=== PATIENT | male | born 1965 | race Caucasian/White ===

== ENCOUNTER 2020-07-29 09:51 | Inpatient (IN) | payer MEDICAID, SELFPAY ==
[2020-07-29] VITALS (11 sets, daily range): BP systolic 96–125; BP diastolic 57–90; PULSE 100–125; RESP 18–24; TEMP 36.4–37; O2SAT 61–118; BMI 24.9
--- NOTE | 2020-07-29 09:54 | XR_ITS ---
WS: [id number] Exam: XR chest 1V portable [id number] Date/Time of Exam: 07/29/2020 9:54 AM Reason For Exam: dyspnea/cough Comparison 02/10/2019. The lungs are clear and fully expanded. Unremarkable cardiomediastinal structures and bony elements. No pleural effusions. Monitoring leads superimpose the chest. Old distal right clavicle fracture. XR/XR chest 1V portable [id number] IMPRESSION: 1. No acute cardiopulmonary finding. No change.
--- NOTE | 2020-07-29 09:55 | ECG_ITS ---
[facility] Test Date: 2020-07-29 Pat Name: Johan Chand Department: Room: Gender: Male Alarm Signal Operator: : 1965 Requested By: Luke Khan Order Number: [id number] Reading MD: CRISS SANDS Measurements Intervals [place] Rate: 118 P: 73 AR: 151 QRS: 72 QRSD: 81 T: 78 QT: 304 QTc: 427 Interpretive Statements SINUS TACHYCARDIA ABNORMAL RHYTHM ECG Compared to ECG 02/10/2019 08:33:28 No significant changes Electronically Signed On 07-29-2020 18:35:19 FINISHING ROOM OPERATOR by CRISS SANDS [id number]
[2020-07-29 10:20] LABS: Hematocrit 28.9 % (42.0-52.0); Mean Corpuscular HGB Conc 34.6 g/dL (30.0-36.0); Mean Corpuscular Hemoglobin 29.9 pg (28.0-34.0); Mean Corpuscular Volume 86.5 fL (80-94); Mean Platelet Volume 8.4 fL (7.4-10.4); Platelet Count 826 10^3/cmm (130-400); Red Blood Count 3.34 10^6/uL (4.1-5.3); Red Cell Distribution Width 15.3 % (12.1-15.1); White Blood Count 20.6 10^3/uL (4.0-10.0)
[2020-07-29 10:40] LABS: Troponin(5th) Baseline 7 ng/L (0-15)
--- NOTE | 2020-07-29 10:41 | USCV_ITS ---
Johan Chand Age: 55 Gender: M : 1965 Exam Date: 07/29/2020 11:01 Ordering Phys: Luke Julio DO Technologist: Gi Perez [place] [facility] [place]: LOWER LEGS ARE SWOLLEN AND SHEDDING HISTORY: Swollen and weeping lower legs PROCEDURES: The venous duplex Doppler examination of both lower extremities was performed in the standard fashion. The following venous structures were evaluated: common femoral vein, profunda vein, proximal portion of the greater saphenous vein, superficial femoral vein, and the popliteal vein. In addition, the posterior tibial and peroneal trunk were evaluated. Serial compression, augmentation maneuvers, and spectral Doppler flow evaluation were performed. FINDINGS: DVT seen in 1 of the Rt ATVs. The Rt ATVs run into Pop . There are are also 2 vessels that won't compress in the fossa. There is no DVT seen in any vessel studied in the Lt Leg. CONCLUSIONS DVT right ATV extending to the popliteal trifurcation. No DVT in the left lower extremity. Hardy Brambila MD (Electronically Signed) Final Date: 29 July 2020 13:52 S
[2020-07-29 10:50] LABS: Alanine Aminotransferase 31 U/L (0-41); Alkaline Phosphatase 85 IU/L (40-130); Aspartate Amino Transferase 34 U/L (0-40); Blood Urea Nitrogen 14 mg/dL (6-20); Calcium 8.2 mg/dL (8.5-10.5); Carbon Dioxide 20 mmol/L (22-29); Chloride 88 mmol/L (98-107); Globulin 5.3 g/dL (1.3-4.6); Glomerular Filtration Rate 116.2 mL/min (90-130); Glucose 89 mg/dL (65-115); NT Pro B Type Natriuretic Pept 139 pg/mL (0-125); Osmolality Calculated 256 mOsm/kg (285-295); Slide Review Slide Review Perform; Sodium 123 mmol/L (136-145); Total Bilirubin 0.2 mg/dL (0.15-1.2); Total Protein 8.3 g/dL (6.6-8.7)
[2020-07-29 10:53] LABS: Absolute Segmented Neutrophil 15.7 10/cmm (1.6-7.1); Band Neutrophils Absolute 1.9 10^3/cmm (0.0-1.2); Eosinophils 0 %; Lymphocytes 5 %; Monocytes Absolute 0.8 10^3/cmm (0.1-0.6); Segmented Neutrophils 76 %; Total Cells Counted 100 (0-100)
[2020-07-29 10:55] LABS: Absolute Neutrophil 17.5 10^3/cmm (1.4-6.5); Anisocytosis Trace; Giant Platelets 1+; Platelet Estimate Increased (Normal); Poikilocytosis Trace
[2020-07-29 10:59] LABS: Creatine Phosphokinase 440 U/L (39-308)
--- NOTE | 2020-07-29 10:59 | ED_ITS ---
HPI - Extremity Problem General: Chief complaint: Extremity Problem,Nontraumatic Stated complaint: WEEPING EDEMA, BLE, POSSIBLE INFECTION Time Seen by Provider: 07/29/20 09:54 History of Present Illness: HPI Narrative: 55-year-old male presents emergency room with swelling indurated edematous lower extremities from the knees down there is diffuse purulent drainage from the knee he said skin breakdown. A little difficult to get history from him he smokes regularly 80s states that about 1 month ago he was seen at [facility] and was given a topical and oral antibiotic but he is no longer taking it although her MR time confirming that with the airframe technical officer. He denies chest pain or shortness of breath. Subjectively he has had some fever. MD Complaint: extremity pain and extremity swelling Onset (ago): week(s) Pain Consistency: constant Location: left, right and lower extremity Quality: dull and constant Radiation: none Relieving factors: immobilization Exacerbating factors: range of motion and palpation Associated symptoms: Reports fever(s) and myalgias; Deny arthralgias, chest pain, rash or short of breath Review of Systems Const: Reports: fever(s) ENMT: Denies: throat pain, ear or mastoid pain, nasal discharge or nasal congestion Card: Denies: chest pain Resp: Denies: dyspnea, productive cough or non-productive cough GI: Denies: abdominal pain, nausea, vomiting, hematemesis, coffee ground emesis, diarrhea, constipation, bloating, hematochezia or melena : Denies: flank pain, dysuria, urinary frequency or urinary urgency Skin/Breast: Denies: rash PFSH ED PFSH: Medical History (Updated 07/29/20 @ 13:46 by Luke Julio DO) Alcoholism Cardiomyopathy COPD (chronic obstructive pulmonary disease) Tobacco dependency Surgical History (Updated 07/29/20 @ 13:04 by Prakash Chaves MD) History of hip surgery Family History (Updated 07/29/20 @ 13:04 by Prakash Chaves MD) Other CAD (coronary artery disease) Social History (Updated 07/29/20 @ 13:04 by Prakahs Chaves MD) Smoking and tobacco status: current every day smoker Alcohol intake: former Substance/Drug Use: never Current gender identity: Male Physical Exam Const: COMMON NORMALS: no acute distress GENERAL APPEARANCE: cooperative and comfortable HENMT: COMMON NORMALS: normocephalic, atraumatic and hearing grossly normal bilaterally HEAD & SCALP: normocephalic and atraumatic Neck/C-Spine: COMMON NORMALS: no JVD Resp: COMMON NORMALS: normal respiratory effort, No retractions, No use of accessory muscles and clear to auscultation bilaterally AUSCULTATION: clear to auscultation bilaterally Cardio: COMMON NORMALS: no JVD, regular rate, regular rhythm and No murmurs present (Cardio) RATE: regular rate RHYTHM: regular rhythm GI: COMMON NORMALS: Soft to palpation and No hepatosplenomegaly present AUS CULTATION: Yes normoactive bowel sounds PALPATION: Yes Soft to palpation, No Tenderness to palpation present (GI), No Guarding due to palpation present (GI) and Yes No hepatosplenomegaly present Extremity: NARRATIVE EXTREMITY EXAM: Circumferential significant skin breakdown induration and purulent drainage from the lower legs bilaterally extremely foul-smelling. Course Vital Signs: Vital signs: Vital Signs Temperature 97.6 F 07/29/20 13:09 Pulse Rate 120 H 07/29/20 13:12 Respiratory Rate 20 H 07/29/20 13:12 Blood Pressure 109/69 07/29/20 13:12 Pulse Oximetry 99 07/29/20 13:12 MDM - Extremity (Nontraumatic) MDM Narrative: Medical decision making narrative: Leukocytosis. Hyponatremia. We will go and admit the patient for IV antibiotics. Venous duplex did show a small clot Lovenox given discussed Dr. Chaves orders written. Lab Data: Labs: Lab Results 07/29/20 07/29/20 07/29/20 Range/Units 09:30 09:30 09:30 WBC 20.6 H (4.0-10.0) 10^3/ uL RBC 3.34 L (4.1-5.3) 10^6/u L Hgb 10.0 L (11.7-16.6) g/dL Hct 28.9 L (42.0-52.0) % MCV 86.5 (80-94) fL MCH 29.9 (28.0-34.0) pg MCHC 34.6 (30.0-36.0) g/dL RDW 15.3 H (12.1-15.1) % Plt Count 826 H (130-400) 10^3/c mm MPV 8.4 (7.4-10.4) fL Lymph % (Auto) Not Reportable [place] % (Auto) Not Reportable Lymph # (Auto) Not Reportable [place] # (Auto) Not Reportable Total Counted 100 (0-100) Atypical Lymphs % 0.0 (0-5) % Absolute Neutrophi ls 17.5 H (1.4-6.5) 10^3/c mm Segmented Neutroph ils 76 % Abs Segm Neuts (Ma n) 15.7 H (1.6-7.1) 10/cmm Band Neutrophils 9.0 % Abs Band Neuts (Ma n) 1.9 H (0.0-1.2) 10^3/c mm Lymphocytes (Manua l) 5 % Monocytes (Manual) 4.0 % Absolute Monocytes 0.8 H (0.1-0.6) 10^3/c mm Eosinophils (Manua l) 0 % Absolute Eosinophi ls 0.0 (0.0-0.7) 10^3/c mm Basophils (Manual) 0.0 % Absolute Basophils 0.0 (0.0-0.2) 10^3/c mm Metamyelocytes 5.0 % Myelocytes 1.0 % Platelet Estimate Increased (Normal) Giant Platelets 1+ H Poikilocytosis Trace Anisocytosis Trace Sodium 123 L (136-145) mmol/L Potassium 5.0 (3.5-5.1) mmol/L Chloride 88 L (98-107) mmol/L Carbon Dioxide 20 L (22-29) mmol/L Anion Gap 20.0 H (5-19) BUN 14 (6-20) mg/dL Creatinine 0.7 (0.7-1.2) mg/dL GFR Calculation 116.2 (90-130) mL/min Glucose 89 (65-115) mg/dL Calculated Osmolal ity 256 L (285-295) mOsm/k g Lactic Acid (0.5-2.2) mmol/L Calcium 8.2 L (8.5-10.5) mg/dL Magnesium 2.0 (1.7-2.3) mg/dL Total Bilirubin 0.2 (0.15-1.2) mg/dL AST 34 (0-40) U/L ALT 31 (0-41) U/L Alkaline Phosphata se 85 (40-130) IU/L Creatine Kinase 440 H* (39-308) U/L Troponin T Baselin e 7 (0-15) ng/L NT-Pro-B Natriuret Pep 139 H (0-125) pg/mL Total Protein 8.3 (6.6-8.7) g/dL Albumin 3.0 L (3.5-5.2) g/dL Globulin 5.3 H (1.3-4.6) g/dL 07/29/20 Range/Units 10:52 WBC (4.0-10.0) 10^3/ uL RBC (4.1-5.3) 10^6/u L Hgb (11.7-16.6) g/dL Hct (42.0-52.0) % MCV (80-94) fL MCH (28.0-34.0) pg MCHC (30.0-36.0) g/dL RDW (12.1-15.1) % Plt Count (130-400) 10^3/c mm MPV (7.4-10.4) fL Lymph % (Auto) [place] % (Auto) Lymph # (Auto) [place] # (Auto) Total Counted (0-100) Atypical Lymphs % (0-5) % Absolute Neutrophi ls (1.4-6.5) 10^3/c mm Segmented Neutroph ils % Abs Segm Neuts (Ma n) (1.6-7.1) 10/cmm Band Neutrophils % Abs Band Neuts (Ma n) (0.0-1.2) 10^3/c mm Lymphocytes (Manua l) % Monocytes (Manual) % Absolute Monocytes (0.1-0.6) 10^3/c mm Eosinophils (Manua l) % Absolute Eosinophi ls (0.0-0.7) 10^3/c mm Basophils (Manual) % Absolute Basophils (0.0-0.2) 10^3/c mm Metamyelocytes % Myelocytes % Platelet Estimate (Normal) Giant Platelets Poikilocytosis Anisocytosis Sodium (136-145) mmol/L Potassium (3.5-5.1) mmol/L Chloride (98-107) mmol/L Carbon Dioxide (22-29) mmol/L Anion Gap (5-19) BUN (6-20) mg/dL Creatinine (0.7-1.2) mg/dL GFR Calculation (90-130) mL/min Glucose (65-115) mg/dL Calculated Osmolal ity (285-295) mOsm/k g Lactic Acid 0.9 (0.5-2.2) mmol/L Calcium (8.5-10.5) mg/dL Magnesium (1.7-2.3) mg/dL Total Bilirubin (0.15-1.2) mg/dL AST (0-40) U/L ALT (0-41) U/L Alkaline Phosphata se (40-130) IU/L Creatine Kinase (39-308) U/L Troponin T Baselin e (0-15) ng/L NT-Pro-B Natriuret Pep (0-125) pg/mL Total Protein (6.6-8.7) g/dL Albumin (3.5-5.2) g/dL Globulin (1.3-4.6) g/dL Discharge Plan Discharge Patient Disposition: Admitted As Inpatient Admit Provider: Prakash Chaves Clinical Impression: Deep vein thrombosis of lower extremity, Rhabdomyolysis, Cardiomyopathy, COPD (chronic obstructive pulmonary disease), Cellulitis, Alcoholism Condition: Stable Coding Level of Care Code ED Maintenance Machinist for Chg Fwd Exam Detailed
[2020-07-29 11:30] LABS: Lactic Sepsis W/Reflex 0.9 mmol/L (0.5-2.2)
[2020-07-29] MEDS: vancomycin 1,000 MG in sodium chloride 0.9% 250 ML 250 MG IV (11:31)
--- NOTE | 2020-07-29 11:55 | ECG_ITS ---
[facility] Test Date: 2020-07-29 Pat Name: Johan Chand Department: Room: Gender: Male Manager Of Organizational Development: : 1965 Requested By: Luke Khan Order Number: [id number] Reading MD: CRISS SANDS Measurements Intervals [place] Rate: 121 P: 71 OR: 140 QRS: 71 QRSD: 90 T: 75 QT: 311 QTc: 442 Interpretive Statements SINUS TACHYCARDIA ABNORMAL RHYTHM ECG Compared to ECG 07/29/2020 10:10:17 No significant changes Electronically Signed On 07-29-2020 18:37:51 DAYCARE DIRECTOR by CRISS SANDS [id number]
[2020-07-29] MEDS: morphine 4 mg/mL SDV 1 mL 2 MG IVP ×2 (12:19→14:57)
[2020-07-29] MEDS: ondansetron 2 mg/ML SDV 2 mL 4 MG IVP (12:21)
[2020-07-29 12:35] LABS: Add Urine Microscopic? NO
[2020-07-29 12:38] LABS: Bilirubin Urine Neg (Negative); Blood Urine Neg (Negative); Glucose Urine UA Norm (Normal); Ketones Urine 1+ (Negative); Leukocyte Esterase Urine Negative (Negative); Nitrate Urine Negative (Negative); Protein Urine Neg (Negative); Specific Gravity, Urine 1.025 (1.005-1.030); Urine Appearance Clear (CLEAR); Urine Color Yellow (Yellow); Urobilinogen Urine Norm (Negative); pH Urine 5 (5-7)
[2020-07-29 13:01] LABS: Troponin 5 2HR 6.69 ng/L (0-15)
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
[2020-07-29 13:10] LABS: Troponin 5 2HR Delta -0.31 ABS# (0-10)
--- NOTE | 2020-07-29 13:12 | P.CONIM_ITS ---
Providers/Reason For Consult Consulting Physican/Specialty*: José Luis Ayers MD Reason for Consult*: Bilateral lower extremity cellulitis Attending Physician: Prakash Chaves MD History of Present Illness History of Present Illness Chief complaint my leg hurts HPI Johan Chand is a 55 year old male patient presents to the emergency department with worsening pain of his lower extremities and it seems that he has been having this complaint for quite some time. Patient does not give much of a detailed history, he was further evaluated at the emergency department including venous duplex that showed: PROCEDURES: The venous duplex Doppler examination of both lower extremities was performed in the standard fashion. The following venous structures were evaluated: common femoral vein, profunda vein, proximal portion of the greater saphenous vein, superficial femoral vein, and the popliteal vein. In addition, the posterior tibial and peroneal trunk were evaluated. Serial compression, augmentation maneuvers, and spectral Doppler flow evaluation were performed. FINDINGS: DVT seen in 1 of the Rt ATVs. The Rt ATVs run into Pop . There are are also 2 vessels that won't compress in the fossa. There is no DVT seen in any vessel studied in the Lt Leg. CONCLUSIONS DVT right ATV extending to the popliteal trifurcation. No DVT in the left lower extremity. General surgery was consulted for further evaluation potential intervention Review of Systems General: Reports: 10 or more systems reviewed and unremarkable except in HPI and below Meds/Allergies Home Medications and Allergies Home Medications Medication Instructions Recorded Confirmed Last Taken Type No Known Home Medications 06/13/20 07/29/20 Unknown History Allergies Allergy/AdvReac Type Severity Reaction Status Date / Time No Known Allergies Allergy Verified 07/29/20 15:30 PFSH Acute PFSH: Medical History Alcoholism Cardiomyopathy COPD (chronic obstructive pulmonary disease) Tobacco dependency Surgical History History of hip surgery Family History Other CAD (coronary artery disease) Social History Smoking and tobacco status: current every day smoker Alcohol intake: former Substance/Drug Use: never Current gender identity: Male Vitals/I&O/Wt Last Vital Signs Temp 97.7 F 07/29/20 09:54 Pulse 125 H 07/29/20 11:53 Resp 20 H 07/29/20 12:19 BP 102/57 07/29/20 11:53 Pulse Ox 100 07/29/20 11:53 07/28/20 07/29/20 07/29/20 22:59 06:59 14:59 Intake Total 250 / 250 Balance 250 / 250 Weight last 48 hrs Weight 164 lb Physical Exam Narrative: EXAM NARRATIVE: Patient is conscious alert, anxious BMI 25 Head and neck examination PERRLA no masses no cervical lymphadenopathy no jaundice Cardiac examination audible S1-S2 no murmurs no gallops no arrhythmias Chest is clear bilateral,abscence of Rhonchi or wheezes,no surgical emphysema Abdomen nontender nondistended soft no organomegaly guarding or rigidity/no signs of peritonitis Chronic adherent scales of bilateral lower extremities with induration without evidence of abscess formation clinically appreciated yet weeping discharge is appreciated, suboptimal hygiene of bilateral lower extremities with leathery appearing skin.Mild cellulitic changes. Data Micro: Micro: Microbiology 07/29/20 10:52 Blood Culture - Pr eliminary Blood SPECIMEN COLLEC REGINO 07/29/20 10:52 Blood Culture - Pr eliminary Blood SPECIMEN [facility] A&P Assessment and plan (1) Cellulitis: After limited history taking physical examination and reviewing the chart and images of the venous duplex and arterial blood flow which was done bedside in my presence and appears that the patient has reasonable and appropriate blood flow to both lower extremities No acute surgical intervention at this point patient will require repeated bathing with warm water and Dial soap Therapeutic DVT management per hospitalist service Bedside cleansing was done by me using 4 x 4 and saline, to peel off the adherent scab as much as the patient tolerated. Broad-spectrum IV antibiotic Repeat labs in the morning We will continue to follow Thank you for consulting general surgery to participate taking care Status: Acute Consult Attestations Medical Necessity Statement: Ongoing hospitalization for medical and surgical care Time Spent in Patient Care: (>than 50% of time spent in counselling and/or direct pt care on unit) . Coding Level of Care Code Acute Application Development Director for Christopher Dang Diagnoses Cellulitis L03.90
--- NOTE | 2020-07-29 13:14 | USCV_ITS ---
Johan Chand Age: 55 Gender: M : 1965 Exam Date: 07/29/2020 14:57 Ordering Phys: Prakash Chaves MD Technologist: Kanu Irwin [place] [facility] [place]: PUL HYPERTENSION BP: 145 / 75 HR: 124 Rhythm: Sinus Technical Quality: Suboptimal MEASUREMENTS (Male / Female) Normal Values 2D ECHO LV Diastolic Diameter PLAX 3.1 cm 4.2 - 5.9 / 3.9 - 5.3 cm LV Systolic Diameter PLAX 2.0 cm IVS Diastolic Thickness 0.8 cm 0.6 - 1.0 / 0.6 - 0.9 cm IVS Systolic Thickness 1.1 cm LVPW Diastolic Thickness 1.0 cm 0.6 - 1.0 / 0.6 - 0.9 cm LVPW Systolic Thickness 1.1 cm LVOT Diameter 2.1 cm LV Ejection Fraction 2D Teich 66.8 % LV Ejection Fraction MOD 2C 75.9 % LV Ejection Fraction 2C AL 76.3 % LA Diameter 3.4 cm LA Width 3.7 cm LA Height 3.7 cm RA Width 3.4 cm RA Height 3.4 cm Aorta at Sinotubular Diameter 2.8 cm M-MODE LV Diastolic Diameter MM 4.8 cm 4.2 - 5.9 / 3.9 - 5.3 cm LV Systolic Diameter MM 3.3 cm LV Ejection Fraction MM Teich 58.5 % IVS Diastolic Thickness MM 0.9 cm 0.6 - 1.0 / 0.6 - 0.9 cm IVS Systolic Thickness MM 1.4 cm LVPW Diastolic Thickness MM 1.1 cm 0.6 - 1.0 / 0.6 - 0.9 cm LVPW Systolic Thickness MM 1.8 cm RV Diastolic Diameter MM 1.4 cm Aortic Annulus Diameter 4.2 cm LA Ao Ratio MM 0.9 MV E Point Septal Separation 1.5 cm DOPPLER AV Peak Velocity 149.8 cm/s LVOT Peak Velocity 114.5 cm/s AV Area Cont Eq vti 2.4 cm squared AV Area Cont Eq pk 2.6 cm squared MV Area PHT 5.0 cm squared Mitral E to A Ratio 0.7 MV E' Velocity 41.7 cm/s Mitral E to MV E' Ratio 6.6 Mitral E to LV E' Lateral Ratio 10.0 Mitral E to LV E' Septal Ratio 4.9 TR Peak Velocity 224.8 cm/s TR Peak Gradient 20.2 mmHg TV Peak E Velocity 91.6 cm/s Right Atrial Pressure 3.0 mmHg Pulmonary Artery Systolic Pressu 23.2 mmHg PV Peak Velocity 115.1 cm/s RV Acceleration Time 0.1 s FINDINGS Left Ventricle Poor visualization of cardiac structures. Grossly LV systolic function is at least moderately reduced. Regional wall motion abnormalities cannot be assessed because of limited visualization. Diastolic function cannot be assessed because of tachycardia. Right Ventricle Not well-visualized. Grossly normal size. Cannot assess function. Right Atrium Not well-visualized Left Atrium Not well-visualized Mitral Valve Grossly normal Aortic Valve Not well-visualized. No significant aortic stenosis or regurgitation is seen. Tricuspid Valve Not well-visualized. Insufficient TR jet to calculate RVSP. Pulmonic Valve Not well-visualized. Pericardium Normal pericardium without effusion. Aorta Not well-visualized. CONCLUSIONS This is technically limited study because of poor ultrasonic windows. Limited visualization of cardiac structures. Grossly LV systolic function is at least moderately reduced. Regional wall motion abnormalities cannot be assessed because of limited visualization. For accurate assessment of LV systolic function, echo with contrast is recommended. Diastolic function cannot be assessed because of tachycardia. Valvular structures are not well-visualized. No gross abnormalities. Comparison with prior study from 2011 not possible because of very limited visualization. Michael Badillo MD (Electronically Signed) Final Date: 29 July 2020 18:16 S
[2020-07-29] MEDS: thiamine 100 mg Tablet PO (13:43)
[2020-07-29] MEDS: sodium chloride 0.9% 1,000 ML 50 ML IV (13:43)
[2020-07-29 14:13] LABS: Folate Level 8.9 ng/mL (4.5-32.2)
[2020-07-29 14:17] LABS: Ferritin 242 ng/mL (30-400); Iron 19 ug/dL (59-158); Percent Saturation 9.8 % (20-50); Thyroid Stimulating Hormone 2.25 uIU/mL (0.27-4.20); Total Iron Binding Capacity 192 mcg/dl; Unsaturated Iron Binding 173 ug/dL (112-347); Vitamin B12 609 pg/mL (232-1245)
[2020-07-29] MEDS: acetaminophen 325 mg Tablet 650 MG PO (14:57)
[2020-07-29] MEDS: piperacillin-tazobactam 3.375 GM in sodium chloride 0.9% (plus) 50 ML IV ×2 (14:58→22:56)
[2020-07-29] MEDS: enoxaparin 80 mg/0.8 mL Syringe SUBCUT (14:59)
--- NOTE | 2020-07-29 15:55 | ECG_ITS ---
[facility] Test Date: 2020-07-29 Pat Name: Johan Chand Department: Room: 271 Gender: Male School Health Assistant: : 1965 Requested By: Luke Khan Order Number: [id number] Reading MD: CRISS SANDS Measurements Intervals [place] Rate: 120 P: 67 SC: 139 QRS: 62 QRSD: 85 T: 69 QT: 306 QTc: 434 Interpretive Statements SINUS TACHYCARDIA ABNORMAL RHYTHM ECG Compared to ECG 07/29/2020 11:36:37 No significant changes Electronically Signed On 07-29-2020 18:37:40 TOBACCO CHECKOUT CLERK by CRISS SANDS [id number]
[2020-07-29 16:05] LABS: Cortisol Random 29.05 ug/dL (2.47-19.5)
[2020-07-29 16:16] LABS: Anion Gap 15.3 (5-19); Blood Urea Nitrogen 14 mg/dL (6-20); Calcium 7.6 mg/dL (8.5-10.5); Carbon Dioxide 20 mmol/L (22-29); Chloride 89 mmol/L (98-107); Glomerular Filtration Rate 138.9 mL/min (90-130); Glucose 83 mg/dL (65-115); Osmolality Calculated 250 mOsm/kg (285-295); Potassium 4.3 mmol/L (3.5-5.1); Sodium 120 mmol/L (136-145)
[2020-07-29 16:21] LABS: Troponin 5 6HR 8.48 ng/L (0-15); Troponin 5 6HR Delta 1.48 ng/L (0-12)
[2020-07-29] MEDS: LORazepam 2 mg/mL INJ 1 mL 0.5 MG IVP (17:21)
[2020-07-29] MEDS: HYDROcodone-acetaminophen 5-325 mg Tablet 1 TAB PO (17:21)
[2020-07-29] MEDS: vancomycin 1,250 MG/250 ML PIGGYBACK 250 MG IV (17:58)
[2020-07-29 19:12] LABS: Urine Creatinine 120 mg/dL (39-259); Urine Random Chloride 29 mmol/L
[2020-07-29 19:13] LABS: Urine Random Sodium 10 mmol/L
[2020-07-29] MEDS: FUROsemide 10 mg/mL SDV 2mL 20 MG IVP (20:54)
[2020-07-29 23:35] LABS: Blood Urea Nitrogen 14 mg/dL (6-20); Calcium 7.5 mg/dL (8.5-10.5); Carbon Dioxide 19 mmol/L (22-29); Chloride 92 mmol/L (98-107); Glomerular Filtration Rate 116.2 mL/min (90-130); Glucose 78 mg/dL (65-115); Osmolality Calculated 255 mOsm/kg (285-295); Sodium 123 mmol/L (136-145)
[2020-07-29 23:37] LABS: Anion Gap 16.2 (5-19); Potassium 4.2 mmol/L (3.5-5.1)
[2020-07-30] VITALS (15 sets, daily range): BP systolic 91–112; BP diastolic 57–68; PULSE 87–125; RESP 14–22; TEMP 36.7–37.5; O2SAT 89–97
[2020-07-30 00:06] LABS: Potassium, Radom Urine 110 mmol/L
[2020-07-30] MEDS: HYDROcodone-acetaminophen 5-325 mg Tablet 1 TAB PO ×3 (01:32→23:29)
[2020-07-30] MEDS: vancomycin 1,250 MG/250 ML PIGGYBACK 250 MG IV ×2 (02:43→12:05)
[2020-07-30] MEDS: LORazepam 2 mg/mL INJ 1 mL 0.5 MG IVP ×2 (03:04→23:29)
--- NOTE | 2020-07-30 04:10 | PC.NURSE ---
Patient refused Lovenox. I educated patient and told patient what the shot was for and where I would be giving it and he told me no.
--- NOTE | 2020-07-30 04:37 | PC.NURSE ---
Patient oxygen saturation 85%. This nurse administered 2liter oxygen via NC. Patient saturations at 91%
[2020-07-30] MEDS: piperacillin-tazobactam 3.375 GM in sodium chloride 0.9% (plus) 50 ML IV ×2 (05:54→15:21)
--- NOTE | 2020-07-30 05:58 | P.PN_ITS ---
Subjective Subjective: Interval history: Patient continues to show agitation and uncooperative.Continue to weep from his lower extremities Vitals/I&O/Wt Last Vital Signs Temp 98.9 F 07/30/20 04:00 Pulse 110 H 07/30/20 04:00 Resp 14 07/30/20 04:00 BP 97/65 07/30/20 04:00 Pulse Ox 91 07/30/20 04:00 07/29/20 07/29/20 07/30/20 14:59 22:59 06:59 Intake Total 250 / 250 300 / 550 50 / 600 Balance 250 / 250 300 / 550 50 / 600 Weight last 48 hrs Weight 164 lb Physical Exam Narrative: EXAM NARRATIVE: Patient is conscious alert, anxious BMI 25 Head and neck examination PERRLA no masses no cervical lymphadenopathy no jaundice Chronic adherent scales of bilateral lower extremities with induration, suboptimal hygiene of bilateral lower extremities with leathery appearing skin. Mild cellulitic changes and weeping from both extremities. Data : 07/29/20 09:30 07/29/20 23:05 Micro: Microbiology 07/29/20 10:52 Blood Culture - Preliminary Blood SPECIMEN COLLECTED 07/29/20 10:52 Blood Culture - Preliminary Blood SPECIMEN COLLECTED A&P Assessment and plan (1) Cellulitis: Apply Soaked Kerlix in Dakin's solution quarter percent and wrap bilateral lower extremities twice a day Recommend dermatology consultation We will continue to follow Follow on a.m. labs Thank you for consulting general surgery to participate taking care Status: Acute Attestations Medical Necessity Statement*: Ongoing hospitalization for medical and surgical care Time Spent in Patient Care: (>than 50% of time spent in counselling and/or direct pt care on unit) . Coding Level of Care Code Acute Associate Automation Engineer for Christopher Dang Diagnoses Cellulitis L03.90
[2020-07-30 06:43] LABS: Basophils # 0.1 10^3/uL (0.0-0.1); Basophils % 0.3 %; Eosinophils # 0.1 10^3/uL (0.0-0.8); Eosinophils % 0.3 %; Hematocrit 24.2 % (42.0-52.0); Hemoglobin 8.4 g/dL (11.7-16.6); Lymphocytes # 1.5 10^3/uL (0.8-4.8); Lymphocytes % 5.7 %; Mean Corpuscular HGB Conc 34.7 g/dL (30.0-36.0); Mean Corpuscular Volume 89.3 fL (80-94); Mean Platelet Volume 8.6 fL (7.4-10.4); Monocytes # 3.4 10^3/uL (0.2-0.9); Monocytes % 12.7 %; Neutrophils # 20.67 10^3/uL (1.8-7.7); Neutrophils % 77.7 %; Nucleated Red Blood Cells % 0 %; Platelet Count 716 10^3/cmm (130-400); Red Blood Count 2.71 10^6/uL (4.1-5.3); Red Cell Distribution Width 15.8 % (12.1-15.1); White Blood Count 26.6 10^3/uL (4.0-10.0)
[2020-07-30 07:13] LABS: Alanine Aminotransferase 22 U/L (0-41); Albumin Level 2.1 g/dL (3.5-5.2); Alkaline Phosphatase 104 IU/L (40-130); Anion Gap 18.8 (5-19); Aspartate Amino Transferase 26 U/L (0-40); Blood Urea Nitrogen 15 mg/dL (6-20); Calcium 7.7 mg/dL (8.5-10.5); Carbon Dioxide 19 mmol/L (22-29); Chloride 93 mmol/L (98-107); Globulin 3.4 g/dL (1.3-4.6); Glomerular Filtration Rate 116.2 mL/min (90-130); Glucose 70 mg/dL (65-115); Osmolality Calculated 263 mOsm/kg (285-295); Potassium 3.8 mmol/L (3.5-5.1); Sodium 127 mmol/L (136-145); Total Bilirubin 0.2 mg/dL (0.15-1.2); Total Protein 5.5 g/dL (6.6-8.7)
--- NOTE | 2020-07-30 08:46 | CT_ITS ---
WS: [id number] CT HEAD TECHNIQUE: Noncontrast CT of the head obtained from the skullbase to the vertex. CLINICAL INFORMATION: confusion COMPARISON: CT February 08, 2019 DLP: 1412.[address] scans at [facility] use at least one of these dose optimization techniques: automat ed exposure control; mA and/or kV adjustment per patient size (includes targeted exams where dose is matched to clinical indication); or iterative reconstruction. FINDINGS: No evidence of intracranial hemorrhage or mass effect. Ventricular system and basal cisterns are richard nt. Mild small vessel changes with moderate parenchymal volume loss. Chronic encephalomalacia left in ferior frontal lobe and anterior temporal lobe due to prior trauma or infarct. This is unchanged. Dys trophic calcification.. No extra-axial fluid collections. No evidence of mass or mass effect. Normal waters-white differentiation. Mastoid air cells well aerated. Mild mucosal thickening in the paranasal sinuses. CT/CT head wo con* 95067 IMPRESSION: 1. No evidence of intracranial hemorrhage or mass effect. 2. Mild small vessel changes. Moderate parenchymal volume loss. 3. Chronic encephalomalacia in the left inferior frontal lobe and anterior tem poral lobe unchanged. 4. No acute intracranial findings.
--- NOTE | 2020-07-30 08:50 | P.PN_ITS ---
Subjective Subjective: Interval history: Johan would awaken when I went in the room but he seems confused this morning. He can say yes and no. Nursing alerts me that he refused his Lovenox earlier this morning. I asked him if he has any pain and he will not admit to any currently. Medications: Reviewed: Yes Vitals/I&O/Wt Last Vital Signs Temp 98.7 F 07/30/20 07:50 Pulse 120 H 07/30/20 07:50 Resp 18 07/30/20 07:50 BP 111/68 07/30/20 07:50 Pulse Ox 90 07/30/20 07:50 07/29/20 07/30/20 07/30/20 22:59 06:59 14:59 Intake Total 300 / 550 50 / 600 Balance 300 / 550 50 / 600 Weight last 48 hrs Weight 74.389 kg Physical Exam Narrative: EXAM NARRATIVE: General exam confused Neck is supple no lymphadenopathy or thyromegaly Cardiovascular tachycardic, no murmur Lungs a few faint bilateral expiratory wheezes Abdomen is soft nontender with positive bowel sounds. No obvious organomegaly Extremities show 1+ edema. Certainly less than yesterday. Some of the skin peeling. Erythema somewhat improved. Skin with some pustulant's, particularly to his left lower extremity. Cracked, peeling skin with cellulitis is noted bilaterally. Some scattered dry erythematous patches are noted over the abdomen as well. Neuro: No obvious focal deficits. However, confusion is present this morning. Data : 07/30/20 05:15 07/30/20 05:15 Micro: Microbiology 07/29/20 10:52 Blood Culture - Preliminary Blood 07/29/20 10:52 Blood Culture - Preliminary Blood SPECIMEN COLLECTED A&P Assessment and plan (1) Cellulitis: Significant lower extremity cellulitis with purulence and chronic skin changes. Currently on vancomycin, Zosyn Have blood culture on admission preliminary 07/08 bottles positive gram-positive cocci Lactic acid level normal on admission Appreciate surgery consultation Secondary to chronic skin changes they recommend dermatology consultation. Status: Acute (2) Hyponatremia: Etiology unclear. Cannot rule out underlying liver disease or effects of alcohol. We will also check INR today. X-ray shows no mass Does not appear significantly fluid overloaded on exam Did worsen with saline so fluids were discontinued and dose of Lasix given. Sodium now 127, improved. Check TSH and cortisol levels not significantly abnormal considering situation Status: Acute (3) Anemia: Iron deficient. Fecal Hemoccult pending Hemoglobin slightly less but no evidence of active bleeding Lovenox ordered for DVT but he has refused his second injection. Status: Acute (4) Tobacco dependency: Encourage cessation Status: Acute (5) Rhabdomyolysis: Mild. CK being rechecked this morning Status: Acute (6) Cardiomyopathy: Echocardiogram shows reduced EF. This could also play a role in his hyponatremia. Overall this was a poor study. Status: Acute (7) Alcoholism: Reports he quit several months ago Continue folate, multivitamin, thiamine. Give thiamine IV as I am not sure he will be able to take p.o. well. Continue to monitor for withdrawal. He has not been hypertensive. He has been tachycardic since admission which may be attributed to his infection. He has Ativan ordered as needed but his use has not been significant to this point. I will go ahead and initiate a [facility] protocol Status: Acute (8) COPD (chronic obstructive pulmonary disease): DuoNeb as needed No evidence of acute exacerbation currently Status: Acute Additional A&P Information DVT right lower extremity. Lovenox initiated but he has refused his last dose. Will reinstitute if CT okay and patient okay with resuming Confusion. Check CT head noncontrast. Check ammonia level. Tachycardia. Likely related to acute illness. Monitor closely for any worsening. Telemetry. Thrombocytosis. Likely acute phase reactant secondary to infection Full code Lovenox for DVT prophylaxis. SCDs contraindicated secondary to wounds Attestations Medical Necessity Statement*: Needs continued hospitalization for close follow-up of cellulitis, hyponatremia, DVT right lower extremity for IV antibiotics, electrolyte monitoring, initiation of anticoagulation. Coding Level of Care Code Acute Pyrotechnic Assembler for [facility] Diagnoses Cellulitis L03.90 Hyponatremia E87.1 Anemia D64.9 Tobacco dependency F17.200 Rhabdomyolysis M62.82 Cardiomyopathy I42.9 Alcoholism F10.20 COPD (chronic obstructive pulmonary disease) J44.9
[2020-07-30] MEDS: folic acid 1 mg Tablet PO (09:05)
[2020-07-30] MEDS: multivitamin therapeutic Tablet 1 TAB PO (09:05)
[2020-07-30] MEDS: pantoprazole DR 40 mg Tablet PO (09:05)
[2020-07-30 09:15] LABS: Creatine Phosphokinase 316 U/L (39-308); Magnesium 2.1 mg/dL (1.7-2.3)
--- NOTE | 2020-07-30 09:51 | PC.CHAP ---
Pastoral Care Encounter/Spiritual Assessment Type of Contact [] Declined machine spring former visit [] Patient/Family/Request visit [] Outpatient visit [] Follow-up visit [] Physician referral [] Code/Alert [x] Routine visit [] Staff referral [] Actively dying [x] Patient sleeping [] Family support [] [] Out of room [] Palliative care [] [] Receiving care in room [] Pre-surgical visit [] Trauma [] Long length of stay [] ICU visit [] Other: Relational/Emotional Strength [] Patient feels connected with others/family/visitors/staff [] Distress [] Loneliness/isolation [] Abandonment Spirituality of Patient [] Person of Radha [] Attends [employer]itan of their Radha [] Believes in Prayer [] Reads Bible or Sikhism materials [] There are Spiritual issues to be addressed Folded Cloth Taper Interventions [] Prayer [] Active listening [] Non-anxious presence [] Spiritual/emotional support [] Crisis/trauma care [] Spiritual counseling [] Bereavement support [] Provided bereavement packet [] Provided Bible/devotional materials [] Provided toy/stuffed animal, coloring book to patient or family member [] Provided Communion [] Anointing/[place] [] Salvation [] Completed spiritual assessment [] Other: Impact on Illness or Injury [] Angry [] Fearful [] Anxious [] Often cries [] Exhaustion [] Unable to work [] Unable to attend holiness [] Unable to walk/stand [] Unable to read [] Unable to drive [] Unable to eat/drink [] Unable to sleep [] Unable to be with family [] Patient intubated [] Other: Summary Time spent with patient
[2020-07-30] MEDS: ipratropium-albuterol 3 mL Neb INHALATION ×2 (11:50→15:32)
[2020-07-30 12:03] LABS: Ammonia 25 umol/L (16-60)
[2020-07-30] MEDS: sodium hypochlorite 0.25% Btl 473 mL 1 APPLIC TOPICAL (12:04)
[2020-07-30] MEDS: morphine 4 mg/mL SDV 1 mL 2 MG IVP (12:28)
[2020-07-30] MEDS: enoxaparin 100 mg/mL Syringe 70 MG SUBCUT (15:26)
[2020-07-30 17:59] LABS: Anion Gap 13.7 (5-19); Blood Urea Nitrogen 16 mg/dL (6-20); Carbon Dioxide 22 mmol/L (22-29); Chloride 93 mmol/L (98-107); Glomerular Filtration Rate 99.6 mL/min (90-130); Glucose 123 mg/dL (65-115); Osmolality Calculated 263 mOsm/kg (285-295); Potassium 3.7 mmol/L (3.5-5.1); Sodium 125 mmol/L (136-145)
[2020-07-30 18:16] LABS: Vancomycin Trough 22.1 ug/mL (10-15)
[2020-07-30] MEDS: vancomycin 1,250 MG/250 ML PIGGYBACK 200 MG IV (22:55)
[2020-07-31] VITALS (12 sets, daily range): BP systolic 95–146; BP diastolic 58–93; PULSE 104–117; RESP 16–24; TEMP 36.6–36.9; O2SAT 87–96
[2020-07-31] MEDS: piperacillin-tazobactam 3.375 GM in sodium chloride 0.9% (plus) 50 ML IV ×3 (00:40→16:50)
[2020-07-31] MEDS: morphine 4 mg/mL SDV 1 mL 2 MG IVP ×2 (03:45→10:55)
--- NOTE | 2020-07-31 03:46 | PC.NURSE ---
PT IS YELLING AND NURSE IS IN ROOM ASSESSING PT.
[2020-07-31 05:47] LABS: Basophils # 0.1 10^3/uL (0.0-0.1); Basophils % 0.8 %; Eosinophils # 0.3 10^3/uL (0.0-0.8); Hematocrit 23.4 % (42.0-52.0); Hemoglobin 8.1 g/dL (11.7-16.6); Lymphocytes # 1.8 10^3/uL (0.8-4.8); Lymphocytes % 14.6 %; Mean Corpuscular HGB Conc 34.6 g/dL (30.0-36.0); Mean Corpuscular Hemoglobin 30.6 pg (28.0-34.0); Mean Corpuscular Volume 88.3 fL (80-94); Mean Platelet Volume 8.5 fL (7.4-10.4); Monocytes # 3.4 10^3/uL (0.2-0.9); Monocytes % 27.3 %; Neutrophils % 45.3 %; Nucleated Red Blood Cells % 0 %; Platelet Count 749 10^3/cmm (130-400); Red Blood Count 2.65 10^6/uL (4.1-5.3); Red Cell Distribution Width 16.3 % (12.1-15.1); White Blood Count 12.6 10^3/uL (4.0-10.0)
[2020-07-31 06:12] LABS: Alanine Aminotransferase 18 U/L (0-41); Albumin Level 2.4 g/dL (3.5-5.2); Alkaline Phosphatase 71 IU/L (40-130); Anion Gap 10.4 (5-19); Aspartate Amino Transferase 24 U/L (0-40); Blood Urea Nitrogen 14 mg/dL (6-20); Calcium 8.1 mg/dL (8.5-10.5); Carbon Dioxide 24 mmol/L (22-29); Chloride 93 mmol/L (98-107); Globulin 3.8 g/dL (1.3-4.6); Glomerular Filtration Rate 138.9 mL/min (90-130); Glucose 112 mg/dL (65-115); Magnesium 1.8 mg/dL (1.7-2.3); Osmolality Calculated 259 mOsm/kg (285-295); Potassium 3.4 mmol/L (3.5-5.1); Sodium 124 mmol/L (136-145); Total Bilirubin 0.2 mg/dL (0.15-1.2); Total Protein 6.2 g/dL (6.6-8.7)
[2020-07-31 06:13] LABS: Slide Review Slide Review Perform
[2020-07-31] MEDS: multivitamin therapeutic Tablet 1 TAB PO (08:05)
[2020-07-31] MEDS: potassium chloride ER 20 mEq Tablet 40 MEQ PO (08:05)
[2020-07-31] MEDS: folic acid 1 mg Tablet PO (08:05)
[2020-07-31] MEDS: pantoprazole DR 40 mg Tablet PO (08:05)
[2020-07-31] MEDS: HYDROcodone-acetaminophen 5-325 mg Tablet 1 TAB PO ×3 (08:09→22:56)
--- NOTE | 2020-07-31 09:17 | PM.PN ---
Subjective Subjective: Interval history: Johan is able to carry on a conversation with me today. He is wanting some coffee, and to eat. Medications: Reviewed: Yes Vitals/I&O/Wt Last Vital Signs Temp 98.4 F 07/31/20 08:00 Pulse 114 H 07/31/20 08:00 Resp 19 H 07/31/20 08:00 BP 146/93 07/31/20 08:00 Pulse Ox 91 07/31/20 08:00 07/30/20 07/31/20 07/31/20 22:59 06:59 14:59 Intake Total 50 / 580 50 / 630 Output Total 500 / 500 Balance 50 / 580 -450 / 130 Weight last 48 hrs Weight 74.389 kg Physical Exam Narrative: EXAM NARRATIVE: General exam confused Neck is supple no lymphadenopathy or thyromegaly Cardiovascular tachycardic, no murmur. Tachycardia has improved. Lungs a few faint bilateral expiratory wheezes Abdomen is soft nontender with positive bowel sounds. No obvious organomegaly Extremities appear to be improving Data : 07/31/20 05:01 07/31/20 05:01 Micro: Microbiology 07/29/20 10:52 Blood Culture - Preliminary Blood NEGATIVE TO DATE 07/30/20 11:20 Blood Culture - Preliminary Blood SPECIMEN COLLECTED 07/30/20 11:15 Blood Culture - Preliminary Blood SPECIMEN COLLECTED 07/29/20 10:52 Blood Culture - Preliminary Blood A&P Assessment and plan (1) Cellulitis: Significant lower extremity cellulitis with purulence and chronic skin changes. This is improving with good wound care. Appreciate surgical consultation Currently on vancomycin, Zosyn Have blood culture on admission preliminary 07/08 bottles positive gram-positive cocci. Awaiting identification and sensitivity. Repeat blood culture negative to date. Lactic acid level normal on admission White blood cell count improving. Status: Acute (2) Hyponatremia: Etiology unclear. Cannot rule out underlying liver disease or effects of alcohol. Chest x-ray shows no mass Does not appear significantly fluid overloaded on exam It is significantly difficult to fluid restrict so we will give Lasix 20 mg IV today Check TSH and cortisol levels not significantly abnormal considering situation Status: Acute (3) Anemia: Iron deficient. Fecal Hemoccult pending Hemoglobin low but no evidence of active bleeding Iron transfusion today Lovenox ordered for DVT. Discussed with him the importance of this. He has refused a dose on occasion. Status: Acute (4) Tobacco dependency: Encourage cessation Status: Acute (5) Rhabdomyolysis: Mild. No reason to recheck CK Status: Acute (6) Cardiomyopathy: Echocardiogram shows reduced EF. This could also play a role in his hyponatremia. Overall this was a poor study. Status: Acute (7) Alcoholism: Reports he quit several months ago. Sister reports he continues to drink. Has had some withdrawal while in the hospital but this appears to be abating. Continue folate, multivitamin, thiamine. Continue to monitor for withdrawal. He has not been hypertensive. He has been tachycardic since admission which may be attributed to his infection. He has Ativan ordered as needed but his use has not been significant to this point. I will go ahead and initiate a [facility] protocol Status: Acute (8) COPD (chronic obstructive pulmonary disease): DuoNeb as needed No evidence of acute exacerbation currently Status: Acute Additional A&P Information Hypokalemia. Supplement. Magnesium level normal. DVT right lower extremity. Continue Lovenox. Encouraged use. Changed to Eliquis by time of discharge. Confusion. CT head okay. Ammonia level normal Tachycardia. Likely related to acute illness. Monitor closely for any worsening. Telemetry. Thrombocytosis. Likely acute phase reactant secondary to infection Full code Lovenox for DVT prophylaxis. 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
[2020-07-31] MEDS: sodium hypochlorite 0.25% Btl 473 mL 1 APPLIC TOPICAL (10:59)
[2020-07-31] MEDS: FUROsemide 10 mg/mL SDV 2mL 20 MG IVP (10:59)
[2020-07-31] MEDS: LORazepam 2 mg/mL INJ 1 mL 0.5 MG IVP (11:25)
[2020-07-31] MEDS: iron sucrose 200 MG in sodium chloride 0.9% (100 ml) 100 ML 220 MG IV (11:28)
[2020-07-31] MEDS: vancomycin 1,250 MG/250 ML PIGGYBACK 200 MG IV ×2 (12:22→22:50)
[2020-07-31] MEDS: enoxaparin 100 mg/mL Syringe 70 MG SUBCUT (13:56)
--- NOTE | 2020-07-31 16:15 | PC.RESP ---
Smoking Cessation and Pulmonary Rehab information sent to patient.
[2020-08-01] VITALS (10 sets, daily range): BP systolic 128–146; BP diastolic 72–90; PULSE 77–117; RESP 16–20; TEMP 36.4–36.7; O2SAT 87–93
[2020-08-01] MEDS: piperacillin-tazobactam 3.375 GM in sodium chloride 0.9% (plus) 50 ML IV ×3 (00:22→16:11)
[2020-08-01 02:38] LABS: Hematocrit 22.7 % (42.0-52.0); Hemoglobin 7.6 g/dL (11.7-16.6); Mean Corpuscular HGB Conc 33.5 g/dL (30.0-36.0); Mean Corpuscular Hemoglobin 30.2 pg (28.0-34.0); Mean Corpuscular Volume 90.1 fL (80-94); Mean Platelet Volume 8.2 fL (7.4-10.4); Platelet Count 702 10^3/cmm (130-400); Red Blood Count 2.52 10^6/uL (4.1-5.3); Red Cell Distribution Width 16.2 % (12.1-15.1); White Blood Count 9.9 10^3/uL (4.0-10.0)
[2020-08-01 03:04] LABS: Alanine Aminotransferase 20 U/L (0-41); Albumin Level 2.2 g/dL (3.5-5.2); Alkaline Phosphatase 78 IU/L (40-130); Anion Gap 9.7 (5-19); Aspartate Amino Transferase 26 U/L (0-40); Blood Urea Nitrogen 9 mg/dL (6-20); Calcium 8.2 mg/dL (8.5-10.5); Carbon Dioxide 25 mmol/L (22-29); Chloride 94 mmol/L (98-107); Globulin 3.4 g/dL (1.3-4.6); Glomerular Filtration Rate 221.7 mL/min (90-130); Glucose 131 mg/dL (65-115); Osmolality Calculated 260 mOsm/kg (285-295); Potassium 3.7 mmol/L (3.5-5.1); Sodium 125 mmol/L (136-145); Total Bilirubin 0.2 mg/dL (0.15-1.2); Total Protein 5.6 g/dL (6.6-8.7)
[2020-08-01] MEDS: enoxaparin 100 mg/mL Syringe 70 MG SUBCUT ×2 (03:30→13:12)
[2020-08-01 04:01] LABS: Absolute Eosinophils 0.3 10^3/cmm (0.0-0.7); Absolute Neutrophil 5.5 10^3/cmm (1.4-6.5); Absolute Segmented Neutrophil 4.5 10/cmm (1.6-7.1); Anisocytosis 1+; Band Neutrophils Absolute 1.1 10^3/cmm (0.0-1.2); Eosinophils 4 %; Lymphocytes 35 %; Monocytes Absolute 0.5 10^3/cmm (0.1-0.6); Platelet Estimate Increased (Normal); Segmented Neutrophils 45 %; Total Cells Counted 100 (0-100)
[2020-08-01 04:02] LABS: Hypochromasia 1+
[2020-08-01] MEDS: LORazepam 2 mg/mL INJ 1 mL 0.5 MG IVP (04:05)
[2020-08-01] MEDS: morphine 4 mg/mL SDV 1 mL 2 MG IVP (04:26)
--- NOTE | 2020-08-01 05:54 | PC.NURSE ---
Dressing change to both BLE. Patient pre-medicated with 2 mg Morphine IVP and 0.5 mg of Ativan IVP, old dressing removed, cleansed with NS and patted dry, wrapped with Kerlix pre-soaked in quarter strength Dakins solution, wrapped in dry Kerlix and secured with paper tape. Dressing dated and initialed, Patient tolerated poorly.
[2020-08-01] MEDS: HYDROcodone-acetaminophen 5-325 mg Tablet 1 TAB PO ×2 (06:53→16:41)
[2020-08-01] MEDS: folic acid 1 mg Tablet PO (09:23)
[2020-08-01] MEDS: multivitamin therapeutic Tablet 1 TAB PO (09:23)
[2020-08-01] MEDS: iron sucrose 200 MG in sodium chloride 0.9% (100 ml) 100 ML 220 MG IV (09:23)
[2020-08-01] MEDS: thiamine 100 mg Tablet PO (09:23)
[2020-08-01] MEDS: FUROsemide 40 mg Tablet PO (09:24)
[2020-08-01] MEDS: pantoprazole DR 40 mg Tablet PO (09:24)
[2020-08-01] MEDS: diphenhydrAMINE 25 mg Capsule PO (10:00)
[2020-08-01] MEDS: metoprolol tartrate 25 mg Tablet PO ×2 (10:00→20:50)
[2020-08-01] MEDS: vancomycin 1,250 MG/250 ML PIGGYBACK 200 MG IV (12:08)
--- NOTE | 2020-08-01 15:09 | P.PN_ITS ---
Subjective Subjective: Interval history: Johan would like some Benadryl for the itching in his legs. Overall thinks he is doing okay. Medications: Reviewed: Yes Vitals/I&O/Wt Last Vital Signs Temp 97.6 F 08/01/20 11:44 Pulse 107 H 08/01/20 14:00 Resp 19 H 08/01/20 11:44 BP 131/90 08/01/20 11:44 Pulse Ox 88 L 08/01/20 11:44 08/01/20 08/01/20 08/01/20 06:59 14:59 22:59 Intake Total 300 / 1490 720 / 720 Output Total 525 / 525 Balance 300 / 590 195 / 195 Physical Exam Narrative: EXAM NARRATIVE: General exam confused Neck is supple no lymphadenopathy or thyromegaly Cardiovascular slight tachycardia, regular without murmur Lungs a few faint bilateral expiratory wheezes Abdomen is soft nontender with positive bowel sounds. No obvious organomegaly Extremities appear to be improving Data : 08/01/20 02:15 08/01/20 02:15 Micro: Microbiology 07/29/20 10:52 Blood Culture - Preliminary Blood Methicillin Resis Staph Aureus 07/30/20 11:20 Blood Culture - Preliminary Blood NEGATIVE TO DATE 07/30/20 11:15 Blood Culture - Preliminary Blood NEGATIVE TO DATE A&P Assessment and plan (1) Cellulitis: Significant lower extremity cellulitis with purulence and chronic skin changes. This is improving with good wound care. Appreciate surgical consultation Currently on vancomycin, Zosyn Have blood culture on admission preliminary 1/4 bottles positive gram-positive cocci. Identification and sensitivity indicates MRSA. This is likely contaminant as only 1 out of 4 bottles and repeat culture negative. Lactic acid level normal on admission White blood cell count improving. Status: Acute (2) Hyponatremia: Etiology unclear. Cannot rule out underlying liver disease or effects of alcohol. Chest x-ray shows no mass Does not appear significantly fluid overloaded on exam Check TSH and cortisol levels not significantly abnormal considering situation Initiate Lasix 40 mg daily Status: Acute (3) Anemia: Hemoglobin slightly lower. He has no evidence of significant GI bleed and has not had a stool yet from admission. Iron deficient. Fecal Hemoccult pending Hemoglobin low but no evidence of active bleeding Iron transfusion, repeat today Lovenox ordered for DVT. Discussed with him the importance of this. He has re fused a dose on occasion. Status: Acute (4) Tobacco dependency: Encourage cessation Status: Acute (5) Rhabdomyolysis: Mild. No reason to recheck CK Status: Acute (6) Cardiomyopathy: Echocardiogram shows reduced EF. This could also play a role in his hyponatremia. Overall this was a poor study. Lasix 40 mg daily Consider DARIUSZ inhibitor Status: Acute (7) Alcoholism: Reports he quit several months ago. Sister reports he continues to drink. Has had some withdrawal while in the hospital but this appears to be abating. Continue folate, multivitamin, thiamine. Continue to monitor for withdrawal. He has not been hypertensive. He has been tachycardic since admission which may be attributed to his infection. He has Ativan ordered as needed but his use has not been significant to this point. I will go ahead and initiate a [facility] protocol Status: Acute (8) COPD (chronic obstructive pulmonary disease): DuoNeb as needed No evidence of acute exacerbation currently Status: Acute Additional A&P Information Hypokalemia. Resolved DVT right lower extremity. Continue Lovenox. Encouraged use. Change to Eliquis by time of discharge. Confusion. CT head okay. Ammonia level normal Tachycardia. Likely related to acute illness. Monitor closely for any worsening. Telemetry. Thrombocytosis. Likely acute phase reactant secondary to infection Full code Lovenox for DVT prophylaxis. SCDs contraindicated secondary to wounds Attestations Medical Necessity Statement*: Needs continued hospitalization for IV antibiotics secondary to cellulitis Coding Level of Care Code Acute Stewardess Supervisor for [facility] Diagnoses Cellulitis L03.90 Hyponatremia E87.1 Anemia D64.9 Tobacco dependency F17.200 Rhabdomyolysis M62.82 Cardiomyopathy I42.9 Alcoholism F10.20 COPD (chronic obstructive pulmonary disease) J44.9
[2020-08-01] MEDS: sodium hypochlorite 0.25% Btl 473 mL 1 APPLIC TOPICAL (17:12)
--- NOTE | 2020-08-01 17:26 | PM.PN ---
Subjective Subjective: Interval history: Patient is improving and responding to local wound care Vitals/I&O/Wt Last Vital Signs Temp 98.0 F 08/01/20 15:22 Pulse 112 H 08/01/20 15:22 Resp 20 H 08/01/20 15:22 BP 128/72 08/01/20 15:22 Pulse Ox 87 L 08/01/20 15:22 08/01/20 08/01/20 08/01/20 06:59 14:59 22:59 Intake Total 300 / 1490 720 / 720 410 / 1130 Output Total 525 / 525 Balance 300 / 590 195 / 195 410 / 605 Physical Exam Narrative: EXAM NARRATIVE: Patient is conscious alert, anxious BMI 25 Head and neck examination PERRLA no masses no cervical lymphadenopathy no jaundice Moving [employer] wound beds with mild inflammation and purlent discharge Data : 08/02/20 01:58 08/02/20 01:58 Micro: Microbiology 07/29/20 10:52 Blood Culture - Preliminary Blood Methicillin Resis Staph Aureus 07/30/20 11:20 Blood Culture - Preliminary Blood NEGATIVE TO DATE 07/30/20 11:15 Blood Culture - Preliminary Blood NEGATIVE TO DATE A&P Assessment and plan (1) Cellulitis: Apply Soaked Kerlix in Dakin's solution quarter percent and wrap bilateral lower extremities twice a day Upon discharge patient can follow-up at the wound care center due to the wound complexity Thank you for consulting general surgery to participate taking care Status: Acute Attestations Medical Necessity Statement*: Continue inpatient hospitalization for medical and surgical care Time Spent in Patient Care: less than 15 minutes (>than 50% of time spent in counselling and/or direct pt care on unit). Coding Level of Care Code Acute Group Sales Representative for Christopher Dang Diagnoses Cellulitis L03.90
[2020-08-01 21:33] LABS: Vancomycin Trough 7.8 ug/mL (10-15)
[2020-08-01] MEDS: HYDROcodone-acetaminophen 10-325 mg Tablet 1 TAB PO (21:52)
[2020-08-01] MEDS: nicotine 21 mg Patch 1 PATCH TRANSDERMA (21:53)
[2020-08-01] MEDS: vancomycin 1,500 MG/300 ML PIGGYBACK 200 MG IV (21:53)
--- NOTE | 2020-08-01 22:07 | PC.NURSE ---
Patient is adamant on having soda and milk at beside tonight he was cussing and yelling at staff wanting his soda and milk. Patient was educated on his fluid restriction. He was given soda.
[2020-08-02] VITALS (9 sets, daily range): BP systolic 121–148; BP diastolic 64–93; PULSE 100–123; RESP 17–24; TEMP 36.4–37.1; O2SAT 88–97
[2020-08-02] MEDS: diphenhydrAMINE 25 mg Capsule PO ×3 (00:32→13:59)
[2020-08-02] MEDS: enoxaparin 100 mg/mL Syringe 70 MG SUBCUT ×2 (01:16→13:59)
[2020-08-02] MEDS: LORazepam 2 mg/mL INJ 1 mL 0.5 MG IVP (01:18)
[2020-08-02] MEDS: piperacillin-tazobactam 3.375 GM in sodium chloride 0.9% (plus) 50 ML IV (01:19)
[2020-08-02 02:21] LABS: Basophils # 0.1 10^3/uL (0.0-0.1); Basophils % 1.2 %; Eosinophils # 0.9 10^3/uL (0.0-0.8); Eosinophils % 7.4 %; Hematocrit 24.8 % (42.0-52.0); Hemoglobin 7.8 g/dL (11.7-16.6); Lymphocytes # 2.1 10^3/uL (0.8-4.8); Lymphocytes % 17.7 %; Mean Corpuscular HGB Conc 31.5 g/dL (30.0-36.0); Mean Corpuscular Hemoglobin 29.9 pg (28.0-34.0); Mean Platelet Volume 8.5 fL (7.4-10.4); Monocytes # 2.4 10^3/uL (0.2-0.9); Monocytes % 20.4 %; Neutrophils # 5.11 10^3/uL (1.8-7.7); Neutrophils % 43.1 %; Nucleated Red Blood Cells % 0.3 %; Platelet Count 733 10^3/cmm (130-400); Red Blood Count 2.61 10^6/uL (4.1-5.3); White Blood Count 11.8 10^3/uL (4.0-10.0)
[2020-08-02 02:31] LABS: Slide Review Slide Review Perform
[2020-08-02 02:47] LABS: Alanine Aminotransferase 19 U/L (0-41); Albumin Level 2.2 g/dL (3.5-5.2); Alkaline Phosphatase 89 IU/L (40-130); Anion Gap 11.5 (5-19); Aspartate Amino Transferase 25 U/L (0-40); Blood Urea Nitrogen 6 mg/dL (6-20); Calcium 7.7 mg/dL (8.5-10.5); Carbon Dioxide 27 mmol/L (22-29); Chloride 94 mmol/L (98-107); Globulin 3.6 g/dL (1.3-4.6); Glomerular Filtration Rate 171.4 mL/min (90-130); Glucose 118 mg/dL (65-115); Osmolality Calculated 267 mOsm/kg (285-295); Potassium 3.5 mmol/L (3.5-5.1); Sodium 129 mmol/L (136-145); Total Bilirubin 0.2 mg/dL (0.15-1.2); Total Protein 5.8 g/dL (6.6-8.7)
[2020-08-02] MEDS: thiamine 100 mg Tablet PO (07:30)
[2020-08-02] MEDS: folic acid 1 mg Tablet PO (07:30)
[2020-08-02] MEDS: metoprolol tartrate 25 mg Tablet PO (07:30)
[2020-08-02] MEDS: FUROsemide 40 mg Tablet PO (07:30)
[2020-08-02] MEDS: HYDROcodone-acetaminophen 10-325 mg Tablet 1 TAB PO ×3 (07:30→17:00)
[2020-08-02] MEDS: nicotine 21 mg Patch 1 PATCH TRANSDERMA (07:30)
[2020-08-02] MEDS: pantoprazole DR 40 mg Tablet PO (07:30)
[2020-08-02] MEDS: multivitamin therapeutic Tablet 1 TAB PO (07:30)
[2020-08-02] MEDS: vancomycin 1,500 MG/300 ML PIGGYBACK 200 MG IV (10:23)
--- NOTE | 2020-08-02 14:40 | P.DS_ITS ---
Discharge Providers Date of Admission: 07/29/20 11:14 Date of Discharge: August 02, 2020 Attending Provider at Admission: Prakash Chaves MD Attending Provider at Discharge: Prakash Chaves MD Diagnoses at Discharge Discharge Diagnosis (1) Cellulitis: Status: Acute Reason for Visit Reason for Visit: WEEPING EDEMA, BLE, POSSIBLE INFECTION Hospital Course Hospital Course Johan is a 55-year-old white male who presented to the emergency department with bilateral leg pain and erythema. He reports his legs have been weeping for quite some time. When he presented he was picking at his legs significantly. He had no history of fevers, but white blood cell count was elevated. Initial sodium was 123. He was placed on broad-spectrum antibiotics, and surgery consultation was obtained for possible need for debridement of his lower extremities. Dressings were started. Ultrasound was obtained demonstrating a DVT right lower extremity. Electrolyte management occurred. During the course of his hospital stay he had some alcohol withdrawal which had abated by the time of discharge. Sodium had improved to 129. He was able to ambulate. All cultures in the hospital were negative with the exception of 1/4 blood culture which was positive for MRSA. I suspect this was a contaminant. He will finish up 10 days of doxycycline at discharge secondary to cellulitis, that may have been attributed to MRSA. He was told to no longer drink. Anticoagulant was initiated secondary to his DVT. Risks and benefits of significant bleeding were discussed. By August 02 he very much wants to be discharged home. We discussed the risks and benefits of any drinking, drug use, tobacco use. He will need close follow-up. Home health was arranged. He will continue to do wound care at home. Physical Exam Narrative: EXAM NARRATIVE: General exam no apparent distress Cardiovascular regular rate and rhythm without murmur Lungs clear but coarse Abdomen is soft positive bowel sounds Extremities erythema significantly resolved. Cap refill brisk. Discharge Data Data Completed and Pending: Completed Studies During Hospitalization Category Date Time Status CT head wo con* [id number] Routine Cat Scan 07/30/20 08:46 Completed XR chest 1V [place] ble [id number] Stat Exams 07/29/20 09:54 Completed CV echo complete* [id number] Routine Ultrasound 07/29/20 13:14 [place] [id number] Stat Ultrasound 07/29/20 10:41 Completed Pending at discharge Category Date Time Status Blood Culture Sta t Lab 07/29/20 10:52 Results Blood Culture Sta t Lab 07/30/20 11:20 Results Immunochemical Fe magen OCB Routine Lab 07/29/20 13:12 Uncollected Vancomycin Trough Timed Lab 08/02/20 21:00 Ordered Labs from last 24 hours 08/02/20 08/02/20 08/01/20 01:58 01:58 20:51 WBC 11.8 H RBC 2.61 L Hgb 7.8 L Hct 24.8 L MCV 95.0 H D MCH 29.9 MCHC 31.5 D RDW 17.0 H Plt Count 733 H MPV 8.5 Neut % (Auto) 43.1 Lymph % (Auto) 17.7 [place] % (Auto) 20.4 Eos % (Auto) 7.4 Baso % (Auto) 1.2 Neut # (Auto) 5.11 Lymph # (Auto) 2.1 [place] # (Auto) 2.4 H Eos # (Auto) 0.9 H Baso # (Auto) 0.1 Nucleated RBC % (a uto) 0.3 Nucleated RBCs # 0.0 Sodium 129 L Potassium 3.5 Chloride 94 L Carbon Dioxide 27 Anion Gap 11.5 BUN 6 Creatinine 0.5 L GFR Calculation 171.4 H Glucose 118 H Calculated Osmolal ity 267 L Calcium 7.7 L Total Bilirubin 0.2 AST 25 ALT 19 Alkaline Phosphata se 89 Total Protein 5.8 L Albumin 2.2 L Globulin 3.6 Vancomycin Trough 7.8 L Vitals: Last Vital Signs Temp 97.6 F 08/02/20 12:00 Pulse 109 H 08/02/20 12:00 Resp 17 08/02/20 12:00 BP 121/64 08/02/20 12:00 Pulse Ox 95 08/02/20 12:00 Discharge Plan Discharge Patient Disposition: Home Health Service Condition: Stable Prescriptions: New pantoprazole 40 mg Tablet,Delayed Release (Dr/Ec) 40 mg PO DAILY Qty: 30 RF: 0 potassium chloride 10 mEq tablet extended release 10 meq PO DAILY Qty: 30 RF: 0 furosemide 40 mg Tablet 40 mg PO DAILY@0800 Qty: 30 RF: 0 metoprolol tartrate 25 mg Tablet 25 mg PO BID@0900,2100 Qty: 60 RF: 0 Eliquis DVT-PE Treat 30D Start 5 mg (74 tabs) tablets,dose pack See Rx Instructions .ROUTE .COMPLEX Qty: 74 RF: 0 doxycycline monohydrate 100 mg capsule 100 mg PO BID 10 Days Qty: 20 RF: 0 No Action No Known Home Medications RF: 0 Discharge Orders: Discharge Order (Routine); Ordered 08/02/20 Ordered By: Prakash Chaves Other Ambulatory Orders: DME: Stefan (Order) Location: None Selected Ordered By: Prakash Chaves Referrals: Camila Ernandez DO [Physician] - 08/15/20 10:30 am Discharge Diet: Regular Discharge Activity: Increase activity as tolerated Activity Restrictions/Additional Instructions: May discharge home with home health following home oxygen evaluation Do not drink any alcohol or take any drugs. Stop smoking. Follow-up with your primary care provider in the next 2 to 3 days If you have any nosebleeds, blood in stool, black or tarry stool notify your primary or come to the emergency department. Note that you are on a blood thinner for blood clot in your right lower extremity. Wound care instructions per surgery Discharge Attestations Time Spent in Discharge Care*: greater than 30 min Quality Metrics Clinical Quality Measures During this hospital stay, did patient experience: None Coding Level of Care Code Acute Greenhouse Assistant for Christopher Dang Diagnoses Cellulitis L03.90
--- NOTE | 2020-08-02 17:27 | PC.NURSE ---
content writer approached pt about cleaning the dressings around legs many different times, pt refused.
== END 2020-08-02 17:15 | disposition home health service (06) | DRG 603 ==
LOC: ER 10:46 → MEDSURG 11:43
PROVIDERS: Admitting Provider Internal Medicine; Emergency Provider Family Medicine; Visit Provider Internal Medicine
DX: L03.115 Cellulitis of right lower limb (principal); I82.491 Acute embolism and thrombosis of other specified deep vein of right lower extremity; I42.9 Cardiomyopathy, unspecified; E87.1 Hypo-osmolality and hyponatremia; M62.82 Rhabdomyolysis; L03.116 Cellulitis of left lower limb; F10.21 Alcohol dependence, in remission; J44.9 Chronic obstructive pulmonary disease, unspecified; F17.210 Nicotine dependence, cigarettes, uncomplicated; D50.9 Iron deficiency anemia, unspecified; D47.3 Essential (hemorrhagic) thrombocythemia; B95.62 Methicillin resistant Staphylococcus aureus infection as the cause of diseases classified elsewhere
CPT/HCPCS: 12345; 36415; 51798; 70450; 71045; 80048; 80053; 80202; 81003; 82140; 82436; 82533; 82550; 82570; 82607; 82728; 82746; 83540; 83550; 83605; 83735; 83880; 84133; 84300; 84443; 84484; 85007; 85025; 85610; 87040; 87077; 87186; 87205; 90471; 90686; 93005; 93306; 93970; 94640; 96372; 97110; 97116; 97161; 99281; J1650; J1756; J1940; J2060; J2270; J2405; J2543; J3370; J3411; J7030; J7050

== ENCOUNTER 2020-09-07 13:31 | Emergency (ER) | payer MEDICAID, SELFPAY ==
[2020-09-07] VITALS (10 sets, daily range): BP systolic 96–151; BP diastolic 48–104; PULSE 107–131; RESP 20–30; TEMP 33.1–36.2; O2SAT 95–100; BMI 22.1
[2020-09-07 13:44] LABS: Glucose Point of Care 49 mg/dL (70-110)
[2020-09-07] MEDS: dextrose 50% syringe 50 mL IVP (13:51)
--- NOTE | 2020-09-07 14:02 | XRR_ITS ---
PROCEDURE INFORMATION: Exam: XR Chest Exam date and time: 09/07/2020 2:07 PM Age: 55 years old Clinical indication: Shortness of breath; Additional info: AMS TECHNIQUE: Imaging protocol: XR of the chest Views: 1 view. COMPARISON: CR XR chest 1V portable [id number] 07/29/2020 10:12 AM FINDINGS: Lungs: Unremarkable. No consolidation. Stable granuloma right upper lobe near the lateral chest wall. Pleural spaces: Unremarkable. No pleural effusion. No pneumothorax. Heart/Mediastinum: Unremarkable. No cardiomegaly. Bones/joints: Unremarkable. XR/XR chest 1V portable [id number] IMPRESSION: No acute findings. Stable right upper lobe granuloma
--- NOTE | 2020-09-07 14:05 | CTR_ITS ---
PROCEDURE INFORMATION: Exam: CT Head Without Contrast Exam date and time: 09/07/2020 3:31 PM Age: 55 years old Clinical indication: Altered mental status/memory loss; Additional info: Symptoms of acute stroke TECHNIQUE: Imaging protocol: Computed tomography of the head without contrast. Radiation optimization: All CT scans at this facility use at least one of these dose optimization techniques: automated exposure control; mA and/or kV adjustment per patient size (includes targeted exams where dose is matched to clinical indication); or iterative reconstruction. 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 There is diffuse cerebral atrophy present, consistent with this patient's age. Periventricular and subcortical white matter low densities are present which at this age likely represent microvascular ischemic change. No evidence for large acute ischemic infarction. Please note acute ischemia can be occult by head CT. Benign globus pallidus calcifications are present. 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 Bones/joints: Unremarkable. No acute fracture. Paranasal sinuses: There is mucosal thickening in the frontal sinuses. Mastoid air cells: Visualized mastoid air cells are well aerated. Soft tissues: Unremarkable. CT/CT head wo con* [id number] IMPRESSION: 1. 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 2. There are senescent changes of the brain as described above. No evidence for large acute ischemic infarction or acute intracranial injury. Radiation Dose CTDIVOL = (mGy): DLP = 2157.67 (mGy-cm)
--- NOTE | 2020-09-07 14:05 | ECG_ITS ---
[facility] Test Date: 2020-09-07 Pat Name: Johan Chand Department: Room: Gender: Male Foster Care Therapist: : [id number] Requested By: Conchita Hill I Order Number: [id number] Reading MD: CRISS SANDS Measurements Intervals [place] Rate: 122 P: 78 UT: 148 QRS: 72 QRSD: 94 T: 70 QT: 342 QTc: 488 Interpretive Statements SINUS TACHYCARDIA ABNORMAL RHYTHM ECG Compared to ECG 07/29/2020 17:24:16 No significant changes Electronically Signed On 09-07-2020 18:44:08 PRODUCE MANAGER by CRISS SANDS [id number]
--- NOTE | 2020-09-07 14:05 | PC.NURSE ---
Trina martinez applied to pt immediately upon triage. Warm blankets and warm fluids applied.
--- NOTE | 2020-09-07 14:25 | PC.PHAR ---
pt unable to verify medications-talked to pts sister bartolome-bartolome states the pt has empty bottles of doxycycline,and pantoprazole and is unsure when he last took them-pts sister bartolome states the pt has eliquis. lasix. and metoprolol tart bottles that still have medication in them and is unsure the last time the pt took them
[2020-09-07] MEDS: dextrose 10% 1,000 ML 100 ML IV (14:26)
--- NOTE | 2020-09-07 14:51 | PC.NURSE ---
UNABLE TO PERFORM STROKE SCALE AT THIS TIME DUE TO PT UNABLE TO PERFORM TASKS
[2020-09-07 14:52] LABS: Basophils # 0.1 10^3/uL (0.0-0.1); Basophils % 0.4 %; Eosinophils % 0.1 %; Hematocrit 36.5 % (42.0-52.0); Hemoglobin 12.1 g/dL (11.7-16.6); Lymphocytes # 1.4 10^3/uL (0.8-4.8); Mean Corpuscular HGB Conc 33.2 g/dL (30.0-36.0); Mean Corpuscular Hemoglobin 28.4 pg (28.0-34.0); Mean Corpuscular Volume 85.7 fL (80-94); Mean Platelet Volume 8.7 fL (7.4-10.4); Monocytes % 5.8 %; Neutrophils # 29.16 10^3/uL (1.8-7.7); Neutrophils % 85.8 %; Nucleated Red Blood Cells % 0.1 %; Platelet Count 631 10^3/cmm (130-400); Red Blood Count 4.26 10^6/uL (4.1-5.3); Red Cell Distribution Width 16.6 % (12.1-15.1)
[2020-09-07 14:55] LABS: INR 3.23 (0.8-1.2)
[2020-09-07 15:18] LABS: Albumin Level 2.7 g/dL (3.5-5.2); Alkaline Phosphatase 287 IU/L (40-130); Blood Urea Nitrogen 19 mg/dL (6-20); Calcium 8.3 mg/dL (8.5-10.5); Carbon Dioxide 17 mmol/L (22-29); Chloride 87 mmol/L (98-107); Globulin 3.8 g/dL (1.3-4.6); Glomerular Filtration Rate 41.8 mL/min (90-130); Sodium 126 mmol/L (136-145); Total Bilirubin 1.6 mg/dL (0.15-1.2); Total Protein 6.5 g/dL (6.6-8.7)
[2020-09-07 15:23] LABS: Osmolality Calculated 260 mOsm/kg (285-295)
[2020-09-07 15:25] LABS: Glucose 19 mg/dL (65-115)
--- NOTE | 2020-09-07 15:27 | CTR_ITS ---
PROCEDURE INFORMATION: Exam: CT Chest Without Contrast; Diagnostic Exam date and time: 09/07/2020 3:31 PM Age: 55 years old Clinical indication: Abdominal pain; Other: SOB; Additional info: Sepsis TECHNIQUE: Imaging protocol: Diagnostic computed tomography of the chest without contrast. Radiation optimization: All CT scans at this facility use at least one of these dose optimization techniques: automated exposure control; mA and/or kV adjustment per patient size (includes targeted exams where dose is matched to clinical indication); or iterative reconstruction. COMPARISON: CR Hip 2-3v RIGHT wwo Pelv* [id number] 05/19/2017 2:10 PM RADIATION DOSE METRICS: Total DLP (mGy-cm): 1603.16 FINDINGS: Lungs: There are centrilobular emphysematous changes in the bilateral lungs. There is a benign calcified granuloma in the right upper lobe. Pleural spaces: Unremarkable. No pneumothorax. No pleural effusion. Heart: Multivessel atherosclerotic disease which involves the coronary arteries. Mediastinal space: There is fluid in the esophagus. Small hiatal hernia. Aorta: Unremarkable. No aortic aneurysm. Lymph nodes: Unremarkable. No enlarged lymph nodes. Bones/joints: Unremarkable. No acute fracture. Soft tissues: Unremarkable. IMPRESSION: 1. There are centrilobular emphysematous changes in the bilateral lungs. 2. Multivessel atherosclerotic disease which involves the coronary arteries. 3. There is fluid in the esophagus consistent with poor swallowing and/or reflux. PROCEDURE INFORMATION: Exam: CT Abdomen And Pelvis Without Contrast Exam date and time: 09/07/2020 3:31 PM Age: 55 years old Clinical indication: Abdominal pain; Other: SOB; Additional info: Sepsis TECHNIQUE: Imaging protocol: Computed tomography of the abdomen and pelvis without contrast. Radiation optimization: All CT scans at this facility use at least one of these dose optimization techniques: automated exposure control; mA and/or kV adjustment per patient size (includes targeted exams where dose is matched to clinical indication); or iterative reconstruction. COMPARISON: CR Hip 2-3v RIGHT wwo Pelv* [id number] 05/19/2017 2:10 PM RADIATION DOSE METRICS: Total DLP (mGy-cm): 1603.16 FINDINGS: Liver: Normal. No mass. Gallbladder and bile ducts: There is increased density in the gallbladder. Gallbladder is distended. Gallbladder is poorly visualized secondary to artifact in this region. Pancreas: Normal. No ductal dilation. Spleen: Normal. No splenomegaly. Adrenal glands: Normal. No mass. Kidneys and ureters: Normal. No hydronephrosis. Stomach and bowel: Unremarkable. No obstruction. No mucosal thickening. Appendix: No evidence of appendicitis. Intraperitoneal space: Unremarkable. No free air. No significant fluid collection. Vasculature: Multivessel atherosclerotic disease which involves the coronary arteries. Lymph nodes: Unremarkable. No enlarged lymph nodes. Urinary bladder: There is a Reynaga catheter and air in the bladder. Reproductive: See Bones/joints finding. Bones/joints: ORIF proximal right femur. There is a transitional lumbosacral vertebra. There is a moderate compression fracture of the L1 superior endplate. No definite adjacent soft tissue changes are seen in this may be subacute in nature. There is a mild compression fracture of the L2 superior endplate of unknown chronicity. Soft tissues: See Bones/joints finding. CT/CT chest abd pel wo con IMPRESSION: 1. Gallbladder is not optimally visualized secondary to artifact. Increased density is present in a distended gallbladder. Right upper quadrant ultrasound is recommended for further evaluation. 2. Moderate compression fracture of the L1 superior endplate and mild compression fracture of the L2 superior endplate of unknown chronicity. Radiation Dose CTDIVOL = (mGy): DLP = 1603.16~1603.16 (mGy-cm)
[2020-09-07 15:29] LABS: Lactic Sepsis W/Reflex 7.9 mmol/L (0.5-2.2)
[2020-09-07 15:30] LABS: Alanine Aminotransferase 4489 U/L (0-41)
[2020-09-07 15:36] LABS: Amphetamines Screen Urine Negative (Negative); Barbiturates Screen Urine Negative (Negative); Benzodiazepines Screen Urine Negative (Negative); Cocaine Screen Urine Negative (Negative); Opiate Screen Urine Negative (Negative); PCP Screen Urine Negative (Negative); THC Screen Urine Negative (Negative)
[2020-09-07 15:37] LABS: Aspartate Amino Transferase 9512 U/L (0-40)
[2020-09-07 15:40] LABS: Reflex Lactate Order REFLEX LACTIC ORDERD
[2020-09-07 15:40] LABS: Add Urine Microscopic? YES; Bilirubin Urine 1+ (Negative); Blood Urine 3+ (Negative); Glucose Urine UA Norm (Normal); Ketones Urine 1+ (Negative); Leukocyte Esterase Urine Negative (Negative); Nitrate Urine Negative (Negative); Protein Urine Trace (Negative); RBC Urine 0-4 /hpf (0-2); Specific Gravity, Urine 1.025 (1.005-1.030); Urine Appearance Clear (CLEAR); Urine Color Red (Yellow); Urobilinogen Urine 1 mg/dL (Negative); pH Urine 5 (5-7)
[2020-09-07 15:41] LABS: Add Urine Culture? No; Amorphous Sediment Urine 1+ /hpf; Bacteria Urine 1+ /hpf; Fine Granular Casts Urine 0-4 /lpf; Mucus Urine TRACE /hpf; Squamous Epithelial Cell Urine RARE /hpf (0-5); Transitional Epi Cells Urine RARE /hpf; WBC Urine 0-4 /hpf (0-5)
[2020-09-07] MEDS: piperacillin-tazobactam 3.375 GM in sodium chloride 0.9% (plus) 50 ML IV (15:58)
[2020-09-07] MEDS: vancomycin 1,000 MG in sodium chloride 0.9% 250 ML 250 MG IV (16:33)
[2020-09-07 16:44] LABS: Glucose Point of Care 149 mg/dL (70-110)
[2020-09-07 16:44] LABS: Glucose Point of Care 176 mg/dL (70-110)
[2020-09-07] MEDS: sodium chloride 0.9% 1,000 ML 999 ML IV ×2 (16:47→16:51)
[2020-09-07] MEDS: LORazepam 2 mg/mL INJ 1 mL 1 MG IVP (16:54)
--- NOTE | 2020-09-07 16:57 | USR_ITS ---
PROCEDURE INFORMATION: Exam: US Abdomen, Limited; Right Upper Quadrant Exam date and time: 09/07/2020 5:04 PM Age: 55 years old Clinical indication: Condition or disease; Other: Sepsis, gb disease TECHNIQUE: Imaging protocol: US abdomen. Real time ultrasound with image documentation. Limited exam focused on the right upper quadrant. COMPARISON: CT chest abd pel wo con 09/07/2020 4:25 PM FINDINGS: Liver: No focal abnormality is seen within the liver. Gallbladder: There is some sludge in the dependent portions of the gallbladder. No gallstones are identified. There is no gallbladder wall thickening or pericholecystic fluid. Gallbladder wall measures approximately 2 mm in thickness. Common bile duct: Common bile duct measures 3 mm. Pancreas: Pancreas could not be imaged on this study due to the patient's condition. Right kidney: No hydronephrosis. Normal size with normal cortical thickness and echogenicity. Aorta: Aorta is not visualized due to patient's condition and bowel gas. Inferior vena cava: IVC is unremarkable. US/US gall bladder [id number] IMPRESSION: There is some sludge in the gallbladder, otherwise unremarkable ultrasound of the abdomen.
[2020-09-07 17:29] LABS: Lactic Acid level (Lactate) 5.2 mmol/L (0.5-2.2)
--- NOTE | 2020-09-07 18:41 | W.ED.AMS ---
HPI - Altered Mental Status General: Chief Complaint: Altered Mental Status Stated Complaint: AMS Time Seen by Provider: 09/07/20 13:32 Source: EMS Mode of arrival: EMS Limitations: altered mental status History of Present Illness: HPI narrative: This 55-year-old male was brought in by EMS with altered mental status. That said that they had been called out to his house about midnight due to him spilling coffee on himself in bed but the patient refused transport to the hospital at that time. They were then called again to his house this afternoon and at that time he was significantly altered and had a blood glucose of 49 when they arrived. He was started on a D10 drip. He has a chronic history of alcoholism as well as poor living conditions. He lives at home with some roommates. MD complaint: altered mental status Review of Systems General: Reports: ROS unobtainable due to mental status [facility] ED PFSH: Medical History Alcoholism Cardiomyopathy COPD (chronic obstructive pulmonary disease) Hyponatremia Tobacco dependency Surgical History History of hip surgery Family History Other CAD (coronary artery disease) Social History Smoking and tobacco status: current every day smoker Alcohol intake: former Current gender identity: Male Physical Exam Const: EXAM LIMITATIONS: altered mental status GENERAL APPEARANCE: disheveled and ill appearing ORIENTATION/CONSCIOUSNESS: Yes confused HENMT: COMMON NORMALS: normocephalic and atraumatic HEAD & SCALP: normocephalic and atraumatic Neck/C-Spine: COMMON NORMALS: full ROM, no lymphadenopathy, supple and no meningeal signs Resp: COMMON NORMALS: normal respiratory effort, No retractions, No use of accessory muscles and clear to auscultation bilaterally AUSCULTATION: clear to auscultation bilaterally Cardio: COMMON NORMALS: regular rhythm, S1 normal heart sound present, S2 normal heart sound present and No murmurs present (Cardio) RATE: tachycardic RHYTHM: regular rhythm HEART SOUNDS: S1 normal heart sound present and S2 normal heart sound present GI: COMMON NORMALS: Normal to inspection, nondistended, normoactive bowel sounds present and Soft to palpation PALPATION: Yes Soft to palpation Extremity: OTHER: He has significant erythema, desquamation, warmth of both lower extremities. There is edema and some drainage from several open spots on his wound. Neuro: COMMON NORMALS: moves all extremities SENSORIUM/ORIENTATION: Yes other (Confused) MENINGEAL SIGNS: Yes no meningeal signs Course Consultations: Consultation #1: Discussed the patient with Dr. Celestin, hospitalist. He advised that the patient is too sick for this facility as he needs an professor sculpture to manage him and advised him to transfer the patient. Time: 17:30 Consultation #2: Discussed the patient with Dr. Jeronimo, professor sculpture at [facility] in [place] and he kindly accepted the patient to his service. Time: 18:09 Vital Signs: Vital signs: Vital Signs Temperature 97.1 F L 09/07/20 18:23 Pulse Rate 129 H 09/07/20 19:42 Respiratory Rate 27 H 09/07/20 19:42 Blood Pressure 97/60 09/07/20 19:42 Pulse Oximetry 95 09/07/20 19:42 MDM - Altered Mental Status MDM Narrative: Medical decision making narrative: 55-year-old male who presents to the emergency department with altered mental status. Evaluation in the emergency department shows he was hypothermic, septic from cellulitis. He also has transaminitis and hyponatremia, he likely has shock liver. He is being transferred to [facility] for further evaluation and management. Medical Records: Attestation: I reviewed the patient's medical records. Lab Data: Attestation: I reviewed the patient's lab results. Labs: Lab Results 09/07/20 09/07/20 09/07/20 Range/Units 13:30 13:30 13:30 WBC 34.0 H* (4.0-10.0) 10^3/ uL RBC 4.26 (4.1-5.3) 10^6/u L Hgb 12.1 (11.7-16.6) g/dL Hct 36.5 L (42.0-52.0) % MCV 85.7 (80-94) fL MCH 28.4 (28.0-34.0) pg MCHC 33.2 (30.0-36.0) g/dL RDW 16.6 H (12.1-15.1) % Plt Count 631 H (130-400) 10^3/c mm MPV 8.7 (7.4-10.4) fL Neut % (Auto) 85.8 % Lymph % (Auto) 4.0 % [facility] [place] [facility] % (Auto) 5.8 % Eos % (Auto) 0.1 % Baso % (Auto) 0.4 % Neut # (Auto) 29.16 H (1.8-7.7) 10^3/u L Lymph # (Auto) 1.4 (0.8-4.8) 10^3/u L [facility] # (Auto) 2.0 H (0.2-0.9) 10^3/u L Eos # (Auto) 0.0 (0.0-0.8) 10^3/u L Baso # (Auto) 0.1 (0.0-0.1) 10^3/u L Nucleated RBC % (a uto) 0.1 % Nucleated RBCs # 0.0 /100WBC PT 34.30 H (12.1-14.9) SECO NDS INR 3.23 H (0.8-1.2) APTT 42.0 H (23.9-36.7) SECO NDS Sodium (136-145) mmol/L Potassium (3.5-5.1) mmol/L Chloride (98-107) mmol/L Carbon Dioxide (22-29) mmol/L Anion Gap (5-19) BUN (6-20) mg/dL Creatinine (0.7-1.2) mg/dL GFR Calculation (90-130) mL/min Glucose (65-115) mg/dL POC Glucose (70-110) mg/dL Calculated Osmolal ity (285-295) mOsm/k g Lactic Acid 7.9 H* (0.5-2.2) mmol/L Lactic Acid (Sepsi s) (0.5-2.2) mmol/L Calcium (8.5-10.5) mg/dL Total Bilirubin (0.15-1.2) mg/dL AST (0-40) U/L ALT (0-41) U/L Alkaline Phosphata se (40-130) IU/L Total Protein (6.6-8.7) g/dL Albumin (3.5-5.2) g/dL Globulin (1.3-4.6) g/dL Urine Color (Yellow) Urine Appearance (CLEAR) Urine pH (5-7) Ur Specific Gravit y (1.005-1.030) Urine Protein (Negative) Urine Glucose (UA) (Normal) Urine Ketones (Negative) Urine Blood (Negative) Urine Nitrate (Negative) Urine Bilirubin (Negative) Urine Urobilinogen (Negative) mg/dL Ur Leukocyte Liz ase (Negative) Urine RBC (0-2) /hpf Urine WBC (0-5) /hpf Ur Squamous Epith Cells (0-5) /hpf Ur Transition Epit h Cell /hpf Amorphous Sediment /hpf Urine Bacteria (NONE) /hpf Hyaline Casts /lpf Fine Granular Cast s /lpf Urine Mucus /hpf Urine Opiates Scre en (Negative) ng/mL Ur Barbiturates Sc reen (Negative) ng/mL Ur Phencyclidine S crn (Negative) ng/mL Ur Amphetamines Sc reen (Negative) ng/mL U Benzodiazepines Scrn (Negative) ng/mL Urine Cocaine Scre en (Negative) ng/mL U Marijuana (THC) Screen (Negative) ng/mL 09/07/20 09/07/20 09/07/20 Range/Units 13:30 13:40 13:53 WBC (4.0-10.0) 10^3/ uL RBC (4.1-5.3) 10^6/u L Hgb (11.7-16.6) g/dL Hct (42.0-52.0) % MCV (80-94) fL MCH (28.0-34.0) pg MCHC (30.0-36.0) g/dL RDW (12.1-15.1) % Plt Count (130-400) 10^3/c mm MPV (7.4-10.4) fL Neut % (Auto) % Lymph % (Auto) % [facility] % (Auto) % Eos % (Auto) % Baso % (Auto) % Neut # (Auto) (1.8-7.7) 10^3/u L Lymph # (Auto) (0.8-4.8) 10^3/u L [facility] # (Auto) (0.2-0.9) 10^3/u L Eos # (Auto) (0.0-0.8) 10^3/u L Baso # (Auto) (0.0-0.1) 10^3/u L Nucleated RBC % (a uto) % Nucleated RBCs # /100WBC PT (12.1-14.9) SECO NDS INR (0.8-1.2) APTT (23.9-36.7) SECO NDS Sodium 126 L (136-145) mmol/L Potassium 5.0 (3.5-5.1) mmol/L Chloride 87 L (98-107) mmol/L Carbon Dioxide 17 L (22-29) mmol/L Anion Gap 27.0 H (5-19) BUN 19 (6-20) mg/dL Creatinine 1.7 H (0.7-1.2) mg/dL GFR Calculation 41.8 L (90-130) mL/min Glucose 19 L* (65-115) mg/dL POC Glucose 49 L 92 (70-110) mg/dL Calculated Osmolal ity 260 L (285-295) mOsm/k g Lactic Acid (0.5-2.2) mmol/L Lactic Acid (Sepsi s) (0.5-2.2) mmol/L Calcium 8.3 L (8.5-10.5) mg/dL Total Bilirubin 1.6 H (0.15-1.2) mg/dL AST 9512 H (0-40) U/L ALT 4489 H (0-41) U/L Alkaline Phosphata se 287 H (40-130) IU/L Total Protein 6.5 L (6.6-8.7) g/dL Albumin 2.7 L (3.5-5.2) g/dL Globulin 3.8 (1.3-4.6) g/dL Urine Color (Yellow) Urine Appearance (CLEAR) Urine pH (5-7) Ur Specific Gravit y (1.005-1.030) Urine Protein (Negative) Urine Glucose (UA) (Normal) Urine Ketones (Negative) Urine Blood (Negative) Urine Nitrate (Negative) Urine Bilirubin (Negative) Urine Urobilinogen (Negative) mg/dL Ur Leukocyte Liz ase (Negative) Urine RBC (0-2) /hpf Urine WBC (0-5) /hpf Ur Squamous Epith Cells (0-5) /hpf Ur Transition Epit h Cell /hpf Amorphous Sediment /hpf Urine Bacteria (NONE) /hpf Hyaline Casts /lpf Fine Granular Cast s /lpf Urine Mucus /hpf Urine Opiates Scre en (Negative) ng/mL Ur Barbiturates Sc reen (Negative) ng/mL Ur Phencyclidine S crn (Negative) ng/mL Ur Amphetamines Sc reen (Negative) ng/mL U Benzodiazepines Scrn (Negative) ng/mL Urine Cocaine Scre en (Negative) ng/mL U Marijuana (THC) Screen (Negative) ng/mL 09/07/20 09/07/20 09/07/20 Range/Units 14:25 14:49 15:00 WBC (4.0-10.0) 10^3/ uL RBC (4.1-5.3) 10^6/u L Hgb (11.7-16.6) g/dL Hct (42.0-52.0) % MCV (80-94) fL MCH (28.0-34.0) pg MCHC (30.0-36.0) g/dL RDW (12.1-15.1) % Plt Count (130-400) 10^3/c mm MPV (7.4-10.4) fL Neut % (Auto) % Lymph % (Auto) % [facility] % (Auto) % Eos % (Auto) % Baso % (Auto) % Neut # (Auto) (1.8-7.7) 10^3/u L Lymph # (Auto) (0.8-4.8) 10^3/u L [facility] # (Auto) (0.2-0.9) 10^3/u L Eos # (Auto) (0.0-0.8) 10^3/u L Baso # (Auto) (0.0-0.1) 10^3/u L Nucleated RBC % (a uto) % Nucleated RBCs # /100WBC PT (12.1-14.9) SECO NDS INR (0.8-1.2) APTT (23.9-36.7) SECO NDS Sodium (136-145) mmol/L Potassium (3.5-5.1) mmol/L Chloride (98-107) mmol/L Carbon Dioxide (22-29) mmol/L Anion Gap (5-19) BUN (6-20) mg/dL Creatinine (0.7-1.2) mg/dL GFR Calculation (90-130) mL/min Glucose (65-115) mg/dL POC Glucose 148 H 152 H (70-110) mg/dL Calculated Osmolal ity (285-295) mOsm/k g Lactic Acid (0.5-2.2) mmol/L Lactic Acid (Sepsi s) (0.5-2.2) mmol/L Calcium (8.5-10.5) mg/dL Total Bilirubin (0.15-1.2) mg/dL AST (0-40) U/L ALT (0-41) U/L Alkaline Phosphata se (40-130) IU/L Total Protein (6.6-8.7) g/dL Albumin (3.5-5.2) g/dL Globulin (1.3-4.6) g/dL Urine Color Red (Yellow) Urine Appearance Clear (CLEAR) Urine pH 5 (5-7) Ur Specific Gravit y 1.025 (1.005-1.030) Urine Protein Trace (Negative) Urine Glucose (UA) Norm (Normal) Urine Ketones 1+ H (Negative) Urine Blood 3+ H (Negative) Urine Nitrate Negative (Negative) Urine Bilirubin 1+ H (Negative) Urine Urobilinogen 1 H (Negative) mg/dL Ur Leukocyte Liz ase Negative (Negative) Urine RBC 0-4 H (0-2) /hpf Urine WBC 0-4 H (0-5) /hpf Ur Squamous Epith Cells Rare (0-5) /hpf Ur Transition Epit h Cell Rare /hpf Amorphous Sediment 1+ /hpf Urine Bacteria 1+ H (NONE) /hpf Hyaline Casts 10-15 H /lpf Fine Granular Cast s 0-4 H /lpf Urine Mucus Trace /hpf Urine Opiates Scre en (Negative) ng/mL Ur Barbiturates Sc reen (Negative) ng/mL Ur Phencyclidine S crn (Negative) ng/mL Ur Amphetamines Sc reen (Negative) ng/mL U Benzodiazepines Scrn (Negative) ng/mL Urine Cocaine Scre en (Negative) ng/mL U Marijuana (THC) Screen (Negative) ng/mL 09/07/20 09/07/20 09/07/20 Range/Units 15:00 15:27 16:30 WBC (4.0-10.0) 10^3/ uL RBC (4.1-5.3) 10^6/u L Hgb (11.7-16.6) g/dL Hct (42.0-52.0) % MCV (80-94) fL MCH (28.0-34.0) pg MCHC (30.0-36.0) g/dL RDW (12.1-15.1) % Plt Count (130-400) 10^3/c mm MPV (7.4-10.4) fL Neut % (Auto) % Lymph % (Auto) % [facility] % (Auto) % Eos % (Auto) % Baso % (Auto) % Neut # (Auto) (1.8-7.7) 10^3/u L Lymph # (Auto) (0.8-4.8) 10^3/u L [facility] # (Auto) (0.2-0.9) 10^3/u L Eos # (Auto) (0.0-0.8) 10^3/u L Baso # (Auto) (0.0-0.1) 10^3/u L Nucleated RBC % (a uto) % Nucleated RBCs # /100WBC PT (12.1-14.9) SECO NDS INR (0.8-1.2) APTT (23.9-36.7) SECO NDS Sodium (136-145) mmol/L Potassium (3.5-5.1) mmol/L Chloride (98-107) mmol/L Carbon Dioxide (22-29) mmol/L Anion Gap (5-19) BUN (6-20) mg/dL Creatinine (0.7-1.2) mg/dL GFR Calculation (90-130) mL/min Glucose (65-115) mg/dL POC Glucose 176 H (70-110) mg/dL Calculated Osmolal ity (285-295) mOsm/k g Lactic Acid (0.5-2.2) mmol/L Lactic Acid (Sepsi s) 5.2 H* (0.5-2.2) mmol/L Calcium (8.5-10.5) mg/dL Total Bilirubin (0.15-1.2) mg/dL AST (0-40) U/L ALT (0-41) U/L Alkaline Phosphata se (40-130) IU/L Total Protein (6.6-8.7) g/dL Albumin (3.5-5.2) g/dL Globulin (1.3-4.6) g/dL Urine Color (Yellow) Urine Appearance (CLEAR) Urine pH (5-7) Ur Specific Gravit y (1.005-1.030) Urine Protein (Negative) Urine Glucose (UA) (Normal) Urine Ketones (Negative) Urine Blood (Negative) Urine Nitrate (Negative) Urine Bilirubin (Negative) Urine Urobilinogen (Negative) mg/dL Ur Leukocyte Liz ase (Negative) Urine RBC (0-2) /hpf Urine WBC (0-5) /hpf Ur Squamous Epith Cells (0-5) /hpf Ur Transition Epit h Cell /hpf Amorphous Sediment /hpf Urine Bacteria (NONE) /hpf Hyaline Casts /lpf Fine Granular Cast s /lpf Urine Mucus /hpf Urine Opiates Scre en Negative (Negative) ng/mL Ur Barbiturates Sc reen Negative (Negative) ng/mL Ur Phencyclidine S crn Negative (Negative) ng/mL Ur Amphetamines Sc reen Negative (Negative) ng/mL U Benzodiazepines Scrn Negative (Negative) ng/mL Urine Cocaine Scre en Negative (Negative) ng/mL U Marijuana (THC) Screen Negative (Negative) ng/mL 09/07/20 09/07/20 09/07/20 Range/Units 16:40 17:29 19:31 WBC (4.0-10.0) 10^3/ uL RBC (4.1-5.3) 10^6/u L Hgb (11.7-16.6) g/dL Hct (42.0-52.0) % MCV (80-94) fL MCH (28.0-34.0) pg MCHC (30.0-36.0) g/dL RDW (12.1-15.1) % Plt Count (130-400) 10^3/c mm MPV (7.4-10.4) fL Neut % (Auto) % Lymph % (Auto) % [facility] % (Auto) % Eos % (Auto) % Baso % (Auto) % Neut # (Auto) (1.8-7.7) 10^3/u L Lymph # (Auto) (0.8-4.8) 10^3/u L [facility] # (Auto) (0.2-0.9) 10^3/u L Eos # (Auto) (0.0-0.8) 10^3/u L Baso # (Auto) (0.0-0.1) 10^3/u L Nucleated RBC % (a uto) % Nucleated RBCs # /100WBC PT (12.1-14.9) SECO NDS INR (0.8-1.2) APTT (23.9-36.7) SECO NDS Sodium (136-145) mmol/L Potassium (3.5-5.1) mmol/L Chloride (98-107) mmol/L Carbon Dioxide (22-29) mmol/L Anion Gap (5-19) BUN (6-20) mg/dL Creatinine (0.7-1.2) mg/dL GFR Calculation (90-130) mL/min Glucose (65-115) mg/dL POC Glucose 149 H 172 H 182 H (70-110) mg/dL Calculated Osmolal ity (285-295) mOsm/k g Lactic Acid (0.5-2.2) mmol/L Lactic Acid (Sepsi s) (0.5-2.2) mmol/L Calcium (8.5-10.5) mg/dL Total Bilirubin (0.15-1.2) mg/dL AST (0-40) U/L ALT (0-41) U/L Alkaline Phosphata se (40-130) IU/L Total Protein (6.6-8.7) g/dL Albumin (3.5-5.2) g/dL Globulin (1.3-4.6) g/dL Urine Color (Yellow) Urine Appearance (CLEAR) Urine pH (5-7) Ur Specific Gravit y (1.005-1.030) Urine Protein (Negative) Urine Glucose (UA) (Normal) Urine Ketones (Negative) Urine Blood (Negative) Urine Nitrate (Negative) Urine Bilirubin (Negative) Urine Urobilinogen (Negative) mg/dL Ur Leukocyte Liz ase (Negative) Urine RBC (0-2) /hpf Urine WBC (0-5) /hpf Ur Squamous Epith Cells (0-5) /hpf Ur Transition Epit h Cell /hpf Amorphous Sediment /hpf Urine Bacteria (NONE) /hpf Hyaline Casts /lpf Fine Granular Cast s /lpf Urine Mucus /hpf Urine Opiates Scre en (Negative) ng/mL Ur Barbiturates Sc reen (Negative) ng/mL Ur Phencyclidine S crn (Negative) ng/mL Ur Amphetamines Sc reen (Negative) ng/mL U Benzodiazepines Scrn (Negative) ng/mL Urine Cocaine Scre en (Negative) ng/mL U Marijuana (THC) Screen (Negative) ng/mL Imaging Data^: CXR: Attestation: I personally reviewed and interpreted this imaging study as follows: Radiologist's impression: [address] [address] XRay Report Signed Patient: Johan Chand #: [id number] : 1965Acct#:[id number] Age/Sex: 55 / MADM Date: 09/07/20 Loc: ERRoom/Bed: Attending Dr: Ordering Provider/Ordering MD: Conchita Hill MD, [facility] Date of Service: 09/07/20 Procedure(s): XR chest 1V portable [id number] Accession Number(s): [id number] Report Number: [id number] PROCEDURE INFORMATION: Exam: XR Chest Exam date and time: 09/07/2020 2:07 PM Age: 55 years old Clinical indication: Shortness of breath; Additional info: AMS TECHNIQUE: Imaging protocol: XR of the chest Views: 1 view. COMPARISON: CR XR chest 1V portable [id number] 07/29/2020 10:12 AM FINDINGS: Lungs: Unremarkable. No consolidation. Stable granuloma right upper lobe near the lateral chest wall. Pleural spaces: Unremarkable. No pleural effusion. No pneumothorax. Heart/Mediastinum: Unremarkable. No cardiomegaly. Bones/joints: Unremarkable. XR/XR chest 1V portable [id number] IMPRESSION: No acute findings. Stable right upper lobe granuloma Dictated By:Omega Valero Signed By:Aaron Valero Date/Time:09/07/20 1453 DD/ 1452 CT Abd/Pel: Attestation: I personally reviewed and interpreted this imaging study as follows: Radiologist's impression: [address] [place] [address] CT Scan Report Signed Patient: Johan Chand #: [id number] : 1965Acct#:[id number] Age/Sex: 55 / MADM Date: 09/07/20 Loc: ERRoom/Bed: Attending Dr: Ordering Provider/Ordering MD: Conchita Hill MD, [facility] Date of Service: 09/07/20 Procedure(s): CT chest abd pel wo con Accession Number(s): [id number] Report Number: [id number] PROCEDURE INFORMATION: Exam: CT Chest Without Contrast; Diagnostic Exam date and time: 09/07/2020 3:31 PM Age: 55 years old Clinical indication: Abdominal pain; Other: SOB; Additional info: Sepsis TECHNIQUE: Imaging protocol: Diagnostic computed tomography of the chest without contrast. Radiation optimization: All CT scans at this facility use at least one of these dose optimization techniques: automated exposure control; mA and/or kV adjustment per patient size (includes targeted exams where dose is matched to clinical indication); or iterative reconstruction. COMPARISON: CR Hip 2-3v RIGHT wwo Pelv* [id number] 05/19/2017 2:10 PM RADIATION DOSE METRICS: Total DLP (mGy-cm): 1603.16 FINDINGS: Lungs: There are centrilobular emphysematous changes in the bilateral lungs. There is a benign calcified granuloma in the right upper lobe. Pleural spaces: Unremarkable. No pneumothorax. No pleural effusion. Heart: Multivessel atherosclerotic disease which involves the coronary arteries. Mediastinal space: There is fluid in the esophagus. Small hiatal hernia. Aorta: Unremarkable. No aortic aneurysm. Lymph nodes: Unremarkable. No enlarged lymph nodes. Bones/joints: Unremarkable. No acute fracture. Soft tissues: Unremarkable. IMPRESSION: 1. There are centrilobular emphysematous changes in the bilateral lungs. 2. Multivessel atherosclerotic disease which involves the coronary arteries. 3. There is fluid in the esophagus consistent with poor swallowing and/or reflux. PROCEDURE INFORMATION: Exam: CT Abdomen And Pelvis Without Contrast Exam date and time: 09/07/2020 3:31 PM Age: 55 years old Clinical indication: Abdominal pain; Other: SOB; Additional info: Sepsis TECHNIQUE: Imaging protocol: Computed tomography of the abdomen and pelvis without contrast. Radiation optimization: All CT scans at this facility use at least one of these dose optimization techniques: automated exposure control; mA and/or kV adjustment per patient size (includes targeted exams where dose is matched to clinical indication); or iterative reconstruction. COMPARISON: CR Hip 2-3v RIGHT wwo Pelv* [id number] 05/19/2017 2:10 PM RADIATION DOSE METRICS: Total DLP (mGy-cm): 1603.16 FINDINGS: Liver: Normal. No mass. Gallbladder and bile ducts: There is increased density in the gallbladder. Gallbladder is distended. Gallbladder is poorly visualized secondary to artifact in this region. Pancreas: Normal. No ductal dilation. Spleen: Normal. No splenomegaly. Adrenal glands: Normal. No mass. Kidneys and ureters: Normal. No hydronephrosis. Stomach and bowel: Unremarkable. No obstruction. No mucosal thickening. Appendix: No evidence of appendicitis. Intraperitoneal space: Unremarkable. No free air. No significant fluid collection. Vasculature: Multivessel atherosclerotic disease which involves the coronary arteries. Lymph nodes: Unremarkable. No enlarged lymph nodes. Urinary bladder: There is a Reynaga catheter and air in the bladder. Reproductive: See Bones/joints finding. Bones/joints: ORIF proximal right femur. There is a transitional lumbosacral vertebra. There is a moderate compression fracture of the L1 superior endplate. No definite adjacent soft tissue changes are seen in this may be subacute in nature. There is a mild compression fracture of the L2 superior endplate of unknown chronicity. Soft tissues: See Bones/joints finding. CT/CT chest abd pel wo con IMPRESSION: 1. Gallbladder is not optimally visualized secondary to artifact. Increased density is present in a distended gallbladder. Right upper quadrant ultrasound is recommended for further evaluation. 2. Moderate compression fracture of the L1 superior endplate and mild compression fracture of the L2 superior endplate of unknown chronicity. Radiation Dose CTDIVOL = (mGy): DLP = 1603.16~1603.16 (mGy-cm) Dictated By:Florida Lee MD Signed By:Lee,Florida M MDSigned Date/Time:09/07/20 1650 DD/ 1649 US: Attestation: I personally reviewed and interpreted this imaging study as follows: Radiologist's impression: [facility] [address] [place] [address] Ultrasound Report Signed Patient: Johan Chand #: [id number] : 1965Acct#:[id number] Age/Sex: 55 / MADM Date: 09/07/20 Loc: ERRoom/Bed: Attending Dr: Ordering Provider/Ordering MD: Conchita Hill MD, [facility] Date of Service: 09/07/20 Procedure(s): US gall bladder [id number] Accession Number(s): [id number] Report Number: [id number] PROCEDURE INFORMATION: Exam: US Abdomen, Limited; Right Upper Quadrant Exam date and time: 09/07/2020 5:04 PM Age: 55 years old Clinical indication: Condition or disease; Other: Sepsis, gb disease TECHNIQUE: Imaging protocol: US abdomen. Real time ultrasound with image documentation. Limited exam focused on the right upper quadrant. COMPARISON: CT chest abd pel wo con 09/07/2020 4:25 PM FINDINGS: Liver: No focal abnormality is seen within the liver. Gallbladder: There is some sludge in the dependent portions of the gallbladder. No gallstones are identified. There is no gallbladder wall thickening or pericholecystic fluid. Gallbladder wall measures approximately 2 mm in thickness. Common bile duct: Common bile duct measures 3 mm. Pancreas: Pancreas could not be imaged on this study due to the patient's condition. Right kidney: No hydronephrosis. Normal size with normal cortical thickness and echogenicity. Aorta: Aorta is not visualized due to patient's condition and bowel gas. Inferior vena cava: IVC is unremarkable. US/US gall bladder [id number] IMPRESSION: There is some sludge in the gallbladder, otherwise unremarkable ultrasound of the abdomen. Dictated By:Benjamin Rodriguez Signed By:Jac Rodriguezigned Date/Time:09/07/201818 DD/ 17 CT Head: Attestation: I personally reviewed and interpreted this imaging study as follows: Radiologist's impression: [address] [place] [address] CT Scan Report Signed Patient: Johan Chand #: [id number] : 1965Acct#:[id number] Age/Sex: 55 / MADM Date: 09/07/20 Loc: ERRoom/Bed: Attending Dr: Ordering Provider/Ordering MD: Conchita Hill MD, [facility] Date of Service: 09/07/20 Procedure(s): CT head wo con* [id number] Accession Number(s): [id number] Report Number: [id number] PROCEDURE INFORMATION: Exam: CT Head Without Contrast Exam date and time: 09/07/2020 3:31 PM Age: 55 years old Clinical indication: Altered mental status/memory loss; Additional info: Symptoms of acute stroke TECHNIQUE: Imaging protocol: Computed tomography of the head without contrast. Radiation optimization: All CT scans at this facility use at least one of these dose optimization techniques: automated exposure control; mA and/or kV adjustment per patient size (includes targeted exams where dose is matched to clinical indication); or iterative reconstruction. 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 There is diffuse cerebral atrophy present, consistent with this patient's age. Periventricular and subcortical white matter low densities are present which at this age likely represent microvascular ischemic change. No evidence for large acute ischemic infarction. Please note acute ischemia can be occult by head CT. Benign globus pallidus calcifications are present. 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 Bones/joints: Unremarkable. No acute fracture. Paranasal sinuses: There is mucosal thickening in the frontal sinuses. Mastoid air cells: Visualized mastoid air cells are well aerated. Soft tissues: Unremarkable. CT/CT head wo con* [id number] IMPRESSION: 1. 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 2. There are senescent changes of the brain as described above. No evidence for large acute ischemic infarction or acute intracranial injury. Radiation Dose CTDIVOL = (mGy): DLP = 2157.67 (mGy-cm) Dictated By:Florida Lee MD Signed By:Florida Lee MDSigned Date/Time:09/07/20 1635 DD/ 1634 EKG Data^: EKG 1: Attestation: I personally reviewed and interpreted this EKG as follows: EKG interpretation date: 09/07/20 EKG interpretation time: 15:29 Computer generated interpretation: [address] [address] Electrocardiograph Report Signed Patient: Johan Chand #: [id number] : 1965[facility][id number] Age/Sex: 55 / MADM Date: 09/07/20 Loc: [facility]/Bed: Attending Dr: Ordering Provider/Ordering MD: Conchita Hill MD, [facility] Date of Service: 09/07/20 Procedure(s): ECG 12 lead EKG Accession Number(s): [id number] Report Number: [id number] [facility] Test Date: 2020-09-07 Pat Name: Johan Chand Department: Room: Gender: Male Marketing Program Manager: : 1965 Requested By: Conchita Hill I Order Number: [id number] Reading MD: CRISS WHITE Measurements Intervals [place] Rate: 122 P: 78 IA: 148 QRS: 72 QRSD: 94 T: 70 QT: 342 QTc: 488 Interpretive Statements SINUS TACHYCARDIA ABNORMAL RHYTHM ECG Compared to ECG 07/29/2020 17:24:16 No significant changes Electronically Signed On 09-07-2020 18:44:08 VB NET PROGRAMMER by CRISS WHITE [id number] Dictated By:Criss White MD Signed By:Criss White MDSigned Date/Time:09/07/20 1846 DD/ 1529 Critical Care Time Critical Care Time: Critical Care Time: Yes Total Critical Care Time: 90 Attestation: This case had a high probability of a clinically significant, sudden, or life threatening deterioration of this patient's condition which required my full and direct attention, intervention and personal management. Discharge Plan Discharge Patient Disposition: Xfer Short-Term Hosp Clinical Impression: Sepsis, Hyponatremia, Transaminitis, Acute metabolic encephalopathy Cellulitis Qualifiers: Site of cellulitis: extremity Site of cellulitis of extremity: lower extremity Laterality: unspecified laterality Qualified Code(s): L03.119 - Cellulitis of unspecified part of limb Hypothermia Qualifiers: Encounter type: initial encounter Qualified Code(s): T68.XXXA - Hypothermia, initial encounter Condition: Stable Discharge Orders: Transfer Out of Facility (Order); Ordered 09/07/20 Ordered By: Conchita Hill Coding Level of Care Code ED Slug Press Operator for Christopher Fwd Exam Detailed
[2020-09-08 04:57] LABS: Glucose Point of Care 148 mg/dL (70-110)
[2020-09-08 04:57] LABS: Glucose Point of Care 172 mg/dL (70-110)
[2020-09-08 04:57] LABS: Glucose Point of Care 152 mg/dL (70-110)
[2020-09-08 04:57] LABS: Glucose Point of Care 182 mg/dL (70-110)
[2020-09-08 04:57] LABS: Glucose Point of Care 92 mg/dL (70-110)
== END 2020-09-07 19:48 | disposition short-term general hospital (02) ==
PROVIDERS: Emergency Provider Family Medicine
DX: A41.9 Sepsis, unspecified organism (principal); L03.119 Cellulitis of unspecified part of limb; E87.1 Hypo-osmolality and hyponatremia; R74.01 Elevation of levels of liver transaminase levels; G93.41 Metabolic encephalopathy; T68.XXXA Hypothermia, initial encounter; J44.9 Chronic obstructive pulmonary disease, unspecified; F17.210 Nicotine dependence, cigarettes, uncomplicated
CPT/HCPCS: 36416; 70450; 71045; 71250; 74176; 76705; 80053; 80306; 81001; 82962; 83605; 85025; 85610; 85730; 87040; 87205; 93005; 96361; 96365; 96367; 96372; 96375; 99285; J1610; J2060; J2543; J3370; J7030; J7050

== ENCOUNTER 2020-12-07 13:53 | Emergency (ER) | payer MEDICAID, SELFPAY ==
[2020-12-07 13:56] VITALS: BP 143/93; PULSE 125; RESP 19; TEMP 36.6; O2SAT 92; BMI 23.6
--- NOTE | 2020-12-07 14:11 | ED_ITS ---
HPI - Extremity Problem General: Chief complaint: Extremity Problem,Nontraumatic Stated complaint: ROSAMARIA LEG PAIN WITH OPEN WOUNDS Time Seen by Provider: 12/07/20 14:07 History of Present Illness: HPI Narrative: This patient is a 55-year-old male who presents to the emergency department requesting a dressing change. Patient had bilateral lower extremity cellulitis and has Unna boot wrappings to the lower extremities bilaterally. [facility] where he was undergoing care for these lower extremity injuries and wounds. Patient states he try to go the bathroom today and did not make it to the bathroom and had diarrhea and loose stool that got all over his dressings. Patient has no specific complaints. Patient has been home for less than 24 hours. Patient does have family members at home to help with care. Patient d escribes no pain describes no significant injury or nausea states loose stool just x1 hour. Nursing staff will change dressings. Associated symptoms: Deny chest pain, fever(s) or rash Review of Systems General: Reports: 10 or more systems reviewed and unremarkable except in HPI and below Const: Denies: fever(s), chills, body aches or fatigue Eyes: Denies: change in vision or blurry vision ENMT: Denies: throat pain, hoarseness or mouth pain Card: Denies: chest pain, palpitations, irregular heart rhythm, edema, swelling of feet/ankles or lightheadedness Resp: Denies: dyspnea, productive cough, non-productive cough, wheezing or pain on inspiration GI: Denies: abdominal pain, nausea or vomiting : Denies: flank pain, dysuria, urinary frequency, urinary urgency or urinary hesitancy Musc: Denies: neck pain, back pain, extremity pain, extremity swelling, joint pain, joint swelling, joint redness, joint warmth or limited range of motion Skin/Breast: Denies: rash, pruritus, erythema or skin tenderness Neuro: Denies: headache(s), numbness in extremities or weakness in extremities Psych: Denies: anxiety or depression PFSH ED PFSH: Medical History Alcoholism Cardiomyopathy COPD (chronic obstructive pulmonary disease) Hyponatremia Tobacco dependency Surgical History History of hip surgery Family History Other CAD (coronary artery disease) Social History Smoking and tobacco status: current every day smoker Alcohol intake: former Current gender identity: Male Physical Exam Const: COMMON NORMALS: no acute distress, average body habitus, patient oriented x3, no limitations, healthy appearing, alert and well nourished HENMT: COMMON NORMALS: normocephalic, atraumatic, hearing grossly normal bilaterally, external ears normal, EAC's normal, TM's normal bilaterally, Normal external nose present, Normal nasal mucous membranes and turbinates present, moist oral mucous membranes, oropharynx normal, dentition normal and gingiva normal HEAD & SCALP: normocephalic and atraumatic NOSE: Normal external nose present and Normal nasal mucous membranes and turbinates present EXTERNAL EAR: Yes external ears normal EXTERNAL AUDITORY CANAL: EAC's normal TYMPANIC MEMBRANE: TM's normal bilaterally Neck/C-Spine: COMMON NORMALS: full ROM, no lymphadenopathy, supple, no meningeal signs, no JVD, Thyroid normal and No carotid bruits THYROID: Thyroid normal Chest: COMMONS NORMALS: normal inspection of the chest, normal palpation of entire chest wall, normal inspection of the breasts and normal palpation of the breasts Breast/axilla inspection: Yes normal inspection of the breasts BREAST/AXILLA PALPATION: Yes normal palpation of the breasts Resp: COMMON NORMALS: normal respiratory effort, No retractions, No use of accessory muscles, clear to auscultation bilaterally and percussion normal AUSCULTATION: clear to auscultation bilaterally PERCUSSION: percussion normal Cardio: COMMON NORMALS: no JVD, regular rate, regular rhythm, S1 normal heart sound present, S2 normal heart sound present, No gallops present (Cardio), No clicks present (Cardio), No murmurs present (Cardio), No rub (Cardio) and Peripheral pulses 2+ throughout RATE: regular rate RHYTHM: regular rhythm HEART SOUNDS: S1 normal heart sound present and S2 normal heart sound present PERIPHERAL PULSES: Peripheral pulses 2+ throughout GI: COMMON NORMALS: Normal to inspection, nondistended, normoactive bowel sounds present, Soft to palpation, non-tender, No hepatosplenomegaly present, no masses and no bruits PALPATION: Yes Soft to palpation and Yes No hepatosplenomegaly present : COMMON NORMALS: Yes no CVA tenderness BLADDER/KIDNEY EXAM: Yes no CVA tenderness Back/Pelvis: COMMON NORMALS: no CVA tenderness, thoracic and lumbar spine normal to inspection, no thoracic nor lumbar tenderness, thoraco-lumbar ROM normal and straight leg raise negative bilaterally Extremity: COMMON NORMALS: normal to inspection, full ROM, capillary refill normal, no joint enlargement, no clubbing, cyanosis or edema, no calf tenderness and no pedal edema NARRATIVE EXTREMITY EXAM: Lower extremity wrappings and dressings are covered in feces. Nursing staff to change Neuro: COMMON NORMALS: patient oriented x3 SENSORIUM/ORIENTATION: Yes alert MENINGEAL SIGNS: Yes no meningeal signs Course Reevaluation(s): Reevaluation #1: Patient's dressings have been changing patient has been cleaned. Patient recently was discharged yesterday from [facility] facility due to lower extremity cellulitis issues. Patient does have dressings in place. Patient was discharged home with family care. Patient does walk with a walker and is able to care for himself. Patient just did not have anybody to help him with his dressings this morning. Patient is requesting to be discharged home patient will be discharged home per his request we will have case management notified home health services possible wound care to help with management of his wounds and make sure this is set up properly since he was discharged from the facility. Patient will be discharged per his request Time: 15:18 Vital Signs: Vital signs: Vital Signs Temperature 97.8 F 12/07/20 13:56 Pulse Rate 125 H 12/07/20 13:56 Respiratory Rate 19 H 12/07/20 13:56 Blood Pressure 143/93 12/07/20 13:56 Pulse Oximetry 92 12/07/20 13:56 MDM - Extremity (Nontraumatic) MDM Narrative: Medical decision making narrative: This patient is a 55-year-old male who presents to the emergency department requesting a dressing change. Patient had bilateral lower extremity cellulitis and has Unna boot w rappings to the lower extremities bilaterally. [facility] where he was undergoing care for these lower extremity injuries and wounds. Patient states he try to go the bathroom today and did not make it to the bathroom and had diarrhea and loose stool that got all over his dressings. Patient does have family members in the home to help with care. Patient has no specific complaints. Patient has been home for less than 24 hours. Patient describes no pain describes no significant injury or nausea states loose stool just x1 hour. Nursing staff will change dressings. Patient's dressings have been changing patient has been cleaned. Patient recently was discharged yesterday from long-term [facility] care facility due to lower extremity cellulitis issues. Patient does have dressings in place. Patient was discharged home with family care. Patient does walk with a walker and is able to care for himself. Patient just did not have anybody to help him with his dressings this morning. Patient is requesting to be discharged home patient will be discharged home per his request we will have case management notified home health services possible wound care to help with management of his wounds and make sure this is set up properly since he was discharged from the facility. Patient will be discharged per his request Medical Records: Attestation: I reviewed the patient's medical records. Lab Data: Attestation: I reviewed the patient's lab results. Discharge Plan Discharge Patient Disposition: Home Clinical Impression: Cellulitis, Tobacco dependency, Encounter for wound care Condition: Stable Prescriptions: No Action doxycycline hyclate 100 mg capsule 100 mg PO BID 10 Days Qty: 20 RF: 0 pantoprazole 40 mg Tablet,Delayed Release (Dr/Ec) 40 mg PO DAILY Qty: 30 RF: 0 Eliquis DVT-PE Treat 30D Start 5 mg (74 tabs) tablets,dose pack See Rx Instructions .ROUTE .COMPLEX Qty: 74 RF: 0 Benadryl Allergy 25 mg Tablet 25 mg PO PRN RF: 0 Pain Relief PM 25-500 mg Tablet 1 - 2 tab PO PRN RF: 0 furosemide 40 mg tablet 40 mg PO DAILY@08 RF: 0 metoprolol tartrate 25 mg tablet 25 mg PO BID@,21 RF: 0 Discharge Orders: Discharge ED (Routine); Ordered 12/07/20 Ordered By: Shabbir Aguirre Discharge Diet: Advance as tolerated Discharge Activity: Increase activity as tolerated Patient Instructions: Opioid Safety Activity Restrictions/Additional Instructions: Continue with current outpatient care with family. We will have case management from the hospital arranged to help with home care health and wound care at home. Continue with all care as previously given at disposition from your long-term [facility] facility yesterday. Continue to follow those discharge instructions. Follow-up with your PCP in 2 to 3 days. Coding Level of Care Code ED Cooperer for Christopher Fwcristela Exam Comprehensive
[2020-12-07 14:33] VITALS: PULSE 128; RESP 30; O2SAT 95
[2020-12-07 15:47] VITALS: BP 160/102; PULSE 134; RESP 30
--- NOTE | 2020-12-10 14:11 | DCPLANNER ---
Addendum entered by Jill Dominguez 12/12/20 15:42: Carmita Coppola from [facility] called case management rn about patient. commercial real estate sales manager was asked to facilitate residential placement for patient. commercial real estate sales manager faxed patients information to the following facilities: [facility] - no [facility] - no [facility] - stated that they would take patient, but patient is not willing to go there [facility] - no [facility] no [facility] - no [facility] - no commercial real estate sales manager also tried to get home health services in the home information sent to the following facilities: [facility] - no [facility] - no [facility] - information faxed, waiting to hear back from the company. commercial real estate sales manager has updated family and Carmita Coppola with the state on what facilities said no and would not accept patient at this time. Patient has a follow up appointment scheduled for Wednesday, December 16, 2020 at 8:00 with [facility]. Addendum entered by Jill Dominguez 12/10/20 14:25: Gaurav, from [facility], called case management rn and informed case management rn that [facility] would not be able to accept patient at this time. Original Note: commercial real estate sales manager had message to schedule a follow up appointment for patient with wound care. commercial real estate sales manager called [facility], spoke with Ilana, gave clinic patients information. commercial real estate sales manager was told that patients information would be printed and reviewed. Clinic will call patient with appointment information. commercial real estate sales manager also had message to schedule home health for patient, case management rn had physician to fill out face to face encounter. commercial real estate sales manager spoke with patients sister about getting home health services in the home. commercial real estate sales manager got choices from the sister, number 1 choice was [facility], 2. [facility], 3. [facility]. commercial real estate sales manager called [facility] to make a referral to that home health company, waiting to hear if they will accept patient or not.
== END 2020-12-07 15:49 | disposition home or self-care (01) ==
PROVIDERS: Emergency Provider Emergency Medicine
DX: L03.115 Cellulitis of right lower limb (principal); L03.116 Cellulitis of left lower limb; F17.210 Nicotine dependence, cigarettes, uncomplicated; Z79.01 Long term (current) use of anticoagulants; J44.9 Chronic obstructive pulmonary disease, unspecified
CPT/HCPCS: 99281

== ENCOUNTER 2020-12-08 11:14 | Emergency (ER) | payer MEDICAID, SELFPAY ==
[2020-12-08 11:19] VITALS: BP 146/96; PULSE 122; RESP 15; TEMP 36.6; O2SAT 94; BMI 24.3
[2020-12-08 11:23] VITALS: O2SAT 94
--- NOTE | 2020-12-08 11:47 | W.ED.EXTPRO ---
HPI - Extremity Problem General: Chief complaint: Extremity Problem,Nontraumatic Stated complaint: chronic bilateral leg pain Time Seen by Provider: 12/08/20 11:24 History of Present Illness: HPI Narrative: Patient is a 55-year-old male comes to the ED with chronic bilateral leg pain. Patient says his pain has been going on now for over a year. Patient was seen here yesterday December 07 for bilateral leg swelling and wounds. He was discharged home with follow-up wound care referral. Denies any acute trauma or injury. Associated symptoms: Deny chest pain, fever(s) or rash Review of Systems Const: Denies: fever(s), chills or fatigue Eyes: Denies: change in vision or eye discomfort ENMT: Denies: throat pain, odynophagia, nasal discharge or nasal congestion Card: Denies: chest pain, palpitations, edema, swelling of feet/ankles, dyspnea on exertion or orthopnea Resp: Denies: dyspnea, productive cough or non-productive cough GI: Denies: abdominal pain, nausea, vomiting, diarrhea, constipation or hematochezia : Denies: flank pain, difficulty urinating, dysuria or hematuria Musc: Reports: extremity pain (Bilateral chronic leg pain); Denies: neck pain, back pain or extremity swelling Skin/Breast: Denies: rash or new lesions Neuro: Denies: headache(s), numbness in extremities or weakness in extremities PFSH ED PFSH: Medical History Alcoholism Cardiomyopathy COPD (chronic obstructive pulmonary disease) Hyponatremia Tobacco dependency Surgical History History of hip surgery Family History Other CAD (coronary artery disease) Social History Smoking and tobacco status: current every day smoker Alcohol intake: former Current gender identity: Male Physical Exam Const: COMMON NORMALS: no acute distress, patient oriented x3 and alert GENERAL APPEARANCE: cooperative and comfortable HENMT: COMMON NORMALS: normocephalic HEAD & SCALP: normocephalic MOUTH: Normal oral and palatal mucosa present THROAT: posterior oropharynx normal and uvula midline Neck/C-Spine: COMMON NORMALS: supple GENERAL: Yes normal visual inspection Resp: COMMON NORMALS: normal respiratory effort, No retractions, No use of accessory muscles and clear to auscultation bilaterally AUSCULTATION: clear to auscultation bilaterally Cardio: COMMON NORMALS: regular rate, regular rhythm, S1 normal heart sound present, S2 normal heart sound present, No gallops present (Cardio), No clicks present (Cardio), No murmurs present (Cardio) and Peripheral pulses 2+ throughout RATE: regular rate RHYTHM: regular rhythm HEART SOUNDS: S1 normal heart sound present and S2 normal heart sound present PERIPHERAL PULSES: Peripheral pulses 2+ throughout GI: COMMON NORMALS: Normal to inspection, nondistended, normoactive bowel sounds present, Soft to palpation, non-tender and no masses PALPATION: Yes Soft to palpation : COMMON NORMALS: Yes no CVA tenderness BLADDER/KIDNEY EXAM: Yes no CVA tenderness Back/Pelvis: COMMON NORMALS: no CVA tenderness Extremity: NARRATIVE EXTREMITY EXAM: Patient's legs bilaterally were wrapped with dressings. GENERAL: Yes edema (Right lower extremity-2+ pitting edema, left lower extremity 1+ pitting perry) Neuro: COMMON NORMALS: patient oriented x3 and moves all extremities SENSORIUM/ORIENTATION: Yes alert Skin: GENERAL SKIN EXAM: dry skin Course Vital Signs: Vital signs: Vital Signs Temperature 97.8 F 12/08/20 11:19 Pulse Rate 122 H 12/08/20 11:19 Respiratory Rate 15 12/08/20 11:19 Blood Pressure 146/96 12/08/20 11:19 Pulse Oximetry 94 12/08/20 11:23 MDM - Extremity (Nontraumatic) MDM Narrative: Medical decision making narrative: Patient is a 55-year-old male comes to the ED with chronic bilateral leg pain. He was seen here in the ED yesterday for similar complaint. I placed an order with case management for patient to be referred to wound care clinic to monitor his wounds on lower extremities. He was discharged home with a written prescription for tramadol for pain. Return to ED precautions given. Follow-up with PCP in 7 to 10 days for reevaluation. Case management will be contacting him in the next several days set up appoint with wound care. Patient understood and agreed with plan. Discharge Plan Discharge Patient Disposition: Home Clinical Impression: Chronic pain of lower extremity, bilateral Condition: Stable Prescriptions: New Tylenol Extra Strength 500 mg tablet 500 mg PO Q6H PRN (Reason: pain) Qty: 15 RF: 0 No Action doxycycline hyclate 100 mg capsule 100 mg PO BID 10 Days Qty: 20 RF: 0 pantoprazole 40 mg Tablet,Delayed Release (Dr/Ec) 40 mg PO DAILY Qty: 30 RF: 0 Eliquis DVT-PE Treat 30D Start 5 mg (74 tabs) tablets,dose pack See Rx Instructions .ROUTE .COMPLEX Qty: 74 RF: 0 Benadryl Allergy 25 mg Tablet 25 mg PO PRN RF: 0 Pain Relief PM 25-500 mg Tablet 1 - 2 tab PO PRN RF: 0 furosemide 40 mg tablet 40 mg PO DAILY@08 RF: 0 metoprolol tartrate 25 mg tablet 25 mg PO BID@, RF: 0 Discharge Orders: Discharge ED (Routine); Ordered 12/08/20 Ordered By: Storm Christie Discharge Diet: Regular Discharge Activity: Increase activity as tolerated Patient Instructions: Tramadol (By mouth) Activity Restrictions/Additional Instructions: Follow-up with PCP in 7 to 10 days for reevaluation. Take medications as prescribed. Return to the ER or your medical provider if condition worsens. Please read and understand discharge instructions. Thank you for choosing [facility] for your healthcare needs today. Please realize this is an emergency room and that we are providing you with a medical screening exam and this may not be complete and all inclusive of all the testing and or work up that you may need to determine your ailment or severity of your illness. It is very important that you follow up as instructed or that you return to the Emergency Department should you have concerns or if your condition changes or worsens in any way. Coding Level of Care Code ED Dye Maker for Christopher Dang Exam Comprehensive
[2020-12-08] MEDS: HYDROcodone-acetaminophen 7.5-325 mg Tablet 1 TAB PO (12:07)
--- NOTE | 2021-01-30 07:33 | DCPLANNER ---
Patient did attend appointment scheduled for 12.16.20 with Wound Care.
== END 2020-12-08 12:10 | disposition home or self-care (01) ==
PROVIDERS: Emergency Provider Physician Assistant
DX: G89.29 Other chronic pain (principal); M79.605 Pain in left leg; M79.604 Pain in right leg; Z79.01 Long term (current) use of anticoagulants; J44.9 Chronic obstructive pulmonary disease, unspecified; F17.210 Nicotine dependence, cigarettes, uncomplicated
CPT/HCPCS: 99283

== ENCOUNTER 2020-12-08 22:32 | Emergency (ER) | payer MEDICAID, SELFPAY ==
[2020-12-08 22:39] VITALS: BP 161/84; PULSE 123; RESP 17; TEMP 36.3; O2SAT 91; BMI 24.3
--- NOTE | 2020-12-09 00:17 | ED_ITS ---
HPI - Extremity Problem General: Chief complaint: Extremity Problem,Nontraumatic Stated complaint: EDEMA W/LEAKAGE Time Seen by Provider: 12/09/20 00:08 History of Present Illness: HPI Narrative: 55-year-old male patient comes in today for complaints of leg pain and swelling in the extremities. Patient was started on doxycycline and recommended to have Tylenol for his pain. Patient is awaiting a ride back to his home. Patient is waiting in the waiting room for [employer] in order to be transported back to his home. Patient would like something for his pain and a dose of his antibiotic. Patient appears well. Patient appears no acute distress. Review of Systems General: Reports: 10 or more systems reviewed and unremarkable except in HPI and below Musc: Reports: other (Swelling and redness to bilateral lower extremities.) PFSH ED PFSH: Medical History Alcoholism Cardiomyopathy COPD (chronic obstructive pulmonary disease) Hyponatremia Tobacco dependency Surgical History History of hip surgery Family History Other CAD (coronary artery disease) Social History Smoking and tobacco status: current every day smoker Alcohol intake: former Current gender identity: Male Physical Exam Const: COMMON NORMALS: no acute distress and patient oriented x3 GENERAL APPEARANCE: cooperative HENMT: COMMON NORMALS: normocephalic and Normal external nose present HEAD & SCALP: normal to inspection and normocephalic NOSE: Normal external nose present Eye: GENERAL EYE: appearance normal, both eyes and all related structures Neck/C-Spine: COMMON NORMALS: full ROM Chest: COMMONS NORMALS: normal inspection of the chest Resp: COMMON NORMALS: normal respiratory effort EFFORT & INSPECTION: Yes able to speak in complete sentences Cardio: COMMON NORMALS: regular rate and regular rhythm RATE: regular rate RHYTHM: regular rhythm GI: COMMON NORMALS: non-tender Extremity: NARRATIVE EXTREMITY EXAM: Bilateral lower extremities are dressed in Xeroform gauze and dressing. Patient has bilateral pedal edema with some redness to the extremities. Neuro: COMMON NORMALS: patient oriented x3 and moves all extremities Psych: COMMON NORMALS: mental status grossly normal and cooperative Skin: COMMON NORMALS: no rashes or lesions noted GENERAL SKIN EXAM: no rashes or lesions noted Course Vital Signs: Vital signs: Vital Signs Temperature 97.3 F L 12/08/20 22:39 Pulse Rate 123 H 12/08/20 22:39 Respiratory Rate 17 12/08/20 22:39 Blood Pressure 161/84 12/08/20 22:39 Pulse Oximetry 91 12/08/20 22:39 MDM - Extremity (Nontraumatic) MDM Narrative: Medical decision making narrative: Patient is wait in the waiting room and check back into the ER in order to get a dose of medication for pain and his antibiotic. Patient appears well. Patient appears no acute distress. I dosed the patient with some Tylenol and repeated the doxycycline for evening dose. Patient is awaiting his [employer] ride back to his home. Patient was released back to the waiting room after treatment. Discharge Plan Discharge Patient Disposition: Home Clinical Impression: Cellulitis Qualifiers: Site of cellulitis: extremity Site of cellulitis of extremity: lower extremity Laterality: unspecified laterality Qualified Code(s): L03.119 - Cellulitis of unspecified part of limb Condition: Stable Prescriptions: No Action doxycycline hyclate 100 mg capsule 100 mg PO BID 10 Days Qty: 20 RF: 0 pantoprazole 40 mg Tablet,Delayed Release (Dr/Ec) 40 mg PO DAILY Qty: 30 RF: 0 Eliquis DVT-PE Treat 30D Start 5 mg (74 tabs) tablets,dose pack See Rx Instructions .ROUTE .COMPLEX Qty: 74 RF: 0 Benadryl Allergy 25 mg Tablet 25 mg PO PRN RF: 0 Pain Relief PM 25-500 mg Tablet 1 - 2 tab PO PRN RF: 0 furosemide 40 mg tablet 40 mg PO DAILY@08 RF: 0 metoprolol tartrate 25 mg tablet 25 mg PO BID@ RF: 0 Tylenol Extra Strength 500 mg tablet 500 mg PO Q6H PRN (Reason: pain) Qty: 15 RF: 0 Discharge Orders: Discharge ED (Routine); Ordered 12/09/20 Ordered By: Augustine Santamaria Discharge Diet: Usual diet Discharge Activity: Increase activity as tolerated Patient Instructions: Opioid Safety Activity Restrictions/Additional Instructions: Elevate lower extremities. Continue with routine medications as directed. Follow-up with primary care. Return to the emergency department for new concerns. Coding Level of Care Code ED Director Physical Therapy for Christopher Dang
[2020-12-09] MEDS: acetaminophen 325 mg Tablet 650 MG PO (01:20)
[2020-12-09] MEDS: doxycycline 100 mg Tablet PO (01:20)
== END 2020-12-09 02:04 | disposition home or self-care (01) ==
PROVIDERS: Emergency Provider Nurse Practitioner Family
DX: L03.116 Cellulitis of left lower limb (principal); L03.115 Cellulitis of right lower limb; Z79.01 Long term (current) use of anticoagulants; J44.9 Chronic obstructive pulmonary disease, unspecified; F17.210 Nicotine dependence, cigarettes, uncomplicated
CPT/HCPCS: 99283

== ENCOUNTER 2020-12-09 18:38 | Emergency (ER) | payer MEDICAID, SELFPAY ==
[2020-12-09 18:50] VITALS: BP 166/91; PULSE 128; RESP 18; TEMP 37.2; O2SAT 93; BMI 24.3
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
[2020-12-09] MEDS: doxycycline 100 mg Tablet PO (19:27)
[2020-12-09] MEDS: acetaminophen 325 mg Tablet 650 MG PO (19:28)
--- NOTE | 2020-12-09 19:51 | PC.NURSE ---
Patient old leg wraps taken off. Xeroform gauze placed from below knees to above ankles bilaterally, telfa dressing pads placed over xeroform gauze and then wrapped in Kerlex.
[2020-12-09 20:34] VITALS: BP 144/87; PULSE 132; RESP 19; TEMP 37.2; O2SAT 95
== END 2020-12-09 20:37 | disposition home or self-care (01) ==
PROVIDERS: Emergency Provider Nurse Practitioner Family
DX: L03.116 Cellulitis of left lower limb (principal); L03.115 Cellulitis of right lower limb; Z79.01 Long term (current) use of anticoagulants; J44.9 Chronic obstructive pulmonary disease, unspecified; F17.210 Nicotine dependence, cigarettes, uncomplicated
CPT/HCPCS: 99283

== ENCOUNTER 2020-12-10 12:55 | Emergency (ER) | payer MEDICAID, SELFPAY ==
[2020-12-10 12:59] VITALS: BP 136/84; PULSE 111; RESP 26; O2SAT 93; BMI 24.3
--- NOTE | 2020-12-10 13:14 | W.ED.EXTPRO ---
HPI - Extremity Problem General: Chief complaint: Extremity Problem,Nontraumatic Stated complaint: CHRONIC LEG PAIN, WEEPING Time Seen by Provider: 12/10/20 12:57 History of Present Illness: HPI Narrative: 55-year-old male presents emergency room with complaints of chronic bilateral lower extremity swelling and pain. He is on antibiotics and pain medications currently so by prescribed pain no evidently has had some difficulty getting them filled. He has a fairly large amount of vuong and scrub pocket with him here today but has not been able to get his medicines filled. There is also evidently some logistical issues with transportation. He has been to the ER several times in the past for this as well. Previous blood cultures have grown out Staphylococcus as recently as September of this year. Prior to that he had methicillin-resistant staph in July of this year. He denies fever. MD Complaint: extremity pain and extremity swelling Onset (ago): month(s) Pain Consistency: constant Location: left, right and lower extremity Quality: aching Radiation: distal Relieving factors: nothing Exacerbating factors: nothing Associated symptoms: Reports arthralgias and myalgias; Deny chest pain, fever(s), rash or short of breath Review of Systems Const: Denies: fever(s) ENMT: Denies: throat pain, ear or mastoid pain, nasal discharge or nasal congestion Card: Denies: chest pain Resp: Denies: dyspnea, productive cough or non-productive cough GI: Denies: abdominal pain, nausea, vomiting, hematemesis, coffee ground emesis, diarrhea, constipation, bloating, hematochezia or melena : Denies: flank pain, dysuria, urinary frequency or urinary urgency Skin/Breast: Denies: rash PFSH ED PFSH: Medical History Alcoholism Cardiomyopathy COPD (chronic obstructive pulmonary disease) Hyponatremia Tobacco dependency Surgical History History of hip surgery Family History Other CAD (coronary artery disease) Social History Smoking and tobacco status: current every day smoker Alcohol intake: former Current gender identity: Male Physical Exam Const: COMMON NORMALS: no acute distress GENERAL APPEARANCE: cooperative and comfortable ORIENTATION/CONSCIOUSNESS: Yes awake, Yes oriented to person, Yes oriented to place and Yes oriented to time HENMT: COMMON NORMALS: normocephalic, atraumatic, hearing grossly normal bilaterally and external ears normal HEAD & SCALP: normocephalic and atraumatic EXTERNAL EAR: Yes external ears normal Neck/C-Spine: COMMON NORMALS: no JVD Resp: COMMON NORMALS: normal respiratory effort, No retractions, No use of accessory muscles and clear to auscultation bilaterally AUSCULTATION: clear to auscultation bilaterally Cardio: COMMON NORMALS: no JVD, regular rate, regular rhythm and No murmurs present (Cardio) RATE: regular rate RHYTHM: regular rhythm GI: COMMON NORMALS: Soft to palpation and No hepatosplenomegaly present AUSCULTATION: Yes normoactive bowel sounds PALPATION: Yes Soft to palpation, No Tenderness to palpation present (GI), No Guarding due to palpation present (GI) and Yes No hepatosplenomegaly present Extremity: NARRATIVE EXTREMITY EXAM: Severe bilateral lower extremity edema with skin breakdown and serous drainage. Mildly red and erythematous. Neuro: SENSORIUM/ORIENTATION: Yes oriented to person, Yes oriented to place and Yes oriented to time Skin: COMMON NORMALS: no rashes or lesions noted GENERAL SKIN EXAM: no rashes or lesions noted Course Vital Signs: Vital signs: Vital Signs Pulse Rate 111 H 12/10/20 12:59 Respiratory Rate 26 H 12/10/20 12:59 Blood Pressure 136/84 12/10/20 12:59 Pulse Oximetry 93 12/10/20 12:59 MDM - Extremity (Nontraumatic) MDM Narrative: Medical decision making narrative: Patient has grown staph twice in blood cultures. Concerns of multiple admissions to the emergency room last 2 days. He is mildly hyponatremic with a mildly elevated white count and anemia. I recommend that he be admitted patient absolutely refuses. Ultimately patient left AMA is welcome to return at any point I did discuss with him he could end up dying from this if he has staph in his bloodstream again he expressed understanding but wanted to go home and take care of his animals. Lab Data: Labs: Lab Results 12/10/20 12/10/20 Range/Units 13:05 13:05 WBC 11.5 H (4.0-10.0) 10^3/ uL RBC 3.41 L (4.1-5.3) 10^6/u L Hgb 9.6 L (11.7-16.6) g/dL Hct 28.7 L (42.0-52.0) % MCV 84.2 (80-94) fL MCH 28.2 (28.0-34.0) pg MCHC 33.4 (30.0-36.0) g/dL RDW 17.3 H (12.1-15.1) % Plt Count 778 H (130-400) 10^3/c mm MPV 8.5 (7.4-10.4) fL Neut % (Auto) 53.0 % Lymph % (Auto) 24.3 % [place] % (Auto) 15.2 % Eos % (Auto) 5.6 % Baso % (Auto) 1.0 % Neut # (Auto) 6.11 (1.8-7.7) 10^3/u L Lymph # (Auto) 2.8 (0.8-4.8) 10^3/u L [place] # (Auto) 1.8 H (0.2-0.9) 10^3/u L Eos # (Auto) 0.7 (0.0-0.8) 10^3/u L Baso # (Auto) 0.1 (0.0-0.1) 10^3/u L Nucleated RBC % (a uto) 0 % Nucleated RBCs # 0.0 /100WBC Sodium 129 L (136-145) mmol/L Potassium 3.6 (3.5-5.1) mmol/L Chloride 93 L (98-107) mmol/L Carbon Dioxide 25 (22-29) mmol/L Anion Gap 14.6 (5-19) BUN 7 (6-20) mg/dL Creatinine 0.4 L (0.7-1.2) mg/dL GFR Calculation 221.7 H (90-130) mL/min Glucose 78 (65-115) mg/dL Calculated Osmolal ity 265 L (285-295) mOsm/k g Calcium 8.8 (8.5-10.5) mg/dL Total Bilirubin 0.2 (0.15-1.2) mg/dL AST 20 (0-40) U/L ALT 19 (0-41) U/L Alkaline Phosphata se 69 (40-130) IU/L Total Protein 7.7 (6.6-8.7) g/dL Albumin 3.7 (3.5-5.2) g/dL Globulin 4.0 (1.3-4.6) g/dL Discharge Plan Discharge Patient Disposition: Left Against Medical Advice Clinical Impression: Cellulitis, Anemia, Hyponatremia, Alcoholism, Transaminitis, Chronic pain of lower extremity, bilateral, Edema of both lower legs, COPD (chronic obstructive pulmonary disease) Prescriptions: No Action pantoprazole 40 mg Tablet,Delayed Release (Dr/Ec) 40 mg PO DAILY Qty: 30 RF: 0 Eliquis DVT-PE Treat 30D Start 5 mg (74 tabs) tablets,dose pack See Rx Instructions .ROUTE .COMPLEX Qty: 74 RF: 0 diphenhydramine HCl [Benadryl Allergy] 25 mg Tablet 25 mg PO PRN RF: 0 furosemide 40 mg tablet 40 mg PO DAILY@08 RF: 0 metoprolol tartrate 25 mg tablet 25 mg PO BID@09,21 RF: 0 acetaminophen [Tylenol Extra Strength] 500 mg tablet 500 mg PO Q6H PRN (Reason: pain) Qty: 15 RF: 0 Coding Level of Care Code ED Radiation Protection Engineer for Chg Fwd Exam Detailed
[2020-12-10 13:30] LABS: Basophils # 0.1 10^3/uL (0.0-0.1); Eosinophils # 0.7 10^3/uL (0.0-0.8); Eosinophils % 5.6 %; Hematocrit 28.7 % (42.0-52.0); Hemoglobin 9.6 g/dL (11.7-16.6); Lymphocytes # 2.8 10^3/uL (0.8-4.8); Lymphocytes % 24.3 %; Mean Corpuscular HGB Conc 33.4 g/dL (30.0-36.0); Mean Corpuscular Hemoglobin 28.2 pg (28.0-34.0); Mean Corpuscular Volume 84.2 fL (80-94); Mean Platelet Volume 8.5 fL (7.4-10.4); Monocytes # 1.8 10^3/uL (0.2-0.9); Monocytes % 15.2 %; Neutrophils # 6.11 10^3/uL (1.8-7.7); Nucleated Red Blood Cells % 0 %; Platelet Count 778 10^3/cmm (130-400); Red Blood Count 3.41 10^6/uL (4.1-5.3); Red Cell Distribution Width 17.3 % (12.1-15.1); White Blood Count 11.5 10^3/uL (4.0-10.0)
[2020-12-10 13:49] LABS: Alanine Aminotransferase 19 U/L (0-41); Albumin Level 3.7 g/dL (3.5-5.2); Alkaline Phosphatase 69 IU/L (40-130); Anion Gap 14.6 (5-19); Aspartate Amino Transferase 20 U/L (0-40); Blood Urea Nitrogen 7 mg/dL (6-20); Calcium 8.8 mg/dL (8.5-10.5); Carbon Dioxide 25 mmol/L (22-29); Chloride 93 mmol/L (98-107); Glomerular Filtration Rate 221.7 mL/min (90-130); Glucose 78 mg/dL (65-115); Osmolality Calculated 265 mOsm/kg (285-295); Potassium 3.6 mmol/L (3.5-5.1); Sodium 129 mmol/L (136-145); Total Bilirubin 0.2 mg/dL (0.15-1.2); Total Protein 7.7 g/dL (6.6-8.7)
[2020-12-10] MEDS: nicotine 21 mg Patch 1 PATCH TRANSDERMA (14:04)
--- NOTE | 2020-12-10 14:24 | PC.NURSE ---
Meal provided to patient, nicotine patch applied, warm blanket provided, no other immediate needs identified at this time, will continue to monitor.
[2020-12-10] MEDS: vancomycin 1,000 MG in sodium chloride 0.9% 250 ML 250 MG IV (14:42)
== END 2020-12-10 15:34 | disposition left against medical advice (07) ==
PROVIDERS: Emergency Provider Family Medicine
DX: L03.116 Cellulitis of left lower limb (principal); L03.115 Cellulitis of right lower limb; E87.1 Hypo-osmolality and hyponatremia; F10.20 Alcohol dependence, uncomplicated; R74.01 Elevation of levels of liver transaminase levels; G89.29 Other chronic pain; R60.0 Localized edema; J44.9 Chronic obstructive pulmonary disease, unspecified; Z79.01 Long term (current) use of anticoagulants; F17.210 Nicotine dependence, cigarettes, uncomplicated; Z53.21 Procedure and treatment not carried out due to patient leaving prior to being seen by health care provider
CPT/HCPCS: 80053; 85025; 87040; 96365; 99283; J3370; J7050

== ENCOUNTER 2020-12-10 23:05 | Emergency (ER) | payer MEDICAID, SELFPAY ==
--- NOTE | 2020-12-10 23:22 | ED_ITS ---
HPI - Extremity Problem General: Chief complaint: Extremity Injury, Lower Stated complaint: leg pain/etoh Time Seen by Provider: 12/10/20 23:08 Source: patient and EMS Mode of arrival: EMS Limitations: no limitations History of Present Illness: HPI Narrative: 55-year-old male who has been here multiple times over the last 4 days. He has chronic swelling to bilateral legs with edema. Patient states that he is going to detention tomorrow but wanted to go tonight. He states he is also had more drainage from his legs but he does have chronic drainage and has bandages in place. Denies any fever. Denies any worsening presenters. Associated symptoms: Deny chest pain, fever(s) or rash Review of Systems Const: Denies: fever(s), chills, body aches or change in appetite Eyes: Denies: blurry vision or eye discomfort ENMT: Denies: throat pain or dental pain Card: Denies: chest pain Resp: Denies: dyspnea GI: Denies: abdominal pain, nausea, vomiting or diarrhea : Denies: dysuria Musc: Reports: extremity swelling Skin/Breast: Denies: rash Neuro: Denies: headache(s) Psych: Denies: depression Gregory/Lymph: Denies: easy bruising All/Imm: Denies: urticaria PFSH ED PFSH: Medical History Alcoholism Cardiomyopathy COPD (chronic obstructive pulmonary disease) Hyponatremia Tobacco dependency Surgical History History of hip surgery Family History Other CAD (coronary artery disease) Social History Smoking and tobacco status: current every day smoker Alcohol intake: former Current gender identity: Male Physical Exam Const: COMMON NORMALS: no acute distress, patient oriented x3 and healthy appearing HENMT: COMMON NORMALS: normocephalic and atraumatic HEAD & SCALP: normocephalic and atraumatic Eye: COMMON NORMALS: Equal, round and reactive pupils present and EOMs intact bilaterally PUPIL: Yes Equal, round and reactive pupils present Neck/C-Spine: COMMON NORMALS: full ROM and supple Chest: COMMONS NORMALS: normal inspection of the chest and normal palpation of entire chest wall Resp: COMMON NORMALS: normal respiratory effort, No retractions, No use of accessory muscles and clear to auscultation bilaterally AUSCULTATION: clear to auscultation bilaterally Cardio: COMMON NORMALS: regular rate, regular rhythm and No murmurs present (Cardio) RATE: regular rate RHYTHM: regular rhythm GI: COMMON NORMALS: Normal to inspection, nondistended, normoactive bowel sounds present, Soft to palpation, non-tender and no masses PALPATION: Yes Soft to palpation Extremity: COMMON NORMALS: normal to inspection and full ROM NARRATIVE EXTREMITY EXAM: 2+ edema with no signs of cellulitis Neuro: COMMON NORMALS: patient oriented x3, moves all extremities and no focal motor deficits Psych: COMMON NORMALS: mental status grossly normal, Normal thought process present and cooperative THOUGHT PROCESS: Normal thought process present Skin: COMMON NORMALS: no rashes or lesions noted and no wounds GENERAL SKIN EXAM: no rashes or lesions noted Course Vital Signs: Vital signs: Vital Signs Temperature 99.1 F 12/10/20 23:28 Pulse Rate 84 12/11/20 00:22 Respiratory Rate 18 12/11/20 00:22 Blood Pressure 151/83 12/11/20 00:22 Pulse Oximetry 93 12/11/20 00:22 MDM - Extremity (Nontraumatic) MDM Narrative: Medical decision making narrative: Johan presents here with lower extremity edema that is chronic in nature. He has no signs of cellulitis currently. He is continue with his wraps. He is stable for discharge and follow-up PCP and return if worsening Lab Data: Labs: Lab Results 12/10/20 12/10/20 Range/Units 23:27 23:27 WBC 13.4 H (4.0-10.0) 10^3/ uL RBC 3.20 L (4.1-5.3) 10^6/u L Hgb 9.1 L (11.7-16.6) g/dL Hct 27.5 L (42.0-52.0) % MCV 85.9 (80-94) fL MCH 28.4 (28.0-34.0) pg MCHC 33.1 (30.0-36.0) g/dL RDW 17.4 H (12.1-15.1) % Plt Count 710 H (130-400) 10^3/c mm MPV 8.4 (7.4-10.4) fL Neut % (Auto) 57.3 % Lymph % (Auto) 19.4 % [place] % (Auto) 18.1 % Eos % (Auto) 4.0 % Baso % (Auto) 0.7 % Neut # (Auto) 7.67 (1.8-7.7) 10^3/u L Lymph # (Auto) 2.6 (0.8-4.8) 10^3/u L [place] # (Auto) 2.4 H (0.2-0.9) 10^3/u L Eos # (Auto) 0.5 (0.0-0.8) 10^3/u L Baso # (Auto) 0.1 (0.0-0.1) 10^3/u L Nucleated RBC % (a uto) 0 % Nucleated RBCs # 0.0 /100WBC NT-Pro-B Natriuret Pep 316 H (0-125) pg/mL Discharge Plan Discharge Patient Disposition: Home Clinical Impression: Edema of both lower legs Condition: Stable Prescriptions: No Action pantoprazole 40 mg Tablet,Delayed Release (Dr/Ec) 40 mg PO DAILY Qty: 30 RF: 0 Eliquis DVT-PE Treat 30D Start 5 mg (74 tabs) tablets,dose pack See Rx Instructions .ROUTE .COMPLEX Qty: 74 RF: 0 diphenhydramine HCl [Benadryl Allergy] 25 mg Tablet 25 mg PO PRN RF: 0 furosemide 40 mg tablet 40 mg PO DAILY@08 RF: 0 metoprolol tartrate 25 mg tablet 25 mg PO BID@ RF: 0 acetaminophen [Tylenol Extra Strength] 500 mg tablet 500 mg PO Q6H PRN (Reason: pain) Qty: 15 RF: 0 Discharge Orders: Discharge ED (Routine); Ordered 12/11/20 Ordered By: Bryn Hardin Discharge Diet: Advance as tolerated Discharge Activity: Resume usual activity Patient Instructions: Leg Edema (ED) Coding Level of Care Code ED Telegraph Inspector for Christopher Fwd Exam Comprehensive
[2020-12-10 23:23] VITALS: BP 126/72; PULSE 120; RESP 18; TEMP 37.3; O2SAT 94; BMI 24.3
[2020-12-10 23:28] VITALS: BP 133/80; PULSE 84; RESP 18; TEMP 37.3; O2SAT 92
[2020-12-10 23:34] LABS: Basophils # 0.1 10^3/uL (0.0-0.1); Basophils % 0.7 %; Eosinophils # 0.5 10^3/uL (0.0-0.8); Hematocrit 27.5 % (42.0-52.0); Hemoglobin 9.1 g/dL (11.7-16.6); Lymphocytes # 2.6 10^3/uL (0.8-4.8); Lymphocytes % 19.4 %; Mean Corpuscular HGB Conc 33.1 g/dL (30.0-36.0); Mean Corpuscular Hemoglobin 28.4 pg (28.0-34.0); Mean Corpuscular Volume 85.9 fL (80-94); Mean Platelet Volume 8.4 fL (7.4-10.4); Monocytes # 2.4 10^3/uL (0.2-0.9); Monocytes % 18.1 %; Neutrophils # 7.67 10^3/uL (1.8-7.7); Neutrophils % 57.3 %; Nucleated Red Blood Cells % 0 %; Platelet Count 710 10^3/cmm (130-400); Red Cell Distribution Width 17.4 % (12.1-15.1); White Blood Count 13.4 10^3/uL (4.0-10.0)
[2020-12-11 00:04] LABS: NT Pro B Type Natriuretic Pept 316 pg/mL (0-125)
[2020-12-11 00:09] VITALS: BP 151/83; PULSE 84; RESP 18; O2SAT 93
[2020-12-11 00:22] VITALS: BP 151/83; PULSE 84; RESP 18; O2SAT 93
== END 2020-12-11 00:24 | disposition home or self-care (01) ==
PROVIDERS: Emergency Provider Emergency Medicine
DX: R06.00 Dyspnea, unspecified (principal); Z79.01 Long term (current) use of anticoagulants; J44.9 Chronic obstructive pulmonary disease, unspecified; F17.210 Nicotine dependence, cigarettes, uncomplicated
CPT/HCPCS: 83880; 85025; 99283

== ENCOUNTER 2020-12-11 21:01 | Emergency (ER) | payer MEDICAID, SELFPAY ==
[2020-12-11 21:20] VITALS: BP 98/67; PULSE 117; RESP 18; TEMP 36.5; O2SAT 92; BMI 24.3
--- NOTE | 2020-12-11 22:21 | W.ED.WOUNDLC ---
HPI - Wound/Laceration General: Chief Complaint: Wound/Laceration Stated Complaint: FEET SWELLING Time Seen by Provider: 12/11/20 21:47 History of Present Illness: HPI narrative: Patient arrives via ambulance because he wants dressing change on his feet because he says he cannot do them on his own. Associated symptoms: Denies chills or fever(s) Review of Systems Const: Denies: fever(s) or chills Skin/Breast: Reports: other (Has weeping edema bilateral lower extremities knee dressing change) Psych: Denies: anxiety PFSH ED PFSH: Medical History Alcoholism Cardiomyopathy COPD (chronic obstructive pulmonary disease) Hyponatremia Tobacco dependency Surgical History History of hip surgery Family History Other CAD (coronary artery disease) Social History Smoking and tobacco status: current every day smoker Alcohol intake: former Current gender identity: Male Physical Exam Const: COMMON NORMALS: no acute distress GENERAL APPEARANCE: appears older than stated age Psych: COMMON NORMALS: mental status grossly normal Skin: OTHER: Weeping edema bilateral lower extremities dressings are wet and they will be changed. No evidence of cellulitis. Course Vital Signs: Vital signs: Vital Signs Temperature 97.7 F 12/11/20 21:20 Pulse Rate 117 H 12/11/20 21:20 Respiratory Rate 18 12/11/20 21:20 Blood Pressure 98/67 12/11/20 21:20 Pulse Oximetry 92 12/11/20 21:20 MDM - Wound/Laceration MDM Narrative: Medical decision making narrative: Instructed Mr. Chand to contact his t primary care provider to set dressing changes get set up. Encourage not to utilize ambulance services for dressing changes Discharge Plan Discharge Patient Disposition: Home Clinical Impression: Edema of both lower legs, Chronic pain of lower extremity, bilateral Condition: Stable Prescriptions: No Action pantoprazole 40 mg Tablet,Delayed Release (Dr/Ec) 40 mg PO DAILY Qty: 30 RF: 0 Eliquis DVT-PE Treat 30D Start 5 mg (74 tabs) tablets,dose pack See Rx Instructions .ROUTE .COMPLEX Qty: 74 RF: 0 diphenhydramine HCl [Benadryl Allergy] 25 mg Tablet 25 mg PO PRN RF: 0 furosemide 40 mg tablet 40 mg PO DAILY@08 RF: 0 metoprolol tartrate 25 mg tablet 25 mg PO BID@ RF: 0 acetaminophen [Tylenol Extra Strength] 500 mg tablet 500 mg PO Q6H PRN (Reason: pain) Qty: 15 RF: 0 Discharge Orders: Discharge ED (Routine); Ordered 12/11/20 Ordered By: Kobi Pro Discharge Diet: Usual diet Discharge Activity: Resume usual activity Activity Restrictions/Additional Instructions: Follow-up your primary care provider. Coding Level of Care Code ED Clinical Application Manager for Christopher Fwd Exam Expanded Problem Focused
== END 2020-12-11 22:39 | disposition home or self-care (01) ==
PROVIDERS: Emergency Provider Nurse Practitioner Family
DX: R06.00 Dyspnea, unspecified (principal); G89.29 Other chronic pain; M79.604 Pain in right leg; M79.605 Pain in left leg; Z79.01 Long term (current) use of anticoagulants; J44.9 Chronic obstructive pulmonary disease, unspecified; F17.210 Nicotine dependence, cigarettes, uncomplicated
CPT/HCPCS: 99282

== ENCOUNTER 2020-12-16 08:10 | Outpatient (CLI) | payer MEDICAID, SELFPAY | END 2020-12-16 08:11 | disposition home or self-care (01) | LOC: WOUND 08:10 | PROVIDERS: Visit Provider Nurse Practitioner Family | DX: L97.812 Non-pressure chronic ulcer of other part of right lower leg with fat layer exposed (principal); L97.822 Non-pressure chronic ulcer of other part of left lower leg with fat layer exposed | CPT/HCPCS: 99215 ==

== ENCOUNTER 2020-12-26 10:15 | Outpatient (CLI) | payer MEDICAID, SELFPAY | END 2020-12-26 10:16 | disposition home or self-care (01) | LOC: WOUND 10:16 | PROVIDERS: Visit Provider Nurse Practitioner Family | DX: L97.822 Non-pressure chronic ulcer of other part of left lower leg with fat layer exposed (principal); L97.812 Non-pressure chronic ulcer of other part of right lower leg with fat layer exposed | CPT/HCPCS: 99215 ==

== ENCOUNTER 2021-01-01 09:57 | Emergency (ER) | payer MEDICAID, SELFPAY ==
[2021-01-01 09:58] VITALS: BP 153/90; PULSE 95; RESP 15; TEMP 36.7; O2SAT 99; BMI 20.5
[2021-01-01 10:09] VITALS: BP 153/90; O2SAT 95
--- NOTE | 2021-01-01 10:16 | W.ED.WOUNDLC ---
HPI - Wound/Laceration General: Chief Complaint: Wound/Laceration Stated Complaint: WOUNDS ON FEET Time Seen by Provider: 01/01/21 09:58 Source: patient Mode of arrival: EMS Limitations: physical limitation History of Present Illness: HPI narrative: 55-year-old male who presents to ED today via EMS for wound care for worsening bilateral lymphedema and infection. Pt states he was seen here 5 days ago for dressing change and is here for another dressing change. According to note patient refused admission and IV antibiotics. Pt states he will reufse admission and will only take antibiotic pills. Pt denies fever. Extremity Location: Bilateral: lower leg (edema and copius amounts of purulent drainage) Place: home Associated symptoms: Denies chills, fever(s), nausea, syncope or vomiting Review of Systems Const: Denies: fever(s), chills, body aches, change in appetite, change in weight, fatigue, malaise or diaphoresis Eyes: Denies: change in vision, blurry vision, blind spots, photophobia, eye discomfort, eye discharge, eye redness, floaters or seeing flashes ENMT: Denies: throat pain, uvular edema, enlarged tonsils, odynophagia, hoarseness, mouth pain, swelling of lips/tongue, oral sores, bleeding gums, dental pain, dry mouth, ear or mastoid pain, ear discharge, change in hearing, tinnitus, disequilibrium, nasal discharge, nasal congestion, post nasal drip or sinus pain Card: Denies: chest pain, palpitations, irregular heart rhythm, edema, swelling of feet/ankles, lightheadedness, syncope, pre-syncope, dyspnea on exertion, orthopnea, leg pain with exertion or acrocyanosis Resp: Denies: dyspnea, productive cough, non-productive cough, wheezing, stridor, pain on inspiration, change in phlegm color, hemoptysis or chest congestion GI: Denies: abdominal pain, nausea, vomiting, hematemesis, dysphagia, diarrhea, constipation, GI cramping, change in bowel habits or rectal pain : Denies: flank pain, dysuria, urinary frequency, urinary urgency, urinary hesitancy or hematuria Musc: Denies: neck pain, back pain, extremity pain, extremity swelling, joint pain, joint swelling, joint redness, joint warmth or deformity Skin/Breast: Reports: rash; Denies: pruritus, erythema, sores, new lesions, changes in skin color or dry skin Neuro: Denies: headache(s), numbness in extremities, weakness in extremities, sensory changes, lack of coordination, difficulty walking, frequent falls, dizziness, vertigo, confusion, behavioral changes, Slurred speech present, difficulty communicating thoughts or seizure-like activity Psych: Denies: anxiety, depression, suicidal ideation or homicidal ideation Endo: Denies: polyuria, polydipsia, tired all the time, cold intolerance, excessive sweating, flushing, hot flashes or heat intolerance Gregory/Lymph: Denies: easy bruising, easy bleeding, petechiae, purpura, enlarged lymph nodes or tender lymph nodes All/Imm: Denies: urticaria, throat swelling, tongue swelling, facial swelling, acute wheezing or itchy eyes PFSH ED PFSH: Medical History Alcoholism Cardiomyopathy COPD (chronic obstructive pulmonary disease) Hyponatremia Tobacco dependency Surgical History History of hip surgery Family History Other CAD (coronary artery disease) Social History Smoking and tobacco status: current every day smoker Alcohol intake: former Current gender identity: Male Physical Exam Const: COMMON NORMALS: no acute distress, average body habitus, patient oriented x3, no limitations, healthy appearing, alert and well nourished HENMT: COMMON NORMALS: normocephalic, atraumatic, hearing grossly normal bilaterally, external ears normal, EAC's normal, TM's normal bilaterally, Normal external nose present, Normal nasal mucous membranes and turbinates present, moist oral mucous membranes, oropharynx normal, dentition normal and gingiva normal HEAD & SCALP: normocephalic and atraumatic NOSE: Normal external nose present and Normal nasal mucous membranes and turbinates present EXTERNAL EAR: Yes external ears normal EXTERNAL AUDITORY CANAL: EAC's normal TYMPANIC MEMBRANE: TM's normal bilaterally THROAT: no uvular edema Eye: COMMON NORMALS: Equal, round and reactive pupils present, EOMs intact bilaterally, conjunctivae normal, no scleral icterus, no papilledema, normal visual berger by confrontation and fundi normal bilaterally CONJUNCTIVA: Yes conjunctivae normal PUPIL: Yes Equal, round and reactive pupils present DIRECT OPHTHALMOSCOPY: Yes no papilledema and Yes fundi normal bilaterally Neck/C-Spine: COMMON NORMALS: no JVD Chest: COMMONS NORMALS: normal inspection of the chest, normal palpation of entire chest wall, normal inspection of the breasts and normal palpation of the breasts Breast/axilla inspection: Yes normal inspection of the breasts BREAST/AXILLA PALPATION: Yes normal palpation of the breasts Resp: COMMON NORMALS: normal respiratory effort, No retractions, No use of accessory muscles, clear to auscultation bilaterally and percussion normal AUSCULTATION: clear to auscultation bilaterally PERCUSSION: percussion normal Cardio: COMMON NORMALS: no JVD, regular rate, regular rhythm, No gallops present (Cardio), No clicks present (Cardio), No murmurs present (Cardio) and No rub (Cardio) RATE: regular rate RHYTHM: regular rhythm Extremity: LEFT LOWER EXTREMITY: Yes lower leg (bilateral lyphmedema noted with excoriated area copious purulent drainage) Neuro: COMMON NORMALS: patient oriented x3, CN's II-XII intact bilaterally, moves all extremities, no focal motor deficits, no sensory deficits noted, deep tendon reflexes 2+ bilaterally and gait normal SENSORIUM/ORIENTATION: Yes alert Course Vital Signs: Vital signs: Vital Signs Temperature 98.0 F 01/01/21 09:58 Pulse Rate 95 01/01/21 09:58 Respiratory Rate 15 01/01/21 09:58 Blood Pressure 153/90 01/01/21 10:09 Pulse Oximetry 95 01/01/21 10:09 MDM - Wound/Laceration MDM Narrative: Medical decision making narrative: Patient is a 55-year-old agitated male here for dressing change. presents to ED today via EMS for wound care for worsening bilateral lymphedema and infection. Pt states he was seen here 5 days ago for dressing change and is here for another dressing change. According to note patient refused admission and IV antibiotics. Pt states he will refuse admission and will only take antibiotic pills. Pt denies fever. after he was sent from wound care for admission and IV antibiotics and possible retirement placement. I am unable to convince patient to stay for labs and IV antibiotics here in the ED. Patient is his own guardian and I legally cannot keep him here against his will. I did discuss with patient the risks of leaving without admission, labs antibiotics and further work up. I explained to him his condition could and likely will worsen, he could become critically ill, lose his legs and even . Pt verbalizes understanding and states he will come back on Wednesday for hospital admission. I will send patient home on antibiotics. Patient seems to understand these risks. Pt refused oral antibiotics said he will come back in two days for antibiotics and admission. Wound was cleansed and dressed. Discharge Plan Discharge Prescriptions: No Action pantoprazole 40 mg Tablet,Delayed Release (Dr/Ec) 40 mg PO DAILY Qty: 30 RF: 0 Eliquis DVT-PE Treat 30D Start 5 mg (74 tabs) tablets,dose pack See Rx Instructions .ROUTE .COMPLEX Qty: 74 RF: 0 diphenhydramine HCl [Benadryl Allergy] 25 mg Tablet 25 mg PO PRN RF: 0 furosemide 40 mg tablet 40 mg PO DAILY@08 RF: 0 metoprolol tartrate 25 mg tablet 25 mg PO BID@09,21 RF: 0 acetaminophen [Tylenol Extra Strength] 500 mg tablet 500 mg PO Q6H PRN (Reason: pain) Qty: 15 RF: 0 Coding Level of Care Code ED [employer]otive [employer] Instructor for Christopher Dang
--- NOTE | 2021-01-01 11:02 | PC.NURSE ---
Removed wet soaking foul smelling soiled bandage from both lower legs. Noted maggots to both legs inside dressing. Pt informed CHARITY FUNDRAISER Barbara he was Not Staying. Wanted bandages changes and to let him leave.
--- NOTE | 2021-01-01 11:12 | PC.NURSE ---
Wound cleaned with Hibiclens, 4x4. Gently cleaned as much sludge from wounds as possible without causing severe pain. Pt tolerated well. Legs dried, then placed Telfa over entire lower leg and feet. Secured with Kerlex, then loosing wrapped Coban around each leg.
== END 2021-01-01 11:15 ==
LOC: ER 10:36
PROVIDERS: Emergency Provider Registered Nurse
DX: Z48.00 Encounter for change or removal of nonsurgical wound dressing (principal); Z79.01 Long term (current) use of anticoagulants; J44.9 Chronic obstructive pulmonary disease, unspecified; F17.210 Nicotine dependence, cigarettes, uncomplicated
CPT/HCPCS: 99291

== ENCOUNTER 2021-01-09 11:59 | Emergency (ER) | payer MEDICAID, SELFPAY ==
[2021-01-09 12:05] VITALS: BP 137/74; PULSE 114; RESP 16; TEMP 36.5; O2SAT 99; BMI 21.2
--- NOTE | 2021-01-09 13:33 | ED_ITS ---
HPI - Extremity Problem General: Chief complaint: Extremity Injury, Lower Stated complaint: LEG PAIN/ WOUNDS Time Seen by Provider: 01/09/21 12:14 History of Present Illness: HPI Narrative: 55-year-old male presents emergency room complaining of leg ulcers and infection. He has been here multiple times he frequently requests antibiotics and often leaves AMA. He is demanding to be placed on antibiotics today before he can go to the wound clinic. He has not been adequately taking care of his legs he is also demanding that we supply all of his wound care supplies for dressing changes. As has been the case in the past his primary concern he arrives here is being allowed to eat eat and drink immediately. Patient readily admits he has infection in his legs but states he refuses to be admitted when I first contacted him today. MD Complaint: extremity swelling Onset (ago): month(s) Location: left, right and lower extremity Quality: burning Radiation: none Relieving factors: nothing Exacerbating factors: nothing Associated symptoms: Reports arthralgias and myalgias; Deny chest pain, fever(s), rash or short of breath Review of Systems Const: Denies: fever(s) ENMT: Denies: throat pain, ear or mastoid pain, nasal discharge or nasal congestion Card: Denies: chest pain Resp: Denies: dyspnea, productive cough or non-productive cough GI: Denies: abdominal pain, nausea, vomiting, diarrhea or constipation : Denies: flank pain, dysuria, urinary frequency or urinary urgency Skin/Breast: Denies: rash PFSH ED PFSH: Medical History Alcoholism Cardiomyopathy COPD (chronic obstructive pulmonary disease) Hyponatremia Tobacco dependency Surgical History History of hip surgery Family History Other CAD (coronary artery disease) Social History Smoking and tobacco status: current every day smoker Alcohol intake: former Current gender identity: Male Physical Exam Const: COMMON NORMALS: no acute distress GENERAL APPEARANCE: cooperative and comfortable ORIENTATION/CONSCIOUSNESS: Yes awake, Yes oriented to person, Yes oriented to place and Yes oriented to time HENMT: COMMON NORMALS: normocephalic, atraumatic, hearing grossly normal bilaterally and external ears normal HEAD & SCALP: normocephalic and atraumatic EXTERNAL EAR: Yes external ears normal Neck/C-Spine: COMMON NORMALS: full ROM, no lymphadenopathy, supple and no JVD Lymph: LYMPHATIC: no lymphadenopathy noted and no lymphedema noted Resp: COMMON NORMALS: normal respiratory effort, No retractions, No use of accessory muscles and clear to auscultation bilaterally AUSCULTATION: clear to auscultation bilaterally Cardio: COMMON NORMALS: no JVD, regular rate, regular rhythm and No murmurs present (Cardio) RATE: regular rate RHYTHM: regular rhythm GI: COMMON NORMALS: Soft to palpation and No hepatosplenomegaly present AUSCULTATION: Yes normoactive bowel sounds PALPATION: Yes Soft to palpation, No Tenderness to palpation present (GI), No Guarding due to palpation present (GI) and Yes No hepatosplenomegaly present Extremity: NARRATIVE EXTREMITY EXAM: Sniffing and ulcerations to the skin from level of the knees distal with mucousy eschars in place reddened erythematous mild swelling no obvious abscess. Unable to palpate dorsalis pedis pulses however this is unchanged from previous exams in this patient. Neuro: SENSORIUM/ORIENTATION: Yes oriented to person, Yes oriented to place and Yes oriented to time Course Vital Signs: Vital signs: Vital Signs Temperature 97.7 F 01/09/21 12:05 Pulse Rate 114 H 01/09/21 12:05 Respiratory Rate 16 01/09/21 12:05 Blood Pressure 137/74 01/09/21 12:05 Pulse Oximetry 99 01/09/21 12:05 MDM - Extremity (Nontraumatic) MDM Narrative: Medical decision making narrative: Patient frustrated not being given food and drink immediately after arrival and left the ER. I was not able to see him the nurse did discuss with him that ultimately this is no going to need to get treated or he will get worse and he may end up with amputations. He expressed understanding to her. And still wished to leave. Discharge Plan Discharge Patient Disposition: Left Against Medical Advice Clinical Impression: Cellulitis, Alcoholism, Deep vein thrombosis of lower extremity Prescriptions: No Action pantoprazole 40 mg Tablet,Delayed Release (Dr/Ec) 40 mg PO DAILY Qty: 30 RF: 0 Eliquis DVT-PE Treat 30D Start 5 mg (74 tabs) tablets,dose pack See Rx Instructions .ROUTE .COMPLEX Qty: 74 RF: 0 diphenhydramine HCl [Benadryl Allergy] 25 mg Tablet 25 mg PO PRN RF: 0 furosemide 40 mg tablet 40 mg PO DAILY@08 RF: 0 metoprolol tartrate 25 mg tablet 25 mg PO BID@09,21 RF: 0 acetaminophen [Tylenol Extra Strength] 500 mg tablet 500 mg PO Q6H PRN (Reason: pain) Qty: 15 RF: 0 Coding Level of Care Code ED Adjunct Business Instructor for Emelig Laurence
== END 2021-01-09 13:24 | disposition left against medical advice (07) ==
PROVIDERS: Emergency Provider Family Medicine
DX: I82.409 Acute embolism and thrombosis of unspecified deep veins of unspecified lower extremity (principal); F10.20 Alcohol dependence, uncomplicated; L03.119 Cellulitis of unspecified part of limb; J44.9 Chronic obstructive pulmonary disease, unspecified; F17.210 Nicotine dependence, cigarettes, uncomplicated
CPT/HCPCS: 99281

== ENCOUNTER 2021-01-11 11:11 | Emergency (ER) | payer MEDICAID, SELFPAY ==
[2021-01-11 11:17] VITALS: BP 123/92; PULSE 115; RESP 24; TEMP 37.1; O2SAT 90; BMI 19.8
--- NOTE | 2021-01-11 11:24 | ED_ITS ---
HPI - Extremity Problem General: Chief complaint: General Medical Stated complaint: ROSAMARIA LOWER EXT PAIN Time Seen by Provider: 01/11/21 11:12 Source: patient Mode of arrival: EMS Limitations: no limitations History of Present Illness: HPI Narrative: Patient is a 55-year-old male who presents to the emergency department via EMS. He is a frequent visitor to the ED and usually leaves AGAINST MEDICAL ADVICE. He has poor living conditions, suffers from alcohol abuse and cigarette smoking, and have cellulitis of both lower extremities that is not being managed properly as he is noncompliant with follow-up and treatment. As soon as he arrived he states that all he wanted antibiotics and to be discharged home. He states that he does not want to stay in the hospital. I explained to him that we have to examine him and work him up before we discuss management options. Patient does refuse hospital admission several times. He states that his legs are hurting and have been hurting him. MD Complaint: extremity pain Onset (ago): month(s) Pain Consistency: constant Location: left, right and lower extremity Quality: burning Radiation: none Relieving factors: nothing Exacerbating factors: nothing Associated symptoms: Deny arthralgias, chest pain, fever(s), myalgias, rash or short of breath Review of Systems Const: Denies: fever(s) Card: Denies: chest pain Skin/Breast: Denies: rash [facility] ED PFSH: Medical History Alcoholism Cardiomyopathy COPD (chronic obstructive pulmonary disease) Hyponatremia Tobacco dependency Surgical History History of hip surgery Family History Other CAD (coronary artery disease) Social History Smoking and tobacco status: current every day smoker Alcohol intake: former Current gender identity: Male Physical Exam Narrative: EXAM NARRATIVE: Unkempt gentleman Const: COMMON NORMALS: no acute distress, average body habitus, patient oriented x3, no limitations, alert and well nourished HENMT: COMMON NORMALS: normocephalic, atraumatic and moist oral mucous membranes HEAD & SCALP: normocephalic and atraumatic Neck/C-Spine: COMMON NORMALS: no meningeal signs and no JVD Resp: COMMON NORMALS: normal respiratory effort, No retractions, No use of accessory muscles, clear to auscultation bilaterally and percussion normal AUSCULTATION: clear to auscultation bilaterally PERCUSSION: percussion normal Cardio: COMMON NORMALS: no JVD, regular rate, regular rhythm, S1 normal heart sound present, S2 normal heart sound present, No gallops present (Cardio), No clicks present (Cardio), No murmurs present (Cardio), No rub (Cardio) and Peripheral pulses 2+ throughout RATE: regular rate RHYTHM: regular rhythm HEART SOUNDS: S1 normal heart sound present and S2 normal heart sound present PERIPHERAL PULSES: Peripheral pulses 2+ throughout GI: COMMON NORMALS: Normal to inspection, nondistended, normoactive bowel sounds present, Soft to palpation, non-tender, No hepatosplenomegaly present, no masses and no bruits PALPATION: Yes Soft to palpation and Yes No hep atosplenomegaly present Extremity: COMMON NORMALS: normal to inspection, full ROM, capillary refill normal, no calf tenderness and no pedal edema NARRATIVE EXTREMITY EXAM: Both lower extremities covered in wound dressing from the knee to the distal foot. His feet have a lot of dirt on them although the wound dressings appear only mildly dirty. He did not allow me to remove his wound dressings. Neuro: COMMON NORMALS: patient oriented x3 SENSORIUM/ORIENTATION: Yes alert MENINGEAL SIGNS: Yes no meningeal signs Course Reevaluation(s): Reevaluation #1: Patient asked to talk to me after I had initially evaluated him. When I talked to him he states that he wants to leave to go out to smoke. I explained to him that while he is in the emergency department he is not allowed to leave the department and that if he does it is considered that he left AGAINST MEDICAL ADVICE. I offered him a nicotine patch and he declined the nicotine patch. He kept insisting that he needed to go out to smoke. I explained to him that we cannot keep him here against his wishes but that he needs to understand that he is leaving AGAINST MEDICAL ADVICE as we have not even started a work-up on him. He said that he will check back in if he needs to. Time: 11:24 Vital Signs: Vital signs: Vital Signs Temperature 98.8 F 01/11/21 11:17 Pulse Rate 115 H 01/11/21 11:17 Respiratory Rate 24 H 01/11/21 11:17 Blood Pressure 123/92 01/11/21 11:17 Pulse Oximetry 90 01/11/21 11:17 MDM - Extremity (Nontraumatic) MDM Narrative: Medical decision making narrative: 55-year-old male who presents to the emergency department with pain and likely cellulitis of bilateral lower extremities. Patient has been noncompliant with his treatments and follow-up and usually leaves AGAINST MEDICAL ADVICE when he comes to the emergency department, either because he is not giving food immediately or he is not allowed to smoke. Today the patient demanded to go and smoke as soon as he arrived in the emergency department, declined nicotine patch and eventually left AGAINST MEDICAL ADVICE. Medical Records: Attestation: I reviewed the patient's medical records. Discharge Plan Discharge Patient Disposition: Left Against Medical Advice Clinical Impression: Alcoholism, Left against medical advice, Cellulitis Prescriptions: No Action pantoprazole 40 mg Tablet,Delayed Release (Dr/Ec) 40 mg PO DAILY Qty: 30 RF: 0 Eliquis DVT-PE Treat 30D Start 5 mg (74 tabs) tablets,dose pack See Rx Instructions .ROUTE .COMPLEX Qty: 74 RF: 0 diphenhydramine HCl [Benadryl Allergy] 25 mg Tablet 25 mg PO PRN RF: 0 furosemide 40 mg tablet 40 mg PO DAILY@08 RF: 0 metoprolol tartrate 25 mg tablet 25 mg PO BID@09,21 RF: 0 acetaminophen [Tylenol Extra Strength] 500 mg tablet 500 mg PO Q6H PRN (Reason: pain) Qty: 15 RF: 0 Coding Level of Care Code ED Airport Manager for Christopher Dang
--- NOTE | 2021-01-11 11:34 | PC.NURSE ---
PT SCREAMING FROM ROOM THAT HE IS GOING OUTSIDE TO SMOKE AND THAT THE DOCTOR SAID IT WAS OK; DR ROSSI INSTRUCTED THE PATIENT THAT HE WOULD HAVE TO SIGN OUT AMA TO GO SMOKE AND THEN CHECK BACK INTO THE ED TO BE SEEN AGAIN.
--- NOTE | 2021-01-11 11:38 | PC.NURSE ---
PT SIGNED OUT AMA TO SMOKE WHEN I WENT IN TO DO HIS ASSESSMENT; PT TRANSPORTED TO OUTSIDE VIA [employer] [facility].
== END 2021-01-11 11:40 | disposition left against medical advice (07) ==
LOC: ER 11:35
PROVIDERS: Emergency Provider Family Medicine
DX: L03.116 Cellulitis of left lower limb (principal); L03.115 Cellulitis of right lower limb; F10.20 Alcohol dependence, uncomplicated; Z53.21 Procedure and treatment not carried out due to patient leaving prior to being seen by health care provider; Z79.01 Long term (current) use of anticoagulants; J44.9 Chronic obstructive pulmonary disease, unspecified; F17.210 Nicotine dependence, cigarettes, uncomplicated
CPT/HCPCS: 99282

== ENCOUNTER 2021-01-11 13:50 | Emergency (ER) | payer MEDICAID, SELFPAY ==
[2021-01-11 14:13] VITALS: BP 148/78; PULSE 102; RESP 22; TEMP 36.7; O2SAT 94; BMI 22.0
--- NOTE | 2021-01-11 14:31 | ED_ITS ---
HPI - Skin/Abscess/Foreign Bdy General: Chief complaint: Skin/Abscess/Foreign Body Stated complaint: leg pain Time Seen by Provider: 01/11/21 14:10 Source: patient Mode of arrival: EMS (arrived EMS but LWBS from waiting room then checked back in later) Limitations: no limitations History of Present Illness: HPI narrative: Patient is a 55-year-old male well- known to our emergency department here yet again for complaints of bilateral lower extremity leg pain and infection. Patient was seen here at our facility earlier today and left AMA. He showed up again via ambulance and was taken to the waiting room where he eventually LWBS. He then showed up again to check back in which is the current visit. Patient has known bilateral lower extremity wounds that are reportedly extremely infected. There is report from wound care that there have been maggots in the wound. Patient is extremely non-compliant with all medical recommendations. I have personally tried to contact patient's family on a previous visit about filing for medical guardianship of him. Associated symptoms: Deny fever(s) Review of Systems Const: Denies: fever(s) Resp: Reports: dyspnea (states I am always short of breath ) Musc: Reports: extremity pain Skin/Breast: Reports: other (skin wounds) [facility] ED PFSH: Medical History Alcoholism Cardiomyopathy COPD (chronic obstructive pulmonary disease) Hyponatremia Tobacco dependency Surgical History History of hip surgery Family History Other CAD (coronary artery disease) Social History Smoking and tobacco status: current every day smoker Alcohol intake: former Current gender identity: Male Physical Exam Const: COMMON NORMALS: patient oriented x3 and alert GENERAL APPEARANCE: other (agitated; no different then previous visits) Resp: EFFORT & INSPECTION: Yes tachypneic, Yes respiratory distress and Yes labored OTHER: patient states I am always short of breath. I want to go home. Are you going to get me a sandwich? Extremity: NARRATIVE EXTREMITY EXAM: bilateral LEs are wrapped from just below knee down to ankles; he is adamant that I do not unwrap these as he states they were wrapped yesterday by a family member Neuro: COMMON NORMALS: patient oriented x3 SENSORIUM/ORIENTATION: Yes alert Skin: NARRATIVE SKIN EXAM: unable to assess current complaint as he will not allow me to unwrap dressings Course Vital Signs: Vital signs: Vital Signs Temperature 98.0 F 01/11/21 14:13 Pulse Rate 102 H 01/11/21 14:13 Respiratory Rate 22 H 01/11/21 14:13 Blood Pressure 148/78 01/11/21 14:13 Pulse Oximetry 94 01/11/21 14:13 MDM - Skin/Abscess/Foreign Bdy MDM Narrative: Medical decision making narrative: Patient is agreeable to PO antibiotics although I have stressed that oral antibiotics often times are not enough to treat severe infections and he needs IV antibiotics and yet again he refuses this. He states he just wants food/drink and a prescription and wants to go home. I will place him on Clindamycin. He states he has Medicaid that will cover cost of this prescription. Discharge Plan Discharge Patient Disposition: Home Clinical Impression: Bilateral cellulitis of lower leg Condition: Stable Prescriptions: New clindamycin HCl 300 mg capsule 300 mg PO Q6H 7 Days Qty: 28 RF: 0 No Action pantoprazole 40 mg Tablet,Delayed Release (Dr/Ec) 40 mg PO DAILY Qty: 30 RF: 0 Eliquis DVT-PE Treat 30D Start 5 mg (74 tabs) tablets,dose pack See Rx Instructions .ROUTE .COMPLEX Qty: 74 RF: 0 diphenhydramine HCl [Benadryl Allergy] 25 mg Tablet 25 mg PO PRN RF: 0 furosemide 40 mg tablet 40 mg PO DAILY@08 RF: 0 metoprolol tartrate 25 mg tablet 25 mg PO BID@ RF: 0 acetaminophen [Tylenol Extra Strength] 500 mg tablet 500 mg PO Q6H PRN (Reason: pain) Qty: 15 RF: 0 Discharge Orders: Discharge ED (Routine); Ordered 01/11/21 Ordered By: Stephanie Heredia Activity Restrictions/Additional Instructions: You need to follow-up with wound care next week for continued treatment of your bilateral lower extremities. Myself as well as multiple providers in the emergency department have urged you to come into the hospital for IV antibiotics however you have adamantly refused this on every visit. You have been counseled countless times on the risks of untreated or improperly treated infection including loss of your legs, sepsis, or . You have verbalized to me that you understand these risks. At this time I will place you on oral antibiotics ONLY because that is the only therapy you are allowing. I have explained to you that oral antibiotics often times are not adequate therapy and often times patients need IV antibiotics to treat an infection. Again you have refused IV medications and have told me repeatedly that you want to go home. Coding Level of Care Code ED Group Leader [employer] for Christopher Dang
--- NOTE | 2021-01-11 14:51 | PC.NURSE ---
patient currently refuses vital signs and assessment
== END 2021-01-11 14:57 | disposition home or self-care (01) ==
PROVIDERS: Emergency Provider Physician Assistant
DX: L03.116 Cellulitis of left lower limb (principal); L03.115 Cellulitis of right lower limb; Z79.01 Long term (current) use of anticoagulants; J44.9 Chronic obstructive pulmonary disease, unspecified; F17.210 Nicotine dependence, cigarettes, uncomplicated
CPT/HCPCS: 99281

== ENCOUNTER 2021-01-29 01:27 | Emergency (ER) | payer MEDICAID, SELFPAY ==
[2021-01-29 01:32] VITALS: BP 128/81; PULSE 124; RESP 16; TEMP 36.7; O2SAT 99; BMI 22.0
--- NOTE | 2021-01-29 02:17 | ED_ITS ---
HPI - Extremity Problem General: Chief complaint: Extremity Problem,Nontraumatic Stated complaint: Leg Pain Time Seen by Provider: 01/29/21 02:05 History of Present Illness: HPI Narrative: Patient is a 55-year-old male who comes to the ED via EMS with bilateral lower extremity pain. Patient has been seen here in the ED multiple times over the past several months for same complaint. He has left the ED multiple times AMA. He is noncompliant with follow-up and treatment. Today he just wants to have his bandages changed on his wounds and wants to go home . He refuses to stay here in the ED or to receive any further evaluation. Associated symptoms: Deny chest pain, fever(s) or rash Review of Systems Const: Denies: fever(s), chills or fatigue Eyes: Denies: change in vision or eye discomfort ENMT: Denies: throat pain, odynophagia, nasal discharge or nasal congestion Card: Denies: chest pain, palpitations, edema, swelling of feet/ankles, dyspnea on exertion or orthopnea Resp: Denies: dyspnea, productive cough or non-productive cough GI: Denies: abdominal pain, nausea, vomiting, diarrhea, constipation or hematochezia : Denies: flank pain, difficulty urinating, dysuria or hematuria Musc: Reports: extremity pain (Bilateral lower extremities.) and extremity swelling (Bilateral lower extremity); Denies: neck pain or back pain Skin/Breast: Denies: rash or new lesions Neuro: Denies: headache(s), numbness in extremities or weakness in extremities [facility] ED PFSH: Medical History Alcoholism Cardiomyopathy COPD (chronic obstructive pulmonary disease) Hyponatremia Tobacco dependency Surgical History History of hip surgery Family History Other CAD (coronary artery disease) Social History Smoking and tobacco status: current every day smoker Alcohol intake: former Current gender identity: Male Physical Exam Const: COMMON NORMALS: patient oriented x3 and alert GENERAL APPEARANCE: cooperative and comfortable HENMT: COMMON NORMALS: normocephalic HEAD & SCALP: normocephalic MOUTH: Normal oral and palatal mucosa present THROAT: posterior oropharynx normal and uvula midline Neck/C-Spine: COMMON NORMALS: supple GENERAL: Yes normal visual inspection Resp: COMMON NORMALS: normal respiratory effort, No retractions, No use of accessory muscles and clear to auscultation bilaterally AUSCULTATION: clear to auscultation bilaterally Cardio: COMMON NORMALS: regular rate, regular rhythm, S1 normal heart sound present, S2 normal heart sound present, No gallops present (Cardio), No clicks present (Cardio), No murmurs present (Cardio) and Peripheral pulses 2+ throughout RATE: regular rate RHYTHM: regular rhythm HEART SOUNDS: S1 normal heart sound present and S2 normal heart sound present PERIPHERAL PULSES: Peripheral pulses 2+ throughout GI: COMMON NORMALS: Normal to inspection, nondistended, normoactive bowel sounds present, Soft to palpation, non-tender and no masses PALPATION: Yes Soft to palpation : COMMON NORMALS: Yes no CVA tenderness BLADDER/KIDNEY EXAM: Yes no CVA tenderness Back/Pelvis: COMMON NORMALS: no CVA tenderness Extremity: GENERAL: Yes normal exam except as noted and Yes edema (Bilateral lower extremity 2+ pitting edema. Edema) Neuro: COMMON NORMALS: patient oriented x3 and moves all extremities SENSORIUM/ORIENTATION: Yes alert Skin: NARRATIVE SKIN EXAM: Bilateral cellulitis on lower extremities. Course ED course: Patient does not want any further testing or evaluation done. He will just wants his legs rebandaged and he wants to go home. I stressed with him the importance of follow-up with PCP reevaluation and to monitor healing. Vital Signs: Vital signs: Vital Signs Temperature 98.1 F 01/29/21 01:32 Pulse Rate 124 H 01/29/21 01:32 Respiratory Rate 16 01/29/21 01:32 Blood Pressure 128/81 01/29/21 01:32 Pulse Oximetry 99 01/29/21 01:32 MDM - Extremity (Nontraumatic) MDM Narrative: Medical decision making narrative: Patient is a 55-year-old male comes to the ED with bilateral lower extremity pain. He has been seen here in the ED multiple times over the past several months and he is noncompliant with treatment or follow-up. Patient says he just wants his legs rebandaged and does not want any other testing done. Exam shows some cellulitis in his legs bilaterally. The nurse removed all bandages and cleaned legs and rebandaged. Patient diagnosed with cellulitis and then discharged home on Keflex. Is told to follow-up with his PCP in 7 to 10 days for reevaluation. Return to ED precautions given. Patient understood and agree with plan. Discharge Plan Discharge Patient Disposition: Home Clinical Impression: Cellulitis Qualifiers: Site of cellulitis: extremity Site of cellulitis of extremity: lower extremity Laterality: unspecified laterality Qualified Code(s): L03.119 - Cellulitis of unspecified part of limb Condition: Stable Prescriptions: New cephalexin 500 mg capsule 500 mg PO Q6H 7 Days Qty: 28 RF: 0 No Action pantoprazole 40 mg Tablet,Delayed Release (Dr/Ec) 40 mg PO DAILY Qty: 30 RF: 0 Eliquis DVT-PE Treat 30D Start 5 mg (74 tabs) tablets,dose pack See Rx Instructions .ROUTE .COMPLEX Qty: 74 RF: 0 diphenhydramine HCl [Benadryl Allergy] 25 mg Tablet 25 mg PO PRN RF: 0 furosemide 40 mg tablet 40 mg PO DAILY@08 RF: 0 metoprolol tartrate 25 mg tablet 25 mg PO BID@,21 RF: 0 acetaminophen [Tylenol Extra Strength] 500 mg tablet 500 mg PO Q6H PRN (Reason: pain) Qty: 15 RF: 0 Discharge Orders: Discharge ED (Routine); Ordered 01/29/21 Ordered By: Storm Christie Discharge Diet: Regular Discharge Activity: Resume usual activity Patient Instructions: Cellulitis (ED) Activity Restrictions/Additional Instructions: Follow-up with medical provider as directed in 7 to 10 days for reevaluation. Take medications as prescribed. Return to the ER or your medical provider if condition worsens. Please read and understand discharge instructions. Thank you for choosing [facility] for your healthcare needs today. Please realize this is an emergency room and that we are providing you with a medical screening exam and this may not be complete and all inclusive of all the testing and or work up that you may need to determine your ailment or severity of your illness. It is very important that you follow up as instructed or that you return to the Emergency Department should you have concerns or if your condition changes or worsens in any way. Coding Level of Care Code ED Fish Tender for Christopher Fwcristela Exam Comprehensive
[2021-01-29 03:04] VITALS: BP 125/76; PULSE 108; RESP 16; O2SAT 99
== END 2021-01-29 03:06 | disposition home or self-care (01) ==
PROVIDERS: Emergency Provider Physician Assistant
DX: L03.116 Cellulitis of left lower limb (principal); L03.115 Cellulitis of right lower limb; I42.9 Cardiomyopathy, unspecified; J44.9 Chronic obstructive pulmonary disease, unspecified; F17.200 Nicotine dependence, unspecified, uncomplicated
CPT/HCPCS: 99282

== ENCOUNTER 2021-02-18 12:04 | Emergency (ER) | payer MEDICAID, SELFPAY ==
[2021-02-18 12:04] VITALS: BP 126/90; PULSE 125; RESP 18; TEMP 36.1; O2SAT 99; BMI 22.0
--- NOTE | 2021-02-18 12:32 | ED_ITS ---
HPI - Skin/Abscess/Foreign Bdy General: Chief complaint: Skin/Abscess/Foreign Body Stated complaint: WOUND INFECTION ON LEGS Time Seen by Provider: 02/18/21 12:32 History of Present Illness: HPI narrative: 55-year-old male patient comes in today for needing a dressing change to bilateral lower extremities. Patient has stasis dermatitis and has chronic weeping from his lower legs with chronic ulcers. Patient reports that no one has been available to come and change his dressings over the past 3 to 4 days. Patient reports that he noticed some maggots in his dressings today. Patient denies any fever chills or other symptoms. Patient is refusing admission to the hospital. Review of Systems General: Reports: 10 or more systems reviewed and unremarkable except in HPI and below Skin/Breast: Reports: other (Chronic wound ulcers lower extremities.) [facility] PFSH: Medical History Alcoholism Cardiomyopathy COPD (chronic obstructive pulmonary disease) Hyponatremia Tobacco dependency Surgical History History of hip surgery Family History Other CAD (coronary artery disease) Social History Smoking and tobacco status: current every day smoker Alcohol intake: former Current gender identity: Male Physical Exam Const: COMMON NORMALS: no acute distress and patient oriented x3 GENERAL APPEARANCE: cooperative HENMT: COMMON NORMALS: normocephalic and Normal external nose present HEAD & SCALP: normal to inspection and normocephalic NOSE: Normal external nose present MOUTH: Normal oral and palatal mucosa present Eye: GENERAL EYE: appearance normal, both eyes and all related structures Neck/C-Spine: COMMON NORMALS: full ROM Chest: COMMONS NORMALS: normal inspection of the chest Resp: COMMON NORMALS: normal respiratory effort EFFORT & INSPECTION: Yes able to speak in complete sentences Cardio: COMMON NORMALS: regular rate and regular rhythm RATE: regular rate RHYTHM: regular rhythm GI: COMMON NORMALS: non-tender Back/Pelvis: COMMON NORMALS: thoracic and lumbar spine normal to inspection Extremity: NARRATIVE EXTREMITY EXAM: Bilateral lower extremities are erythematous with chronic ulcers and +2 edema. Neuro: COMMON NORMALS: patient oriented x3 and moves all extremities Psych: COMMON NORMALS: mental status grossly normal and cooperative Skin: COMMON NORMALS: no rashes or lesions noted GENERAL SKIN EXAM: no rashes or lesions noted Course Vital Signs: Vital signs: Vital Signs Temperature 96.9 F L 02/18/21 12:04 Pulse Rate 125 H 02/18/21 12:04 Respiratory Rate 18 02/18/21 12:04 Blood Pressure 126/90 02/18/21 12:04 Pulse Oximetry 99 02/18/21 12:04 MDM - Skin/Abscess/Foreign Bdy MDM Narrative: Medical decision making narrative: 55-year-old male patient comes in today with complaints of needing his dressings changed to his lower extremities. Patient reports had been 3 to 4 days since have last been changed and he noticed some insect activity, maggots, in the dressings of his left lower extremity. Patient called EMS for assistance to bring him to the ER for his dressing change. On exam patient has bilateral lower extremities redness with +2 edema. Cap refill is intact. Vital signs are normal except for some elevation in pulse. Patient is adamant about only wanting a dressing changed at this time. Differential diagnosis includes cellulitis, sepsis, stasis dermatitis. Dressing was changed. Patient was adamant about not being admitted. Patient reports he has been admitted before and was told there is really not much they could do for his legs and he would just rather go home. Patient agreed to antibiotic treatment and follow-up with primary care. Lab Data: Labs: Lab Results 02/18/21 Range/Units 13:23 WBC 24.6 H (4.0-10.0) 10^3/ uL RBC 4.57 (4.1-5.3) 10^6/u L Hgb 11.9 (11.7-16.6) g/dL Hct 36.4 L (42.0-52.0) % MCV 79.6 L (80-94) fl MCH 26.0 L (28.0-34.0) pg MCHC 32.7 (30.0-36.0) g/dL RDW 17.2 H (12.1-15.1) % Plt Count 1185 H (130-400) 10^3/c mm MPV 7.9 (7.4-10.4) fL Neut % (Auto) 69.0 % Lymph % (Auto) 12.8 % [place] % (Auto) 13.7 % Eos % (Auto) 1.8 % Baso % (Auto) 0.5 % Neut # (Auto) 16.99 H (1.8-7.7) 10^3/u L Lymph # (Auto) 3.2 (0.8-4.8) 10^3/u L [place] # (Auto) 3.4 H (0.2-0.9) 10^3/u L Eos # (Auto) 0.5 (0.0-0.8) 10^3/u L Baso # (Auto) 0.1 (0.0-0.1) 10^3/u L Nucleated RBC % (a uto) 0 % Nucleated RBCs # 0.0 /100WBC Discharge Plan Discharge Patient Disposition: Home Clinical Impression: Cellulitis Qualifiers: Site of cellulitis: extremity Site of cellulitis of extremity: lower extremity Laterality: unspecified laterality Qualified Code(s): L03.119 - Cellulitis of unspecified part of limb Condition: Stable Prescriptions: New doxycycline monohydrate 100 mg capsule 100 mg PO BID 10 Days Qty: 20 RF: 0 No Action pantoprazole 40 mg Tablet,Delayed Release (Dr/Ec) 40 mg PO DAILY Qty: 30 RF: 0 Eliquis DVT-PE Treat 30D Start 5 mg (74 tabs) tablets,dose pack See Rx Instructions .ROUTE .COMPLEX Qty: 74 RF: 0 diphenhydramine HCl [Benadryl Allergy] 25 mg Tablet 25 mg PO PRN RF: 0 furosemide 40 mg tablet 40 mg PO DAILY@08 RF: 0 metoprolol tartrate 25 mg tablet 25 mg PO BID@, RF: 0 acetaminophen [Tylenol Extra Strength] 500 mg tablet 500 mg PO Q6H PRN (Reason: pain) Qty: 15 RF: 0 Discharge Orders: Discharge ED (Routine); Ordered 02/18/21 Ordered By: Augustine Santamaria Discharge Diet: Usual diet Discharge Activity: Increase activity as tolerated Patient Instructions: Stasis Dermatitis (ED), Opioid Safety Activity Restrictions/Additional Instructions: Elevate legs as much as possible. Take antibiotics as directed. Drink plenty of water with antibiotic. Follow-up with primary care in 1 week for recheck. Return to the ER for worsening symptoms or new concerns. Coding Level of Care Code ED Teacher Of The Emotionally Disturbed for Chg Fwd Exam Comprehensive
--- NOTE | 2021-02-18 12:40 | PC.NURSE ---
patient is non compliant with care. he refuses IV and doesnt want to be here long he says loudly. he wants food and his bandages changed. his bandages are overly soiled and not completely covering his wounds. he has diffuse ulcerations to bilateral lower extremities. I cleansed with soap and water then applied vaseline gauze, telfa, abd pads and secured with tamica wrap and tape. patient allows care while complaining loudly he is ready to leave
[2021-02-18] MEDS: doxycycline 100 mg Tablet PO (12:58)
[2021-02-18 13:45] LABS: Basophils # 0.1 10^3/uL (0.0-0.1); Basophils % 0.5 %; Eosinophils # 0.5 10^3/uL (0.0-0.8); Eosinophils % 1.8 %; Hematocrit 36.4 % (42.0-52.0); Hemoglobin 11.9 g/dL (11.7-16.6); Lymphocytes # 3.2 10^3/uL (0.8-4.8); Lymphocytes % 12.8 %; Mean Corpuscular HGB Conc 32.7 g/dL (30.0-36.0); Mean Corpuscular Volume 79.6 fl (80-94); Mean Platelet Volume 7.9 fL (7.4-10.4); Monocytes # 3.4 10^3/uL (0.2-0.9); Monocytes % 13.7 %; Neutrophils # 16.99 10^3/uL (1.8-7.7); Nucleated Red Blood Cells % 0 %; Platelet Count 1185 10^3/cmm (130-400); Red Blood Count 4.57 10^6/uL (4.1-5.3); Red Cell Distribution Width 17.2 % (12.1-15.1); White Blood Count 24.6 10^3/uL (4.0-10.0)
[2021-02-18 13:59] VITALS: BP 138/88; PULSE 98; RESP 18; O2SAT 98
[2021-02-18 14:04] LABS: Alanine Aminotransferase 18 U/L (0-41); Alkaline Phosphatase 91 IU/L (40-130); Anion Gap 15.8 (5-19); Aspartate Amino Transferase 18 U/L (0-40); Blood Urea Nitrogen 7 mg/dL (6-20); Calcium 9.2 mg/dL (8.5-10.5); Carbon Dioxide 25 mmol/L (22-29); Chloride 86 mmol/L (98-107); Globulin 4.8 g/dL (1.3-4.6); Glomerular Filtration Rate 171.4 mL/min (90-130); Glucose 117 mg/dL (65-115); Lactic Sepsis W/Reflex 2.3 mmol/L (0.5-2.2); Osmolality Calculated 253 mOsm/kg (285-295); Potassium 4.8 mmol/L (3.5-5.1); Sodium 122 mmol/L (136-145); Total Bilirubin 0.2 mg/dL (0.15-1.2); Total Protein 7.8 g/dL (6.6-8.7)
[2021-02-18 14:06] LABS: Creatinine Clr Calc Pharmacy 155.2755
[2021-02-18 15:26] LABS: Reflex Lactate Order REFLEX LACTIC ORDERD
== END 2021-02-18 14:01 | disposition home or self-care (01) ==
PROVIDERS: Emergency Provider Nurse Practitioner Family
DX: L03.119 Cellulitis of unspecified part of limb (principal); Z79.01 Long term (current) use of anticoagulants; J44.9 Chronic obstructive pulmonary disease, unspecified; F17.210 Nicotine dependence, cigarettes, uncomplicated
CPT/HCPCS: 80053; 83605; 85025; 87040; 99283

== ENCOUNTER 2021-02-18 21:05 | Emergency (ER) | payer MEDICAID, SELFPAY ==
[2021-02-18 21:12] VITALS: BP 102/75; PULSE 142; RESP 36; TEMP 37.2; O2SAT 93; BMI 22.8
--- NOTE | 2021-02-18 21:20 | XRR_ITS ---
PROCEDURE INFORMATION: Exam: XR Chest Exam date and time: 02/18/2021 9:20 PM Age: 55 years old Clinical indication: Shortness of breath; Additional info: SOB TECHNIQUE: Imaging protocol: XR of the chest. Views: 1 view. COMPARISON: CT chest abd pel wo con 09/07/2020 4:25 PM FINDINGS: Lungs: Hyperinflated lungs. No consolidation. 7 mm calcified granuloma in the right upper lobe. Pleural spaces: Unremarkable. No pleural effusion. No pneumothorax. Heart/Mediastinum: Unremarkable. No cardiomegaly. Bones/joints: Visualized osseous structures appear intact. XR/XR chest 1V portable [id number] IMPRESSION: Redemonstrated findings of obstructive lung disease. No focal consolidation.
--- NOTE | 2021-02-18 21:20 | ECG_ITS ---
[facility] Test Date: 2021-02-18 Pat Name: Johan Chand Department: Room: Gender: Male Rivet Sorter: : 1965 Requested By: Bryn Hardin Order Number: [id number] Meagan MD: Yovana Yates M.D. Measurements Intervals [place] Rate: 139 P: 56 HI: 161 QRS: 71 QRSD: 88 T: 88 QT: 276 QTc: 421 Interpretive Statements SINUS TACHYCARDIA MODERATE ST DEPRESSION [0.05+ mV ST DEPRESSION] Compared to ECG 09/07/2020 15:29:11 ST (T wave) deviation now present Electronically Signed On 02-21-2021 19:16:29 CDT by Yovana Yates M.D. [id number]
--- NOTE | 2021-02-18 21:48 | W.ED.EXTPRO ---
HPI - Extremity Problem General: Chief complaint: Extremity Problem,Nontraumatic Stated complaint: LEG PAIN Time Seen by Provider: 02/18/21 21:07 Source: patient and EMS Mode of arrival: EMS Limitations: no limitations History of Present Illness: HPI Narrative: 55-year-old male who is well-known to ER has a history of chronic alcoholism and lower extremity edema and cellulitis. He states that tonight he has had worsening swelling in his legs and weakness. He states he had been drinking heavily today as well. Patient is alert and able answer all my questions appropriately. Denies any fever. Denies any vomiting or diarrhea. Associated symptoms: Deny chest pain, fever(s) or rash Review of Systems Const: Denies: fever(s), chills, body aches or change in appetite Eyes: Denies: blurry vision or eye discomfort ENMT: Denies: throat pain or dental pain Card: Denies: chest pain Resp: Denies: dyspnea GI: Denies: abdominal pain, nausea, vomiting or diarrhea : Denies: dysuria Musc: Denies: neck pain or back pain Skin/Breast: Denies: rash Neuro: Denies: headache(s) Psych: Denies: depression Gregory/Lymph: Denies: easy bruising All/Imm: Denies: urticaria PFSH ED PFSH: Medical History Alcoholism Cardiomyopathy COPD (chronic obstructive pulmonary disease) Hyponatremia Tobacco dependency Surgical History History of hip surgery Family History Other CAD (coronary artery disease) Social History Smoking and tobacco status: current every day smoker Alcohol intake: former Current gender identity: Male Physical Exam Const: COMMON NORMALS: patient oriented x3 OTHER: Patient smells of alcohol is an extremely disheveled. HENMT: COMMON NORMALS: normocephalic and atraumatic HEAD & SCALP: normocephalic and atraumatic Eye: COMMON NORMALS: Equal, round and reactive pupils present and EOMs intact bilaterally PUPIL: Yes Equal, round and reactive pupils present Neck/C-Spine: COMMON NORMALS: full ROM and supple Chest: COMMONS NORMALS: normal inspection of the chest and normal palpation of entire chest wall Resp: COMMON NORMALS: normal respiratory effort, No retractions, No use of accessory muscles and clear to auscultation bilaterally AUSCULTATION: clear to auscultation bilaterally Cardio: COMMON NORMALS: regular rhythm and No murmurs present (Cardio) RATE: tachycardic RHYTHM: regular rhythm GI: COMMON NORMALS: Normal to inspection, nondistended, normoactive bowel sounds present, Soft to palpation, non-tender and no masses PALPATION: Yes Soft to palpation Extremity: NARRATIVE EXTREMITY EXAM: Chronic edema to bilateral legs Neuro: COMMON NORMALS: patient oriented x3, moves all extremities and no focal motor deficits Psych: COMMON NORMALS: mental status grossly normal, Normal thought process present and cooperative THOUGHT PROCESS: Normal thought process present Skin: COMMON NORMALS: no rashes or lesions noted and no wounds GENERAL SKIN EXAM: no rashes or lesions noted Course Vital Signs: Vital signs: Vital Signs Temperature 98.9 F 02/18/21 21:12 Pulse Rate 142 H 02/18/21 21:12 Respiratory Rate 36 H 02/18/21 22:15 Blood Pressure 102/75 02/18/21 21:12 Pulse Oximetry 94 02/18/21 22:15 MDM - Extremity (Nontraumatic) MDM Narrative: Medical decision making narrative: Patient presents here with alcohol intoxication along with lower extreme edema. Patient is also hyponatremic. Patient got very angry here wanting to leave she needed to smoke cigarette. I informed her I would give him a nicotine patch. He states that he does not care and he is going to sign AMA. I informed him that his sodium needs correcting and I strongly recommend admission. He is able answer his questions appropriately here and has medical decision made capacity and signed out AGAINST MEDICAL ADVICE. Lab Data: Labs: Lab Results 02/18/21 02/18/21 02/18/21 Range/Units 21:42 21:42 21:42 WBC 24.2 H (4.0-10.0) 10^3/ uL RBC 3.75 L (4.1-5.3) 10^6/u L Hgb 9.9 L (11.7-16.6) g/dL Hct 28.9 L (42.0-52.0) % MCV 77.1 L (80-94) fl MCH 26.4 L (28.0-34.0) pg MCHC 34.3 (30.0-36.0) g/dL RDW 17.2 H (12.1-15.1) % Plt Count 1005 H (130-400) 10^3/c mm MPV 7.8 (7.4-10.4) fL Neut % (Auto) 60.1 % Lymph % (Auto) 12.7 % [place] % (Auto) 20.1 % Eos % (Auto) 2.9 % Baso % (Auto) 0.7 % Neut # (Auto) 14.51 H (1.8-7.7) 10^3/u L Lymph # (Auto) 3.1 (0.8-4.8) 10^3/u L [place] # (Auto) 4.9 H (0.2-0.9) 10^3/u L Eos # (Auto) 0.7 (0.0-0.8) 10^3/u L Baso # (Auto) 0.2 H (0.0-0.1) 10^3/u L Nucleated RBC % (a uto) 0 % Nucleated RBCs # 0.0 /100WBC Sodium 118 L* (136-145) mmol/L Potassium 4.4 (3.5-5.1) mmol/L Chloride 85 L (98-107) mmol/L Carbon Dioxide 21 L (22-29) mmol/L Anion Gap 16.4 (5-19) BUN 7 (6-20) mg/dL Creatinine 0.4 L (0.7-1.2) mg/dL GFR Calculation 221.7 H (90-130) mL/min Glucose 105 (65-115) mg/dL Calculated Osmolal ity 244 L (285-295) mOsm/k g Lactate (0.5-2.2) mmol/L Calcium 8.3 L (8.5-10.5) mg/dL Total Bilirubin 0.2 (0.15-1.2) mg/dL AST 16 (0-40) U/L ALT 17 (0-41) U/L Alkaline Phosphata se 77 (40-130) IU/L Troponin T Baselin e 22 H (0-15) ng/L NT-Pro-B Natriuret Pep 316 H (0-125) pg/mL Total Protein 6.3 L (6.6-8.7) g/dL Albumin 2.6 L (3.5-5.2) g/dL Globulin 3.7 (1.3-4.6) g/dL Ethyl Alcohol 133 H (0-10) mg/dL SARS-CoV-2 Ag (Rap id) (Negative) 02/18/21 02/18/21 Range/Units 21:42 22:05 WBC (4.0-10.0) 10^3/ uL RBC (4.1-5.3) 10^6/u L Hgb (11.7-16.6) g/dL Hct (42.0-52.0) % MCV (80-94) fl MCH (28.0-34.0) pg MCHC (30.0-36.0) g/dL RDW (12.1-15.1) % Plt Count (130-400) 10^3/c mm MPV (7.4-10.4) fL Neut % (Auto) % Lymph % (Auto) % [place] % (Auto) % Eos % (Auto) % Baso % (Auto) % Neut # (Auto) (1.8-7.7) 10^3/u L Lymph # (Auto) (0.8-4.8) 10^3/u L [place] # (Auto) (0.2-0.9) 10^3/u L Eos # (Auto) (0.0-0.8) 10^3/u L Baso # (Auto) (0.0-0.1) 10^3/u L Nucleated RBC % (a uto) % Nucleated RBCs # /100WBC Sodium (136-145) mmol/L Potassium (3.5-5.1) mmol/L Chloride (98-107) mmol/L Carbon Dioxide (22-29) mmol/L Anion Gap (5-19) BUN (6-20) mg/dL Creatinine (0.7-1.2) mg/dL GFR Calculation (90-130) mL/min Glucose (65-115) mg/dL Calculated Osmolal ity (285-295) mOsm/k g Lactate 1.1 (0.5-2.2) mmol/L Calcium (8.5-10.5) mg/dL Total Bilirubin (0.15-1.2) mg/dL AST (0-40) U/L ALT (0-41) U/L Alkaline Phosphata se (40-130) IU/L Troponin T Baselin e (0-15) ng/L NT-Pro-B Natriuret Pep (0-125) pg/mL Total Protein (6.6-8.7) g/dL Albumin (3.5-5.2) g/dL Globulin (1.3-4.6) g/dL Ethyl Alcohol (0-10) mg/dL SARS-CoV-2 Ag (Rap id) Negative (Negative) Imaging Data^: CXR: Radiologist's impression: [address] [address] XRay Report Signed Patient: Johan Chand Unit #: [id number] : [id number] Age/Sex: 55 / M ADM Date: 02/18/21 Loc: ER Room/Bed: Attending Dr: Ordering Provider/Ordering MD: Bryn Hardin MD Date of Service: 02/18/21 Procedure(s): XR chest 1V portable [id number] Accession Number(s): [id number] Report Number: [id number] PROCEDURE INFORMATION: Exam: XR Chest Exam date and time: 02/18/2021 9:20 PM Age: 55 years old Clinical indication: Shortness of breath; Additional info: SOB TECHNIQUE: Imaging protocol: XR of the chest. Views: 1 view. COMPARISON: CT chest abd pel wo con 09/07/2020 4:25 PM FINDINGS: Lungs: Hyperinflated lungs. No consolidation. 7 mm calcified granuloma in the right upper lobe. Pleural spaces: Unremarkable. No pleural effusion. No pneumothorax. Heart/Mediastinum: Unremarkable. No cardiomegaly. Bones/joints: Visualized osseous structures appear intact. XR/XR chest 1V portable [id number] IMPRESSION: Redemonstrated findings of obstructive lung disease. No focal consolidation. Dictated By: Magdi Mart DO Signed By: Magdi Mart DO Signed Date/Time: 02/18/212208 DD/ 07 EKG Data^: EKG 1: Attestation: I personally reviewed and interpreted this EKG as follows: EKG interpretation date: 02/18/21 EKG interpretation time: 21:36 Interpretation: sinus tach hr [address] or t wave abnormalities qrs 88 qtc 357 Discharge Plan Discharge Patient Disposition: Left Against Medical Advice Clinical Impression: Alcoholism, Hyponatremia, Cellulitis Condition: Stable Prescriptions: New cephalexin 500 mg capsule 500 mg PO TID 7 Days Qty: 21 RF: 0 No Action pantoprazole 40 mg Tablet,Delayed Release (Dr/Ec) 40 mg PO DAILY Qty: 30 RF: 0 Eliquis DVT-PE Treat 30D Start 5 mg (74 tabs) tablets,dose pack See Rx Instructions .ROUTE .COMPLEX Qty: 74 RF: 0 diphenhydramine HCl [Benadryl Allergy] 25 mg Tablet 25 mg PO PRN RF: 0 furosemide 40 mg tablet 40 mg PO DAILY@08 RF: 0 metoprolol tartrate 25 mg tablet 25 mg PO BID@09,21 RF: 0 acetaminophen [Tylenol Extra Strength] 500 mg tablet 500 mg PO Q6H PRN (Reason: pain) Qty: 15 RF: 0 doxycycline monohydrate 100 mg capsule 100 mg PO BID 10 Days Qty: 20 RF: 0 Patient Instructions: Opioid Safety Coding Level of Care Code ED Assistant Hairstylist for Chg Fwd Exam Comprehensive
[2021-02-18 21:55] LABS: Basophils # 0.2 10^3/uL (0.0-0.1); Basophils % 0.7 %; Eosinophils # 0.7 10^3/uL (0.0-0.8); Eosinophils % 2.9 %; Hematocrit 28.9 % (42.0-52.0); Hemoglobin 9.9 g/dL (11.7-16.6); Lymphocytes # 3.1 10^3/uL (0.8-4.8); Lymphocytes % 12.7 %; Mean Corpuscular HGB Conc 34.3 g/dL (30.0-36.0); Mean Corpuscular Hemoglobin 26.4 pg (28.0-34.0); Mean Corpuscular Volume 77.1 fl (80-94); Mean Platelet Volume 7.8 fL (7.4-10.4); Monocytes # 4.9 10^3/uL (0.2-0.9); Monocytes % 20.1 %; Neutrophils # 14.51 10^3/uL (1.8-7.7); Neutrophils % 60.1 %; Nucleated Red Blood Cells % 0 %; Platelet Count 1005 10^3/cmm (130-400); Red Blood Count 3.75 10^6/uL (4.1-5.3); Red Cell Distribution Width 17.2 % (12.1-15.1); White Blood Count 24.2 10^3/uL (4.0-10.0)
[2021-02-18 22:15] VITALS: RESP 36; O2SAT 94
[2021-02-18] MEDS: morphine 4 mg/mL SDV 1 mL IVP (22:15)
[2021-02-18] MEDS: ondansetron 2 mg/ML SDV 2 mL 4 MG IVP (22:15)
[2021-02-18] MEDS: sodium chloride 0.9% 1,000 ML 999 ML IV (22:19)
[2021-02-18 22:20] LABS: Lactate (Lactic Acid level) 1.1 mmol/L (0.5-2.2)
[2021-02-18 22:22] LABS: Troponin(5th) Baseline 22 ng/L (0-15)
[2021-02-18 22:31] LABS: Alanine Aminotransferase 17 U/L (0-41); Albumin Level 2.6 g/dL (3.5-5.2); Alcohol Level 133 mg/dL (0-10); Alkaline Phosphatase 77 IU/L (40-130); Anion Gap 16.4 (5-19); Aspartate Amino Transferase 16 U/L (0-40); Blood Urea Nitrogen 7 mg/dL (6-20); Calcium 8.3 mg/dL (8.5-10.5); Carbon Dioxide 21 mmol/L (22-29); Chloride 85 mmol/L (98-107); Globulin 3.7 g/dL (1.3-4.6); Glomerular Filtration Rate 221.7 mL/min (90-130); Glucose 105 mg/dL (65-115); NT Pro B Type Natriuretic Pept 316 pg/mL (0-125); Osmolality Calculated 244 mOsm/kg (285-295); Potassium 4.4 mmol/L (3.5-5.1); Total Bilirubin 0.2 mg/dL (0.15-1.2); Total Protein 6.3 g/dL (6.6-8.7)
[2021-02-18 22:35] LABS: Sodium 118 mmol/L (136-145)
[2021-02-18 23:09] LABS: SARS Covid-2 Antigen Negative (Negative)
[2021-02-18] MEDS: cephALEXin 500 mg Capsule PO (23:19)
--- NOTE | 2021-02-18 23:21 | PC.NURSE ---
pt yelling from room. Verbal reassurance attempted. Dr Hardin at bedside with pt. Pt repeatedly requesting to leave. AMA form explained to pt and pt agrees to sign. Dr. Hardin aware and again talked to pt. Pt requesting assistance with clothing and a wheel chair to front door.
== END 2021-02-18 23:30 | disposition left against medical advice (07) ==
PROVIDERS: Emergency Provider Emergency Medicine
DX: E87.1 Hypo-osmolality and hyponatremia (principal); F10.20 Alcohol dependence, uncomplicated; L03.90 Cellulitis, unspecified; Z79.01 Long term (current) use of anticoagulants; Z53.21 Procedure and treatment not carried out due to patient leaving prior to being seen by health care provider; J44.9 Chronic obstructive pulmonary disease, unspecified; F17.210 Nicotine dependence, cigarettes, uncomplicated; Z20.822 Contact with and (suspected) exposure to COVID-19
CPT/HCPCS: 71045; 80053; 80307; 83605; 83880; 84484; 85025; 87040; 87426; 93005; 96361; 96374; 96375; 99283; 99291; J2270; J2405; J7030

== ENCOUNTER 2021-02-19 20:50 | Emergency (ER) | payer MEDICAID, SELFPAY ==
[2021-02-19 20:51] VITALS: BP 160/95; PULSE 138; TEMP 36.7; BMI 22.0
--- NOTE | 2021-02-19 21:17 | ED_ITS ---
HPI - Extremity Problem General: Chief complaint: Extremity Problem,Nontraumatic Stated complaint: LEG PAIN Time Seen by Provider: 02/19/21 21:04 Source: patient and EMS Mode of arrival: EMS Limitations: no limitations History of Present Illness: HPI Narrative: 55-year-old male who is well-known the ER has a history of chronic alcoholism and cellulitis. Patient seen here twice yesterday and signed an AMA both times. He states that he just needs an antibiotic shot and he wants to go home. He states that his legs have been hurting but feel improved. He denies any vomiting or diarrhea. Denies any fevers. Associated symptoms: Deny chest pain, fever(s) or rash Review of Systems Const: Denies: fever(s), chills, body aches or change in appetite Eyes: Denies: blurry vision or eye discomfort ENMT: Denies: throat pain or dental pain Card: Denies: chest pain Resp: Denies: dyspnea GI: Denies: abdominal pain, nausea, vomiting or diarrhea : Denies: dysuria Musc: Reports: extremity swelling Skin/Breast: Denies: rash Neuro: Denies: headache(s) Psych: Denies: depression Gregory/Lymph: Denies: easy bruising All/Imm: Denies: urticaria PFSH ED PFSH: Medical History Alcoholism Cardiomyopathy COPD (chronic obstructive pulmonary disease) Hyponatremia Tobacco dependency Surgical History History of hip surgery Family History Other CAD (coronary artery disease) Social History Smoking and tobacco status: current every day smoker Alcohol intake: former Current gender identity: Male Physical Exam Const: COMMON NORMALS: no acute distress and patient oriented x3 GENERAL APPEARANCE: disheveled HENMT: COMMON NORMALS: normocephalic and atraumatic HEAD & SCALP: normocephalic and atraumatic Eye: COMMON NORMALS: Equal, round and reactive pupils present and EOMs intact bilaterally PUPIL: Yes Equal, round and reactive pupils present Neck/C-Spine: COMMON NORMALS: full ROM and supple Chest: COMMONS NORMALS: normal inspection of the chest and normal palpation of entire chest wall Resp: COMMON NORMALS: normal respiratory effort, No retractions, No use of accessory muscles and clear to auscultation bilaterally AUSCULTATION: clear to auscultation bilaterally Cardio: COMMON NORMALS: regular rate, regular rhythm and No murmurs present (Cardio) RATE: regular rate RHYTHM: regular rhythm GI: COMMON NORMALS: Normal to inspection, nondistended, normoactive bowel sounds present, Soft to palpation, non-tender and no masses PALPATION: Yes Soft to palpation Extremity: COMMON NORMALS: full ROM NARRATIVE EXTREMITY EXAM: 2+ edema with mild cellulitis Neuro: COMMON NORMALS: patient oriented x3, moves all extremities and no focal motor deficits Psych: COMMON NORMALS: mental status grossly normal, Normal thought process present and cooperative THOUGHT PROCESS: Normal thought process present Skin: COMMON NORMALS: no rashes or lesions noted and no wounds GENERAL SKIN EXAM: no rashes or lesions noted Course Vital Signs: Vital signs: Vital Signs Temperature 98.1 F 02/19/21 20:51 Pulse Rate 138 H 02/19/21 20:51 Blood Pressure 160/95 02/19/21 20:51 MDM - Extremity (Nontraumatic) MDM Narrative: Medical decision making narrative: Patient presents for his cellulitis. He refused any lab draws and just wanted IM antibiotic. Patient refuses any other treatment wants to be discharged. Patient has medical decision made capacity and is able answer my questions appropriately and will discharge him at this time. He is return if worsening. Discharge Plan Discharge Patient Disposition: Home Clinical Impression: Alcoholism, Cellulitis Condition: Stable Prescriptions: No Action pantoprazole 40 mg Tablet,Delayed Release (Dr/Ec) 40 mg PO DAILY Qty: 30 RF: 0 Eliquis DVT-PE Treat 30D Start 5 mg (74 tabs) tablets,dose pack See Rx Instructions .ROUTE .COMPLEX Qty: 74 RF: 0 diphenhydramine HCl [Benadryl Allergy] 25 mg Tablet 25 mg PO PRN RF: 0 furosemide 40 mg tablet 40 mg PO DAILY@08 RF: 0 metoprolol tartrate 25 mg tablet 25 mg PO BID@,21 RF: 0 acetaminophen [Tylenol Extra Strength] 500 mg tablet 500 mg PO Q6H PRN (Reason: pain) Qty: 15 RF: 0 doxycycline monohydrate 100 mg capsule 100 mg PO BID 10 Days Qty: 20 RF: 0 cephalexin 500 mg capsule 500 mg PO TID 7 Days Qty: 21 RF: 0 Discharge Orders: Discharge ED (Routine); Ordered 02/19/21 Ordered By: Bryn Hardin Discharge Diet: Advance as tolerated Discharge Activity: Resume usual activity Patient Instructions: Cellulitis (ED) Coding Level of Care Code ED Insulation Worker Furnace Installer for Christopher Dang
[2021-02-19] MEDS: cefTRIAXone 1,000 MG in lidocaine 1% 2.1 ML 1 MG IM (21:27)
--- NOTE | 2021-02-19 21:56 | PC.NURSE ---
dressings to BLE are grossly soiled and coming off in places. I removed/replaced dressings as patient would allow, he would not allow me to clean the areas today. he only allowed me to remove and replace the dressings, xeroform abd and tamica wrap applied and secured with tape
== END 2021-02-19 22:00 | disposition home or self-care (01) ==
PROVIDERS: Emergency Provider Emergency Medicine
DX: L03.119 Cellulitis of unspecified part of limb (principal); F10.20 Alcohol dependence, uncomplicated; Z79.01 Long term (current) use of anticoagulants; J44.9 Chronic obstructive pulmonary disease, unspecified; F17.210 Nicotine dependence, cigarettes, uncomplicated
CPT/HCPCS: 96372; 99283; J0696

== ENCOUNTER 2021-02-21 15:50 | Inpatient (IN) | payer MEDICAID, SELFPAY ==
[2021-02-21 16:27] VITALS: BP 96/63; PULSE 124; RESP 24; TEMP 37.3; O2SAT 96; BMI 22.0
--- NOTE | 2021-02-21 16:37 | PC.NURSE ---
pt here for dressing changes and chronic pain. As soon as pt arrives he demands food and drink. triage nurse explains to to pt that we are not a restaurant or homeless custodial and we will be getting him seen medically before we address any other non-emergent needs.
--- NOTE | 2021-02-21 16:40 | ED_ITS ---
Documented by User: Sidney Padron MD 02/23/21 07:35 HPI - General Adult General: Chief complaint: ER Hold Stated complaint: LEG PAIN Time Seen by Provider: 02/21/21 16:40 History of Present Illness: HPI narrative: Mr Chand is a 55-year-old gentleman with complex past medical history including multiple visits to this emergency department and chronic likely cellulitis of the lower extremities who presents to the emergency department due to worsening of pain. He has been seen multiple times this week. He does not care for his wounds and therefore shows up with dirty bandaging that was placed last time that he was here and had dressing change. He endorses generalized malaise but it is difficult to get him to further elucidate his history. Overall the course of symptoms varies but is worse today. The intensity is moderate to severe. There are no new injuries or sources of infection that he identifies. Review of Systems General: Reports: 10 or more systems reviewed and unremarkable except in HPI and below Narrative: CONSTITUTIONAL: denies fever, increase fatigue EYES - denies pain, denies loss of vision NOSE - denies congestion or rhinorrhea. THROAT - denies sore throat or difficulty swallowing. CARDIOVASCULAR - denies chest pain and palpitations. Lower extremity edema present. RESPIRATORY -chronic shortness of breath and cough GASTROINTESTINAL - denies abdominal pain, no nausea vomiting, no changes in bowel habits GENITOURINARY - denies dysuria or urinary frequency MUSCULOSKELETAL-lower extremity pain. No traumatic injury reported. SKIN -lower extremity skin changes NEUROLOGIC - denies focal weakness or sensory changes PFSH ED PFSH: Medical History (Updated 02/22/21 @ 09:07 by Dhara Maldonado MD) Alcoholism Cardiomyopathy Moderately reduced LV function per last echo Chronic cellulitis COPD (chronic obstructive pulmonary disease) Deep vein thrombosis of lower extremity (~07/2020) Hyponatremia Tobacco dependency Surgical History History of hip surgery Family History Other CAD (coronary artery disease) Social History (Updated 02/22/21 @ 08:53 by Dhara Maldonado MD) Smoking and tobacco status: current every day smoker Alcohol intake: current Current gender identity: Male Physical Exam Narrative: EXAM NARRATIVE: GENERAL/CONSTITUTIONAL -acute on chronically ill- appearing. No acute distress. Eyes - PERRL, no conjunctival injection ENMT - Atraumatic external nose and ears. Moist mucous membranes NECK - supple. trachea midline CARDIOVASCULAR -tachycardic rate and regular rhythm. Diminished pulses in bilateral lower extremities. There is marked edema. Patient presents with discolored and dirty bandaging. RESPIRATORY -coarse to auscultation bilaterally. No retractions or accessory muscle use. ABDOMEN/GI - Nontender/Nondistended. No tenderness to percussion or evidence of peritonitis MSK - Extremities without obvious deformity. Pain to palpation of the lower extremities SKIN - Warm, Dry NEURO - alert and appropriately oriented. Moves all extremities equally. Course ED course: - Patient was seen and evaluated by me at bedside - Patient placed on cardiac monitors, IV access obtained - Initial evaluation notable for chronically ill appearance, patient is tachycardic and likely has superimposed infection on bilateral lower extremities - Given the patient's multiple previous visits I had a bud discussion with him regarding expectations. I made it clear that he is not allowed to go outside and smoke. I further more clarified that he was willing to stay in the hospital if indicated. - Fluids antibiotics ordered - Labs notable for leukocytosis, normal lactate. - Upon serial reexamination after treatment the patient was similar - Based on patient history, evaluation, labs, and imaging as interpreted the most likely cause of the patient's condition is sepsis - The results of ED evaluation were discussed with the patient including plan for admission due to requirement for level of care not available if discharged to prevent significant worsening/deterioration. -Patient care handed off to evening ED physician pending admission to the hospital Vital Signs: Vital signs: Vital Signs Temperature 97.6 F 02/23/21 04:00 Pulse Rate 118 H 02/23/21 04:00 Respiratory Rate 20 H 02/23/21 04:00 Blood Pressure 138/83 02/23/21 04:00 Pulse Oximetry 90 02/23/21 04:00 MDM - General Adult Medical Records: Attestation: I reviewed the patient's medical records. Lab Data: Attestation: I reviewed the patient's lab results. Labs: Lab Results 02/21/21 02/21/21 02/21/21 Range/Units 12:48 12:48 12:48 WBC 18.1 H (4.0-10.0) 10^3/ uL RBC 3.68 L (4.1-5.3) 10^6/u L Hgb 9.6 L (11.7-16.6) g/dL Hct 28.6 L (42.0-52.0) % MCV 77.7 L (80-94) fl MCH 26.1 L (28.0-34.0) pg MCHC 33.6 (30.0-36.0) g/dL RDW 17.6 H (12.1-15.1) % Plt Count 976 H (130-400) 10^3/c mm MPV 8.6 (7.4-10.4) fL Neut % (Auto) 60.3 % Lymph % (Auto) 11.0 % [place] % (Auto) 17.1 % Eos % (Auto) 7.6 % Baso % (Auto) 1.0 % Neut # (Auto) 10.89 H (1.8-7.7) 10^3/u L Lymph # (Auto) 2.0 (0.8-4.8) 10^3/u L [place] # (Auto) 3.1 H (0.2-0.9) 10^3/u L Eos # (Auto) 1.4 H (0.0-0.8) 10^3/u L Baso # (Auto) 0.2 H (0.0-0.1) 10^3/u L Nucleated RBC % (a uto) 0 % Nucleated RBCs # 0.0 /100WBC Sodium 126 L (136-145) mmol/L Potassium 5.3 H (3.5-5.1) mmol/L Chloride 93 L (98-107) mmol/L Carbon Dioxide 23 (22-29) mmol/L Anion Gap 15.3 (5-19) BUN 8 (6-20) mg/dL Creatinine 0.4 L (0.7-1.2) mg/dL GFR Calculation 221.7 H (90-130) mL/min Glucose 78 (65-115) mg/dL Calculated Osmolal ity 259 L (285-295) mOsm/k g Lactic Acid 1.1 (0.5-2.2) mmol/L Calcium 8.4 L (8.5-10.5) mg/dL Total Bilirubin 0.2 (0.15-1.2) mg/dL AST 26 (0-40) U/L ALT 24 (0-41) U/L Alkaline Phosphata se 77 (40-130) IU/L Total Protein 5.9 L (6.6-8.7) g/dL Albumin 2.7 L (3.5-5.2) g/dL Globulin 3.2 (1.3-4.6) g/dL SARS-CoV-2 Ag (Rap id) (Negative) 02/21/21 Range/Units 21:35 WBC (4.0-10.0) 10^3/ uL RBC (4.1-5.3) 10^6/u L Hgb (11.7-16.6) g/dL Hct (42.0-52.0) % MCV (80-94) fl MCH (28.0-34.0) pg MCHC (30.0-36.0) g/dL RDW (12.1-15.1) % Plt Count (130-400) 10^3/c mm MPV (7.4-10.4) fL Neut % (Auto) % Lymph % (Auto) % [place] % (Auto) % Eos % (Auto) % Baso % (Auto) % Neut # (Auto) (1.8-7.7) 10^3/u L Lymph # (Auto) (0.8-4.8) 10^3/u L [place] # (Auto) (0.2-0.9) 10^3/u L Eos # (Auto) (0.0-0.8) 10^3/u L Baso # (Auto) (0.0-0.1) 10^3/u L Nucleated RBC % (a uto) % Nucleated RBCs # /100WBC Sodium (136-145) mmol/L Potassium (3.5-5.1) mmol/L Chloride (98-107) mmol/L Carbon Dioxide (22-29) mmol/L Anion Gap (5-19) BUN (6-20) mg/dL Creatinine (0.7-1.2) mg/dL GFR Calculation (90-130) mL/min Glucose (65-115) mg/dL Calculated Osmolal ity (285-295) mOsm/k g Lactic Acid (0.5-2.2) mmol/L Calcium (8.5-10.5) mg/dL Total Bilirubin (0.15-1.2) mg/dL AST (0-40) U/L ALT (0-41) U/L Alkaline Phosphata se (40-130) IU/L Total Protein (6.6-8.7) g/dL Albumin (3.5-5.2) g/dL Globulin (1.3-4.6) g/dL SARS-CoV-2 Ag (Rap id) Negative (Negative) Discharge Plan Discharge Patient Disposition: Admitted As Inpatient Admit Provider: Dhara Maldonado Coding Level of Care Code ED Assistant Store Manager Operations for [employer] Documented by User: Luis Padilla DO 02/22/21 01:15 HPI - General Adult General: Chief complaint: ER Hold Stated complaint: LEG PAIN Time Seen by Provider: 02/21/21 16:40 PFSH ED PFSH: Medical History (Updated 02/22/21 @ 09:07 by Dhara Maldonado MD) Alcoholism Cardiomyopathy Moderately reduced LV function per last echo Chronic cellulitis COPD (chronic obstructive pulmonary disease) Deep vein thrombosis of lower extremity (~07/2020) Hyponatremia Tobacco dependency Surgical History History of hip surgery Family History Other CAD (coronary artery disease) Social History (Updated 02/22/21 @ 08:53 by Dhara Maldonado MD) Smoking and tobacco status: current every day smoker Alcohol intake: current Current gender identity: Male Course Consultations: Consultation #1: adam Vital Signs: Vital signs: Vital Signs Temperature 97.6 F 02/23/21 04:00 Pulse Rate 118 H 02/23/21 04:00 Respiratory Rate 20 H 02/23/21 04:00 Blood Pressure 138/83 02/23/21 04:00 Pulse Oximetry 90 02/23/21 04:00 MDM - General Adult MDM Narrative: Medical decision making narrative: 55-year-old male checked out to me by Dr. Frazier at shift change. This gentleman has clinically significant weeping cellulitis to bilateral lower extremities chronically. He is extubated and acute worsening. His white blood cell count is 18. He has a temperature of 99-100 in the ER. He is tachycardic. He has been given vancomycin and Zosyn in the ER after blood cultures. He is left the emergency department AGAINST MEDICAL ADVICE multiple times this week. He is agreed to stay in the hospital at this point. Admission orders have been written. Lab Data: Labs: Lab Results 02/21/21 02/21/21 02/21/21 Range/Units 12:48 12:48 12:48 WBC 18.1 H (4.0-10.0) 10^3/ uL RBC 3.68 L (4.1-5.3) 10^6/u L Hgb 9.6 L (11.7-16.6) g/dL Hct 28.6 L (42.0-52.0) % MCV 77.7 L (80-94) fl MCH 26.1 L (28.0-34.0) pg MCHC 33.6 (30.0-36.0) g/dL RDW 17.6 H (12.1-15.1) % Plt Count 976 H (130-400) 10^3/c mm MPV 8.6 (7.4-10.4) fL Neut % (Auto) 60.3 % Lymph % (Auto) 11.0 % [place] % (Auto) 17.1 % Eos % (Auto) 7.6 % Baso % (Auto) 1.0 % Neut # (Auto) 10.89 H (1.8-7.7) 10^3/u L Lymph # (Auto) 2.0 (0.8-4.8) 10^3/u L [place] # (Auto) 3.1 H (0.2-0.9) 10^3/u L Eos # (Auto) 1.4 H (0.0-0.8) 10^3/u L Baso # (Auto) 0.2 H (0.0-0.1) 10^3/u L Nucleated RBC % (a uto) 0 % Nucleated RBCs # 0.0 /100WBC Sodium 126 L (136-145) mmol/L Potassium 5.3 H (3.5-5.1) mmol/L Chloride 93 L (98-107) mmol/L Carbon Dioxide 23 (22-29) mmol/L Anion Gap 15.3 (5-19) BUN 8 (6-20) mg/dL Creatinine 0.4 L (0.7-1.2) mg/dL GFR Calculation 221.7 H (90-130) mL/min Glucose 78 (65-115) mg/dL Calculated Osmolal ity 259 L (285-295) mOsm/k g Lactic Acid 1.1 (0.5-2.2) mmol/L Calcium 8.4 L (8.5-10.5) mg/dL Total Bilirubin 0.2 (0.15-1.2) mg/dL AST 26 (0-40) U/L ALT 24 (0-41) U/L Alkaline Phosphata se 77 (40-130) IU/L Total Protein 5.9 L (6.6-8.7) g/dL Albumin 2.7 L (3.5-5.2) g/dL Globulin 3.2 (1.3-4.6) g/dL SARS-CoV-2 Ag (Rap id) (Negative) 02/21/21 Range/Units 21:35 WBC (4.0-10.0) 10^3/ uL RBC (4.1-5.3) 10^6/u L Hgb (11.7-16.6) g/dL Hct (42.0-52.0) % MCV (80-94) fl MCH (28.0-34.0) pg MCHC (30.0-36.0) g/dL RDW (12.1-15.1) % Plt Count (130-400) 10^3/c mm MPV (7.4-10.4) fL Neut % (Auto) % Lymph % (Auto) % [place] % (Auto) % Eos % (Auto) % Baso % (Auto) % Neut # (Auto) (1.8-7.7) 10^3/u L Lymph # (Auto) (0.8-4.8) 10^3/u L [place] # (Auto) (0.2-0.9) 10^3/u L Eos # (Auto) (0.0-0.8) 10^3/u L Baso # (Auto) (0.0-0.1) 10^3/u L Nucleated RBC % (a uto) % Nucleated RBCs # /100WBC Sodium (136-145) mmol/L Potassium (3.5-5.1) mmol/L Chloride (98-107) mmol/L Carbon Dioxide (22-29) mmol/L Anion Gap (5-19) BUN (6-20) mg/dL Creatinine (0.7-1.2) mg/dL GFR Calculation (90-130) mL/min Glucose (65-115) mg/dL Calculated Osmolal ity (285-295) mOsm/k g Lactic Acid (0.5-2.2) mmol/L Calcium (8.5-10.5) mg/dL Total Bilirubin (0.15-1.2) mg/dL AST (0-40) U/L ALT (0-41) U/L Alkaline Phosphata se (40-130) IU/L Total Protein (6.6-8.7) g/dL Albumin (3.5-5.2) g/dL Globulin (1.3-4.6) g/dL SARS-CoV-2 Ag (Rap id) Negative (Negative) Discharge Plan Discharge Patient Disposition: Admitted As Inpatient Admit Provider: Dhara Maldonado Coding Level of Care Code ED Assistant Store Manager Operations for Christopher Dang
--- NOTE | 2021-02-21 17:36 | PC.PHAR ---
pt states he takes care of his own medications-pt states he is taking no rx medications-[facility] last filled 12/06/20 30d/s losartan 50mg daily, diltizem er 180mg daily pt states he is not taking-pt states he didnt fill keflex 500mg tid and doxycycline mono 100mg bid written in 02/18/21-pt states he cant afford to get his medications
[2021-02-21] MEDS: vancomycin 1,500 MG/300 ML PIGGYBACK 200 MG IV (17:39)
[2021-02-21 17:50] VITALS: BP 115/78; PULSE 113; RESP 18; O2SAT 93
[2021-02-21 18:05] LABS: Basophils # 0.2 10^3/uL (0.0-0.1); Eosinophils # 1.4 10^3/uL (0.0-0.8); Eosinophils % 7.6 %; Hematocrit 28.6 % (42.0-52.0); Hemoglobin 9.6 g/dL (11.7-16.6); Mean Corpuscular HGB Conc 33.6 g/dL (30.0-36.0); Mean Corpuscular Hemoglobin 26.1 pg (28.0-34.0); Mean Corpuscular Volume 77.7 fl (80-94); Mean Platelet Volume 8.6 fL (7.4-10.4); Monocytes # 3.1 10^3/uL (0.2-0.9); Monocytes % 17.1 %; Neutrophils # 10.89 10^3/uL (1.8-7.7); Neutrophils % 60.3 %; Nucleated Red Blood Cells % 0 %; Platelet Count 976 10^3/cmm (130-400); Red Blood Count 3.68 10^6/uL (4.1-5.3); Red Cell Distribution Width 17.6 % (12.1-15.1); White Blood Count 18.1 10^3/uL (4.0-10.0)
[2021-02-21 18:36] LABS: Lactic Sepsis W/Reflex 1.1 mmol/L (0.5-2.2)
[2021-02-21 18:42] LABS: Alanine Aminotransferase 24 U/L (0-41); Albumin Level 2.7 g/dL (3.5-5.2); Alkaline Phosphatase 77 IU/L (40-130); Aspartate Amino Transferase 26 U/L (0-40); Blood Urea Nitrogen 8 mg/dL (6-20); Calcium 8.4 mg/dL (8.5-10.5); Carbon Dioxide 23 mmol/L (22-29); Chloride 93 mmol/L (98-107); Globulin 3.2 g/dL (1.3-4.6); Glomerular Filtration Rate 221.7 mL/min (90-130); Glucose 78 mg/dL (65-115); Osmolality Calculated 259 mOsm/kg (285-295); Sodium 126 mmol/L (136-145); Total Bilirubin 0.2 mg/dL (0.15-1.2); Total Protein 5.9 g/dL (6.6-8.7)
[2021-02-21 18:43] LABS: Anion Gap 15.3 (5-19); Potassium 5.3 mmol/L (3.5-5.1)
[2021-02-21 19:18] VITALS: BP 132/79; PULSE 115; RESP 16; O2SAT 95
[2021-02-21 20:00] VITALS: BP 133/75; PULSE 125; RESP 18; O2SAT 91
[2021-02-21] MEDS: piperacillin-tazobactam 4.5 GM in sodium chloride 0.9% (plus) 50 ML IV (20:46)
[2021-02-21 21:00] VITALS: BP 137/81; PULSE 130; RESP 18; O2SAT 92
--- NOTE | 2021-02-21 21:29 | USR_ITS ---
PROCEDURE INFORMATION: Exam: US Duplex Lower Extremity Veins, Bilateral Exam date and time: 02/21/2021 9:29 PM Age: 55 years old Clinical indication: Swelling (edema) of limb; Lower extremity, right and lower extremity, left; Additional info: B lower leg swelling redness, per Dr. Maldonado TECHNIQUE: Imaging protocol: Real-time duplex ultrasound of the extremities with 2-D waters scale, color Doppler flow and spectral waveform analysis with image documentation. Complete exam focused on the bilateral lower extremity veins. COMPARISON: CT chest abd pel wo con 09/07/2020 4:25 PM FINDINGS: Right deep veins: Unremarkable. The common femoral, femoral, proximal profunda femoral and popliteal veins are patent without thrombus. Normal Doppler waveforms. Normal compressibility and/or augmentation response. Calf veins are patent. Right superficial veins: Saphenofemoral junction is patent without thrombus. Left deep veins: Unremarkable. The common femoral, femoral, proximal profunda femoral and popliteal veins are patent without thrombus. Normal Doppler waveforms. Normal compressibility and/or augmentation response. Calf veins are patent. Left superficial veins: Saphenofemoral junction is patent without thrombus. Soft tissues: Unremarkable. US/[place] [id number] IMPRESSION: No evidence of lower extremity deep vein thrombosis.
[2021-02-21 22:09] LABS: SARS Covid-2 Antigen Negative (Negative)
--- NOTE | 2021-02-21 23:20 | P.HP_ITS ---
Providers/Chief Complaint Admitting Physician: Dhara Maldonado MD Chief Complaint: LEG PAIN History of Present Illness Johan Chand is a 55 year old male to the emergency room complaining of pain in swelling, wounds to his lower extremities. He comes to the ER frequently. He has been seen approximately 7 times in the past week. He has not been doing much of any kind wound care to his lower extremities himself. His dressings are usually dirty when he comes into the emergency room according to the ER provider. Several times ED physicians have tried to encourage him to agree to admission. He has chosen to leave rather than be admitted most times. The wounds to his lower extremities which are chronic to a degree have progressively worsened. Mr. Chand is a known alcoholic who is also homeless. His primary concerns are getting something to eat and other things to help him be more comfortable. Its difficult to get much in the way of specific history from him. He had a low-grade fever, tachycardia, leukocytosis and white count in the emergency room. He was given vancomycin and Zosyn. Lactic acid was 1.1. He is being admitted to the hospitalist service. Review of Systems Const: Reports: fever(s), chills and change in appetite ENMT: Denies: throat pain or nasal congestion Card: Denies: chest pain, palpitations or edema Resp: Denies: dyspnea, productive cough or non-productive cough GI: Denies: abdominal pain, nausea, vomiting, diarrhea or constipation : Reports: difficulty urinating and urinary hesitancy Musc: Reports: back pain and extremity pain Skin/Breast: Reports: pruritus, erythema, skin tenderness and sores Neuro: Reports: weakness in extremities and difficulty walking; Denies: headache(s) or numbness in extremities Psych: Denies: anxiety or depression Gregory/Lymph: Denies: easy bruising or easy bleeding Medications/Allergies Home Medications Medication Instructions Recorded Confirmed Last Taken Type diphenhydramine HCl [Benadryl 50 mg PO BID PRN 09/07/20 02/21/21 Unknown History Allergy] aspirin 325 mg PO Q4H PRN 02/21/21 02/21/21 02/20/21 History cephalexin 500 mg PO TID 02/21/21 02/21/21 Unknown History doxycycline monohydrate 100 mg PO BID 02/21/21 02/21/21 Unknown History Allergies Allergy/AdvReac Type Severity Reaction Status Date / Time No Known Allergies Allergy Verified 02/21/21 17:36 Additional Medication Information I personally reviewed home medication list and medications received day of admission thus far. PFSH Acute PFSH: Medical History (Updated 02/22/21 @ 09:07 by Dhara Maldonado MD) Alcoholism Cardiomyopathy Moderately reduced LV function per last echo Chronic cellulitis COPD (chronic obstructive pulmonary disease) Deep vein thrombosis of lower extremity (~07/2020) Hyponatremia Tobacco dependency Surgical History History of hip surgery Family History Other CAD (coronary artery disease) Social History (Updated 02/22/21 @ 08:53 by Dhara Maldonado MD) Smoking and tobacco status: current every day smoker Alcohol intake: current Current gender identity: Male Vitals/I&O/Wt Last Vital Signs Temp 99.1 F 02/21/21 16:27 Pulse 130 H 02/21/21 21:00 Resp 18 02/21/21 21:00 BP 137/81 02/21/21 21:00 Pulse Ox 92 02/21/21 21:00 02/21/21 02/21/21 02/22/21 14:59 22:59 06:59 Intake Total 350 / 350 Balance 350 / 350 Weight last 48 hrs Weight 65.771 kg Physical Exam Narrative: EXAM NARRATIVE: Constitutional: Awake and alert, disheveled appearing, hollering for food and a bed in the hospital HEENT: Normocephalic, sclera injected, nasopharynx with some rhinorrhea, oropharynx with poor dentition Neck: Supple Respiratory: Coarse breath sounds, no accessory muscle use Cardiovascular: Tachycardic, regular rhythm Abdomen: Soft, nontender, positive bowel sounds, no fluid wave Extremities: 3+ edema, legs are tender to touch Skin: Extensive erythema to the distal extremities, skin is so swollen it shiny, nursing staff recently replaced dressings and patient not wanting to have dressing removed presently. Dressing is presently clean dry and intact Neuro: Speech is clear, patient is tremulous and restless, moves upper extremities equally, can move toes on both feet Psych: Yelling for the things that he wants rather than pressing his call light despite repeated explanations, demanding food (specifically a sandwich and a carton of milk), asking repeatedly when he can be taken up to a room in the hospital despite being told that there are no beds available presently. He is very centrally focused on his nonmedical needs as relates to his admission. Data : 02/21/21 12:48 02/21/21 12:48 Other Labs: Laboratory Results WBC 18.1 10^3/uL (4.0-10.0) H 02/21/21 12:48 RBC 3.68 10^6/uL (4.1-5.3) L 02/21/21 12:48 Hgb 9.6 g/dL (11.7-16.6) L 02/21/21 12:48 Hct 28.6 % (42.0-52.0) L 02/21/21 12:48 MCV 77.7 fl (80-94) L 02/21/21 12:48 MCH 26.1 pg (28.0-34.0) L 02/21/21 12:48 MCHC 33.6 g/dL (30.0-36.0) 02/21/21 12:48 RDW 17.6 % (12.1-15.1) H 02/21/21 12:48 Plt Count 976 10^3/cmm (130-400) H 02/21/21 12:48 MPV 8.6 fL (7.4-10.4) 02/21/21 12:48 Neut % (Auto) 60.3 % 02/21/21 12:48 Lymph % (Auto) 11.0 % 02/21/21 12:48 [place] % (Auto) 17.1 % 02/21/21 12:48 Eos % (Auto) 7.6 % 02/21/21 12:48 Baso % (Auto) 1.0 % 02/21/21 12:48 Neut # (Auto) 10.89 10^3/uL (1.8-7.7) H 02/21/21 12:48 Lymph # (Auto) 2.0 10^3/uL (0.8-4.8) 02/21/21 12:48 [place] # (Auto) 3.1 10^3/uL (0.2-0.9) H 02/21/21 12:48 Eos # (Auto) 1.4 10^3/uL (0.0-0.8) H 02/21/21 12:48 Baso # (Auto) 0.2 10^3/uL (0.0-0.1) H 02/21/21 12:48 Nucleated RBC % (auto) 0 % 02/21/21 12:48 Nucleated RBCs # 0.0 /100WBC 02/21/21 12:48 Sodium 126 mmol/L (136-145) L 02/21/21 12:48 Potassium 5.3 mmol/L (3.5-5.1) H 02/21/21 12:48 Chloride 93 mmol/L (98-107) L 02/21/21 12:48 Carbon Dioxide 23 mmol/L (22-29) 02/21/21 12:48 Anion Gap 15.3 (5-19) 02/21/21 12:48 BUN 8 mg/dL (6-20) 02/21/21 12:48 Creatinine 0.4 mg/dL (0.7-1.2) L 02/21/21 12:48 GFR Calculation 221.7 mL/min (90-130) H 02/21/21 12:48 Glucose 78 mg/dL (65-115) 02/21/21 12:48 Calculated Osmolality 259 mOsm/kg (285-295) L 02/21/21 12:48 Lactic Acid 1.1 mmol/L (0.5-2.2) 02/21/21 12:48 Calcium 8.4 mg/dL (8.5-10.5) L 02/21/21 12:48 Total Bilirubin 0.2 mg/dL (0.15-1.2) 02/21/21 12:48 AST 26 U/L (0-40) 02/21/21 12:48 ALT 24 U/L (0-41) 02/21/21 12:48 Alkaline Phosphatase 77 IU/L (40-130) 02/21/21 12:48 Total Protein 5.9 g/dL (6.6-8.7) L 02/21/21 12:48 Albumin 2.7 g/dL (3.5-5.2) L 02/21/21 12:48 Globulin 3.2 g/dL (1.3-4.6) 02/21/21 12:48 SARS-CoV-2 Ag (Rapid) Negative (Negative) 02/21/21 21:35 A&P Assessment and plan (1) Cellulitis of both lower extremities: With findings consistent with systemic inflammatory response syndrome but not severe sepsis Status: Acute (2) Hyponatremia: Acute on chronic Status: Acute (3) Anemia: Microcytic anemia, suspect of chronic inflammation/disease from wounds to lower extremities with iron deficiency Status: Acute Qualifiers: Anemia type: unspecified type Qualified Code(s): D64.9 - Anemia, unspecified (4) Thrombocytosis: Progressively worsening, likely related to anemia, iron deficiency Status: Acute (5) Cardiomyopathy: Alcoholic cardiomyopathy, 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 Status: Chronic Qualifiers: Cardiomyopathy type: alcoholic Qualified Code(s): I42.6 - Alcoholic cardiomyopathy (6) COPD (chronic obstructive pulmonary disease): Not acutely exacerbated Status: Chronic Qualifiers: COPD type: unspecified COPD Qualified Code(s): J44.9 - Chronic obstructive pulmonary disease, unspecified (7) Alcoholism: Not in remission Status: Chronic (8) Nicotine dependence, cigarettes, with other nicotine-induced disorders: Status: Chronic Additional A&P Information Inpatient admission Vancomycin and Zosyn Ultrasound of lower extremities to evaluate for DVT, had DVT in July of this year Lovenox for DVT prophylaxis in the interim Elevate lower extremities Check sed rate and CRP Lasix x1 dose Thiamine, folate, multivitamin Check iron level [facility] protocol Monitor I's and O's Blood cultures Breathing treatments if needed Nicotine patch if needed Supportive care otherwise We will need wound care follow-up but I believe has not been compliant with such Plans, findings and concerns discussed with Mr. Curtis he was given an opportunity to ask questions. His questions primarily revolved around food and other comforts rather than anything to do with his medical condition. Anticipated Disposition: Unclear at this point in time Code Status: Full code Attestations Medical Necessity Statement*: Anticipated stay greater than two midnights in a gentleman with extensive cellulitis to both lower extremities and clinical evidence of infection combined with known history of alcoholism and other comorbid issues as noted. He is receiving IV antibiotics, monitoring for need for invasive wound care and other management as noted above. Coding Level of Care Code Acute Podiatric Assistant for Christopher Dang Diagnoses Cellulitis of both lower extremities L03.115; L03.116 Hyponatremia E87.1 Anemia D64.9 Anemia type: unspecified type Thrombocytosis D47.3 Cardiomyopathy I42.6 Cardiomyopathy type: alcoholic COPD (chronic obstructive pulmonary disease) J44.9 COPD type: unspecified COPD Alcoholism F10.20 Nicotine dependence, cigarettes, with other nicotine-induced disorders F17.218
[2021-02-22] VITALS (12 sets, daily range): BP systolic 109–133; BP diastolic 68–79; PULSE 102–134; RESP 17–30; TEMP 36.8; O2SAT 92–98
--- NOTE | 2021-02-22 01:37 | PC.PHAR ---
Vancomycin is continued at the ER dose of 1500mg and a frequency of every 12 hours to produce a predicted trough level of 12.14 (population based pharmacokinetic analysis. A trough level has been ordered from the lab to be collected before the fourth dose to confirm and adjust if needed. The Zosyn is dosed at 3.375gm IVPB every 8 hours on the basis of the creatinine clearance of 194.09 at a rate of 12.5ml/hr per extended infusion protocol.
[2021-02-22] MEDS: enoxaparin 40 mg/0.4 mL Syringe SUBCUT (01:44)
[2021-02-22] MEDS: piperacillin-tazobactam 3.375 GM in sodium chloride 0.9% (plus) 50 ML IV ×3 (01:44→18:21)
[2021-02-22] MEDS: D5-NS 0.45% + KCL 20 mEq 20 MEQ/1,000 ML BAG 100 MEQ IV (03:11)
[2021-02-22 04:16] LABS: Basophils # 0.2 10^3/uL (0.0-0.1); Basophils % 0.6 %; Eosinophils # 0.7 10^3/uL (0.0-0.8); Eosinophils % 2.1 %; Hematocrit 29.8 % (42.0-52.0); Hemoglobin 9.8 g/dL (11.7-16.6); Lymphocytes # 1.6 10^3/uL (0.8-4.8); Lymphocytes % 5.3 %; Mean Corpuscular HGB Conc 32.9 g/dL (30.0-36.0); Mean Corpuscular Hemoglobin 26.3 pg (28.0-34.0); Mean Corpuscular Volume 79.9 fl (80-94); Mean Platelet Volume 7.9 fL (7.4-10.4); Monocytes # 3.5 10^3/uL (0.2-0.9); Monocytes % 11.6 %; Neutrophils # 24.02 10^3/uL (1.8-7.7); Neutrophils % 79.2 %; Nucleated Red Blood Cells % 0 %; Platelet Count 990 10^3/cmm (130-400); Red Blood Count 3.73 10^6/uL (4.1-5.3); Red Cell Distribution Width 17.4 % (12.1-15.1)
[2021-02-22 04:31] LABS: Alanine Aminotransferase 21 U/L (0-41); Albumin Level 2.4 g/dL (3.5-5.2); Alkaline Phosphatase 93 IU/L (40-130); Anion Gap 13.2 (5-19); Aspartate Amino Transferase 20 U/L (0-40); Blood Urea Nitrogen 6 mg/dL (6-20); C Reactive Protein 48.3 mg/L (0.0-4.9); Calcium 8.1 mg/dL (8.5-10.5); Carbon Dioxide 26 mmol/L (22-29); Chloride 94 mmol/L (98-107); Creatinine Clr Calc Pharmacy 155.2755; Globulin 3.7 g/dL (1.3-4.6); Glomerular Filtration Rate 171.4 mL/min (90-130); Glucose 185 mg/dL (65-115); Magnesium 1.7 mg/dL (1.7-2.3); Osmolality Calculated 270 mOsm/kg (285-295); Phosphorus 3.3 mg/dL (2.5-4.5); Potassium 4.2 mmol/L (3.5-5.1); Sodium 129 mmol/L (136-145); Total Bilirubin 0.2 mg/dL (0.15-1.2); Total Protein 6.1 g/dL (6.6-8.7)
[2021-02-22 04:33] LABS: INR 1.05 (0.8-1.2)
[2021-02-22 04:35] LABS: Partial Thromboplastin Time 38.2 SECONDS (23.9-36.7)
[2021-02-22 04:55] LABS: White Blood Count 30.3 10^3/uL (4.0-10.0)
[2021-02-22 05:32] LABS: Erythrocyte Sedimentation Rate 66 mm/hr (0-10)
[2021-02-22] MEDS: vancomycin 1,500 MG/300 ML PIGGYBACK 150 MG IV ×2 (07:27→18:21)
[2021-02-22 07:50] LABS: Add Urine Microscopic? NO; Charge for UA Resulting for Rev
[2021-02-22 08:11] LABS: Bilirubin Urine Neg (Negative); Blood Urine Neg (Negative); Glucose Urine UA Norm (Normal); Ketones Urine Negative (Negative); Leukocyte Esterase Urine Negative (Negative); Nitrate Urine Negative (Negative); Protein Urine Neg (Negative); Urine Appearance Clear (CLEAR); Urine Color Straw (Yellow); Urobilinogen Urine Norm (Negative); pH Urine 5 (5-7)
[2021-02-22] MEDS: folic acid 1 mg Tablet PO (08:55)
[2021-02-22] MEDS: nicotine 21 mg Patch 1 PATCH TRANSDERMA (08:55)
[2021-02-22] MEDS: multivitamin therapeutic Tablet 1 TAB PO (08:55)
[2021-02-22] MEDS: thiamine 100 mg Tablet PO (08:55)
[2021-02-22] MEDS: pantoprazole DR 40 mg Tablet PO (08:55)
--- NOTE | 2021-02-22 14:48 | P.PN_ITS ---
Subjective Subjective: Interval history: Patient was awake and alert at the time my evaluation. Medications: Medication Review Details: I personally reviewed home medication list and medications received day of admission thus far. Vitals/I&O/Wt Last Vital Signs Temp 99.1 F 02/21/21 16:27 Pulse 125 H 02/22/21 13:35 Resp 20 H 02/22/21 10:33 BP 109/68 02/22/21 05:01 Pulse Ox 95 02/22/21 13:35 02/21/21 02/22/21 02/22/21 22:59 06:59 14:59 Intake Total 350 / 350 50 / 400 Balance 350 / 350 50 / 400 Weight last 48 hrs Weight 65.771 kg Physical Exam Narrative: EXAM NARRATIVE: Constitutional: Awake and alert, disheveled appearing, hollering for food and a bed in the hospital HEENT: Normocephalic, sclera injected, nasopharynx with some rhinorrhea, oropharynx with poor dentition Neck: Supple Respiratory: Coarse breath sounds, no accessory muscle use Cardiovascular: Tachycardic, regular rhythm Abdomen: Soft, nontender, positive bowel sounds, no fluid wave Extremities: 3+ edema, legs are tender to touch Skin: Extensive erythema to the distal extremities, skin is so swollen it shiny, nursing staff recently replaced dressings and patient not wanting to have dressing removed presently. Dressing is presently clean dry and intact Neuro: Speech is clear, patient is tremulous and restless, moves upper extremities equally, can move toes on both feet Psych: Calm at the time of my eval Data : 02/22/21 03:58 02/22/21 03:58 Micro: Microbiology 02/22/21 13:09 Blood Culture - Preliminary Blood SPECIMEN COLLECTED 02/22/21 13:12 Blood Culture - Preliminary Blood SPECIMEN COLLECTED A&P Assessment and plan (1) Cellulitis of both lower extremities: With findings consistent with systemic inflammatory response syndrome but not severe sepsis Continue vancomycin / zosyn WBC 30 Wound culture Blood culture x 2 - NGTD Tylenol prn for fever Will obtain rahul on wednesday Status: Acute (2) Hyponatremia: Acute on chronic Status: Acute (3) Anemia: Microcytic anemia, suspect of chronic inflammation/disease from wounds to lower extremities with iron deficiency Status: Acute Qualifiers: Anemia type: unspecified type Qualified Code(s): D64.9 - Anemia, unspecified (4) Thrombocytosis: Progressively worsening, likely related to anemia, iron deficiency Status: Acute (5) Cardiomyopathy: Alcoholic cardiomyopathy, 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 Status: Chronic Qualifiers: Cardiomyopathy type: alcoholic Qualified Code(s): I42.6 - Alcoholic cardiomyopathy (6) COPD (chronic obstructive pulmonary disease): Not acutely exacerbated Status: Chronic Qualifiers: COPD type: unspecified COPD Qualified Code(s): J44.9 - Chronic obstruc tive pulmonary disease, unspecified (7) Alcoholism: Not in remission Status: Chronic (8) Nicotine dependence, cigarettes, with other nicotine-induced disorders: Status: Chronic Attestations Medical Necessity Statement*: Require further hospitalization for management of acute lower extremity infection requiring IV antibiotics Time Spent in Patient Care: Greater than 35 minutes (>than 50% of time spent in counselling and/or direct pt care on unit) . Coding Level of Care Code Acute Collector Of Port for [facility] Diagnoses Cellulitis of both lower extremities L03.115; L03.116 Hyponatremia E87.1 Anemia D64.9 Anemia type: unspecified type Thrombocytosis D47.3 Cardiomyopathy I42.6 Cardiomyopathy type: alcoholic COPD (chronic obstructive pulmonary disease) J44.9 COPD type: unspecified COPD Alcoholism F10.20 Nicotine dependence, cigarettes, with other nicotine-induced disorders F17.218
[2021-02-22] MEDS: FUROsemide 40 mg Tablet 20 MG PO (15:20)
[2021-02-22] MEDS: oxyCODONE 5 mg IR Tab/Cap PO (20:18)
[2021-02-22] MEDS: LORazepam 2 mg/mL INJ 1 mL IVP (20:20)
--- NOTE | 2021-02-22 22:44 | PC.NURSE ---
Patient arrived to unit via wheelchair refusing to wear oxygen and educated on importance of oxygen. Patient is SOB and has tachypnea, he is alert and oriented to self and place. He wants pain medication but is requesting percocet versus what is on SEP. Patient is very fidgety and CIWA is in place and active. Patient not a good historian, patient states that, I've been in the hospital for over seven days and nothing has been done. Patient angry that I do not have any more vanilla puddings for him. Will continue to monitor throughout shift. Patient has wounds on Bilateral lower extremities.
[2021-02-23] VITALS (9 sets, daily range): BP systolic 127–138; BP diastolic 78–86; PULSE 118–139; RESP 16–28; TEMP 36.4–37.1; O2SAT 90–95
[2021-02-23] MEDS: LORazepam 2 mg/mL INJ 1 mL IVP ×2 (01:17→17:30)
[2021-02-23] MEDS: piperacillin-tazobactam 3.375 GM in sodium chloride 0.9% (plus) 50 ML IV ×3 (01:17→20:55)
[2021-02-23] MEDS: vancomycin 1,500 MG/300 ML PIGGYBACK 150 MG IV ×2 (05:30→17:30)
--- NOTE | 2021-02-23 06:01 | PC.NURSE ---
Patient alert and oriented to self only. He rambles and gets anxious frequently. On CIWA protocols requiring medications per Sep. Patient is currently resting comfortably. BLE dressing intact with some dry drainage to LLE. Patient in tachycardic and tachypnenic. VS trend to more normal limits after receiving medications per CIWA protocols. Padding on bed for seizure precautions and aspiration precautions. No needs at this time. No safety events during shift. Room clutter free, call light in reach. Will continue to monitor until shift change and handoff given to receiving nurse.
[2021-02-23 09:50] LABS: Basophils # 0.2 10^3/uL (0.0-0.1); Basophils % 0.7 %; Eosinophils # 1.6 10^3/uL (0.0-0.8); Eosinophils % 6.5 %; Hematocrit 30.8 % (42.0-52.0); Hemoglobin 9.9 g/dL (11.7-16.6); Lymphocytes # 2.3 10^3/uL (0.8-4.8); Lymphocytes % 9.3 %; Mean Corpuscular HGB Conc 32.1 g/dL (30.0-36.0); Mean Corpuscular Hemoglobin 26.4 pg (28.0-34.0); Mean Corpuscular Volume 82.1 fl (80-94); Mean Platelet Volume 7.8 fL (7.4-10.4); Monocytes # 3.5 10^3/uL (0.2-0.9); Monocytes % 14.1 %; Neutrophils # 16.59 10^3/uL (1.8-7.7); Neutrophils % 67.9 %; Nucleated Red Blood Cells % 0 %; Platelet Count 868 10^3/cmm (130-400); Red Blood Count 3.75 10^6/uL (4.1-5.3); Red Cell Distribution Width 18.2 % (12.1-15.1); White Blood Count 24.5 10^3/uL (4.0-10.0)
[2021-02-23] MEDS: multivitamin therapeutic Tablet 1 TAB PO (10:02)
[2021-02-23] MEDS: folic acid 1 mg Tablet PO (10:03)
[2021-02-23] MEDS: FUROsemide 40 mg Tablet 20 MG PO (10:03)
[2021-02-23] MEDS: thiamine 100 mg Tablet PO (10:03)
[2021-02-23] MEDS: pantoprazole DR 40 mg Tablet PO (10:03)
[2021-02-23] MEDS: nicotine 21 mg Patch 1 PATCH TRANSDERMA (10:05)
[2021-02-23 10:23] LABS: Alanine Aminotransferase 17 U/L (0-41); Albumin Level 2.2 g/dL (3.5-5.2); Alkaline Phosphatase 79 IU/L (40-130); Anion Gap 11.2 (5-19); Aspartate Amino Transferase 18 U/L (0-40); Blood Urea Nitrogen 5 mg/dL (6-20); Calcium 7.9 mg/dL (8.5-10.5); Carbon Dioxide 29 mmol/L (22-29); Chloride 95 mmol/L (98-107); Globulin 3.5 g/dL (1.3-4.6); Glomerular Filtration Rate 221.7 mL/min (90-130); Glucose 92 mg/dL (65-115); Iron 11 ug/dL (59-158); Osmolality Calculated 269 mOsm/kg (285-295); Percent Saturation 6.9 % (20-50); Potassium 4.2 mmol/L (3.5-5.1); Sodium 131 mmol/L (136-145); Total Bilirubin 0.2 mg/dL (0.15-1.2); Total Iron Binding Capacity 159 mcg/dl; Total Protein 5.7 g/dL (6.6-8.7); Unsaturated Iron Binding 148 ug/dL (112-347)
--- NOTE | 2021-02-23 17:27 | P.PN_ITS ---
Subjective Subjective: Interval history: Patient was slightly drowsy at the time of my evaluation. No fever overnight. Medications: Medication Review Details: I personally reviewed home medication list and medications received day of admission thus far. Vitals/I&O/Wt Last Vital Signs Temp 97.7 F 02/23/21 16:00 Pulse 139 H 02/23/21 16:00 Resp 20 H 02/23/21 16:00 BP 131/86 02/23/21 16:00 Pulse Ox 91 02/23/21 16:00 02/23/21 02/23/21 02/23/21 06:59 14:59 22:59 Intake Total 50 / 1750 300 / 300 Balance 50 / 1750 300 / 300 Physical Exam Narrative: EXAM NARRATIVE: Constitutional: Awake and alert, disheveled appearing, hollering for food and a bed in the hospital HEENT: Normocephalic, sclera injected, nasopharynx with some rhinorrhea, oropharynx with poor dentition Neck: Supple Respiratory: Coarse breath sounds, no accessory muscle use Cardiovascular: Tachycardic, regular rhythm Abdomen: Soft, nontender, positive bowel sounds, no fluid wave Extremities: 3+ edema, legs are tender to touch Skin: See below Neuro: Speech is clear, patient is tremulous and restless, moves upper extremities equally, can move toes on both feet Psych: Calm at the time of my eval Data : 02/23/21 09:23 02/23/21 09:23 Micro: Microbiology 02/22/21 13:09 Blood Culture - Preliminary Blood NEGATIVE TO DATE 02/22/21 13:12 Blood Culture - Preliminary Blood NEGATIVE TO DATE A&P Assessment and plan (1) Cellulitis of both lower extremities: With findings consistent with systemic inflammatory response syndrome but not severe sepsis Continue vancomycin / zosyn WBC 30 Wound culture Blood culture x 2 - NGTD Tylenol prn for fever Will obtain rahul on wednesday Status: Acute (2) Hyponatremia: Acute on chronic Status: Acute (3) Anemia: Microcytic anemia, suspect of chronic inflammation/disease from wounds to lower extremities with iron deficiency Status: Acute Qualifiers: Anemia type: unspecified type Qualified Code(s): D64.9 - Anemia, unspecified (4) Thrombocytosis: Progressively worsening, likely related to anemia, iron deficiency Status: Acute (5) Cardiomyopathy: Alcoholic cardiomyopathy, 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 Status: Chronic Qualifiers: Cardiomyopathy type: alcoholic Qualified Code(s): I42.6 - Alcoholic cardiomyopathy (6) COPD (chronic obstructive pulmonary disease): Not acutely exacerbated Status: Chronic Qualifiers: COPD type: unspecified COPD Qualified Code(s): J44.9 - Chronic obstru ctive pulmonary disease, unspecified (7) Alcoholism: Not in remission Status: Chronic (8) Nicotine dependence, cigarettes, with other nicotine-induced disorders: Status: Chronic Additional A&P Information Continue current antibiotics including vancomycin and Zosyn Leukocytosis improving Follow-up on cultures Wound care Consider General surgery evaluation Blood cultures - no growth to date Continue remainder of management Repeat CBC/CMP in am PT consultation Attestations 2 Medical Necessity Statement*: Require further hospitalizationFor management of lower extremity wounds with secondary infection Time Spent in Patient Care: Greater than 35 minutes (>than 50% of time spent in counselling and/or direct pt care on unit) . 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
[2021-02-23 18:06] LABS: Vancomycin Trough 13.3 ug/mL (10-15)
[2021-02-23] MEDS: ipratropium-albuterol 3 mL Neb INHALATION (21:39)
[2021-02-24] VITALS (9 sets, daily range): BP systolic 131–158; BP diastolic 78–93; PULSE 115–127; RESP 18–24; TEMP 36.5–37.1; O2SAT 90–98
[2021-02-24] MEDS: enoxaparin 40 mg/0.4 mL Syringe SUBCUT (00:34)
[2021-02-24] MEDS: LORazepam 2 mg/mL INJ 1 mL IVP (00:37)
[2021-02-24] MEDS: piperacillin-tazobactam 3.375 GM in sodium chloride 0.9% (plus) 50 ML IV ×3 (04:56→21:15)
--- NOTE | 2021-02-24 05:01 | PC.NURSE ---
Shift Note Frequent safety and comfort rounds continue. Orders and/or nursing care completed as indicated. Patient monitored for response to intervention and treatment(s). Education provided includes using call light instead of yelling and education on reason for zosyn. Patient verbalized understanding but needed reinforcement throughout this shift. Patient has been tachycardic throughout this shift, hospitalist was notified. Patient received one dose of lorazepam as ordered on [facility] protocol. Patient is currently resting in bed watching television. Will continue to monitor.
[2021-02-24] MEDS: vancomycin 1,500 MG/300 ML PIGGYBACK 150 MG IV ×2 (06:06→17:32)
[2021-02-24 07:26] LABS: Basophils # 0.1 10^3/uL (0.0-0.1); Basophils % 0.7 %; Eosinophils # 1.7 10^3/uL (0.0-0.8); Eosinophils % 9.3 %; Hematocrit 28.1 % (42.0-52.0); Lymphocytes # 2.4 10^3/uL (0.8-4.8); Lymphocytes % 12.9 %; Mean Corpuscular Hemoglobin 26.1 pg (28.0-34.0); Mean Corpuscular Volume 81.4 fl (80-94); Mean Platelet Volume 7.9 fL (7.4-10.4); Monocytes # 2.8 10^3/uL (0.2-0.9); Neutrophils % 59.8 %; Nucleated Red Blood Cells % 0 %; Platelet Count 817 10^3/cmm (130-400); Red Blood Count 3.45 10^6/uL (4.1-5.3); Red Cell Distribution Width 18.2 % (12.1-15.1); White Blood Count 18.4 10^3/uL (4.0-10.0)
[2021-02-24 07:49] LABS: Alanine Aminotransferase 18 U/L (0-41); Albumin Level 2.1 g/dL (3.5-5.2); Alkaline Phosphatase 71 IU/L (40-130); Anion Gap 12.2 (5-19); Aspartate Amino Transferase 14 U/L (0-40); Blood Urea Nitrogen 7 mg/dL (6-20); Calcium 8.3 mg/dL (8.5-10.5); Carbon Dioxide 27 mmol/L (22-29); Chloride 97 mmol/L (98-107); Globulin 3.4 g/dL (1.3-4.6); Glomerular Filtration Rate 221.7 mL/min (90-130); Glucose 115 mg/dL (65-115); Osmolality Calculated 273 mOsm/kg (285-295); Potassium 4.2 mmol/L (3.5-5.1); Sodium 132 mmol/L (136-145); Total Bilirubin 0.2 mg/dL (0.15-1.2); Total Protein 5.5 g/dL (6.6-8.7)
[2021-02-24 07:55] LABS: Procalcitonin 0.05 ng/mL (0-0.5)
--- NOTE | 2021-02-24 08:00 | ECG_ITS ---
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 Measurements Intervals [place] Rate: 123 P: [place]: QRS: 50 QRSD: 90 T: 64 QT: 293 QTc: 419 Interpretive Statements SINUS TACHYCARDIA Compared to ECG 02/18/2021 21:36:22 ST (T wave) deviation no longer present Electronically Signed On 02-24-2021 13:18:20 CDT by Agnes Lazcano M.D. [id number]
[2021-02-24] MEDS: FUROsemide 40 mg Tablet 20 MG PO (08:23)
[2021-02-24] MEDS: thiamine 100 mg Tablet PO (08:23)
[2021-02-24] MEDS: multivitamin therapeutic Tablet 1 TAB PO (08:23)
[2021-02-24] MEDS: nicotine 21 mg Patch 1 PATCH TRANSDERMA (08:23)
[2021-02-24] MEDS: pantoprazole DR 40 mg Tablet PO (08:23)
[2021-02-24] MEDS: folic acid 1 mg Tablet PO (08:24)
--- NOTE | 2021-02-24 09:55 | USCV_ITS ---
Johan Chand Age: 55 Gender: M : 1965 Exam Date: 02/24/2021 16:28 Ordering Phys: Jomar Dias MD Technologist: Gi Perez Exam Location: [facility] [place] Indication: OPENED WOUNDS BILATERAL LOWER LEGS RIGHT LEFT Brachial 130.00 mmHg Brachial 127.00 mmHg Pressure (mmHg) Waveform Pressure (mmHg) Waveform 40.00 NANOTECHNOLOGY ENGINEERING TECHNICIAN 110.00 50.00 DPA 90.00 0.38 Ankle/Brachial Index 0.84 FINDINGS Abnormal resting TOMMY of 0.38 on the right side Slightly diminished resting TOMMY of 0.84 on the left side CONCLUSIONS 1. Features of possibly severe peripheral artery disease, could be multisegmental on the right side 2. Features of mild peripheral artery disease on the left side Dr Yovana Yates MD [facility] (Electronically Signed) Final Date: 24 February 2021 17:57 S
[2021-02-24 10:32] LABS: C Reactive Protein 54.8 mg/L (0.0-4.9)
[2021-02-24] MEDS: metoprolol tartrate 50 mg Tablet PO ×2 (10:32→21:14)
[2021-02-24] MEDS: sodium chloride 0.9% 1,000 ML 50 ML IV (10:33)
[2021-02-24 11:21] LABS: Erythrocyte Sedimentation Rate 54 mm/hr (0-10)
--- NOTE | 2021-02-24 11:45 | P.CONIM_ITS ---
Providers/Reason For Consult Consulting Physician/Specialty*: General Surgery Thaddeus Rivera MD Reason for Consult*: Chronic lower leg wounds. Attending Physician: Jomar Dias MD History of Present Illness History of Present Illness Johan Chand is a 55 year old male admitted several days ago for chronic lower leg wounds and probable cellulitis. Says that the patient has been frequenting the emergency department but had always refused to be admitted until recently. He describes being in [place] at a hospital where he had what sounds to be debridement of his legs 2 years ago. He says that he twice while he was being hospitalized at that time. He says he then went to [facility] but was eventually discharged from there. His home situation sounds very unfortunate, as his sister is living in their mother's house after their mother moved to a jail. His sister will not let him in the house due to his apparent lack of hygiene, so he is living in a shed in the backyard. He does not have any particular wound care that he is providing for himself. Review of Systems General: Reports: 10 or more systems reviewed and unremarkable except in HPI and below Const: Reports: fever(s) and chills Musc: Reports: extremity pain Meds/Allergies Home Medications and Allergies Home Medications Medication Instructions Recorded Confirmed Last Taken Type diphenhydramine HCl [Benadryl 50 mg PO BID PRN 09/07/20 02/21/21 Unknown History Allergy] aspirin 325 mg PO Q4H PRN 02/21/21 02/21/21 02/20/21 History cephalexin 500 mg PO TID 02/21/21 02/21/21 Unknown History doxycycline monohydrate 100 mg PO BID 02/21/21 02/21/21 Unknown History Allergies Allergy/AdvReac Type Severity Reaction Status Date / Time No Known Allergies Allergy Verified 02/21/21 17:36 Current Medications Current Medications Generic Name Dose Route Start Last Admin Trade Name Freq PRN Reason Stop Dose Admin Albuterol/Ipratropium 3 ml 02/22/21 08:58 02/23/21 21:39 Ipratropium-Albuterol 3 Ml Neb INHALATION 3 ml Q4H PRN Administration SHORTNESS OF BREATH Enoxaparin Sodium 40 mg 02/22/21 01:20 02/24/21 00:34 Enoxaparin 40 Mg/0.4 Ml Syringe SUBCUT 40 mg Q24H RASHI Administration Folic Acid 1 mg 02/22/21 09:00 02/24/21 08:24 Folic Acid 1 Mg Tablet PO 1 mg DAILY RASHI Administration Piperacillin Sod/Tazobactam 50 mls @ 12.5 mls/hr 02/22/21 02:00 02/24/21 06:04 Sod 3.375 gm/ Sodium Chloride IV Infused Q8H RASHI Infusion Protocol As Directed Vancomycin/PEG/NADA/Lysine/Water 1,500 mg in 300 mls @ 150 mls/hr 02/22/21 06:00 02/24/21 08:24 Vancocin IV Infused Q12H RASHI Infusion Sodium Chloride 1,000 mls @ 50 mls/hr 02/24/21 10:00 02/24/21 10:33 Sodium Chloride 0.9% IV 02/25/21 05:59 50 mls/hr .Q20H RASHI Administration Metoprolol Tartrate 50 mg 02/24/21 10:00 02/24/21 10:32 Metoprolol Tartrate 50 Mg Tablet PO 50 mg BID@0900,2100 RASHI Administration Multivitamins Therapeutic 1 tab 02/22/21 09:00 02/24/21 08:23 Multivitamin Therapeutic Tablet PO 1 tab DAILY RASHI Administration Nicotine 1 patch 02/22/21 09:00 02/24/21 08:23 Nicotine 21 Mg Patch TRANSDERMA 1 patch DAILY RASHI Administration Pantoprazole Sodium 40 mg 02/22/21 09:00 02/24/21 08:[address] 40 Mg Tablet PO 40 mg DAILY RASHI Administration Thiamine Mononitrate 100 mg 02/22/21 09:00 02/24/21 08:23 Thiamine 100 Mg Tablet PO 100 mg DAILY RASHI Administration PFSH Acute PFSH: Medical History (Updated 02/24/21 @ 11:51 by Thaddeus Rivera MD) Alcoholism Cardiomyopathy Moderately reduced LV function per last echo Chronic cellulitis COPD (chronic obstructive pulmonary disease) Deep vein thrombosis of lower extremity (~07/2020) Gallbladder sludge Hyponatremia Tobacco dependency Surgical History (Updated 02/24/21 @ 11:53 by Thaddeus Rivera MD) History of hip surgery Right History of inguinal hernia repair, bilateral age 1 / contralateral side at age 10 History of tonsillectomy Family History Other CAD (coronary artery disease) Social History (Updated 02/24/21 @ 11:54 by Thaddeus Rivera MD) Smoking and tobacco status: current every day smoker cigarettes Packs smoked per day: 1.25 Years cigarettes smoked: 40 Alcohol intake: former Former alcohol use details: I do not drink anymore because I do not have any alcohol Current gender identity: Male Vitals/I&O/Wt Last Vital Signs Temp 98.2 F 02/24/21 11:13 Pulse 126 H 02/24/21 11:13 Resp 18 02/24/21 11:13 BP 137/87 02/24/21 11:13 Pulse Ox 92 02/24/21 11:13 02/23/21 02/24/21 02/24/21 22:59 06:59 14:59 Intake Total 350 / 1710 1060 / 1710 780 / 780 Balance 350 / 1710 1060 / 1710 780 / 780 Physical Exam Narrative: EXAM NARRATIVE: Patient was encountered in his hospital room. He was initially sleeping but was easily arousable. His pupils seem equal. No carotid bruits are heard. The lungs are clear anteriorly. The heart is regular. The abdomen is soft. The lower extremities were wrapped with Kerlix below the knees bilaterally. The dressings were removed in the presence of the nurse, revealing multiple weeping areas circumferentially but no necrosis, esch ars, etc. Data Micro: Micro: Microbiology 02/22/21 13:09 Blood Culture - Pr eliminary Blood NEGATIVE TO ASHWIN E 02/22/21 13:12 Blood Culture - Pr eliminary Blood NEGATIVE TO ASHWIN E A&P Assessment and plan (1) Chronic wound of extremity: It sounds like this has been an ongoing issue for years. The patient describes what was probably some debridement in [place] a couple of years ago. Fortunately, it does not appear that he needs any surgery at this time. His chronic wound issues are exacerbated by his lack of hygiene and current dysfunctional living arrangements. I am going to recommend the patient follow up in the [facility] wound clinic if the patient has not already been established there. Status: Acute (2) Cellulitis of both lower extremities: The patient continues on broad-spectrum antibiotics. Status: Acute Consult Attestations Medical Necessity Statement: See admitting service's notation. 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
--- NOTE | 2021-02-24 13:05 | XR_ITS ---
WS: [id number] Exam: XR tibia fibula RT 2V [id number] Date/Time of Exam: 02/24/2021 1:05 PM Reason For Exam: osteo No fracture or dislocation. There are areas of periosteal thickening and calcification involving the upper and lower fibula. Questionable areas of bone demineralization involving the upper fibula. Recommendations: Full body nuclear bone scanning might be considered for further workup if thought to be clinically warranted. XR/XR tibia fibula RT 2V [id number] IMPRESSION: 1. Areas of periosteal thickening involving the proximal and distal fibula whic h are nonspecific in appearance. There are also areas of ill-defined bone demin eralization in the upper fibula that may represent bone destruction.
--- NOTE | 2021-02-24 13:05 | XR_ITS ---
WS: [id number] Exam: XR tibia fibula LT 2V [id number] Date/Time of Exam: 02/24/2021 1:05 PM Reason For Exam: osteo No fracture or dislocation. There is periosteal thickening of the fibula. Soft tissues are unremarkab le. Recommendations: Full body nuclear bone scan could be helpful in further workup if thought to be clin ically necessary. XR/XR tibia fibula LT 2V [id number] IMPRESSION: 1. No fracture or dislocation noted. 2. Periosteal thickening of the fibula.
[2021-02-24] MEDS: acetaminophen 325 mg Tablet 650 MG PO (13:59)
[2021-02-24] MEDS: LORazepam 2 mg Tablet PO (15:35)
--- NOTE | 2021-02-24 20:03 | PM.PN ---
Subjective Subjective: Interval history: Hospital course, labs appreciated. Received 2 mg of IV Ativan overnight. Today morning on examination to drowsy. Sleeping off by eating. Awakes and is AOx3. Denies any nausea vomiting, headache, dizziness. Has remained hemodynamically stable and afebrile. Vitals/I&O/Wt Last Vital Signs Temp 97.7 F 02/24/21 16:00 Pulse 115 H 02/24/21 16:00 Resp 18 02/24/21 16:00 BP 151/92 02/24/21 16:00 Pulse Ox 90 02/24/21 16:00 02/24/21 02/24/21 02/24/21 06:59 14:59 22:59 Intake Total 1060 / 1710 780 / 780 350 / 1130 Balance 1060 / 1710 780 / 780 350 / 1130 Physical Exam Narrative: EXAM NARRATIVE: Constitutional: Sleeping on examination but on verbal stimulus gets awake and alert, sleeping on and off while eating. HEENT: Normocephalic, sclera injected, nasopharynx with some rhinorrhea, oropharynx with poor dentition Neck: Supple Respiratory: Coarse breath sounds, no accessory muscle use Cardiovascular: Tachycardic, regular rhythm Abdomen: Soft, nontender, positive bowel sounds, no fluid wave Extremities: 3+ edema, legs are tender to touch Skin: See below Neuro: Speech is clear, patient is tremulous and restless, moves upper extremities equally, can move toes on both feet Psych: Calm at the time of my eval Data : 02/24/21 06:48 02/24/21 06:48 A&P Assessment and plan (1) Cellulitis of both lower extremities: Sepsis but not severe sepsis. Continue with vancomycin and Zosyn. Follow-up blood culture, wound culture, MRSA swab. Check TOMMY, lower limb x-rays, ESR and CRP. We will consult surgery to see if patient needs any debridement. Wound care with Maxorb twice daily. If any abnormality in lower limb x-ray will consult podiatry. Status: Acute (2) Alcoholism: Patient tachycardic, occasionally having agitation. Continue with CIWA protocol but will stop IV Ativan as patient is drowsy. Start patient on Librium 10 mg p.o. every 6 hours. Will wean off accordingly. Status: Chronic (3) Anemia: Microcytic anemia, suspect of chronic inflammation/disease from wounds. Continue with oral iron supplementation. Check vitamin B12 and folate levels. Status: Acute Qualifiers: Anemia type: unspecified type Qualified Code(s): D64.9 - Anemia, unspecified (4) Cardiomyopathy: Alcoholic cardiomyopathy, 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. Mildly dehydrated. Start patient on gentle hydration with normal saline at 50 cc/h while monitoring for fluid overload for next 24 hours. Status: Chronic Qualifiers: Cardiomyopathy type: alcoholic Qualified Code(s): I42.6 - Alcoholic cardiomyopathy (5) COPD (chronic obstructive pulmonary disease): Not acutely exacerbated Status: Chronic Qualifiers: COPD type: unspecified COPD Qualified Code(s): J44.9 - Chronic obstructive pulmonary disease, unspecified (6) Hyponatremia: Acute on chronic. Resolved. Status: Acute (7) Thrombocytosis: Progressively worsening, likely related to anemia, iron deficiency Status: Acute (8) Nicotine dependence, cigarettes, with other nicotine-induced disorders: Status: Chronic Additional A&P Information Full code. Change diet to GI soft diet given the fact that patient is drowsy and sleeping off. Swallow evaluation. Lovenox for DVT prophylaxis. Discharge planning: Most likely to SNF. Patient has been refused at home once in the past. Patient is homeless. PT/OT evaluation/swallow evaluation. Attestations Medical Necessity Statement*: Admission for more than 2 midnights for sepsis secondary to cellulitis, alcohol withdrawal while safe discharge planning is sought. Time Spent in Patient Care: Greater than 35 minutes (>than 50% of time spent in counselling and/or direct pt care on unit). 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
[2021-02-24] MEDS: chlordiazePOXIDE 10 mg Capsule PO (21:14)
[2021-02-25] VITALS (9 sets, daily range): BP systolic 130–149; BP diastolic 81–91; PULSE 103–128; RESP 18–24; TEMP 36.1–37.1; O2SAT 90–97
[2021-02-25] MEDS: enoxaparin 40 mg/0.4 mL Syringe SUBCUT (01:25)
[2021-02-25] MEDS: chlordiazePOXIDE 10 mg Capsule PO ×4 (02:30→20:37)
[2021-02-25] MEDS: piperacillin-tazobactam 3.375 GM in sodium chloride 0.9% (plus) 50 ML IV ×2 (04:44→13:59)
--- NOTE | 2021-02-25 05:30 | PC.NURSE ---
Shift Note Frequent safety and comfort rounds continue. Orders and/or nursing care completed as indicated. Patient monitored for response to intervention and treatment(s). Education provided includes using call light and not yelling to get nurses attention. Patient states he understands but needed reinforcement throughout the night. Patients bilateral leg wounds were cleansed and dressed per wound care orders with patient tolerating well. Patient is currently sitting up in bed watching television. Will continue to monitor.
[2021-02-25] MEDS: vancomycin 1,500 MG/300 ML PIGGYBACK 150 MG IV ×2 (06:01→18:17)
[2021-02-25 06:51] LABS: Basophils # 0.1 10^3/uL (0.0-0.1); Basophils % 0.7 %; Eosinophils # 1.5 10^3/uL (0.0-0.8); Eosinophils % 8.1 %; Hematocrit 30.4 % (42.0-52.0); Hemoglobin 9.8 g/dL (11.7-16.6); Lymphocytes % 15.7 %; Mean Corpuscular HGB Conc 32.2 g/dL (30.0-36.0); Mean Corpuscular Volume 80.6 fl (80-94); Mean Platelet Volume 7.9 fL (7.4-10.4); Monocytes # 3.1 10^3/uL (0.2-0.9); Monocytes % 16.4 %; Neutrophils # 10.84 10^3/uL (1.8-7.7); Neutrophils % 57.4 %; Nucleated Red Blood Cells % 0 %; Platelet Count 997 10^3/cmm (130-400); Red Blood Count 3.77 10^6/uL (4.1-5.3); Red Cell Distribution Width 18.2 % (12.1-15.1); White Blood Count 18.9 10^3/uL (4.0-10.0)
[2021-02-25 07:11] LABS: Alanine Aminotransferase 21 U/L (0-41); Albumin Level 2.7 g/dL (3.5-5.2); Alkaline Phosphatase 79 IU/L (40-130); Anion Gap 10.8 (5-19); Aspartate Amino Transferase 14 U/L (0-40); Blood Urea Nitrogen 5 mg/dL (6-20); Carbon Dioxide 30 mmol/L (22-29); Chloride 95 mmol/L (98-107); Globulin 3.4 g/dL (1.3-4.6); Glomerular Filtration Rate 221.7 mL/min (90-130); Glucose 95 mg/dL (65-115); Osmolality Calculated 271 mOsm/kg (285-295); Potassium 3.8 mmol/L (3.5-5.1); Sodium 132 mmol/L (136-145); Total Bilirubin 0.2 mg/dL (0.15-1.2); Total Protein 6.1 g/dL (6.6-8.7)
[2021-02-25 07:35] LABS: Folate Level 10.9 ng/mL (4.5-32.2)
[2021-02-25 07:46] LABS: Vitamin B12 455 pg/mL (232-1245)
[2021-02-25] MEDS: pantoprazole DR 40 mg Tablet PO (08:03)
[2021-02-25] MEDS: folic acid 1 mg Tablet PO (08:03)
[2021-02-25] MEDS: nicotine 21 mg Patch 1 PATCH TRANSDERMA (08:03)
[2021-02-25] MEDS: multivitamin therapeutic Tablet 1 TAB PO (08:03)
[2021-02-25] MEDS: metoprolol tartrate 50 mg Tablet PO ×2 (08:03→20:37)
[2021-02-25] MEDS: thiamine 100 mg Tablet PO (08:03)
--- NOTE | 2021-02-25 15:48 | PC.PT ---
Patient refuses physical therapy evaluation multiple times today. States he will not get out of bed because it makes his feet hurt. Adamantly refuses to get up to chair with therapy. Will attempt evaluation in a.m.
--- NOTE | 2021-02-25 16:43 | PM.PN ---
Subjective Subjective: Interval history: No acute events overnight. Patient states he is hungry and would want to eat more. Complaining of getting eggs in the morning which he does not like to eat. Asking for better food. States pain in the leg is better. We discussed discharge planning and discussed that going forward patient would need extensive wound care and most likely prolonged antibiotics for which he might need to be transferred to SNF versus LTAC. Patient is open to both the options. Medications: Medication Review Details: I personally reviewed home medication list and medications received day of admission thus far. Vitals/I&O/Wt Last Vital Signs Temp 98.7 F 02/25/21 12:00 Pulse 113 H 02/25/21 12:00 Resp 18 02/25/21 12:00 BP 135/81 02/25/21 12:00 Pulse Ox 95 02/25/21 12:00 02/25/21 02/25/21 02/25/21 06:59 14:59 22:59 Intake Total 1100 / 2230 540 / 540 119.167 / 659.167 Output Total 590 / 590 Balance 510 / 1640 540 / 540 119.167 / 659.167 Physical Exam Narrative: EXAM NARRATIVE: Constitutional: Sleeping on examination but on verbal stimulus gets awake and alert, sleeping on and off while eating. HEENT: Normocephalic, sclera injected, nasopharynx with some rhinorrhea, oropharynx with poor dentition Neck: Supple Respiratory: Coarse breath sounds, no accessory muscle use Cardiovascular: Tachycardic, regular rhythm Abdomen: Soft, nontender, positive bowel sounds, no fluid wave Extremities: 3+ edema, legs are tender to touch Neuro: Speech is clear, patient is tremulous and restless, moves upper extremities equally, can move toes on both feet Psych: Calm at the time of my eval Data : 02/25/21 06:15 02/25/21 06:15 Micro: Microbiology 02/25/21 03:30 Gram Stain - Final Leg - #1 A&P Assessment and plan (1) Osteomyelitis: Status: Suspected (2) Cellulitis of both lower extremities: Sepsis but not severe sepsis. Lower limb xray appreciated. Cannot rule out osteomyelitis. Have consulted Dr. Espino from podiatry. Continue with vancomycin. As patient first has persistent leukocytosis we will switch from Zosyn to imipenem. Blood cultures so far have remain negative. Wound care with Maxorb twice daily. Status: Acute (3) Alcoholism: Patient tachycardic, occasionally having agitation. Continue with CIWA protocol. P.o. and IM Ativan as needed. Start patient on Librium 10 mg p.o. every 6 hours. Will wean off accordingly. Status: Chronic (4) Peripheral vascular disease: Status: Acute (5) Anemia: Microcytic anemia, suspect of chronic inflammation/disease from wounds. Continue with oral iron supplementation. 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 Patient euvolemic. Hold off on any diuresis or IV fluid for now. Status: Chronic Qualifiers: Cardiomyopathy type: alcoholic Qualified Code(s): I42.6 - Alcoholic cardiomyopathy (7) Nicotine dependence, cigarettes, with other nicotine-induced disorders: Status: Chronic (8) Thrombocytosis: Progressively worsening, likely related to anemia, iron deficiency Status: Acute (9) COPD (chronic obstructive pulmonary disease): Not acutely exacerbated Status: Chronic Qualifiers: COPD type: unspecified COPD Qualified Code(s): J44.9 - Chronic obstructive pulmonary disease, unspecified (10) Hyponatremia: Acute on chronic. Resolved. Status: Acute Additional A&P Information Full code. Change diet to GI soft diet given the fact that patient is drowsy and sleeping off. Swallow evaluation. Lovenox for DVT prophylaxis. Discharge planning: Most likely to SN versus LTAC. Patient will require extensive lower limb wound care and most likely prolonged IV antibiotics. Patient has been refused at home health. Patient is homeless. Attestations Medical Necessity Statement*: Requires further hospitalization chronic alcoholism, severe peripheral vascular disease, cardiomyopathy while safe discharge planning is sought given social discord and homeless status Time Spent in Patient Care: Greater than 35 minutes (>than 50% of time spent in counselling and/or direct pt care on unit). Coding Level of Care Code Acute Importer Or Exporter for g Fwd Diagnoses Osteomyelitis M86.9 Cellulitis of both lower extremities L03.115; L03.116 Alcoholism F10.20 Peripheral vascular disease I73.9 Anemia D64.9 Anemia type: unspecified type Cardiomyopathy I42.6 Cardiomyopathy type: alcoholic Nicotine dependence, cigarettes, with other nicotine-induced disorders F17.218 Thrombocytosis D47.3 COPD (chronic obstructive pulmonary disease) J44.9 COPD type: unspecified COPD Hyponatremia E87.1
[2021-02-25] MEDS: acetaminophen 325 mg Tablet 650 MG PO ×2 (16:57→20:37)
--- NOTE | 2021-02-25 20:07 | P.CONIM_ITS ---
Providers/Reason For Consult Consulting Physician/Specialty*: Sivakumar Espino D.P.M. Reason for Consult*: Cellulitis and ulcerations lower extremities Attending Physician: Jomar Dias MD History of Present Illness History of Present Illness Johan Chand is a 55 year old male admitted to the hospital service for bilateral lower extremity cellulitis secondary to venous insufficiency and ulcerations of both legs. Patient is currently homeless has a poor social situation. States tates that his sister lives in the area but does not let him live in the house. He has poor hygiene, he has not been performing dressing changes on his own however he has been frequenting the emergency department. In the past he had declined admission to the hospital repetitively. Endorses pain in both legs. Patient denies any subjective nausea, vomiting, fever, chills, shortness of breath or chest pain. Review of Systems General: Reports: 10 or more systems reviewed and unremarkable except in HPI and below Const: Denies: fever(s) or chills Card: Denies: chest pain or palpitations Resp: Denies: productive cough GI: Denies: abdominal pain, nausea or vomiting : Denies: flank pain Musc: Reports: extremity swelling, joint pain, joint stiffness, limited range of motion and deformity Skin/Breast: Reports: erythema, skin pain, skin tenderness, skin swelling, sores, nail changes and change in hair; Denies: rash Neuro: Reports: numbness in extremities, sensory changes and difficulty walking Psych: Denies: suicidal ideation Gregory/Lymph: Denies: easy bruising Meds/Allergies Home Medications and Allergies Home Medications Medication Instructions Recorded Confirmed Last Taken Type diphenhydramine HCl [Benadryl 50 mg PO BID PRN 09/07/20 02/21/21 Unknown History Allergy] aspirin 325 mg PO Q4H PRN 02/21/21 02/21/21 02/20/21 History cephalexin 500 mg PO TID 02/21/21 02/21/21 Unknown History doxycycline monohydrate 100 mg PO BID 02/21/21 02/21/21 Unknown History Allergies Allergy/AdvReac Type Severity Reaction Status Date / Time No Known Allergies Allergy Verified 02/21/21 17:36 Current Medications Current Medications Generic Name Dose Route Start Last Admin Trade Name Freq PRN Reason Stop Dose Admin Acetaminophen 650 mg 02/22/21 01:20 02/25/21 16:57 Acetaminophen 325 Mg Tablet PO 650 mg Q6H PRN Administration Mild/Mod Pain Or Temp >/= 101 Albuterol/Ipratropium 3 ml 02/22/21 08:58 02/23/21 21:39 Ipratropium-Albuterol 3 Ml Neb INHALATION 3 ml Q4H PRN Administration SHORTNESS OF BREATH Chlordiazepoxide 10 mg 02/24/21 20:00 02/25/21 14:00 Chlordiazepoxide 10 Mg Capsule PO 10 mg Q6H RASHI Administration Enoxaparin Sodium 40 mg 02/22/21 01:20 02/25/21 01:25 Enoxaparin 40 Mg/0.4 Ml Syringe SUBCUT 40 mg Q24H RASHI Administration Folic Acid 1 mg 02/22/21 09:00 02/25/21 08:03 Folic Acid 1 Mg Tablet PO 1 mg DAILY RASHI Administration Vancomycin/PEG/NADA/Lysine/Water 1,500 mg in 300 mls @ 150 mls/hr 02/22/21 06:00 02/25/21 18:17 Vancocin IV 150 mls/hr Q12H RASHI Administration Imipenem/Cilastatin Sodium 500 100 mls @ 200 mls/hr 02/25/21 14:30 02/25/21 16:21 mg/ Sodium Chloride IV Infused Q6H RASHI Infusion Protocol Lorazepam 2 mg 02/22/21 01:20 02/24/21 15:35 Lorazepam 2 Mg Tablet PO 2 mg Q4H PRN Administration WITHDRAWAL Protocol Metoprolol Tartrate 50 mg 02/24/21 10:00 02/25/21 08:03 Metoprolol Tartrate 50 Mg Tablet PO 50 mg BID@0900,2100 RASHI Administration Multivitamins Therapeutic 1 tab 02/22/21 09:00 02/25/21 08:03 Multivitamin Therapeutic Tablet PO 1 tab DAILY RASHI Administration Nicotine 1 patch 02/22/21 09:00 02/25/21 08:03 Nicotine 21 Mg Patch TRANSDERMA 1 patch DAILY RASHI Administration Pantoprazole Sodium 40 mg 02/22/21 09:00 02/25/21 08:[address] 40 Mg Tablet PO 40 mg DAILY RASHI Administration Thiamine Mononitrate 100 mg 02/22/21 09:00 02/25/21 08:03 Thiamine 100 Mg Tablet PO 100 mg DAILY RASHI Administration PFSH Acute PFSH: Medical History (Updated 02/26/21 @ 07:22 by Sivakumar Espino DPM) Alcoholism Cardiomyopathy Echocardiogram done in July 2020 shows moderately reduced LV function with global hypokinesi Chronic cellulitis COPD (chronic obstructive pulmonary disease) Deep vein thrombosis of lower extremity (~07/2020) Gallbladder sludge Hyponatremia Tobacco dependency Surgical History (Updated 02/24/21 @ 11:53 by Thaddeus Rivera MD) History of hip surgery Right History of inguinal hernia repair, bilateral age 1 / contralateral side at age 10 History of tonsillectomy Family History Other CAD (coronary artery disease) Social History (Updated 02/24/21 @ 11:54 by Thaddeus Rivera MD) Smoking and tobacco status: current every day smoker cigarettes Packs smoked per day: 1.25 Years cigarettes smoked: 40 Alcohol intake: former Former alcohol use details: I do not drink anymore because I do not have any alcohol Current gender identity: Male Vitals/I&O/Wt Last Vital Signs Temp 98.0 F 02/25/21 16:00 Pulse 119 H 02/25/21 16:47 Resp 19 H 02/25/21 16:00 BP 144/85 02/25/21 16:00 Pulse Ox 97 02/25/21 16:00 02/25/21 02/25/21 02/25/21 06:59 14:59 22:59 Intake Total 1100 / 2230 540 / 540 119.167 / 659.167 Output Total 590 / 590 Balance 510 / 1640 540 / 540 119.167 / 659.167 Physical Exam Narrative: EXAM NARRATIVE: GENERAL: Patient is alert and oriented ?3 and in no acute distress. The following is a focused bilateral lower extremity exam. VASCULAR: Dorsalis pedis nonpalpable right foot, faintly palpable left foot. Posterior tibial arteries faintly palpable right foot, faintly palpable left foot. Capillary refill time less than 5 seconds to the distal hallux bilaterally. Calf is supple and nontender proximally and distally. Diminished pedal hair growth. Pitting edema +1 lower extremities. NEUROLOGICAL: Protective sensation intact to light touch. DERMATOLOGICAL: Venous ulcerations grade 1 bilateral lower extremities with fibrogranular base and serous drainage, no purulence, erythema present to bilateral legs. MUSCULOSKELETAL: Pain with mechanical debridement and dressing change. Muscle strength 5/5 in all 3 cardinal planes to bilateral foot and ankle. Data Micro: Micro: Microbiology 02/25/21 03:30 Gram Stain - Final Leg - #1 Other Data: Other data: [id number] [place], [place] [address]Xvyafzvhfu ReportSigned Patient: Johan Chand #: [id number]: 1965Acct#:[id number]/Sex: 55 / MADM Date: 02/22/21Loc: [facility]/Bed: 2631Attending Dr: Jomar Dias MD Ordering Provider/Ordering MD: Jomar Dias MD Date of Service: 02/24/21 Procedure(s): CV ankle brachial index 75750 Accession Number(s): [id number] Report Number: [id number] Johan Chand Age: 55 Gender: M : 1965 Exam Date: 02/24/2021 16:28 Ordering Phys: Jomar Dias MD Technologist: Gi Perez Exam Location: [facility] – [place] Indication: OPENED WOUNDS BILATERAL LOWER LEGS RIGHT LEFT Brachial 130.00 mmHg Brachial 127.00 mmHg Pressure (mmHg) Waveform Pressure (mmHg) Waveform 40.00 HEALTH CARE ANALYST 110.00 50.00 DPA 90.00 0.38 Ankle/Brachial Index 0.84 FINDINGS Abnormal resting TOMMY of 0.38 on the right side Slightly diminished resting TOMMY of 0.84 on the left side CONCLUSIONS 1. Features of possibly severe peripheral artery disease, could be multisegmental on the right side 2. Features of mild peripheral artery disease on the left side Dr Yovana Yates MD [facility] (Electronically Signed) Final Date: 24 February 2021 17:57 S A&P Assessment and plan (1) Peripheral arterial disease: Status: Acute (2) Chronic venous insufficiency of lower extremity: Status: Acute (3) Venous stasis ulcer: Status: Acute Qualifiers: Venous stasis ulcer site: calf Varicose vein presence: unspecified whether present Laterality: unspecified laterality Non-pressure ulcer stage: limited to breakdown of skin Qualified Code(s): I83.002 - Varicose veins of unspecified lower extremity with ulcer of calf; L97.201 - Non-pressure chronic ulcer of unspecified calf limited to breakdown of skin (4) Periostitis of lower leg: Status: Acute Mr. Chand is a 55-year-old male with venous insufficiency and bilateral lower extremity cellulitis and superficial ulcerations. Of concern TOMMY 0.38 on the right and 0.84 on the left recommending vascular referral. Clinically I do not appreciate critical limb ischemia, right lower extremity is warm and equal to contralateral limb, no purple undertone, patient denies any rest pain. May consider CT angio of the abdominal aorta with runoff for further evaluation. On patient's x-rays there is a wavy continuous periosteal reaction of the fibula this is consistent with periosteal reaction from venous insufficiency I do not appreciate any lytic osseous lesions or periosteal reaction indicating neoplasm. Very low suspicion for osteomyelitis or infectious process contributing to periosteal reaction. Performed repeat dressing changes with Maxorb AG directly to superficial venous ulcerations, these are weeping serous drainage, outer dressing of Kerlix. No plans for surgical debridement of wounds from podiatry standpoint will continue with local wound care. Podiatry will follow while inpatient Consult Attestations Medical Necessity Statement: Bilateral lower extremity cellulitis and venous ulcerations Coding Level of Care Code Acute Director Of Scout Work for robert Dang Diagnoses Peripheral arterial disease I73.9 Chronic venous insufficiency of lower extremity I87.2 Venous stasis ulcer I83.002; L97.201 Venous stasis ulcer site: calf Varicose vein presence: unspecified whether present Laterality: unspecified laterality Non-pressure ulcer stage: limited to breakdown of skin Periostitis of lower leg M86.9
[2021-02-25] MEDS: LORazepam 2 mg Tablet PO (20:37)
[2021-02-26] VITALS (11 sets, daily range): BP systolic 108–159; BP diastolic 65–114; PULSE 100–137; RESP 17–22; TEMP 36.4–36.8; O2SAT 91–98
[2021-02-26] MEDS: chlordiazePOXIDE 10 mg Capsule PO ×3 (01:51→21:46)
[2021-02-26] MEDS: enoxaparin 40 mg/0.4 mL Syringe SUBCUT (01:55)
[2021-02-26] MEDS: acetaminophen 325 mg Tablet 650 MG PO ×2 (06:01→21:46)
[2021-02-26 06:02] LABS: Vancomycin Trough 14.5 ug/mL (10-15)
[2021-02-26] MEDS: LORazepam 2 mg Tablet PO ×3 (06:04→21:46)
[2021-02-26] MEDS: vancomycin 1,500 MG/300 ML PIGGYBACK 150 MG IV ×2 (06:21→17:38)
[2021-02-26] MEDS: thiamine 100 mg Tablet PO (09:52)
[2021-02-26] MEDS: metoprolol tartrate 50 mg Tablet PO ×2 (09:52→21:45)
[2021-02-26] MEDS: nicotine 21 mg Patch 1 PATCH TRANSDERMA (09:52)
[2021-02-26] MEDS: folic acid 1 mg Tablet PO (09:52)
[2021-02-26] MEDS: multivitamin therapeutic Tablet 1 TAB PO (09:52)
[2021-02-26] MEDS: pantoprazole DR 40 mg Tablet PO (09:52)
--- NOTE | 2021-02-26 13:05 | PC.RESP ---
SMOKING CESSATION AND PULMONARY REHAB INFORMATION SENT TO PATIENT.
--- NOTE | 2021-02-26 14:19 | P.PN_ITS ---
Subjective Subjective: Interval history: No acute events overnight. On examination today patient sitting up in bed eating his food. Denies any nausea, vomiting, headache. Has remained hemodynamically stable and afebrile. Discussed discharge planning again with the patient. Patient is made aware that we are looking for SNF for placement. Medications: Medication Review Details: I personally reviewed home medication list and medications received day of admission thus far. Vitals/I&O/Wt Last Vital Signs Temp 98.0 F 02/26/21 12:00 Pulse 100 02/26/21 12:00 Resp 19 H 02/26/21 12:00 BP 123/80 02/26/21 12:00 Pulse Ox 97 02/26/21 12:00 02/25/21 02/26/21 02/26/21 22:59 06:59 14:59 Intake Total 442.500 / 982.500 176.667 / 1159.167 400 / 400 Output Total 350 / 350 Balance 442.500 / 982.500 -173.333 / 809.167 400 / 400 Physical Exam Narrative: EXAM NARRATIVE: Constitutional: Sleeping on examination but on verbal stimulus gets awake and alert, sleeping on and off while eating. HEENT: Normocephalic, sclera injected, nasopharynx with some rhinorrhea, oropharynx with poor dentition Neck: Supple Respiratory: Coarse breath sounds, no accessory muscle use Cardiovascular: Tachycardic, regular rhythm Abdomen: Soft, nontender, positive bowel sounds, no fluid wave Extremities: 3+ edema, legs are tender to touch Neuro: Speech is clear, patient is tremulous and restless, moves upper extremities equally, can move toes on both feet Psych: Calm at the time of my eval Data : 02/25/21 06:15 02/25/21 06:15 Micro: Microbiology 02/25/21 03:30 Gram Stain - Final Leg - #1 Wound Culture - Preliminary A&P Assessment and plan (1) Cellulitis of both lower extremities: Sepsis resolved. Appreciate Dr. Espino's recommendations. Osteomyelitis ruled out. Continue vancomycin and imipenem for now. Patient remains afebrile for next 24 hours we will switch to oral antibiotics after blood culture, wound cultures have so far remain negative. Most likely will transition over to doxycycline and Levaquin. MRSA swab still pending. Wound care with Maxorb twice daily. Status: Acute (2) Anemia: Microcytic anemia, suspect of chronic inflammation/disease from wounds. Continue with oral iron supplementation. 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 Continue with beta-richar. Start patient on lisinopril 5 mg daily, Lasix 20 mg oral daily. Monitor potassium and uptitrate medication as per blood pressure. Status: Chronic Qualifiers: Cardiomyopathy type: alcoholic Qualified Code(s): I42.6 - Alcoholic cardiomyopathy (4) Nicotine dependence, cigarettes, with other nicotine-induced disorders: Status: Chronic (5) Thrombocytosis: Progressively worsening, likely related to anemia, iron deficiency Status: Chronic (6) COPD (chronic obstructive pulmonary disease): Not acutely exacerbated Status: Chronic Qualifiers: COPD type: unspecified COPD Qualified Code(s): J44.9 - Chronic obstructive pulmonary disease, unspecified (7) Hyponatremia: Acute on chronic. Resolved. Status: Inactive (8) Peripheral vascular disease: Status: Chronic (9) Alcoholism: Patient tachycardic, occasionally having agitation. Continue with CIWA protocol. P.o. and IM Ativan as needed. Wean down Librium to 10 mg every 12 hourly. Status: Chronic Additional A&P Information Full code. Change diet to GI soft diet given the fact that patient is drowsy and sleeping off. Swallow evaluation. Lovenox for DVT prophylaxis. Discharge planning: Most likely to SN versus home. Patient will require extensive lower limb wound care and most likely prolonged IV antibiotics. Patient has been refused at home health. After review LTAC has reviewed refused to patient. Looking to see if significant except. Attestations Medical Necessity Statement*: Patient requires further hospitalization for lower limb cellulitis, alcoholic cardiomyopathy while safe discharge planning is sought because of social discord. Time Spent in Patient Care: Greater than 35 minutes (>than 50% of time spent in counselling and/or direct pt care on unit) . Coding Level of Care Code Acute Bodily Injury Adjuster for Christopher Dang Diagnoses Cellulitis of both lower extremities L03.115; L03.116 Anemia D64.9 Anemia type: unspecified type Cardiomyopathy I42.6 Cardiomyopathy type: alcoholic Nicotine dependence, cigarettes, with other nicotine-induced disorders F17.218 Thrombocytosis D47.3 COPD (chronic obstructive pulmonary disease) J44.9 COPD type: unspecified COPD Hyponatremia E87.1 Peripheral vascular disease I73.9 Alcoholism F10.20
[2021-02-26] MEDS: FUROsemide 20 mg Tablet PO (14:54)
[2021-02-26] MEDS: lisinopril 5 mg Tablet PO (14:54)
[2021-02-27] VITALS (10 sets, daily range): BP systolic 104–135; BP diastolic 67–81; PULSE 70–127; RESP 14–24; TEMP 36.6–37.2; O2SAT 90–98
[2021-02-27] MEDS: enoxaparin 40 mg/0.4 mL Syringe SUBCUT (02:17)
[2021-02-27 04:01] LABS: Basophils # 0.2 10^3/uL (0.0-0.1); Eosinophils # 1.7 10^3/uL (0.0-0.8); Eosinophils % 9.9 %; Hematocrit 30.5 % (42.0-52.0); Hemoglobin 9.8 g/dL (11.7-16.6); Lymphocytes # 3.5 10^3/uL (0.8-4.8); Lymphocytes % 20.2 %; Mean Corpuscular HGB Conc 32.1 g/dL (30.0-36.0); Mean Corpuscular Hemoglobin 25.6 pg (28.0-34.0); Mean Corpuscular Volume 79.6 fl (80-94); Mean Platelet Volume 8.2 fL (7.4-10.4); Monocytes # 3.3 10^3/uL (0.2-0.9); Monocytes % 19.2 %; Neutrophils # 7.77 10^3/uL (1.8-7.7); Neutrophils % 45.2 %; Nucleated Red Blood Cells % 0 %; Platelet Count 1040 10^3/cmm (130-400); Red Blood Count 3.83 10^6/uL (4.1-5.3); Red Cell Distribution Width 18.4 % (12.1-15.1); White Blood Count 17.2 10^3/uL (4.0-10.0)
[2021-02-27 04:32] LABS: Alanine Aminotransferase 23 U/L (0-41); Albumin Level 2.7 g/dL (3.5-5.2); Alkaline Phosphatase 82 IU/L (40-130); Anion Gap 12.9 (5-19); Aspartate Amino Transferase 29 U/L (0-40); Blood Urea Nitrogen 7 mg/dL (6-20); Calcium 8.8 mg/dL (8.5-10.5); Carbon Dioxide 28 mmol/L (22-29); Chloride 97 mmol/L (98-107); Glomerular Filtration Rate 221.7 mL/min (90-130); Glucose 124 mg/dL (65-115); Osmolality Calculated 277 mOsm/kg (285-295); Potassium 3.9 mmol/L (3.5-5.1); Sodium 134 mmol/L (136-145); Total Bilirubin 0.2 mg/dL (0.15-1.2); Total Protein 6.7 g/dL (6.6-8.7)
[2021-02-27] MEDS: vancomycin 1,500 MG/300 ML PIGGYBACK 150 MG IV ×2 (05:21→17:52)
--- NOTE | 2021-02-27 09:56 | PC.PT ---
[id number]: Physical therapy has attempted to work with patient x3 days and he continues to refuse. Patient reports that he can move just fine myself . He declined any mobility at this time due to high pain levels in kody feet. Attempted to encourage and educate patient and he continued to repeat no . Will dc Physical Therapy orders at this time; MARY Rothman notified.
[2021-02-27] MEDS: nicotine 21 mg Patch 1 PATCH TRANSDERMA (10:40)
[2021-02-27] MEDS: FUROsemide 20 mg Tablet PO (10:41)
[2021-02-27] MEDS: thiamine 100 mg Tablet PO (10:41)
[2021-02-27] MEDS: lisinopril 5 mg Tablet PO (10:41)
[2021-02-27] MEDS: multivitamin therapeutic Tablet 1 TAB PO (10:41)
[2021-02-27] MEDS: metoprolol tartrate 50 mg Tablet PO ×2 (10:41→19:53)
[2021-02-27] MEDS: chlordiazePOXIDE 10 mg Capsule PO ×2 (10:41→19:52)
[2021-02-27] MEDS: pantoprazole DR 40 mg Tablet PO (10:41)
[2021-02-27] MEDS: folic acid 1 mg Tablet PO (10:41)
--- NOTE | 2021-02-27 11:13 | PC.CHAP ---
Pastoral Care Encounter/Spiritual Assessment Type of Contact [] Declined electrical instrument repairer visit [] Patient/Family/Request visit [] Outpatient visit [] Follow-up visit [] Physician referral [] Code/Alert [x] Routine visit [] Staff referral [] Actively dying [] Patient sleeping [] Family support [] [] Out of room [] Palliative care [] [x] Receiving care in room [] Pre-surgical visit [] Trauma [x] Long length of stay [] ICU visit [] Other: Relational/Emotional Strength [x] Patient feels connected with others/family/visitors/staff [] Distress [] Loneliness/isolation [] Abandonment Spirituality of Patient [x] Person of Radha [] Attends Christianity of their Radha [x] Believes in Prayer [] Reads Bible or Congregational materials [] There are Spiritual issues to be addressed Sorority Supervisor Interventions [x] Prayer [x] Active listening [x] Non-anxious presence [x] Spiritual/emotional support [] Crisis/trauma care [x] Spiritual counseling [] Bereavement support [] Provided bereavement packet [] Provided Bible/devotional materials [] Provided toy/stuffed animal, coloring book to patient or family member [] Provided Communion [] Anointing/Chelsea [] Salvation [x] Completed spiritual assessment [] Other: Impact on Illness or Injury [] Angry [] Fearful [x] Anxious [] Often cries [] Exhaustion [x] Unable to work [] Unable to attend taoist [] Unable to walk/stand [] Unable to read [] Unable to drive [] Unable to eat/drink [] Unable to sleep [] Unable to be with family [] Patient intubated [] Other: Summary doesn't about his health has negative attitude about his health or when he going to be able to go home Time spent with patient 10 mins
--- NOTE | 2021-02-27 16:52 | PM.PN ---
Subjective Subjective: Interval history: No acute events overnight. Patient has remained hemodynamically stable and afebrile. Today morning examination sitting up in bed, AO x3, asking for more food. He continues to refuse physical therapy. Continues to get refused to get out of the bed. Vitals/I&O/Wt Last Vital Signs Temp 97.9 F 02/27/21 15:32 Pulse 116 H 02/27/21 15:32 Resp 18 02/27/21 15:32 BP 135/80 02/27/21 15:32 Pulse Ox 95 02/27/21 15:32 02/27/21 02/27/21 02/27/21 06:59 14:59 22:59 Intake Total 820 / 1720 740 / 740 Output Total 800 / 800 Balance 20 / 920 740 / 740 Physical Exam Narrative: EXAM NARRATIVE: Constitutional: AOx3, no acute distress. HEENT: Normocephalic, sclera injected, nasopharynx with some rhinorrhea, oropharynx with poor dentition Neck: Supple Respiratory: Bilateral bronchial breath sounds, occasional rhonchi, no accessory muscle use Cardiovascular: Tachycardic, regular rhythm Abdomen: Soft, nontender, positive bowel sounds, no fluid wave Extremities: 3+ edema, legs are tender to touch Neuro: Speech is clear, patient is tremulous and restless, moves upper extremities equally, can move toes on both feet Psych: Calm at the time of my eval Data : 02/27/21 03:00 02/27/21 03:00 Micro: Microbiology 02/22/21 13:09 Blood Culture - Final Blood NO GROWTH AFTER 5 DAYS 02/22/21 13:12 Blood Culture - Final Blood NO GROWTH AFTER 5 DAYS 02/25/21 03:30 Gram Stain - Final Leg - #1 Wound Culture - Preliminary Methicillin Resis Staph Aureus Gram Negative Rods A&P Assessment and plan (1) Cellulitis of both lower extremities: Sepsis resolved. Continues to have leukocytosis. No other signs or site of infection. No diarrhea. No abdominal pain. Patient continues to remain on room air without any cough. Discussed with Dr. Espino. We will try to do more extensive debridement today at bedside. Appreciate Dr. Espino's recommendations. Osteomyelitis ruled out. Superficial wound cultures growing MRSA and gram-negative rods. Continue vancomycin and imipenem for now. Patient remains afebrile for next 24 hours we will switch to oral antibiotics after blood culture, wound cultures have so far remain negative. Most likely will transition over to doxycycline and Levaquin. MRSA swab still pending. Wound care with Maxorb twice daily. Status: Acute (2) Anemia: Microcytic anemia, suspect of chronic inflammation/disease from wounds. Continue with oral iron supplementation. 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 Continue with beta-richar. Continue patient on lisinopril 5 mg daily, Lasix 20 mg oral daily. Monitor potassium and uptitrate medication as per blood pressure. Status: Chronic Qualifiers: Cardiomyopathy type: alcoholic Qualified Code(s): I42.6 - Alcoholic cardiomyopathy (4) Nicotine dependence, cigarettes, with other nicotine-induced disorders: Status: Chronic (5) Thrombocytosis: Progressively worsening, likely related to anemia, iron deficiency Status: Chronic (6) COPD (chronic obstructive pulmonary disease): Not acutely exacerbated Status: Chronic Qualifiers: COPD type: unspecified COPD Qualified Code(s): J44.9 - Chronic obstructive pulmonary disease, unspecified (7) Hyponatremia: Acute on chronic. Resolved. Status: Inactive (8) Peripheral vascular disease: Status: Chronic (9) Alcoholism: Patient tachycardic, occasionally having agitation. Continue with CIWA protocol. P.o. and IM Ativan as needed. Wean down Librium to 10 mg every 12 hourly. Status: Chronic Additional A&P Information Full code. Change diet to GI soft diet given the fact that patient is drowsy and sleeping off. Swallow evaluation. Lovenox for DVT prophylaxis. Discharge planning: Most likely SNF versus home. Patient has extensive lower limb cellulitis for which he requires wound care along with oral versus IV antibiotics. Patient has been declined by multiple SNFs. LTAC has refused as well. We will continue to try other places if not possible plan would be to discharge home. Patient has been made aware. Attestations Medical Necessity Statement*: Requires further hospitalization for management of cellulitis, alcoholic cardiomyopathy. Time Spent in Patient Care: Greater than 35 minutes (>than 50% of time spent in counselling and/or direct pt care on unit). Coding Level of Care Code Acute Computer Designer for Chg Fwd Diagnoses Cellulitis of both lower extremities L03.115; L03.116 Anemia D64.9 Anemia type: unspecified type Cardiomyopathy I42.6 Cardiomyopathy type: alcoholic Nicotine dependence, cigarettes, with other nicotine-induced disorders F17.218 Thrombocytosis D47.3 COPD (chronic obstructive pulmonary disease) J44.9 COPD type: unspecified COPD Hyponatremia E87.1 Peripheral vascular disease I73.9 Alcoholism F10.20
[2021-02-27] MEDS: morphine 4 mg/mL SDV 1 mL 5 MG IVP (18:29)
--- NOTE | 2021-02-27 21:19 | P.PN_ITS ---
Subjective Subjective: Interval history: Patient seen bedside for dressing change and reevaluation. Have been doing Telfa, ABD pads and Kerlix and avoiding compressive therapy due to underlying arterial insufficiency of the lower extremities. Today will switch to Unna boot with zinc oxide and calamine. Vitals/I&O/Wt Last Vital Signs Temp 99.0 F 02/27/21 19:10 Pulse 112 H 02/27/21 21:14 Resp 18 02/27/21 21:14 BP 116/76 02/27/21 19:10 Pulse Ox 93 02/27/21 21:14 02/27/21 02/27/21 02/27/21 06:59 14:59 22:59 Intake Total 820 / 1720 740 / 740 1120 / 1860 Output Total 800 / 800 200 / 200 Balance 20 / 920 740 / 740 920 / 1660 Physical Exam Narrative: EXAM NARRATIVE: GENERAL: Patient is alert and oriented ?3 and in no acute distress. The following is a focused bilateral lower extremity exam. VASCULAR: Dorsalis pedis nonpalpable right foot, faintly palpable left foot. Posterior tibial arteries faintly palpable right foot, faintly palpable left foot. Capillary refill time less than 5 seconds to the distal hallux bilater ally. Calf is supple and nontender proximally and distally. Diminished pedal hair growth. Pitting edema +1 lower extremities. NEUROLOGICAL: Protective sensation intact to light touch. DERMATOLOGICAL: Venous ulcerations grade 1 bilateral lower extremities with fibrogranular base and serous drainage, no purulence, erythema present to bilateral legs. MUSCULOSKELETAL: Pain with mechanical debridement and dressing change. Muscle strength 5/5 in all 3 cardinal planes to bilateral foot and ankle. Data : 03/02/21 12:26 03/03/21 05:47 Micro: Microbiology 02/22/21 13:09 Blood Culture - Final Blood NO GROWTH AFTER 5 DAYS 02/22/21 13:12 Blood Culture - Final Blood NO GROWTH AFTER 5 DAYS 02/25/21 03:30 Gram Stain - Final Leg - #1 Wound Culture - Preliminary Methicillin Resis Staph Aureus Gram Negative Rods A&P Assessment and plan (1) Peripheral arterial disease: Status: Acute (2) Chronic venous insufficiency of lower extremity: Status: Acute (3) Venous stasis ulcer: Status: Acute Qualifiers: Venous stasis ulcer site: calf Varicose vein presence: unspecified whether present Laterality: unspecified laterality Non-pressure ulcer stage: limited to breakdown of skin Qualified Code(s): I83.002 - Varicose veins of unspecified lower extremity with ulcer of calf; L97.201 - Non-pressure chronic ulcer of unspecified calf limited to breakdown of skin (4) Periostitis of lower leg: Status: Acute Continuing with local wound care dressings were changed at today's visit. Gentle mechanical debridement performed of bilateral lower extremity wounds. Overall there is some improvement in erythema and improvement in edema to the lower extremities, no bud purulence. Applied bilateral lower extremity Unna boot/soft cast wraps for venous insuffi ciency ulcerations with zinc oxide and calamine outer dressing of ABD pad and Kerlix without elastic or compressive materials. Leave on for 3 days Attestations Medical Necessity Statement*: Lower extremity cellulitis and venous insufficiency ulcerations. Coding Level of Care Code Acute Metal Leaf [facility] Diagnoses Peripheral arterial disease I73.9 Chronic venous insufficiency of lower extremity I87.2 Venous stasis ulcer I83.002; L97.201 Venous stasis ulcer site: calf Varicose vein presence: unspecified whether present Laterality: unspecified laterality Non-pressure ulcer stage: limited to breakdown of skin Periostitis of lower leg M86.9
[2021-02-27] MEDS: LORazepam 2 mg Tablet PO (21:36)
[2021-02-27] MEDS: acetaminophen 325 mg Tablet 650 MG PO (21:37)
[2021-02-28] VITALS (8 sets, daily range): BP systolic 103–148; BP diastolic 65–69; PULSE 92–129; RESP 17–20; TEMP 36.4–37; O2SAT 91–96
[2021-02-28] MEDS: enoxaparin 40 mg/0.4 mL Syringe SUBCUT (01:01)
--- NOTE | 2021-02-28 01:42 | CTR_ITS ---
PROCEDURE INFORMATION: Exam: CT Chest With Contrast; Diagnostic Exam date and time: 02/28/2021 1:42 AM Age: 55 years old Clinical indication: Abnormal findings; Abnormal lab test; Elevated wbc; Abnormal diagnostic tests; Abnormal ekg; Prior surgery; Surgery type: Bilateral inguinal hernia repair. Hip. ; Patient HX: Persistent leukocytosis despite antibiotic therapy. Cardiomyopathy. ; Additional info: Sepsis TECHNIQUE: Imaging protocol: Diagnostic computed tomography of the chest with contrast. Radiation optimization: All CT scans at this facility use at least one of these dose optimization techniques: automated exposure control; mA and/or kV adjustment per patient size (includes targeted exams where dose is matched to clinical indication); or iterative reconstruction. Contrast material: OMNI 300; Contrast volume: 95 ml; Contrast route: INTRAVENOUS (IV); COMPARISON: CT chest abd pel wo con 09/07/2020 4:25 PM RADIATION DOSE METRICS: Total DLP (mGy-cm): 1737.61 FINDINGS: Lungs: Moderate emphysema. Bilateral lower lobe opacities suspicious for pneumonia. Pleural spaces: Unremarkable. No pneumothorax. No pleural effusion. Heart: Unremarkable. No cardiomegaly. No pericardial effusion. Aorta: Mild atherosclerotic disease of the aorta without aneurysm. Lymph nodes: Unremarkable. No enlarged lymph nodes. Bones/joints: Age indeterminate compression fractures at L1 and T8. Soft tissues: Unremarkable. IMPRESSION: 1. Bilateral lower lobe opacities suspicious for pneumonia. 2. Mild atherosclerotic disease of the aorta without aneurysm. 3. Age indeterminate compression fractures at L1 and T8. 4. Moderate emphysema. PROCEDURE INFORMATION: Exam: CT Abdomen And Pelvis With Contrast Exam date and time: 02/28/2021 1:42 AM Age: 55 years old Clinical indication: Abnormal findings; Abnormal lab test; Elevated wbc; Abnormal diagnostic tests; Abnormal ekg; Prior surgery; Surgery type: Bilateral inguinal hernia repair. Hip. ; Patient HX: Persistent leukocytosis despite antibiotic therapy. Cardiomyopathy. ; Additional info: Sepsis TECHNIQUE: Imaging protocol: Computed tomography of the abdomen and pelvis with contrast. Radiation optimization: All CT scans at this facility use at least one of these dose optimization techniques: automated exposure control; mA and/or kV adjustment per patient size (includes targeted exams where dose is matched to clinical indication); or iterative reconstruction. Contrast material: OMNI 300; Contrast volume: 95 ml; Contrast route: INTRAVENOUS (IV); COMPARISON: CT chest abd pel wo con 09/07/2020 4:25 PM RADIATION DOSE METRICS: Total DLP (mGy-cm): 1737.61 FINDINGS: Lungs: The lung bases are clear. No effusion Liver: There is a subcentimeter low-attenuation lesion of the liver which is too small to accurately characterize but may represent a cyst. Gallbladder and bile ducts: No wall thickening, pericholecystic fluid or stones. Pancreas: Normal. No ductal dilation. Spleen: Normal. No splenomegaly. Adrenal glands: Normal. No mass. Kidneys and ureters: Normal. No hydronephrosis. Stomach and bowel: Unremarkable. No obstruction. No mucosal thickening. Appendix: No evidence of appendicitis. Intraperitoneal space: Unremarkable. No free air. No significant fluid collection. Vasculature: Mild atherosclerotic disease of the aorta without aneurysm. Lymph nodes: Unremarkable. No enlarged lymph nodes. Urinary bladder: Unremarkable as visualized. Reproductive: Unremarkable as visualized. Bones/joints: Gamma nail in the right hip. Age indeterminate compression fractures at L1 and T8. Soft tissues: Unremarkable. CT/CT chest abd pel w con* IMPRESSION: 1. Mild atherosclerotic disease of the aorta without aneurysm. 2. Age indeterminate compression fractures at L1 and T8. Radiation Dose CTDIVOL = (mGy): DLP = 1737.61~1737.61 (mGy-cm)
[2021-02-28] MEDS: iohexol 300 mg/mL 100 mL Btl IV (05:19)
[2021-02-28] MEDS: vancomycin 1,500 MG/300 ML PIGGYBACK 150 MG IV ×2 (05:46→17:50)
[2021-02-28] MEDS: morphine 4 mg/mL SDV 1 mL 2 MG IVP (07:24)
[2021-02-28] MEDS: FUROsemide 20 mg Tablet PO (07:25)
[2021-02-28] MEDS: chlordiazePOXIDE 10 mg Capsule PO ×2 (07:25→19:57)
[2021-02-28] MEDS: thiamine 100 mg Tablet PO (09:18)
[2021-02-28] MEDS: multivitamin therapeutic Tablet 1 TAB PO (09:18)
[2021-02-28] MEDS: nicotine 21 mg Patch 1 PATCH TRANSDERMA (09:18)
[2021-02-28] MEDS: folic acid 1 mg Tablet PO (09:18)
[2021-02-28] MEDS: pantoprazole DR 40 mg Tablet PO (09:18)
[2021-02-28] MEDS: lisinopril 5 mg Tablet PO (09:18)
[2021-02-28] MEDS: metoprolol tartrate 50 mg Tablet PO ×2 (09:42→20:00)
[2021-02-28] MEDS: piperacillin-tazobactam 3.375 GM in sodium chloride 0.9% (plus) 50 ML IV ×2 (10:26→20:00)
--- NOTE | 2021-02-28 15:17 | PC.CHAP ---
Pastoral Care Encounter/Spiritual Assessment Type of Contact [] Declined airline lounge receptionist visit [] Patient/Family/Request visit [] Outpatient visit [xx] Follow-up visit [] Physician referral [] Code/Alert [xx] Routine visit [] Staff referral [] Actively dying [] Patient sleeping [] Family support [] [] Out of room [] Palliative care [] [] Receiving care in room [] Pre-surgical visit [] Trauma [xx] Long length of stay [] ICU visit [] Other: Relational/Emotional Strength [] Patient feels connected with others/family/visitors/staff [] Distress [] Loneliness/isolation [] Abandonment Spirituality of Patient [xx] Person of Radha [] Attends Hoahaoism of their Radha [xx] Believes in Prayer [] Reads Bible or Pentecostal materials [] There are Spiritual issues to be addressed Supervisor [employer] Interventions [] Prayer [] Active listening [] Non-anxious presence [] Spiritual/emotional support [] Crisis/trauma care [] Spiritual counseling [] Bereavement support [] Provided bereavement packet [] Provided Bible/devotional materials [] Provided toy/stuffed animal, coloring book to patient or family member [] Provided Communion [] Anointing/Dora [] Salvation [xx] Completed spiritual assessment [] Other: Impact on Illness or Injury [] Angry [] Fearful [] Anxious [] Often cries [] Exhaustion [] Unable to work [] Unable to attend spiritism [] Unable to walk/stand [] Unable to read [] Unable to drive [] Unable to eat/drink [] Unable to sleep [] Unable to be with family [] Patient intubated [] Other: Summary Patient feeling better. He was sleepy and not wanting to talk much. Time spent with patient 3 minutes
--- NOTE | 2021-02-28 16:15 | P.PN_ITS ---
Subjective Subjective: Interval history: No events overnight. Denies any nausea vomiting, headache. Continues to refuse physical therapy. Today states he will try to work with physical therapy. Has remained afebrile and hemodynamically stable. Asking for more food. Medications: Medication Review Details: I personally reviewed home medication list and medications received day of admission thus far. Vitals/I&O/Wt Last Vital Signs Temp 98.6 F 02/28/21 15:49 Pulse 126 H 02/28/21 15:49 Resp 18 02/28/21 15:49 BP 103/65 02/28/21 15:49 Pulse Ox 96 02/28/21 15:49 02/28/21 02/28/21 02/28/21 06:59 14:59 22:59 Intake Total 880 / 2740 700 / 700 Output Total 810 / 1010 Balance 70 / 1730 700 / 700 Physical Exam Narrative: EXAM NARRATIVE: Constitutional: AOx3, no acute distress. HEENT: Normocephalic, sclera injected, nasopharynx with some rhinorrhea, oropharynx with poor dentition Neck: Supple Respiratory: Bilateral bronchial breath sounds, occasional rhonchi, no accessory muscle use Cardiovascular: Tachycardic, regular rhythm Abdomen: Soft, nontender, positive bowel sounds, no fluid wave Extremities: 3+ edema, legs are tender to touch Neuro: Speech is clear, patient is tremulous and restless, moves upper extremities equally, can move toes on both feet Psych: Calm at the time of my eval Data : 02/27/21 03:00 02/27/21 03:00 Micro: Microbiology 02/25/21 03:30 Gram Stain - Final Leg - #1 Wound Culture - Final Methicillin Resis Staph Aureus Pseudomonas aeruginosa 02/22/21 13:09 Blood Culture - Final Blood NO GROWTH AFTER 5 DAYS 02/22/21 13:12 Blood Culture - Final Blood NO GROWTH AFTER 5 DAYS A&P Assessment and plan (1) Cellulitis of both lower extremities: Sepsis resolved. Continues to have leukocytosis. No other signs or site of infection. No diarrhea. No abdominal pain. Patient continues to remain on room air without any cough. CT abdomen pelvis chest results appreciated negative for any signs of infection. Appreciate Dr. Espino's recommendation. Wound care changed as per recommendations. Wound culture consistent with MRSA and Pseudomonas. Continue with vancomycin. Switch imipenem to Zosyn as per sensitivities. Wound care with Maxorb twice daily. Status: Acute (2) Anemia: Microcytic anemia, suspect of chronic inflammation/disease from wounds. Continue with oral iron supplementation. 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 Continue with beta-richar. Continue patient on lisinopril 5 mg daily, Lasix 20 mg oral daily. Monitor potassium and uptitrate medication as per blood pressure. Status: Chronic Qualifiers: Cardiomyopathy type: alcoholic Qualified Code(s): I42.6 - Alcoholic car diomyopathy (4) Nicotine dependence, cigarettes, with other nicotine-induced disorders: Status: Chronic (5) Thrombocytosis: Progressively worsening, likely related to anemia, iron deficiency Status: Chronic (6) COPD (chronic obstructive pulmonary disease): Not acutely exacerbated Status: Chronic Qualifiers: COPD type: unspecified COPD Qualified Code(s): J44.9 - Chronic ob structive pulmonary disease, unspecified (7) Hyponatremia: Acute on chronic. Resolved. Status: Inactive (8) Peripheral vascular disease: Status: Chronic (9) Alcoholism: Patient tachycardic, occasionally having agitation. Continue with CIWA protocol. P.o. and IM Ativan as needed. Wean down Librium to 10 mg every 12 hourly. Status: Chronic Additional A&P Information Full code. Change diet to GI soft diet given the fact that patient is drowsy and sleeping off. Swallow evaluation. Lovenox for DVT prophylaxis. Discharge planning: Most likely SNF versus home. Patient has extensive lower limb cellulitis for which he requires wound care along with oral versus IV antibiotics. Patient has been declined by multiple SNFs. LTAC has refused as well. We will continue to try other places if not possible plan would be to discharge home. Patient has been made aware. Attestations Medical Necessity Statement*: Requires further hospitalization for management of cellulitis while safe discharge planning is sought because of social discord Time Spent in Patient Care: Greater than 35 minutes (>than 50% of time s pent in counselling and/or direct pt care on unit) . Coding Level of Care Code Acute Irrigator Sprinkling System for [facility] D[facility] Diagnoses Cellulitis of both lower extremities L03.115; L03.116 Anemia D64.9 Anemia type: unspecified type Cardiomyopathy I42.6 Cardiomyopathy type: alcoholic Nicotine dependence, cigarettes, with other nicotine-induced disorders F17.218 Thrombocytosis D47.3 COPD (chronic obstructive pulmonary disease) J44.9 COPD type: unspecified COPD Hyponatremia E87.1 Peripheral vascular disease I73.9 Alcoholism F10.20
[2021-02-28] MEDS: acetaminophen 325 mg Tablet 650 MG PO (19:56)
[2021-02-28] MEDS: LORazepam 2 mg Tablet PO (19:57)
[2021-03-01] VITALS (9 sets, daily range): BP systolic 107–134; BP diastolic 64–79; PULSE 109–134; RESP 16–18; TEMP 36.5–36.8; O2SAT 91–95
[2021-03-01] MEDS: enoxaparin 40 mg/0.4 mL Syringe SUBCUT (01:35)
[2021-03-01] MEDS: piperacillin-tazobactam 3.375 GM in sodium chloride 0.9% (plus) 50 ML IV ×3 (05:03→20:39)
[2021-03-01] MEDS: vancomycin 1,500 MG/300 ML PIGGYBACK 150 MG IV ×2 (06:03→17:11)
[2021-03-01 07:02] LABS: Basophils # 0.2 10^3/uL (0.0-0.1); Basophils % 0.9 %; Eosinophils # 1.4 10^3/uL (0.0-0.8); Eosinophils % 5.9 %; Hematocrit 36.3 % (42.0-52.0); Hemoglobin 11.6 g/dL (11.7-16.6); Lymphocytes # 3.5 10^3/uL (0.8-4.8); Lymphocytes % 15.1 %; Mean Corpuscular Hemoglobin 25.6 pg (28.0-34.0); Mean Corpuscular Volume 80.1 fl (80-94); Mean Platelet Volume 8.4 fL (7.4-10.4); Monocytes # 2.9 10^3/uL (0.2-0.9); Monocytes % 12.4 %; Neutrophils # 14.35 10^3/uL (1.8-7.7); Neutrophils % 61.3 %; Nucleated Red Blood Cells % 0 %; Platelet Count 1148 10^3/cmm (130-400); Red Blood Count 4.53 10^6/uL (4.1-5.3); Red Cell Distribution Width 18.6 % (12.1-15.1); White Blood Count 23.4 10^3/uL (4.0-10.0)
[2021-03-01 07:38] LABS: Alanine Aminotransferase 23 U/L (0-41); Albumin Level 3.1 g/dL (3.5-5.2); Alkaline Phosphatase 115 IU/L (40-130); Aspartate Amino Transferase 19 U/L (0-40); Blood Urea Nitrogen 8 mg/dL (6-20); Calcium 9.3 mg/dL (8.5-10.5); Carbon Dioxide 31 mmol/L (22-29); Chloride 95 mmol/L (98-107); Globulin 4.3 g/dL (1.3-4.6); Glomerular Filtration Rate 221.7 mL/min (90-130); Glucose 106 mg/dL (65-115); Osmolality Calculated 279 mOsm/kg (285-295); Sodium 135 mmol/L (136-145); Total Bilirubin 0.2 mg/dL (0.15-1.2); Total Protein 7.4 g/dL (6.6-8.7)
[2021-03-01] MEDS: chlordiazePOXIDE 10 mg Capsule PO (08:09)
[2021-03-01] MEDS: FUROsemide 20 mg Tablet PO (08:09)
[2021-03-01] MEDS: lisinopril 5 mg Tablet PO (08:10)
[2021-03-01] MEDS: thiamine 100 mg Tablet PO (08:10)
[2021-03-01] MEDS: pantoprazole DR 40 mg Tablet PO (08:10)
[2021-03-01] MEDS: nicotine 21 mg Patch 1 PATCH TRANSDERMA (08:10)
[2021-03-01] MEDS: multivitamin therapeutic Tablet 1 TAB PO (08:10)
[2021-03-01] MEDS: folic acid 1 mg Tablet PO (08:10)
[2021-03-01] MEDS: metoprolol tartrate 50 mg Tablet PO ×2 (08:17→20:39)
[2021-03-01] MEDS: acetaminophen 325 mg Tablet 650 MG PO ×2 (14:18→21:59)
--- NOTE | 2021-03-01 14:46 | PM.PN ---
Subjective Subjective: Interval history: No acute events overnight. Has remained hemodynamically stable than mildly tachycardic and afebrile. Currently on 1 L nasal cannula saturating 95%. Complaining of headache today. Denies any nausea, vomiting, headache. Eating well. Medications: Medication Review Details: I personally reviewed home medication list and medications received day of admission thus far. Vitals/I&O/Wt Last Vital Signs Temp 97.8 F 03/01/21 11:30 Pulse 116 H 03/01/21 11:30 Resp 16 03/01/21 11:30 BP 107/67 03/01/21 11:30 Pulse Ox 95 03/01/21 11:30 02/28/21 03/01/21 03/01/21 22:59 06:59 14:59 Intake Total 300 / 1050 530 / 1580 950 / 950 Output Total 300 / 300 1100 / 1400 Balance 0 / 750 -570 / 180 950 / 950 Physical Exam Narrative: EXAM NARRATIVE: Constitutional: AOx3, no acute distress. HEENT: Normocephalic, sclera injected, nasopharynx with some rhinorrhea, oropharynx with poor dentition Neck: Supple Respiratory: Bilateral bronchial breath sounds, occasional rhonchi, no accessory muscle use Cardiovascular: Tachycardic, regular rhythm Abdomen: Soft, nontender, positive bowel sounds, no fluid wave Extremities: 3+ edema, legs are tender to touch Neuro: Speech is clear, patient is tremulous and restless, moves upper extremities equally, can move toes on both feet Psych: Calm at the time of my eval Data : 03/01/21 05:54 03/01/21 05:54 Micro: Microbiology 02/28/21 22:40 Stool Lactoferrin - Final Stool Enteric Pathogens (PCR) - Final Parasite Antigen Panel - Final C.difficile Toxin B Gene (PCR) - Final Occult Blood (FIT) - Final A&P Assessment and plan (1) Cellulitis of both lower extremities: Sepsis resolved. Continues to have leukocytosis. No other signs or site of infection. No diarrhea. No abdominal pain. Patient continues to remain on room air without any cough. CT abdomen pelvis chest results appreciated negative for any signs of infection. Stool studies negative for any sign of infection. Appreciate Dr. Espino's recommendation. Wound care changed as per recommendations. Calamine lymphedema wraps Wound culture consistent with MRSA and Pseudomonas. Continue with vancomycin and Zosyn as per sensitivities. Status: Acute (2) Anemia: Microcytic anemia, suspect of chronic inflammation/disease from wounds. Continue with oral iron supplementation. Status: Chronic Qualifiers: Anemia type: unspecified type Qualified Code(s): D64.9 - Anemia, unspecified (3) Thrombocytosis: Status: Acute (4) Leukocytosis: Persistent leukocytosis with all the lines up including neutrophils, mono cells, eosinophils and basophils. Platelet count up as well. We will check peripheral smear. 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 Continue with beta-richar. Continue patient on lisinopril 5 mg daily, Lasix 20 mg oral daily. Monitor potassium and uptitrate medication as per blood pressure. Status: Chronic Qualifiers: Cardiomyopathy type: alcoholic Qualified Code(s): I42.6 - Alcoholic cardiomyopathy (6) Nicotine dependence, cigarettes, with other nicotine-induced disorders: Status: Chronic (7) Thrombocytosis: Progressively worsening, likely related to anemia, iron deficiency Status: Chronic (8) Alcoholism: Patient tachycardic, occasionally having agitation. Continue with CIWA protocol. P.o. and IM Ativan as needed. Wean down Librium to 10 mg every 24 hourly. Status: Chronic (9) Peripheral vascular disease: Status: Chronic (10) Hyponatremia: Acute on chronic. Resolved. Status: Inactive (11) COPD (chronic obstructive pulmonary disease): Not acutely exacerbated Status: Chronic Qualifiers: COPD type: unspecified COPD Qualified Code(s): J44.9 - Chronic obstructive pulmonary disease, unspecified Additional A&P Information Full code. Change diet to GI soft diet given the fact that patient is drowsy and sleeping off. Swallow evaluation. Lovenox for DVT prophylaxis. Discharge planning: Most likely SNF versus home. Patient has extensive lower limb cellulitis for which he requires wound care along with oral versus IV antibiotics. Patient has been declined by multiple SNFs. LTAC has refused as well. We will continue to try other places if not possible plan would be to discharge home. Patient has been made aware. Attestations Medical Necessity Statement*: Requires further hospitalization for management of cellulitis, persistent leukocytosis while safe discharge planning is sought given social discord and need for IV antibiotics along with wound care. Time Spent in Patient Care: Greater than 35 minutes (>than 50% of time spent in counselling and/or direct pt care on unit). Coding Level of Care Code Acute Cytometry Technologist for Chg Fwd Diagnoses Cellulitis of both lower extremities L03.115; L03.116 Anemia D64.9 Anemia type: unspecified type Thrombocytosis D47.3 Leukocytosis D72.829 Cardiomyopathy I42.6 Cardiomyopathy type: alcoholic Nicotine dependence, cigarettes, with other nicotine-induced disorders F17.218 Thrombocytosis D47.3 Alcoholism F10.20 Peripheral vascular disease I73.9 Hyponatremia E87.1 COPD (chronic obstructive pulmonary disease) J44.9 COPD type: unspecified COPD
[2021-03-01 16:14] LABS: LAB Peripheral Smear Sent for Review
[2021-03-01 18:25] LABS: Vancomycin Trough 16.5 ug/mL (10-15)
[2021-03-02] VITALS (7 sets, daily range): BP systolic 106–130; BP diastolic 66–79; PULSE 97–127; RESP 14–18; TEMP 36.5–36.9; O2SAT 92–94
[2021-03-02] MEDS: enoxaparin 40 mg/0.4 mL Syringe SUBCUT (00:40)
[2021-03-02] MEDS: piperacillin-tazobactam 3.375 GM in sodium chloride 0.9% (plus) 50 ML IV ×3 (04:25→22:45)
[2021-03-02] MEDS: vancomycin 1,500 MG/300 ML PIGGYBACK 150 MG IV ×2 (06:47→17:54)
[2021-03-02] MEDS: nicotine 21 mg Patch 1 PATCH TRANSDERMA (08:32)
[2021-03-02] MEDS: multivitamin therapeutic Tablet 1 TAB PO (08:32)
[2021-03-02] MEDS: metoprolol tartrate 50 mg Tablet PO ×2 (08:32→20:12)
[2021-03-02] MEDS: thiamine 100 mg Tablet PO (08:32)
[2021-03-02] MEDS: folic acid 1 mg Tablet PO (08:32)
[2021-03-02] MEDS: pantoprazole DR 40 mg Tablet PO (08:32)
[2021-03-02] MEDS: lisinopril 5 mg Tablet PO (08:32)
[2021-03-02] MEDS: FUROsemide 20 mg Tablet PO (08:32)
[2021-03-02] MEDS: chlordiazePOXIDE 10 mg Capsule PO (08:34)
[2021-03-02] MEDS: acetaminophen 325 mg Tablet 650 MG PO (11:22)
[2021-03-02 12:56] LABS: Basophils # 0.2 10^3/uL (0.0-0.1); Basophils % 0.8 %; Eosinophils # 1.3 10^3/uL (0.0-0.8); Eosinophils % 5.1 %; Hematocrit 29.7 % (42.0-52.0); Hemoglobin 9.7 g/dL (11.7-16.6); Lymphocytes # 2.9 10^3/uL (0.8-4.8); Lymphocytes % 10.8 %; Mean Corpuscular HGB Conc 32.7 g/dL (30.0-36.0); Mean Corpuscular Volume 79.6 fl (80-94); Mean Platelet Volume 8.4 fL (7.4-10.4); Monocytes % 15.3 %; Neutrophils # 16.73 10^3/uL (1.8-7.7); Neutrophils % 63.4 %; Nucleated Red Blood Cells % 0 %; Platelet Count 976 10^3/cmm (130-400); Red Blood Count 3.73 10^6/uL (4.1-5.3); Red Cell Distribution Width 18.6 % (12.1-15.1); White Blood Count 26.4 10^3/uL (4.0-10.0)
--- NOTE | 2021-03-02 14:59 | P.PN_ITS ---
Subjective Subjective: Interval history: No acute events overnight. Has remained hemodynamically stable and afebrile. Denies any new complaint. On examination lying comfortably in bed watching TV. Medications: Medication Review Details: I personally reviewed home medication list and medications received day of admis teresa thus far. Vitals/I&O/Wt Last Vital Signs Temp 97.7 F 03/02/21 11:21 Pulse 97 03/02/21 11:21 Resp 18 03/02/21 11:21 BP 106/66 03/02/21 11:21 Pulse Ox 94 03/02/21 11:21 03/01/21 03/02/21 03/02/21 22:59 06:59 14:59 Intake Total 350 / 1300 430 / 1730 300 / 300 Output Total 975 / 975 400 / 400 Balance 350 / 1300 -545 / 755 -100 / -100 Physical Exam Narrative: EXAM NARRATIVE: Constitutional: AOx3, no acute distress. HEENT: Normocephalic, sclera injected, nasopharynx with some rhinorrhea, oropharynx with poor dentition Neck: Supple Respiratory: Bilateral bronchial breath sounds, occasional rhonchi, no accessory muscle use Cardiovascular: Tachycardic, regular rhythm Abdomen: Soft, nontender, positive bowel sounds, no fluid wave Extremities: 3+ edema, legs are tender to touch Neuro: Speech is clear, patient is tremulous and restless, moves upper extremities equally, can move toes on both feet Psych: Calm at the time of my eval Data : 03/02/21 12:26 03/01/21 05:54 Micro: Microbiology 02/28/21 22:40 Stool Lactoferrin - Final Stool Enteric Pathogens (PCR) - Final Parasite Antigen Panel - Final C.difficile Toxin B Gene (PCR) - Final Occult Blood (FIT) - Final A&P Assessment and plan (1) Cellulitis of both lower extremities: Sepsis resolved. Continues to have leukocytosis. No other signs or site of infection. No adrian rrhea. No abdominal pain. Patient continues to remain on room air without any cough. CT abdomen pelvis chest results appreciated negative for any signs of infection. Stool studies negative for any sign of infection. Appreciate Dr. Espino's recommendation. Wound care changed as per recommendations. Calamine lymphedema wraps Wound culture consistent with MRSA and Pseudomonas. Continue with vancomycin and Zosyn as per sensitivities. We will continue to finish overall 10-day course. Last dose on March 04. Status: Acute (2) Anemia: Microcytic anemia, suspect of chronic inflammation/disease from wounds. Continue with oral iron supplementation. Status: Chronic Qualifiers: Anemia type: unspecified type Qualified Code(s): D64.9 - Anemia, unspecified (3) Thrombocytosis: Status: Acute (4) Leukocytosis: Persistent leukocytosis with all the lines up including neutrophils, mono cells, eosinophils and basophils. Platelet count up as well. We will check peripheral smear. 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 Continue with beta-richar. Continue patient on lisinopril 5 mg daily, Lasix 20 mg oral daily. Monitor potassium and uptitrate medication as per blood pressure. Status: Chronic Qualifiers: Cardiomyopathy type: alcoholic Qualified Code(s): I42.6 - Alcoholic cardiomyopathy (6) Nicotine dependence, cigarettes, with other nicotine-induced disorders: Status: Chronic (7) Alcoholism: Patient tachycardic, occasionally having agitation. Continue with CIWA protocol. P.o. and IM Ativan as needed. Wean down Librium to 10 mg every 24 hourly. Status: Chronic (8) Peripheral vascular disease: Status: Chronic (9) Hyponatremia: Acute on chronic. Resolved. Status: Inactive (10) COPD (chronic obstructive pulmonary disease): Not acutely exacerbated Status: Chronic Qualifiers: COPD type: unspecified COPD Qualified Code(s): J44.9 - Chronic obstructive pulmonary disease, unspecified Additional A&P Information Full code. Change diet to GI soft diet given the fact that patient is drowsy and sleeping off. Swallow evaluation. Lovenox for DVT prophylaxis. Discharge planning: Most likely SNF versus home. Patient has extensive lower limb cellulitis for which he requires wound care along with oral versus IV antibiotics. Patient has been declined by multiple SNFs. LTAC has refused as well. We will continue to try other places if not possible plan would be to discharge home. Patient has been made aware. Attestations Medical Necessity Statement*: Requires further hospitalization for management of cellulitis, persistent leukocytosis while safe discharge planning is sought. Time Spent in Patient Care: Greater than 35 minutes (>than 50% of time spent in counselling and/or direct pt care on unit) . Coding Level of Care Code Acute Regional Operations Director for [facility] Fwd Diagnoses Cellulitis of both lower extremities L03.115; L03.116 Anemia D64.9 Anemia type: unspecified type Thrombocytosis D47.3 Leukocytosis D72.829 Cardiomyopathy I42.6 Cardiomyopathy type: alcoholic Nicotine dependence, cigarettes, with other nicotine-induced disorders F17.218 Alcoholism F10.20 Peripheral vascular disease I73.9 Hyponatremia E87.1 COPD (chronic obstructive pulmonary disease) J44.9 COPD type: unspecified COPD
[2021-03-02] MEDS: morphine 4 mg/mL SDV 1 mL 5 MG IVP (15:54)
[2021-03-03] VITALS (7 sets, daily range): BP systolic 113–117; BP diastolic 71–77; PULSE 97–126; RESP 16–18; TEMP 36.4–37.1; O2SAT 90–98
[2021-03-03] MEDS: enoxaparin 40 mg/0.4 mL Syringe SUBCUT (00:20)
[2021-03-03] MEDS: vancomycin 1,500 MG/300 ML PIGGYBACK 150 MG IV ×2 (05:08→17:06)
[2021-03-03] MEDS: piperacillin-tazobactam 3.375 GM in sodium chloride 0.9% (plus) 50 ML IV ×2 (06:10→14:06)
[2021-03-03] MEDS: acetaminophen 325 mg Tablet 650 MG PO ×3 (06:12→21:55)
[2021-03-03 06:18] LABS: Basophils # 0.3 10^3/uL (0.0-0.1); Basophils % 1.3 %; Eosinophils # 1.6 10^3/uL (0.0-0.8); Eosinophils % 6.3 %; Hematocrit 27.7 % (42.0-52.0); Hemoglobin 8.9 g/dL (11.7-16.6); Lymphocytes # 3.6 10^3/uL (0.8-4.8); Lymphocytes % 14.2 %; Mean Corpuscular HGB Conc 32.1 g/dL (30.0-36.0); Mean Corpuscular Hemoglobin 25.6 pg (28.0-34.0); Mean Corpuscular Volume 79.6 fl (80-94); Mean Platelet Volume 8.3 fL (7.4-10.4); Monocytes # 4.2 10^3/uL (0.2-0.9); Monocytes % 16.6 %; Neutrophils # 13.72 10^3/uL (1.8-7.7); Nucleated Red Blood Cells % 0 %; Platelet Count 1138 10^3/cmm (130-400); Red Blood Count 3.48 10^6/uL (4.1-5.3); Red Cell Distribution Width 18.5 % (12.1-15.1); White Blood Count 25.4 10^3/uL (4.0-10.0)
[2021-03-03 06:38] LABS: Alanine Aminotransferase 23 U/L (0-41); Albumin Level 2.5 g/dL (3.5-5.2); Alkaline Phosphatase 116 IU/L (40-130); Anion Gap 12.1 (5-19); Aspartate Amino Transferase 22 U/L (0-40); Blood Urea Nitrogen 7 mg/dL (6-20); Calcium 8.7 mg/dL (8.5-10.5); Carbon Dioxide 26 mmol/L (22-29); Chloride 93 mmol/L (98-107); Globulin 3.8 g/dL (1.3-4.6); Glomerular Filtration Rate 221.7 mL/min (90-130); Glucose 102 mg/dL (65-115); Osmolality Calculated 262 mOsm/kg (285-295); Potassium 4.1 mmol/L (3.5-5.1); Sodium 127 mmol/L (136-145); Total Bilirubin 0.2 mg/dL (0.15-1.2); Total Protein 6.3 g/dL (6.6-8.7)
[2021-03-03 08:03] LABS: Neutrophils % 61.6 %; Slide Review Slide Review Perform
[2021-03-03] MEDS: multivitamin therapeutic Tablet 1 TAB PO (09:03)
[2021-03-03] MEDS: chlordiazePOXIDE 10 mg Capsule PO (09:03)
[2021-03-03] MEDS: nicotine 21 mg Patch 1 PATCH TRANSDERMA (09:03)
[2021-03-03] MEDS: metoprolol tartrate 50 mg Tablet PO ×2 (09:03→21:44)
[2021-03-03] MEDS: thiamine 100 mg Tablet PO (09:03)
[2021-03-03] MEDS: folic acid 1 mg Tablet PO (09:04)
[2021-03-03] MEDS: lisinopril 5 mg Tablet PO (09:04)
[2021-03-03] MEDS: pantoprazole DR 40 mg Tablet PO (09:04)
[2021-03-03] MEDS: FUROsemide 20 mg Tablet PO (09:04)
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
--- NOTE | 2021-03-03 21:29 | PC.NURSE ---
i reported high pulse to nurse 126
--- NOTE | 2021-03-03 23:38 | PC.NURSE ---
PATIENT HAS BEEN YELLING, CURSING AND UNCOOPERATIVE WITH STAFF. NEIGHBORS HAVE PUT TRANSPORTATION SERVICES REPRESENTATIVE LIGHT AND ASKED STAFF ABOUT WHY PATIENT IS YELLING, BEING DISRUPTIVE AND IF STAFF COULD PLEASE HAVE HIM QUIET DOWN. STAFF HAS WENT INTO PATIENTS ROOM SEVERAL TIMES AND TRIED TO REDIRECT PATIENT, BUT IS UNSUCCESSFUL. PATIENT HAS BEEN EDUCATED ON HOW TO USE THE CALL LIGHT TO GET STAFF INSTEAD OF YELLING AND CUSSING OUT. PATIENT IS RESISTIVE TO LEARNING. PATIENT ALSO EDUCATED ON MEDICATIONS PATIENT STATES HE UNDERSTANDS. PATIENT ALSO CONSTANTLY ASKING FOR SNACKS AND MILK, STAFF HAVE GIVEN HIM MULTIPLE JELLOS AND PUDDINGS WELL A SANDWICH AND NUMEROUS MILKS. WHEN STAFF TRIED TO TALK TO HIM ABOUT THE NEED TO MONITOR HIS INTAKE AND HAVE A REASONABLE AMOUNT OF SNACKS YET BEING MINDFUL OF THE FACT THAT WE NEED TO HAVE ENOUGH FOR ALL PATIENTS ON FLOOR DUE TO POSSIBLE MEDICAL CONDITIONS OR THAT HAVE BEEN TRANSFERRED FROM OTHER AREAS THAT WAS UNABLE TO RECEIVE ANY SUPPER PATIENT BECAME IRATE AND YELLED AT STAFF STATING THAT YOU ARE LYING TO ME, I KNOW THERE IS MORE FOOD YOU JUST DON'T WANT TO GIVE IT TO ME, THIS IS BULLSHIT. STAFF TRIED TO REDIRECT HIM AND ASK IF THERE WAS ANYTHING ELSE WE COULD DO FOR HIM TO HELP SATISFY HIM, TO WHICH HE SAID NO, I HAVE LOST ALL RESPECT FOR YOU ALL. WILL CONTINUE TO MONITOR AND DO FREQUENT ROUNDING ON PATIENT.
[2021-03-04] VITALS (8 sets, daily range): BP systolic 108–138; BP diastolic 72–79; PULSE 99–119; RESP 16–20; TEMP 36.4–37; O2SAT 92–100
[2021-03-04] MEDS: piperacillin-tazobactam 3.375 GM in sodium chloride 0.9% (plus) 50 ML IV ×4 (00:06→22:08)
--- NOTE | 2021-03-04 01:08 | PC.NURSE ---
i reported high pulse 111 to nurse
--- NOTE | 2021-03-04 04:51 | PC.NURSE ---
i reported high pulse 108
[2021-03-04 05:15] LABS: Hematocrit 30.9 % (42.0-52.0); Hemoglobin 9.8 g/dL (11.7-16.6); Mean Corpuscular HGB Conc 31.7 g/dL (30.0-36.0); Mean Corpuscular Hemoglobin 26.1 pg (28.0-34.0); Mean Corpuscular Volume 82.4 fl (80-94); Mean Platelet Volume 8.2 fL (7.4-10.4); Platelet Count 1203 10^3/cmm (130-400); Red Blood Count 3.75 10^6/uL (4.1-5.3); Red Cell Distribution Width 18.9 % (12.1-15.1)
[2021-03-04 05:39] LABS: Anion Gap 14.2 (5-19); Blood Urea Nitrogen 9 mg/dL (6-20); Calcium 8.9 mg/dL (8.5-10.5); Carbon Dioxide 26 mmol/L (22-29); Chloride 97 mmol/L (98-107); Glomerular Filtration Rate 221.7 mL/min (90-130); Glucose 94 mg/dL (65-115); Osmolality Calculated 274 mOsm/kg (285-295); Potassium 4.2 mmol/L (3.5-5.1); Sodium 133 mmol/L (136-145)
[2021-03-04 05:50] LABS: Slide Review Slide Review Perform
[2021-03-04 05:51] LABS: Absolute Eosinophils 2.2 10^3/cmm (0.0-0.7); Absolute Segmented Neutrophil 16.5 10/cmm (1.6-7.1); Band Neutrophils Absolute 2.5 10^3/cmm (0.0-1.2); Eosinophils 7 %; Lymphocytes 14 %; Lymphocytes Absolute 4.8 10^3/cmm (1.2-3.4); Monocytes Absolute 4.8 10^3/cmm (0.1-0.6); Segmented Neutrophils 52 %; Total Cells Counted 100 (0-100); White Blood Count 31.7 10^3/uL (4.0-10.0)
[2021-03-04 05:52] LABS: Acanthocytes 1+; Anisocytosis 1+; Hypochromasia 2+; Ovalocytes 1+; Platelet Estimate Increased (Normal); Poikilocytosis 1+; Target Cells 2+
--- NOTE | 2021-03-04 06:00 | XRR_ITS ---
PROCEDURE INFORMATION: Exam: XR Chest Exam date and time: 03/04/2021 6:00 AM Age: 55 years old Clinical indication: Other: Hypoxia; Patient HX: No chest complaints per PT TECHNIQUE: Imaging protocol: XR of the chest. Views: 1 view. COMPARISON: CT chest abd pel w con* 02/28/2021 5:16 AM FINDINGS: Lungs: There is a patchy airspace opacity in the left lung base, concerning for pneumonia. Atelectasis can have this appearance. Streaky right basilar atelectasis seen. A small calcified granuloma is noted in the right upper lobe. The lungs are somewhat hyperinflated with increased interstitial markings, likely representing COPD. Pleural spaces: Unremarkable. No pleural effusion. No pneumothorax. Heart/Mediastinum: Stable cardiomediastinal silhouette. Bones/joints: Unremarkable. XR/XR chest 1V portable [id number] IMPRESSION: 1. Imaging findings concerning for left lower lobe pneumonia, clinical correlation is recommended. 2. COPD changes.
[2021-03-04] MEDS: nicotine 21 mg Patch 1 PATCH TRANSDERMA (08:55)
[2021-03-04] MEDS: metoprolol tartrate 50 mg Tablet PO ×2 (08:56→21:26)
[2021-03-04] MEDS: thiamine 100 mg Tablet PO (08:56)
[2021-03-04] MEDS: pantoprazole DR 40 mg Tablet PO (08:56)
[2021-03-04] MEDS: FUROsemide 20 mg Tablet PO (08:56)
[2021-03-04] MEDS: chlordiazePOXIDE 10 mg Capsule PO (08:56)
[2021-03-04] MEDS: multivitamin therapeutic Tablet 1 TAB PO (08:56)
[2021-03-04] MEDS: folic acid 1 mg Tablet PO (08:56)
[2021-03-04] MEDS: lisinopril 5 mg Tablet PO (08:56)
[2021-03-04] MEDS: acetaminophen 325 mg Tablet 650 MG PO ×2 (13:31→21:26)
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
[2021-03-05] VITALS: BP 104/62; PULSE 110; RESP 18; TEMP 36.9; O2SAT 94
[2021-03-05] MEDS: enoxaparin 40 mg/0.4 mL Syringe SUBCUT (03:02)
[2021-03-05 04:00] VITALS: BP 102/61; PULSE 108; RESP 18; TEMP 36.9; O2SAT 95
--- NOTE | 2021-03-05 04:29 | PC.NURSE ---
i reported high pulse 108 to nurse
[2021-03-05 05:14] LABS: Basophils # 0.3 10^3/uL (0.0-0.1); Basophils % 0.9 %; Eosinophils # 1.9 10^3/uL (0.0-0.8); Eosinophils % 6.4 %; Hematocrit 28.9 % (42.0-52.0); Hemoglobin 9.5 g/dL (11.7-16.6); Lymphocytes # 3.5 10^3/uL (0.8-4.8); Lymphocytes % 11.7 %; Mean Corpuscular HGB Conc 32.9 g/dL (30.0-36.0); Mean Corpuscular Hemoglobin 25.7 pg (28.0-34.0); Mean Corpuscular Volume 78.3 fl (80-94); Mean Platelet Volume 8.2 fL (7.4-10.4); Monocytes # 3.8 10^3/uL (0.2-0.9); Monocytes % 12.8 %; Neutrophils # 18.74 10^3/uL (1.8-7.7); Neutrophils % 63.2 %; Nucleated Red Blood Cells % 0 %; Platelet Count 1341 10^3/cmm (130-400); Red Blood Count 3.69 10^6/uL (4.1-5.3); Red Cell Distribution Width 18.4 % (12.1-15.1); White Blood Count 29.7 10^3/uL (4.0-10.0)
[2021-03-05 05:29] LABS: Anion Gap 14.5 (5-19); Blood Urea Nitrogen 7 mg/dL (6-20); Calcium 9.3 mg/dL (8.5-10.5); Carbon Dioxide 29 mmol/L (22-29); Chloride 96 mmol/L (98-107); Glomerular Filtration Rate 221.7 mL/min (90-130); Glucose 100 mg/dL (65-115); Osmolality Calculated 278 mOsm/kg (285-295); Potassium 4.5 mmol/L (3.5-5.1); Sodium 135 mmol/L (136-145)
[2021-03-05 07:45] VITALS: BP 108/65; PULSE 119; RESP 14; TEMP 36.9; O2SAT 97
[2021-03-05] MEDS: chlordiazePOXIDE 10 mg Capsule PO (09:39)
[2021-03-05] MEDS: lisinopril 5 mg Tablet PO (09:40)
[2021-03-05] MEDS: thiamine 100 mg Tablet PO (09:40)
[2021-03-05] MEDS: FUROsemide 20 mg Tablet PO (09:40)
[2021-03-05] MEDS: pantoprazole DR 40 mg Tablet PO (09:40)
[2021-03-05] MEDS: multivitamin therapeutic Tablet 1 TAB PO (09:40)
[2021-03-05] MEDS: nicotine 21 mg Patch 1 PATCH TRANSDERMA (09:42)
[2021-03-05] MEDS: metoprolol tartrate 50 mg Tablet PO ×2 (11:03→21:39)
[2021-03-05] MEDS: folic acid 1 mg Tablet PO (11:04)
--- NOTE | 2021-03-05 11:28 | XR_ITS ---
WS: [id number] Portable AP upright chest, 03/05/2021 Clinical Data: short of breath Comparison: Portable chest, 03/04/2021. Findings: No nodules, masses or effusions are seen. The heart is normal. The pulmonary vascularity is not increased. No pneumothorax is seen. The patchy bilateral lower lobe opacities which could repres ent pneumonia and/or atelectasis have not changed. The aortic arch and descending aorta show tortuosi ty. There is a dextroscoliosis of the lower thoracic spine. There is partial calcification of the rig ht coracoacromial ligament. XR/XR chest 1V portable [id number] Impression: 1. No change in bilateral lower lobe patchy atelectasis and/or minimal pneumoni a. 2. Atherosclerosis.
[2021-03-05 11:37] VITALS: BP 102/59; PULSE 111; RESP 24; TEMP 37.1; O2SAT 99
[2021-03-05 16:00] VITALS: BP 107/63; PULSE 104; RESP 18; TEMP 36.6; O2SAT 96
[2021-03-05 20:00] VITALS: BP 111/73; PULSE 124; RESP 17; TEMP 37.3; O2SAT 98
--- NOTE | 2021-03-05 21:42 | PM.PN ---
Subjective Subjective: Interval history: He reports that he has developed a rash on his left shoulder, arm. Some over the abdomen. Reports rash is itchy. She reports he has had recurrence of this rash previously. States this is not a new occurrence for him, however, the rash itself appears to be new currently per discussion with his nurse. Vitals/I&O/Wt Last Vital Signs Temp 99.2 F 03/05/21 20:00 Pulse 124 H 03/05/21 20:00 Resp 17 03/05/21 20:00 BP 111/73 03/05/21 20:00 Pulse Ox 98 03/05/21 20:00 03/05/21 03/05/21 03/05/21 06:59 14:59 22:59 Intake Total 1490 / 2070 1000 / 1000 250 / 1250 Output Total 1000 / 1600 500 / 500 Balance 490 / 470 1000 / 1000 -250 / 750 Physical Exam Const: COMMON NORMALS: no acute distress and patient oriented x3 GENERAL APPEARANCE: cooperative and disheveled HENMT: COMMON NORMALS: oropharynx normal Neck/C-Spine: COMMON NORMALS: no JVD Resp: COMMON NORMALS: normal respiratory effort and clear to auscultation bilaterally AUSCULTATION: clear to auscultation bilaterally Cardio: COMMON NORMALS: no JVD, regular rhythm, S1 normal heart sound present, S2 normal heart sound present and No murmurs present (Cardio) RHYTHM: regular rhythm HEART SOUNDS: S1 normal heart sound present and S2 normal heart sound present GI: COMMON NORMALS: Normal to inspection, nondistended, normoactive bowel sounds present, Soft to palpation and non-tender PALPATION: Yes Soft to palpation Extremity: COMMON NORMALS: no joint enlargement and no pedal edema Neuro: COMMON NORMALS: patient oriented x3 and moves all extremities Skin: GENERAL SKIN EXAM: dry skin (Dry, scaly skin over both feet better after moisturizer) RASHES: rashes noted (Maculopapular rash over left shoulder, left arm, reports purulent. ) Small areas over the right side of the abdomen. OTHER: Wounds of bilateral lower extremities appears stable/improving per discussion with nursing staff. Superficial areas of mild necrosis have been off. There has not been spread of the shallow wounds with granulation tissue. No surrounding erythema. No undermining or tunneling. Data : 03/05/21 05:04 03/05/21 05:04 A&P Assessment and plan (1) Maculopapular rash: Maculopapular rash, he reports pruritic noted on left shoulder, left arm, smaller patches over the right side abdomen. Appears came on sometime between yesterday and today. Discussing with his nurse, she had seen him several days ago, and the rash was not there. I do not remember the rash yesterday. He states that this is not new for him, and he has had this rash recurring previously. Eczematous appearance of the rash. He denies any allergies. There are no oral rashes/lesions. Discussed with him antibiotics have been discontinued as he is completed his course. I am also stopping his Lasix, Protonix in case they are contributing. His chlordiazepoxide is discontinued as well. We will monitor him with the de-escalated medications. Assess for any recurrence of the rash. Discussed with him he may benefit from follow-up with dermatology. Status: Acute (2) Cellulitis of both lower extremities: Completed antibiotic course. Continue wound care. Discussed with him will need follow-up with wound care clinic. He verbalized understanding. Sepsis resolved. Although persistent leukocytosis, rather high, up to 31.7. But also with eosinophils, monocytes. Discussed with pathology, leukemia/lymphoma panel sent. Wound care. Wound culture consistent with MRSA and Pseudomonas. Completed vancomycin and Zosyn as per sensitivities. Status: Acute (3) Hypoxia: Appears to have perhaps some lagging changes on chest x-ray. During my visit he is on room air, appears quite comfortable. Requesting RT to wean down as tolerating. I do not really hear wheezing, rhonchi. Noted possible pneumonia on initial CT. completing course of antibiotics as above. Repeat chest x-ray shows left lower lobe pneumonia. Suspect these are residual findings, however, will require sputum culture if able to provide. Urine bacterial antigens. Status: Acute (4) Anemia: Microcytic anemia, suspect of chronic inflammation/disease from wounds. Continue with oral iron supplementation. Positive occult blood stool. Continue PPI. With smoking, alcohol intake would at some point benefit from endoscopic evaluation. Status: Chronic Qualifiers: Anemia type: unspecified type Qualified Code(s): D64.9 - Anemia, unspecified (5) Thrombocytosis: Status: Acute (6) Leukocytosis: Persistent leukocytosis with all the lines up including neutrophils, mono cells, eosinophils and basophils. Platelet count up as well. Peripheral smear discussed with pathology. As per recommendation submitted leukemia/lymphoma flow cytometry. Status: Acute (7) Cardiomyopathy: Alcoholic cardiomyopathy, 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. Continue with beta-richar. Continue patient on lisinopril 5 mg daily Status: Chronic Qualifiers: Cardiomyopathy type: alcoholic Qualified Code(s): I42.6 - Alcoholic cardiomyopathy (8) Nicotine dependence, cigarettes, with other nicotine-induced disorders: Status: Chronic (9) Alcoholism: Patient tachycardic, occasionally having agitation. Continue with CIWA protocol. He does not appear to be in withdrawal. Will DC CIWA protocol. Weaned down Librium to 10 mg every 24 hourly. Continue for now, then stop. Status: Chronic (10) Peripheral vascular disease: Status: Chronic (11) Hyponatremia: Better. 135. Acute on chronic. Regular diet. Status: Inactive (12) COPD (chronic obstructive pulmonary disease): Not acutely exacerbated Status: Chronic Qualifiers: COPD type: unspecified COPD Qualified Code(s): J44.9 - Chronic obstructive pulmonary disease, unspecified Additional A&P Information Full code. Discharge planning: Continuing to work on post discharge disposition. Placement to SNF. Attestations Medical Necessity Statement*: Continue admission for reassessment of new maculopapular rash after adjustment of medications, de-escalation of antibiotic. Coding Level of Care Code Acute Standards Analyst for [facility] Fwd Diagnoses Maculopapular rash R21 Cellulitis of both lower extremities L03.115; L03.116 Hypoxia R09.02 Anemia D64.9 Anemia type: unspecified type Thrombocytosis D47.3 Leukocytosis D72.829 Cardiomyopathy I42.6 Cardiomyopathy type: alcoholic Nicotine dependence, cigarettes, with other nicotine-induced disorders F17.218 Alcoholism F10.20 Peripheral vascular disease I73.9 Hyponatremia E87.1 COPD (chronic obstructive pulmonary disease) J44.9 COPD type: unspecified COPD
[2021-03-06 03:55] VITALS: BP 132/73; PULSE 123; RESP 20; TEMP 36.6; O2SAT 90
[2021-03-06 06:26] LABS: Basophils # 0.3 10^3/uL (0.0-0.1); Basophils % 0.8 %; Eosinophils % 5.9 %; Hematocrit 29.1 % (42.0-52.0); Hemoglobin 9.3 g/dL (11.7-16.6); Lymphocytes # 3.4 10^3/uL (0.8-4.8); Lymphocytes % 9.7 %; Mean Corpuscular Hemoglobin 25.8 pg (28.0-34.0); Mean Corpuscular Volume 80.6 fl (80-94); Mean Platelet Volume 8.4 fL (7.4-10.4); Monocytes # 5.1 10^3/uL (0.2-0.9); Monocytes % 14.6 %; Neutrophils # 22.28 10^3/uL (1.8-7.7); Neutrophils % 64.6 %; Nucleated Red Blood Cells % 0 %; Platelet Count 1079 10^3/cmm (130-400); Red Blood Count 3.61 10^6/uL (4.1-5.3); Red Cell Distribution Width 18.5 % (12.1-15.1)
[2021-03-06 06:40] LABS: Blood Urea Nitrogen 9 mg/dL (6-20); Calcium 9.2 mg/dL (8.5-10.5); Carbon Dioxide 28 mmol/L (22-29); Chloride 94 mmol/L (98-107); Glucose 91 mg/dL (65-115); Osmolality Calculated 270 mOsm/kg (285-295); Sodium 131 mmol/L (136-145)
[2021-03-06 07:23] VITALS: BP 114/64; PULSE 125; RESP 17; TEMP 36.8; O2SAT 97
[2021-03-06 07:46] LABS: White Blood Count 34.5 10^3/uL (4.0-10.0)
[2021-03-06 07:52] VITALS: PULSE 109; RESP 17; O2SAT 87
--- NOTE | 2021-03-06 08:05 | PC.NURSE ---
Hospitalist notified of WBC and sodium levels from morning labs.
[2021-03-06] MEDS: lisinopril 5 mg Tablet PO (08:45)
[2021-03-06] MEDS: metoprolol tartrate 50 mg Tablet PO ×2 (08:45→20:23)
[2021-03-06] MEDS: folic acid 1 mg Tablet PO (08:45)
[2021-03-06] MEDS: nicotine 21 mg Patch 1 PATCH TRANSDERMA (08:46)
[2021-03-06] MEDS: thiamine 100 mg Tablet PO (08:46)
[2021-03-06] MEDS: chlordiazePOXIDE 10 mg Capsule PO (08:46)
[2021-03-06] MEDS: multivitamin therapeutic Tablet 1 TAB PO (08:46)
[2021-03-06 11:09] LABS: SARS Covid-2 Antigen Negative (Negative)
--- NOTE | 2021-03-06 11:45 | CT_ITS ---
WS: [id number] CT CHEST ANGIOGRAPHY WITH REFORMATS HISTORY: dyspnea, hypoxia, tachycardia TECHNIQUE: Contiguous axial images are obtained through the chest during arterial injection of intrav enous contrast. Images are reconstructed to evaluate the pulmonary arteries. MIP imaging also reviewe d. All CT scans at [facility] use at least one of these dose optimization techniques: automat ed exposure control; mA and/or kV adjustment per patient size (includes targeted exams where dose is matched to clinical indication); or iterative reconstruction. CONTRAST: Omnipaque 350; 75 mL IV. DLP: 536.75 mGy.cm COMPARISON: 02/28/2021 Good opacification of the pulmonary arteries. There is significant amount of stranding and artifact t hrough the chest. No central pulmonary embolism. Beyond the lobar branches the opacification is very limited. Pulmonary artery size is slightly enlarged. No definite RIGHT heart strain although the jean carlos bers are enlarged. Moderate atherosclerosis aorta. Chronic emphysema with scar in the RIGHT upper lobe. Focal wedge-shaped opacification along the super ior RIGHT lower lobe abutting the major fissure. Additional areas of consolidation at the lung bases, greatest on the LEFT has increased since the prior study. Consistent with pneumonia at the LEFT base . Bilateral hilar and mediastinal lymph nodes are indeterminate. The largest measures 13 mm at the RI GHT hilum. This is probably all reactive. Small hiatal hernia. Diffuse mild soft tissue anasarca. Mild enlargement of the adrenal glands. Increase in thoracic kypho sis. Scoliosis multiple compression fractures in the thoracic spine. T6, T7 and T8 compression fractu res. Additional fracture at L1. CT/CT angio chest PE protcl [id number] IMPRESSION: 1. No central pulmonary embolism. 2. Increasing consolidation at the LEFT lung base consistent with pneumonia. A dditional scattered opacities in the RIGHT lung are probably atelectasis or pne umonia. 3. Mediastinal and hilar lymph nodes are mildly prominent probably reactive. 4. Anasarca. 5. Thoracic and lumbar spine compression fracture similar to 02/28/2021.
[2021-03-06 12:00] VITALS: BP 120/75; PULSE 105; RESP 24; TEMP 36.7; O2SAT 93
--- NOTE | 2021-03-06 12:33 | PC.NURSE ---
Heparin held pending skin biopsy today.
--- NOTE | 2021-03-06 14:22 | P.CONIM_ITS ---
Providers/Reason For Consult Consulting Physician/Specialty*: General Surgery Dr. Shi Reason for Consult*: Evaluation for skin biopsies Attending Physician: Duarte Cisneros History of Present Illness History of Present Illness Johan Chand is a 55 year old male who was admitted with bilateral lower extremity swelling and is frequently seen in the emergency room. Patient is an alcoholic and homeless and was therefore admitted to the hospital for further work-up. He has been worked up for blood malignancies and he has developed rash involving his shoulder abdomen and lower extremities. I was therefore consulted for skin biopsies. Review of Systems General: Reports: 10 or more systems reviewed and unremarkable except in HPI and below Meds/Allergies Home Medications and Allergies Home Medications Medication Instructions Recorded Confirmed Last Taken Type diphenhydramine HCl [Benadryl 50 mg PO BID PRN 09/07/20 02/21/21 Unknown History Allergy] aspirin 325 mg PO Q4H PRN 02/21/21 02/21/21 02/20/21 History cephalexin 500 mg PO TID 02/21/21 02/21/21 Unknown History doxycycline monohydrate 100 mg PO BID 02/21/21 02/21/21 Unknown History Allergies Allergy/AdvReac Type Severity Reaction Status Date / Time No Known Allergies Allergy Verified 02/21/21 17:36 Current Medications Current Medications Generic Name Dose Route Start Last Admin Trade Name Freq PRN Reason Stop Dose Admin Acetaminophen 650 mg 02/22/21 01:20 03/04/21 21:26 Acetaminophen 325 Mg Tablet PO 650 mg Q6H PRN Administration Mild/Mod Pain Or Temp >/= 101 Albuterol/Ipratropium 3 ml 02/22/21 08:58 02/23/21 21:39 Ipratropium-Albuterol 3 Ml Neb INHALATION 3 ml Q4H PRN Administration SHORTNESS OF BREATH Folic Acid 1 mg 02/22/21 09:00 03/06/21 08:45 Folic Acid 1 Mg Tablet PO 1 mg DAILY RASHI Administration Heparin Sodium (Beef Lung) 5,000 unit 03/06/21 04:00 03/06/21 12:32 Heparin 5,000 Unit/Ml Inj 1 Ml SUBCUT Not Given Q8H RASHI Lisinopril 5 mg 02/26/21 15:00 03/06/21 08:45 Lisinopril 5 Mg Tablet PO 5 mg DAILY RASHI Administration Metoprolol Tartrate 50 mg 02/24/21 10:00 03/06/21 08:45 Metoprolol Tartrate 50 Mg Tablet PO 50 mg BID@0900,2100 RASHI Administration Multivitamins Therapeutic 1 tab 02/22/21 09:00 03/06/21 08:46 Multivitamin Therapeutic Tablet PO 1 tab DAILY RASHI Administration Nicotine 1 patch 02/22/21 09:00 03/06/21 08:46 Nicotine 21 Mg Patch TRANSDERMA 1 patch DAILY RASHI Administration Thiamine Mononitrate 100 mg 02/22/21 09:00 03/06/21 08:46 Thiamine 100 Mg Tablet PO 100 mg DAILY RASHI Administration PFSH Acute PFSH: Medical History (Updated 03/06/21 @ 14:23 by Giuseppe Shi MD) Alcoholism Cardiomyopathy Echocardiogram done in July 2020 shows moderately reduced LV function with global hypokinesis Chronic cellulitis COPD (chronic obstructive pulmonary disease) Deep vein thrombosis of lower extremity (~07/2020) Gallbladder sludge Hyponatremia Surgical History (Updated 02/24/21 @ 11:53 by Thaddeus Rivera MD) History of hip surgery Right History of inguinal hernia repair, bilateral age 1 / contralateral side at age 10 History of tonsillectomy Family History Other CAD (coronary artery disease) Social History (Updated 02/24/21 @ 11:54 by Thaddeus Rivera MD) Smoking and tobacco status: current every day smoker cigarettes Packs smoked per day: 1.25 Years cigarettes smoked: 40 Alcohol intake: former Former alcohol use details: I do not drink anymore because I do not have any alcohol Current gender identity: Male Vitals/I&O/Wt Last Vital Signs Temp 98.1 F 03/06/21 12:00 Pulse 105 H 03/06/21 12:00 Resp 24 H 03/06/21 12:00 BP 120/75 03/06/21 12:00 Pulse Ox 93 03/06/21 12:00 03/05/21 03/06/21 03/06/21 22:59 06:59 14:59 Intake Total 250 / 1490 240 / 1490 460 / 460 Output Total 500 / 1400 900 / 1400 Balance -250 / 90 -660 / 90 460 / 460 Physical Exam Narrative: EXAM NARRATIVE: HEENT: Normocephalic Eye: Sclera /conjunctiva normal Abdomen: Soft to palpation Neurological: Oriented to place person and time Skin: Intact, extensive ulceration of bilateral lower extremities A&P Assessment and plan (1) Maculopapular rash: 55-year-old male with bilateral lower extremity cellulitis, stasis ulcers and maculopapular rash who was consented to punch biopsy of the skin lesions. Status: Acute Consult Attestations Medical Necessity Statement: As per attending physician Coding Level of Care Code Acute Intertype Operator for [facility] [employer] Diagnoses Maculopapular rash R21
--- NOTE | 2021-03-06 14:26 | PM.ACPR ---
Procedure/Consent Consent: Consent for Procedure: Consent obtained from patient Procedure Narrative: Preoperative diagnosis: Leukocytosis with maculopapular rash Postop diagnosis: Same Procedure: Punch biopsy right lower extremity Anesthesia: Local After consent was obtained the area in the right leg was prepped and draped in a sterile manner. 1% lidocaine was infiltrated at the site of planned biopsy. Using 4 mm punch biopsy forceps 2 specimens were obtained and sent in formalin. Hemostasis obtained with pressure. Patient tolerated the procedure well.
[2021-03-06] MEDS: iohexol 350 mg/mL 100 mL Btl IV (14:50)
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
[2021-03-06] MEDS: neomycin-poly-bacitracin oint 0.9 gm Pkt 1 APPLIC TOPICAL (15:30)
[2021-03-06] MEDS: lidocaine 1% INJ 20 mL INJECTION (15:31)
[2021-03-06 16:00] VITALS: BP 132/83; PULSE 115; RESP 28; TEMP 36.1; O2SAT 93
[2021-03-06] MEDS: magnesium citrate Btl 296 mL PO ×2 (17:22→20:23)
[2021-03-06] MEDS: bisacodyl 5 mg Tablet 40 MG PO (17:23)
[2021-03-06] MEDS: Fleet Enema 133 mL Enema PR (17:23)
[2021-03-06] MEDS: ferrous sulfate EC 325 mg Tablet PO (17:24)
[2021-03-06 19:20] VITALS: BP 122/79; PULSE 128; RESP 22; TEMP 36.8; O2SAT 98
[2021-03-06] MEDS: heparin 5,000 unit/mL INJ 1 mL 5000 UNIT SUBCUT (20:22)
[2021-03-06] MEDS: acetaminophen 325 mg Tablet 650 MG PO (22:17)
[2021-03-07] VITALS (9 sets, daily range): BP systolic 91–122; BP diastolic 57–76; PULSE 90–132; RESP 14–24; TEMP 36.3–37.4; O2SAT 88–99
[2021-03-07 03:29] LABS: Basophils # 0.3 10^3/uL (0.0-0.1); Basophils % 1.2 %; Eosinophils % 8.6 %; Hematocrit 31.3 % (42.0-52.0); Lymphocytes # 3.9 10^3/uL (0.8-4.8); Lymphocytes % 16.4 %; Mean Corpuscular HGB Conc 31.9 g/dL (30.0-36.0); Mean Corpuscular Hemoglobin 25.9 pg (28.0-34.0); Mean Corpuscular Volume 81.1 fl (80-94); Mean Platelet Volume 8.3 fL (7.4-10.4); Monocytes # 3.4 10^3/uL (0.2-0.9); Monocytes % 14.6 %; Neutrophils # 12.85 10^3/uL (1.8-7.7); Neutrophils % 54.7 %; Nucleated Red Blood Cells % 0 %; Platelet Count 1143 10^3/cmm (130-400); Red Blood Count 3.86 10^6/uL (4.1-5.3); Red Cell Distribution Width 18.6 % (12.1-15.1); White Blood Count 23.5 10^3/uL (4.0-10.0)
[2021-03-07] MEDS: heparin 5,000 unit/mL INJ 1 mL 5000 UNIT SUBCUT (03:31)
[2021-03-07 04:07] LABS: Alanine Aminotransferase 85 U/L (0-41); Albumin Level 2.8 g/dL (3.5-5.2); Alkaline Phosphatase 116 IU/L (40-130); Anion Gap 15.1 (5-19); Aspartate Amino Transferase 66 U/L (0-40); Blood Urea Nitrogen 6 mg/dL (6-20); Calcium 9.3 mg/dL (8.5-10.5); Carbon Dioxide 25 mmol/L (22-29); Chloride 95 mmol/L (98-107); Globulin 4.1 g/dL (1.3-4.6); Glomerular Filtration Rate 221.7 mL/min (90-130); Glucose 86 mg/dL (65-115); Osmolality Calculated 269 mOsm/kg (285-295); Potassium 4.1 mmol/L (3.5-5.1); Sodium 131 mmol/L (136-145); Total Bilirubin 0.2 mg/dL (0.15-1.2); Total Protein 6.9 g/dL (6.6-8.7)
[2021-03-07] MEDS: magnesium citrate Btl 296 mL PO (05:39)
--- NOTE | 2021-03-07 06:35 | PC.NURSE ---
SHIFT NOTE patient angry off and on throughout the night, from only having clear liquid to NPO, last stool loose with food particles, order received to give mag citrate and water enema, both administered, patient drank half of mag citrate and refused to take anymore.
--- NOTE | 2021-03-07 07:19 | P.PN_ITS ---
Subjective Subjective: Interval history: No issues overnight, patient had 3 bowel movements and therefore he was given another bottle of magnesium citrate at 5 AM along with the tap water enema Vitals/I&O/Wt Last Vital Signs Temp 97.7 F 03/07/21 04:00 Pulse 93 03/07/21 04:00 Resp 18 03/07/21 04:00 BP 108/73 03/07/21 04:00 Pulse Ox 90 03/07/21 04:00 03/06/21 03/07/21 03/07/21 22:59 06:59 14:59 Intake Total 630 / 1340 250 / 1340 Output Total 525 / 525 Balance 105 / 815 250 / 815 Physical Exam Narrative: EXAM NARRATIVE: Abdomen: Soft Data : 03/07/21 03:08 03/07/21 03:08 A&P Assessment and plan (1) Hypereosinophilic syndrome: 55-year-old male with leukocytosis, thrombocytosis and eosinophilia noted to have iron deficiency anemia/ FOBT positive Plan for EGD/colonoscopy under MAC today Procedure, risks, benefits and alternatives have been discussed with the patient who wishes to proceed with surgery. Status: Acute Attestations Medical Necessity Statement*: As per primary Coding Level of Care Code Acute Shaving Machine Operator for [facility] Diagnoses Hypereosinophilic syndrome D72.119
[2021-03-07 08:38] LABS: Miscellaneous Test See Scanned Lab Rpt
[2021-03-07] MEDS: doxycycline 100 mg Tablet PO (09:08)
[2021-03-07] MEDS: ferrous sulfate EC 325 mg Tablet PO (09:08)
[2021-03-07] MEDS: metoprolol tartrate 50 mg Tablet PO (09:08)
[2021-03-07] MEDS: lisinopril 5 mg Tablet PO (09:09)
[2021-03-07] MEDS: nicotine 21 mg Patch 1 PATCH TRANSDERMA (09:09)
[2021-03-07] MEDS: folic acid 1 mg Tablet PO (09:09)
[2021-03-07] MEDS: thiamine 100 mg Tablet PO (09:09)
[2021-03-07] MEDS: multivitamin therapeutic Tablet 1 TAB PO (09:09)
--- NOTE | 2021-03-07 11:01 | PC.NURSE ---
Physician order tap water enema to be given. Explained purpose and procedure to patient. Patient verbalized understanding. Approximately 200 ml enema administered with patient on left side. Pt tolerated well.
--- NOTE | 2021-03-07 11:20 | PC.NURSE ---
Patient had minimal results from his tap water enema. Patient blake was wet. Minimal brown liquid stool noted in bedpan.
[2021-03-07] MEDS: sodium chloride 0.9% 1,000 ML 30 ML IV (12:11)
--- NOTE | 2021-03-07 12:13 | ANES.PREANE2 ---
Pre-Anesthetic Assessment Pre-Anesthetic Assessment: Height/Weight: Height 1.73 m Weight 65.771 kg Temp Pulse Resp BP Pulse Ox 98.0 F 96 16 112/76 99 03/07/21 07:29 03/07/21 12:13 03/07/21 12:13 03/07/21 12:13 03/07/21 12:13 Preop Diagnosis: anemia, FOBT Proposed Procedure: Operation Date: 03/07/21 12:00 Proposed Procedures p EGD(Not Applicable) - Giuseppe Shi MD s Colonoscopy(Not Applicable) - Giuseppe Shi MD Familial anesthetic complications: pt states twice during surgery, unable to remember type of surgery Was Beta Pat taken within 24 hours: N/A Was Clonidine taken within 24 hours: N/A Last Intake: 23:00 Social: Social History: Tobacco Packs per day: 1 Pack years: 40+ Exam: Pre-Anes Outpt Exam: alert, oriented x 3, clear to auscultation bilaterally and regular rate & rhythm Airway: Submandibular: WNL Cervical ROM: WNL MP: 2 Dentition: False Pulmonary: Pulmonary: COPD CV/HEM: CV/HEM: Anemia, CHF and HTN Comments: thrombocytosis : : Chronic renal Insufficiency Hepatic: Hepatic: Cirrohsis GI: GI: GERD Metabolic: Metabolic: None reported Musc/skel: Musc/skel: Weakness Neuropsych: Neuropsych: None reported Meds/Allergies Current Medications: Current Medications Generic Name Dose Route Start Last Admin Trade Name Freq PRN Reason Stop Dose Admin Acetaminophen 650 mg 02/22/21 01:20 03/06/21 22:17 Acetaminophen 32 5 Mg Tablet PO 650 mg Q6H PRN Administration Mild/Mod Pain Or Temp >/= 101 Albuterol/Ipratrop ium 3 ml 02/22/21 08:58 02/23/21 21:39 Ipratropium-Albu terol 3 Ml Neb INHALATION 3 ml Q4H PRN Administration SHORTNESS OF ANT TH Doxycycline Monohy drate 100 mg 03/07/21 09:00 03/07/21 09:08 Doxycycline 100 Mg Tablet PO 100 mg BID RASHI Administration Protocol Ferrous Sulfate 325 mg 03/06/21 18:00 03/07/21 09:08 Ferrous Sulfate Ec 325 Mg Tablet PO 325 mg BIDWM RASHI Administration Folic Acid 1 mg 02/22/21 09:00 03/07/21 09:09 Folic Acid 1 Mg Tablet PO 1 mg DAILY RASHI Administration Heparin Sodium (Be ef Lung) 5,000 unit 03/06/21 04:00 03/07/21 03:31 Heparin 5,000 Un it/Ml Inj 1 Ml SUBCUT 5,000 unit Q8H RASHI Administration Sodium Chloride 1,000 mls @ 30 ml s/hr 03/07/21 12:15 03/07/21 12:11 Sodium Chloride 0.9% IV 03/08/21 12:14 30 mls/hr .Q24H RASHI Administration Lisinopril 5 mg 02/26/21 15:00 03/07/21 09:09 Lisinopril 5 Mg Tablet PO 5 mg DAILY RASHI Administration Metoprolol Tartrat e 50 mg 02/24/21 10:00 03/07/21 09:08 Metoprolol Tartr ate 50 Mg Tablet PO 50 mg BID@0900,2100 RASHI Administration Multivitamins Ther apeutic 1 tab 02/22/21 09:00 03/07/21 09:09 Multivitamin The rapeutic Tablet PO 1 tab DAILY RASHI Administration Nicotine 1 patch 02/22/21 09:00 03/07/21 09:09 Nicotine 21 Mg P atch TRANSDERMA 1 patch DAILY RASHI Administration Thiamine Mononitra te 100 mg 02/22/21 09:00 03/07/21 09:09 Thiamine 100 Mg Tablet PO 100 mg DAILY RASHI Administration PFSH Anesthesia PFSH: Medical History (Updated 03/06/21 @ 14:58 by Duarte Cisneros MD) Alcoholism Cardiomyopathy Echocardiogram done in July 2020 shows moderately reduced LV function with global hypokinesis Chronic cellulitis COPD (chronic obstructive pulmonary disease) Deep vein thrombosis of lower extremity (~07/2020) Gallbladder sludge Hyponatremia Surgical History (Updated 02/24/21 @ 11:53 by Thaddeus Rivera MD) History of hip surgery Right History of inguinal hernia repair, bilateral age 1 / contralateral side at age 10 History of tonsillectomy Family History Other CAD (coronary artery disease) Social History (Updated 02/24/21 @ 11:54 by Thaddeus Rivera MD) Smoking and tobacco status: current every day smoker cigarettes Packs smoked per day: 1.25 Years cigarettes smoked: 40 Alcohol intake: former Former alcohol use details: I do not drink anymore because I do not have any alcohol Current gender identity: Male Data Anesthesia CBC & Chem 7: 03/07/21 03:08 03/07/21 03:08 Other Labs: Laboratory Results - last 48 hr 03/04/21 03/06/21 03/06/21 04:59 05:52 05:52 WBC 34.5 H* RBC 3.61 L Hgb 9.3 L Hct 29.1 L MCV 80.6 MCH 25.8 L MCHC 32.0 RDW 18.5 H Plt Count 1079 H MPV 8.4 Neut % (Auto) 64.6 Lymph % (Auto) 9.7 [place] % (Auto) 14.6 Eos % (Auto) 5.9 Baso % (Auto) 0.8 Neut # (Auto) 22.28 H Lymph # (Auto) 3.4 [place] # (Auto) 5.1 H Eos # (Auto) 2.0 H Baso # (Auto) 0.3 H Nucleated RBC % (auto) 0 Nucleated RBCs # 0.0 Sodium 131 L Potassium 4.0 Chloride 94 L Carbon Dioxide 28 Anion Gap 13.0 BUN 9 Creatinine 0.3 L GFR Calculation 309.0 H Glucose 91 Calculated Osmolality 270 L Calcium 9.2 Total Bilirubin AST ALT Alkaline Phosphatase Total Protein Albumin Globulin SARS-CoV-2 Ag (Rapid) Misc Test Reference See scanned lab rpt 03/06/21 03/07/21 03/07/21 10:00 03:08 03:08 WBC 23.5 H RBC 3.86 L Hgb 10.0 L Hct 31.3 L MCV 81.1 MCH 25.9 L MCHC 31.9 RDW 18.6 H Plt Count 1143 H MPV 8.3 Neut % (Auto) 54.7 Lymph % (Auto) 16.4 [place] % (Auto) 14.6 Eos % (Auto) 8.6 Baso % (Auto) 1.2 Neut # (Auto) 12.85 H Lymph # (Auto) 3.9 [place] # (Auto) 3.4 H Eos # (Auto) 2.0 H Baso # (Auto) 0.3 H Nucleated RBC % (auto) 0 Nucleated RBCs # 0.0 Sodium 131 L Potassium 4.1 Chloride 95 L Carbon Dioxide 25 Anion Gap 15.1 BUN 6 Creatinine 0.4 L GFR Calculation 221.7 H Glucose 86 Calculated Osmolality 269 L Calcium 9.3 Total Bilirubin 0.2 AST 66 H ALT 85 H Alkaline Phosphatase 116 Total Protein 6.9 Albumin 2.8 L Globulin 4.1 SARS-CoV-2 Ag (Rapid) Negative Misc Test Reference Cardiac Studies: No Data to Display
--- NOTE | 2021-03-07 12:48 | P.PN_ITS ---
Subjective Subjective: Interval history: Says he is hungry. Rash on L shoulder improving. No other new symptoms today. States legs are without change. Vitals/I&O/Wt Last Vital Signs Temp 98.0 F 03/07/21 07:29 Pulse 96 03/07/21 12:13 Resp 16 03/07/21 12:13 BP 112/76 03/07/21 12:13 Pulse Ox 99 03/07/21 12:13 03/06/21 03/07/21 03/07/21 22:59 06:59 14:59 Intake Total 630 / 1090 250 / 1340 Output Total 525 / 525 Balance 105 / 565 250 / 815 Physical Exam Const: COMMON NORMALS: no acute distress and patient oriented x3 GENERAL APPEARANCE: cooperative and disheveled HENMT: COMMON NORMALS: oropharynx normal Neck/C-Spine: COMMON NORMALS: no JVD Resp: COMMON NORMALS: normal respiratory effort and clear to auscultation bilaterally AUSCULTATION: clear to auscultation bilaterally Cardio: COMMON NORMALS: no JVD, regular rhythm, S1 normal heart sound present, S2 normal heart sound present and No murmurs present (Cardio) RHYTHM: regular rhythm HEART SOUNDS: S1 normal heart sound present and S2 normal heart sound present GI: COMMON NORMALS: Normal to inspection, nondistended, normoactive bowel sounds present, Soft to palpation and non-tender PALPATION: Yes Soft to palpation Extremity: COMMON NORMALS: no joint enlargement and no pedal edema Neuro: COMMON NORMALS: patient oriented x3 and moves all extremities Skin: GENERAL SKIN EXAM: dry skin (Dry, scaly skin over both feet better after moisturizer) RASHES: rashes noted (Maculopapular rash over left shoulder, left arm, reports nonpurulent, pruri) OTHER: Wounds of bilateral lower extremities appears stable/improving per discussion with nursing staff. Superficial areas of mild necrosis have been off. There has not been spread of the shallow wounds with granulation tissue. No surrounding erythema. No undermining or tunneling. 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 Persistent eosinophilia, with worsening despite broad-spectrum antibiotic coverage with Zosyn, vancomycin. Eosinophils up to 2000/mcL currently. Nontender clear whether this is primary or secondary. Features that may support primary is monocytosis, neutrophilia, basophilia, other abnormalities noted on peripheral smear. However, could also be reactive. Does have open wounds. CRP is somewhat elevated. Has undergone antibiotic treatment for pseudomonal, MRSA infections as per sensitivities. Requested Strongyloides serology. Stool ova and parasites negative. Follow-up leukemia/lymphoma flow cytometry -no overtly aberrant myeloid or lymphoid populations detected. Additionally with iron deficiency anemia, positive Hemoccult, will discuss regarding endoscopic evaluation to exclude solid malignancy of GI tract possibly causing the symptoms. In case steroid treatment is undertaken for hypereosinophilia would cover for possible Strongyloides empirically given homeless lifestyle preadmission, was living in a shack. Status: Acute (2) Anemia: Endoscopic evaluation today. Continue iron supplementation. Multifactorial anemia, combination iron deficiency, requested iron supplementation, as well as anemia chronic disease. DEMETRICE possibly contributing to thrombocytosis. Appears to have GI blood loss. Continue PPI. Status: Chronic Qualifiers: Anemia type: unspecified type Qualified Code(s): D64.9 - Anemia, unspecified (3) Maculopapular rash: Improving. Eczematous appearance of the rash. He denies any allergies. There are no oral rashes/lesions. Zosyn, Vanco have been discontinued as he is completed his course. Stopped also Lasix, Protonix in case they are contributing. Lovenox. His chlordiazepoxide is discontinued as well. We will monitor him with the de-escalated medications. Assess for any recu rrence of the rash. Discussed with him he may benefit from follow-up with dermatology. Status: Acute (4) Cellulitis of both lower extremities: Skin biopsy obtained given persistent leukocytosis, eosinophilia, other rash. Suspect also a large component of severe venous stasis. Does have history of DVT in July. Previously on anticoagulation. No DVT noted on current duplex. Does have some persistent sinus tachycardia, some dyspnea. Discussed with him assessment additionally by CT angiogram chest to exclude PE. Will be referred for follow-up with wound care. Dermatology. Sepsis resolved. Although persistent leukocytosis, rather high, up to 31.7. But also with eosinophils, monocytes. Discussed with pathology, leukemia/lymphoma panel sent. Continue wound care. LE elevation. Wound culture consistent with MRSA and Pseudomonas. Completed vancomycin and Zosyn as per sensitivities. Status: Acute (5) Hypoxia: CT obtained. No PE. Noted worsening LLL pneumonia. Will obtain MBS for possibility of aspiration. Requested sputum culture. Pending bacterial antigens. Levaquin, doxycycline. Status: Acute (6) Thrombocytosis: Possibly reactive secondary to DEMETRICE. Give p.o. iron replacement. Status: Acute (7) Leukocytosis: Persistent leukocytosis with all the lines up including neutrophils, mono cells, eosinophils and basophils. Platelet count up as well. Peripheral smear discussed with pathology. As per recommendation submitted l eukemia/lymphoma flow cytometry. 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 Continue with beta-richar. Continue patient on lisinopril 5 mg daily Status: Chronic Qualifiers: Cardiomyopathy type: alcoholic Qualified Code(s): I42.6 - Alcoholic cardiomyopathy (9) Nicotine dependence, cigarettes, with other nicotine-induced disorders: Status: Chronic (10) Alcoholism: Resolved. Continue with CIWA protocol. He does not appear to be in withdrawal. DC CIWA protocol. Weaned off Librium. Status: Chronic (11) Peripheral vascular disease: Status: Chronic (12) Hyponatremia: Better. 135. Acute on chronic. Regular diet. Status: Inactive (13) COPD (chronic obstructive pulmonary disease): Not acutely exacerbated Status: Chronic Qualifiers: COPD type: unspecified COPD Qualified Code(s): J44.9 - Chronic obstructive pulmonary disease, unspecified Additional A&P Information Full code. Discharge planning: Continuing to work on post discharge disposition. Placement to SNF. Attestations Medical Necessity Statement*: Continue admission for assessment of iron deficiency anemia, persistent leukocytosis, with positive Hemoccult, rule out underlying malignancy that may be triggering secondary hypereosinophilic syndrome. Assessment of persistent left lower lobe pneumonia. 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
--- NOTE | 2021-03-07 12:48 | FL_ITS ---
WS: [id number] MODIFIED BARIUM SWALLOW HISTORY: Oropharyngeal dysphagia FLUOROSCOPY TIME: 2.3 minutes. Modified barium swallow was performed by the speech pathologist. Fluoroscopy was provided with the pa tient in a lateral projection. Multiple food consistencies were provided. Laryngeal penetration and aspiration with thin liquids. Spontaneous cough was elicited. Patient demon strated laryngeal penetration with most liquids. Penetration to improve with chin tuck maneuvers. Pat diana was able to swallow the solid foods without aspiration or laryngeal penetration. FL/FL barium swallow modifd [id number] IMPRESSION: 1. Patient risk for aspiration with thin liquids. Chin tegmen over due to limi yue aspiration but not the penetration. 2. Laryngeal penetration was noted with all liquids. Please see speech therapist report also for recommendations.
[2021-03-07 13:50] LABS: Immunoglobulin IGA 408 mg/dL (70-400); Immunoglobulin IGG 1319 mg/dL (700-1600); Immunoglobulin IGM 54 mg/dL (40-230)
--- NOTE | 2021-03-07 15:18 | PC.CHAP ---
Pastoral Care Encounter/Spiritual Assessment Type of Contact [] Declined paving bed maker visit [] Patient/Family/Request visit [] Outpatient visit [xx] Follow-up visit [] Physician referral [] Code/Alert [xx] Routine visit [] Staff referral [] Actively dying [] Patient sleeping [] Family support [] [] Out of room [] Palliative care [] [] Receiving care in room [] Pre-surgical visit [] Trauma [xx] Long length of stay [] ICU visit [] Other: Relational/Emotional Strength [xx] Patient feels connected with others/family/visitors/staff [] Distress [] Loneliness/isolation [] Abandonment Spirituality of Patient [xx] Person of Radha [] Attends [employer] of their Radha [xx] Believes in Prayer [] Reads Bible or Worship materials [] There are Spiritual issues to be addressed Collections Representative Interventions [xx] Prayer [xx] Active listening [xx] Non-anxious presence [] Spiritual/emotional support [] Crisis/trauma care [] Spiritual counseling [] Bereavement support [] Provided bereavement packet [] Provided Bible/devotional materials [] Provided toy/stuffed animal, coloring book to patient or family member [] Provided Communion [] Anointing/[place] [] Salvation [xx] Completed spiritual assessment [] Other: Impact on Illness or Injury [] Angry [] Fearful [] Anxious [] Often cries [] Exhaustion [xx] Unable to work [] Unable to attend church [] Unable to walk/stand [] Unable to read [] Unable to drive [] Unable to eat/drink [] Unable to sleep [] Unable to be with family [] Patient intubated [] Other: Summary Patient feels someewhat better but his leg still hurts. Daughter, Edna, arrived to visit for afternoon. Time spent with patient 17 minutes
[2021-03-08] VITALS: BP 114/67; PULSE 128; RESP 20; TEMP 36.9; O2SAT 96
[2021-03-08 04:00] VITALS: BP 122/75; PULSE 121; RESP 20; TEMP 36.6; O2SAT 94
[2021-03-08 07:17] LABS: Basophils # 0.2 10^3/uL (0.0-0.1); Basophils % 0.9 %; Eosinophils # 2.2 10^3/uL (0.0-0.8); Eosinophils % 9.3 %; Hematocrit 26.9 % (42.0-52.0); Hemoglobin 8.6 g/dL (11.7-16.6); Lymphocytes # 3.3 10^3/uL (0.8-4.8); Mean Corpuscular Hemoglobin 25.3 pg (28.0-34.0); Mean Corpuscular Volume 79.1 fl (80-94); Mean Platelet Volume 8.5 fL (7.4-10.4); Monocytes # 3.6 10^3/uL (0.2-0.9); Monocytes % 15.4 %; Neutrophils # 13.61 10^3/uL (1.8-7.7); Neutrophils % 57.7 %; Nucleated Red Blood Cells % 0 %; Platelet Count 1100 10^3/cmm (130-400); Red Cell Distribution Width 18.2 % (12.1-15.1); White Blood Count 23.6 10^3/uL (4.0-10.0)
[2021-03-08 07:45] LABS: Alanine Aminotransferase 55 U/L (0-41); Albumin Level 2.8 g/dL (3.5-5.2); Alkaline Phosphatase 106 IU/L (40-130); Anion Gap 15.7 (5-19); Aspartate Amino Transferase 26 U/L (0-40); Blood Urea Nitrogen 8 mg/dL (6-20); Calcium 8.9 mg/dL (8.5-10.5); Carbon Dioxide 26 mmol/L (22-29); Chloride 95 mmol/L (98-107); Creatinine Clr Calc Pharmacy 155.2755; Globulin 3.9 g/dL (1.3-4.6); Glomerular Filtration Rate 171.4 mL/min (90-130); Glucose 146 mg/dL (65-115); Osmolality Calculated 277 mOsm/kg (285-295); Potassium 3.7 mmol/L (3.5-5.1); Sodium 133 mmol/L (136-145); Total Bilirubin 0.2 mg/dL (0.15-1.2); Total Protein 6.7 g/dL (6.6-8.7)
[2021-03-08 07:51] VITALS: BP 112/68; PULSE 123; RESP 22; TEMP 36.7; O2SAT 93
[2021-03-08 09:35] VITALS: PULSE 122; RESP 18; O2SAT 87
[2021-03-08 15:46] VITALS: BP 143/90; PULSE 117; RESP 20; TEMP 36.7; O2SAT 96
[2021-03-08 20:00] VITALS: BP 146/92; PULSE 112; RESP 18; TEMP 36.7; O2SAT 95
--- NOTE | 2021-03-08 21:33 | PC.NURSE ---
i reported high pulse 112 to nurse
--- NOTE | 2021-03-08 21:46 | P.PN_ITS ---
Subjective Subjective: Interval history: Rash on the shoulder continues to improve. Some rash on the thighs more proximal to the knees which he continues to scratch. Discussed with him results of MBS with noted laryngeal penetration with all liquids. Vitals/I&O/Wt Last Vital Signs Temp 98.1 F 03/08/21 20:00 Pulse 112 H 03/08/21 20:00 Resp 18 03/08/21 20:00 BP 146/92 03/08/21 20:00 Pulse Ox 95 03/08/21 20:00 03/08/21 03/08/21 03/08/21 06:59 14:59 22:59 Intake Total 660 / 660 Output Total 400 / 750 400 / 400 400 / 800 Balance -400 / -5.5 260 / 260 -400 / -140 Physical Exam Const: COMMON NORMALS: no acute distress and patient oriented x3 GENERAL APPEARANCE: disheveled HENMT: COMMON NORMALS: oropharynx normal Neck/C-Spine: COMMON NORMALS: no JVD Resp: COMMON NORMALS: normal respiratory effort and clear to auscultation bilaterally AUSCULTATION: clear to auscultation bilaterally Cardio: COMMON NORMALS: no JVD, regular rhythm, S1 normal heart sound present, S2 normal heart sound present and No murmurs present (Cardio) RHYTHM: regular rhythm HEART SOUNDS: S1 normal heart sound present and S2 normal heart sound present GI: COMMON NORMALS: Normal to inspection, nondistended, normoactive bowel sounds present, Soft to palpation and non-tender PALPATION: Yes Soft to palpation Extremity: COMMON NORMALS: no joint enlargement and no pedal edema Neuro: COMMON NORMALS: patient oriented x3 and moves all extremities Skin: COMMON NORMALS: no rashes or lesions noted GENERAL SKIN EXAM: no rashes or lesions noted RASHES: rashes noted (Maculopapular rash over left shoulder, left arm, reports nonpurulent, pruri) OTHER: Wounds of LE improving slowly with granulation tissue, however, excoriated areas now present on proximal thighs. L arm rash improving. No surrounding erythema. No undermining or tunneling. Data : 03/08/21 06:45 03/08/21 06:45 A&P Assessment and plan (1) Hypereosinophilic syndrome: Still unclear cause of hypereosinophilia. Hemoglobin was checked not low. Mildly elevated IgA. Strongyloides serology pending. Skin biopsy pending. Follow-up results. Does appear to have tinea cruris with involvement of groin, testes, upper thighs . Add terbinafine cream, fluconazole p.o. weekly. Upper and lower endoscopy done, without finding of malignancy. Mild gastritis. Few polyps in the colon. Persistent eosinophilia, with worsening despite broad-spectrum antibiotic coverage with Zosyn, vancomycin. Eosinophils up to 2200/mcL currently. Nontender clear whether this is primary or secondary. Features that may support primary is monocytosis, neutrophilia, basophilia, other abnormalities noted on peripheral smear. However, could also be reactive. Does have open wounds. CRP is somewhat elevated. Has undergone antibiotic treatment for pseudomonal, MRSA infections as per sensitivities. Requested Strongyloides serology. Stool ova and parasites negative. Follow-up leukemia/lymphoma flow cytometry -no overtly aberrant myeloid or lymphoid populations detected. Additionally with iron deficiency anemia, positive Hemoccult, will discuss regarding endoscopic evaluation to exclude solid malignancy of GI tract possibly causing the symptoms. In case steroid treatment is undertaken for hypereosinophilia would cover for possible Strongyloides empirically given homeless lifestyle preadmission, was living in a shack. Follow-up with hematology in office. Status: Acute (2) Anemia: Endoscopic evaluation with noted mild inflammation on EGD, few polyps on colonoscopy. Continue iron supplementation. Multifactorial anemia, combination iron deficiency, requested iron supplementation, as well as anemia chronic disease. DEMETRICE possibly contributing to thrombocytosis. Appears to have GI blood loss. Continue PPI. Status: Chronic Qualifiers: Anemia type: unspecified type Qualified Code(s): D64.9 - Anemia, unspecified (3) Maculopapular rash: Improving on his arm, however, having some excoriations that are new on thighs. Will additionally add terbinefine ointment as he appears to also have tinea cruris plus fluconazole once weekly due to extent. Eczematous appearance of the rash. He denies any allergies. There are no oral rashes/lesions. Zosyn, Vanco have been discontinued as he is completed his course. Stopped also Lasix, Protonix in case they are contributing. Lovenox. His chlordiazepoxide is discontinued as well. We will monitor him with the de-escalated medications. Assess for any recurrence of the rash. Discussed with him he may benefit from follow-up with dermatology. Status: Acute (4) Cellulitis of both lower extremities: Skin biopsy obtained given persistent leukocytosis, eosinophilia, other rash. Suspect also a large component of severe venous stasis. Does have history of DVT in July. Previously on anticoagulation. No DVT noted on current duplex. Does have some persistent sinus tachycardia, some dyspnea. Discussed with him assessment additionally by CT angiogram chest to exclude PE. Will be referred for follow-up with wound care and dermatology. Sepsis resolved. Although persistent leukocytosis, rather high, up to 31.7. But also with eosinophils, monocytes. Discussed with pathology, leukemia/lymphoma panel sent. Continue wound care. LE elevation. Wound culture consistent with MRSA and Pseudomonas. Completed vancomycin and Zosyn as per sensitivities. Status: Acute (5) Hypoxia: CT obtained. No PE. Noted worsening LLL pneumonia. Will obtain MBS for possibility of aspiration. Requested sputum culture. Pending bacterial antigens. Levaquin, doxycycline. Status: Acute (6) Thrombocytosis: Possibly reactive secondary to DEMETRICE. Give p.o. iron replacement. Status: Acute (7) Leukocytosis: Persistent leukocytosis with all the lines up including neutrophils, mono cells, eosinophils and basophils. Platelet count up as well. Peripheral smear discussed with pathology. As per recommendation submitted leukemia/lymphoma flow cytometry. 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 Continue with beta-richar. Continue patient on lisinopril 5 mg daily Status: Chronic Qualifiers: Cardiomyopathy type: alcoholic Qualified Code(s): I42.6 - Alcoholic cardiomyopathy (9) Nicotine dependence, cigarettes, with other nicotine-induced disorders: Status: Chronic (10) Alcoholism: Resolved. Continue with CIWA protocol. He does not appear to be in withdrawal. DC CIWA protocol. Weaned off Librium. Status: Chronic (11) Peripheral vascular disease: Status: Chronic (12) Hyponatremia: Better. 135. Acute on chronic. Regular diet. Status: Inactive (13) COPD (chronic obstructive pulmonary disease): Not acutely exacerbated Status: Chronic Qualifiers: COPD type: unspecified COPD Qualified Code(s): J44.9 - Chronic obstructive pulmonary disease, unspecified Additional A&P Information Full code. Discharge planning: Continuing to work on post discharge disposition. Placement to SNF. Attestations 2 Medical Necessity Statement*: Continue assessment management of hypereosinophilic syndrome suspected secondary, rash, lower extremity wounds. 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
[2021-03-08] MEDS: fluconazole 100 mg Tablet 150 MG PO (22:44)
[2021-03-09] VITALS (8 sets, daily range): BP systolic 125–142; BP diastolic 71–95; PULSE 95–114; RESP 17–18; TEMP 36.6–36.8; O2SAT 91–98
--- NOTE | 2021-03-09 00:48 | PC.NURSE ---
i reported high pulse 102 to nurse
--- NOTE | 2021-03-09 05:40 | PC.NURSE ---
i reported high pulse 108 to nurse
[2021-03-09 08:00] LABS: Basophils # 0.2 10^3/uL (0.0-0.1); Eosinophils % 9.6 %; Hematocrit 29.7 % (42.0-52.0); Hemoglobin 9.5 g/dL (11.7-16.6); Lymphocytes # 3.4 10^3/uL (0.8-4.8); Lymphocytes % 16.1 %; Mean Corpuscular Hemoglobin 25.7 pg (28.0-34.0); Mean Corpuscular Volume 80.5 fl (80-94); Mean Platelet Volume 8.5 fL (7.4-10.4); Monocytes # 3.1 10^3/uL (0.2-0.9); Monocytes % 14.9 %; Neutrophils # 11.77 10^3/uL (1.8-7.7); Neutrophils % 55.7 %; Nucleated Red Blood Cells % 0 %; Platelet Count 1083 10^3/cmm (130-400); Red Blood Count 3.69 10^6/uL (4.1-5.3); Red Cell Distribution Width 18.6 % (12.1-15.1); White Blood Count 21.1 10^3/uL (4.0-10.0)
[2021-03-09 08:23] LABS: Alanine Aminotransferase 46 U/L (0-41); Alkaline Phosphatase 115 IU/L (40-130); Aspartate Amino Transferase 24 U/L (0-40); Blood Urea Nitrogen 6 mg/dL (6-20); Calcium 9.4 mg/dL (8.5-10.5); Carbon Dioxide 28 mmol/L (22-29); Chloride 94 mmol/L (98-107); Globulin 4.2 g/dL (1.3-4.6); Glomerular Filtration Rate 221.7 mL/min (90-130); Glucose 106 mg/dL (65-115); Osmolality Calculated 272 mOsm/kg (285-295); Sodium 132 mmol/L (136-145); Total Bilirubin 0.2 mg/dL (0.15-1.2); Total Protein 7.2 g/dL (6.6-8.7)
--- NOTE | 2021-03-09 08:50 | PC.NURSE ---
refused scheduled Lamisil ointment this morning, pt stated no! I don't need it now, maybe later!
--- NOTE | 2021-03-09 18:17 | PC.NURSE ---
cont to refuse dressing change to bilateral lower extremities & Lamisil cream
--- NOTE | 2021-03-09 20:42 | P.PN_ITS ---
Subjective Subjective: Interval history: He is doing a little better. Is not very much enjoying the thickened PE. Continues being tempted to scratch his rash. Vitals/I&O/Wt Last Vital Signs Temp 98.0 F 03/09/21 16:00 Pulse 112 H 03/09/21 16:00 Resp 18 03/09/21 16:00 BP 127/81 03/09/21 16:00 Pulse Ox 94 03/09/21 16:00 03/09/21 03/09/21 03/09/21 06:59 14:59 22:59 Intake Total 480 / 1140 240 / 240 Output Total 1000 / 1800 375 / 375 400 / 775 Balance -520 / -660 -135 / -135 -400 / -535 Physical Exam Const: COMMON NORMALS: no acute distress GENERAL APPEARANCE: cooperative and disheveled HENMT: COMMON NORMALS: oropharynx normal Neck/C-Spine: COMMON NORMALS: no JVD Resp: COMMON NORMALS: normal respiratory effort and clear to auscultation bilaterally AUSCULTATION: clear to auscultation bilaterally Cardio: COMMON NORMALS: no JVD, regular rhythm, S1 normal heart sound present, S2 normal heart sound present and No murmurs present (Cardio) RHYTHM: regular rhythm HEART SOUNDS: S1 normal heart sound present and S2 normal heart sound present GI: COMMON NORMALS: Normal to inspection, nondistended, normoactive bowel sounds present, Soft to palpation and non-tender PALPATION: Yes Soft to palpation Extremity: COMMON NORMALS: no joint enlargement and no pedal edema Neuro: COMMON NORMALS: moves all extremities Skin: COMMON NORMALS: no rashes or lesions noted GENERAL SKIN EXAM: no rashes or lesions noted and dry skin (Dry, scaly skin over both feet better after moisturizer) RASHES: rashes noted (Maculopapular rash over left shoulder, left arm, reports nonpurulent, pruri) OTHER: Wounds of LE improving slowly with granulation tissue, however, excoriated areas now present on proximal thighs. Red raw appearing patches in the groin, some erythema extending of the scrotum. L arm rash improving. 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 No overtly aberrant myeloid or lymphoid populations on flow cytometry. Started on terbinafine, weekly oral fluconazole (first dose 03/08) due to integumentary fungal infection with tinea cruris, possibly with other locations related to this as well. Strongyloides serology pending. Stool ova and parasite screen was negative. Skin biopsy pending. Follow-up results. Noted pneumonia on CTA chest. Empirically on Levaquin, doxycycline. With noted penetration with all liquid consistencies on MBS. Dysphagia diet. Continue speech therapy follow-up. Mild decrease in eosinophil count today to 2000/mcL. Immunoglobulins checked and not low. Mildly elevated IgA. Upper and lower endoscopy done, without finding of malignancy. Mild gastritis. Few polyps in the colon. Persistent eosinophilia despite broad-spectrum antibiotic coverage with Zosyn, vancomycin for lower extremity wounds, cellulitis. Additionally with iron deficiency anemia, positive Hemoccult, will discuss regarding endoscopic evaluation to exclude solid malignancy of GI tract possibly causing the symptoms. In case steroid treatment is undertaken for hypereosinophilia would cover for possible Strongyloides empirically given homeless lifestyle preadmission, was living in a shack. Per report sister had said was defecating on the floor. Follow-up with hematology in office. Status: Acute (2) Anemia: Hemoccult was positive. Endoscopic evaluation with noted mild inflammation on EGD, few polyps on colonoscopy. Continue PPI. Continue iron supplementation. Overall multifactorial anemia, combination iron deficiency, requested iron supplementation, as well as anemia chronic disease. DEMETRICE possibly contributing to thrombocytosis. Status: Chronic Qualifiers: Anemia type: unspecified type Qualified Code(s): D64.9 - Anemia, unspecified (3) Maculopapular rash: Improving on his arm, however, having some excoriations that are new on thighs. Started on terbinefine ointment as he appears to also have tinea cruris plus fluconazole once weekly due to extent. Eczematous appearance of the rash. He denies any allergies. There are no oral rashes/lesions. Zosyn, Vanco have been discontinued as he is completed his course. Stopped also Lasix, Protonix in case they are contributing. Lovenox. His chlordiazepoxide is discontinued as well. We will monitor him with the de-escalated medications. Assess for any recurrence of the rash. Discussed with him he may benefit from follow-up with dermatology. Status: Acute (4) Cellulitis of both lower extremities: Skin biopsy obtained given persistent leukocytosis, eosinophilia, other rash. Suspect also a large component of severe venous stasis. Does have history of DVT in July. Previously on anticoagulation. No DVT noted on current duplex. Does have some persistent sinus tachycardia, some dyspnea. Discussed with him assessment additionally by CT angiogram chest to exclude PE. Will be referred for follow-up with wound care and dermatology. Sepsis resolved. Although persistent leukocytosis, rather high, up to 31.7. But also with eosinophils, monocytes. Discussed with pathology, leukemia/lym phoma panel sent. Continue wound care. LE elevation. Wound culture consistent with MRSA and Pseudomonas. Completed vancomycin and Zosyn as per sensitivities. Status: Acute (5) Hypoxia: CTA obtained. No PE. Noted worsening LLL pneumonia. Noted penetration with all liquid consistencies on MBS. Dysphagia diet. Continue speech therapy follow-up. Requested sputum culture. Pending bacterial antigens. Levaquin, doxycycline. Status: Acute (6) Thrombocytosis: Possibly reactive secondary to DEMETRICE. Give p.o. iron replacement. Status: Acute (7) Leukocytosis: Persistent leukocytosis with all the lines up including neutrophils, mono cells, eosinophils and basophils. Platelet count up as well. Peripheral smear discussed with pathology. As per recommendation submitted leukemia/lymphoma flow cytometry. 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 Continue with beta-richar. Continue patient on lisinopril 5 mg daily Status: Chronic Qualifiers: Cardiomyopathy type: alcoholic Qualified Code(s): I42.6 - Alcoholic cardiomyopathy (9) Nicotine dependence, cigarettes, with other nicotine-induced disorders: Status: Chronic (10) Alcoholism: Resolved. Continue with CIWA protocol. He does not appear to be in withdrawal. DC CIWA protocol. Weaned off Librium. Status: Chronic (11) Peripheral vascular disease: Status: Chronic (12) Hyponatremia: Better. Acute on chronic. Regular diet. Status: Inactive (13) COPD (chronic obstructive pulmonary disease): Not acutely exacerbated Status: Chronic Qualifiers: COPD type: unspecified COPD Qualified Code(s): J44.9 - Chronic obstructive pulmonary disease, unspecified (14) Pneumonia: Noted worsening pneumonia on CTA. Continues to require 3 L of oxygen. Levaquin, doxycycline. Noted penetration with all liquid consistencies on MBS. Dysphagia diet. Continue speech follow-up. Status: Acute Additional A&P Information Full code. Discharge planning: Continuing to work on post discharge disposition. Placement to SNF. Attestations Medical Necessity Statement*: Continue admission for assessment management of hyper eosinophilia, lower extremity wounds, maculopapular rash, pneumonia with aspiration, tinea cruris and additional comorbidities as above. 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
--- NOTE | 2021-03-09 21:03 | PC.NURSE ---
i reported high pulse 114 to nurse
[2021-03-09] MEDS: acetaminophen 325 mg Tablet 650 MG PO (21:09)
[2021-03-09] MEDS: metoprolol tartrate 50 mg Tablet PO (22:18)
[2021-03-10] VITALS (9 sets, daily range): BP systolic 116–143; BP diastolic 65–84; PULSE 89–112; RESP 16–24; TEMP 36.6–36.9; O2SAT 97–99
[2021-03-10] MEDS: heparin 5,000 unit/mL INJ 1 mL 5000 UNIT SUBCUT ×3 (03:23→20:18)
[2021-03-10] MEDS: levoFLOXacin 750 mg Tablet PO (05:12)
[2021-03-10] MEDS: acetaminophen 325 mg Tablet 650 MG PO (05:13)
--- NOTE | 2021-03-10 06:34 | PC.NURSE ---
SHIFT SUMMARY Has been awake all night and now this morning tells me he wants to be left alone so he can sleep. Has requested multiple things to eat & drink tonight. Voiding per urinal. Received Tylenol X2 for c/o generalized pain. Says he just hurts all over. Required new IV start at beginning of shift. Is pleasant at times and carries on a conversation and other times just c/o and not so pleasant. Has rash over body which he says is itchy. Was lotioned well which he said helped. Dressings to BLE. Aloe Charlo ointment applied to feet which are very dry & scaley
[2021-03-10 06:44] LABS: Basophils # 0.2 10^3/uL (0.0-0.1); Eosinophils # 2.3 10^3/uL (0.0-0.8); Eosinophils % 9.8 %; Hematocrit 29.4 % (42.0-52.0); Hemoglobin 9.4 g/dL (11.7-16.6); Lymphocytes % 12.5 %; Mean Corpuscular Hemoglobin 25.5 pg (28.0-34.0); Mean Corpuscular Volume 79.7 fl (80-94); Mean Platelet Volume 8.7 fL (7.4-10.4); Monocytes # 3.5 10^3/uL (0.2-0.9); Monocytes % 14.8 %; Neutrophils # 14.16 10^3/uL (1.8-7.7); Neutrophils % 59.7 %; Nucleated Red Blood Cells % 0 %; Platelet Count 1273 10^3/cmm (130-400); Red Blood Count 3.69 10^6/uL (4.1-5.3); Red Cell Distribution Width 18.4 % (12.1-15.1); White Blood Count 23.8 10^3/uL (4.0-10.0)
[2021-03-10 07:14] LABS: Alanine Aminotransferase 42 U/L (0-41); Albumin Level 3.2 g/dL (3.5-5.2); Alkaline Phosphatase 100 IU/L (40-130); Anion Gap 14.5 (5-19); Aspartate Amino Transferase 24 U/L (0-40); Blood Urea Nitrogen 8 mg/dL (6-20); Calcium 9.3 mg/dL (8.5-10.5); Carbon Dioxide 28 mmol/L (22-29); Chloride 95 mmol/L (98-107); Creatinine Clr Calc Pharmacy 155.2755; Globulin 3.8 g/dL (1.3-4.6); Glomerular Filtration Rate 171.4 mL/min (90-130); Glucose 98 mg/dL (65-115); Osmolality Calculated 274 mOsm/kg (285-295); Potassium 4.5 mmol/L (3.5-5.1); Sodium 133 mmol/L (136-145); Total Bilirubin 0.2 mg/dL (0.15-1.2)
[2021-03-10] MEDS: multivitamin therapeutic Tablet 1 TAB PO (08:29)
[2021-03-10] MEDS: folic acid 1 mg Tablet PO (08:29)
[2021-03-10] MEDS: ferrous sulfate EC 325 mg Tablet PO ×2 (08:29→17:21)
[2021-03-10] MEDS: nicotine 21 mg Patch 1 PATCH TRANSDERMA (08:29)
[2021-03-10] MEDS: thiamine 100 mg Tablet PO (08:29)
[2021-03-10] MEDS: lisinopril 5 mg Tablet PO (08:29)
[2021-03-10] MEDS: doxycycline 100 mg Tablet PO ×2 (08:29→17:21)
[2021-03-10] MEDS: metoprolol tartrate 50 mg Tablet PO ×2 (08:29→20:18)
--- NOTE | 2021-03-10 10:48 | PC.NURSE ---
Patient is refusing at this time to allow this nurse to change the dressing to his legs. Dr. Chaves notified.
--- NOTE | 2021-03-10 13:15 | PC.NURSE ---
Patient continues to refuse to allow this nurse to change his leg dressing. Patient is upset because he did not receive any oatmeal with his lunch. Patient states, I have money I should be able to get what I want and I want oatmeal with every meal. Explained to patient that I will call dietary and ask them to send him oatmeal with dinner.
--- NOTE | 2021-03-10 14:48 | P.PN_ITS ---
Subjective Subjective: Interval history: Johan reports he is doing okay. Rash is about the same. Medications: Reviewed: Yes Medication Review Details: I personally reviewed home medication list and medications received day of admission thus far. Vitals/I&O/Wt Last Vital Signs Temp 98.1 F 03/10/21 12:00 Pulse 103 H 03/10/21 12:00 Resp 18 03/10/21 12:00 BP 116/69 03/10/21 12:00 Pulse Ox 97 03/10/21 12:00 03/09/21 03/10/21 03/10/21 22:59 06:59 14:59 Intake Total 360 / 600 2040 / 2640 Output Total 700 / 1075 1500 / 2575 250 / 250 Balance -340 / -475 540 / 65 -250 / -250 Physical Exam Narrative: EXAM NARRATIVE: General exam no apparent distress Neck supple Cardiovascular regular rate and rhythm Lungs coarse breath sounds at the bases Abdomen is soft with positive bowel sounds Extremities bilateral dressings in place. Edema improved from the last time I saw him. Maculopapular rashes present on abdomen and arms. 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 No overtly aberrant myeloid or lymphoid populations on flow cytometry. Awaiting punch biopsy of skin Started on terbinafine, weekly oral fluconazole (first dose 03/08) due to integumentary fungal infection with tinea cruris, possibly with other locations related to this as well. Strongyloides serology pending. Stool ova and parasite screen was negative. Immunoglobulins checked and not low. Mildly elevated IgA. Will need outpatient hematology follow-up. Status: Acute (2) Anemia: Hemoccult was positive. Endoscopic evaluation with noted mild inflammation on EGD, few polyps on colonoscopy. Pepcid p.o. Continue iron supplementation. Multifactorial Status: Chronic Qualifiers: Anemia type: unspecified type Qualified Code(s): D64.9 - Anemia, unspecified (3) Maculopapular rash: Unnoticed because Await skin biopsy results Will need outpatient dermatology follow-up. Status: Acute (4) Cellulitis of both lower extremities: Suspect also a large component of severe venous stasis. Does have history of DVT in July. Previously on anticoagulation. No DVT noted on current duplex. Await skin biopsy Will need referred to wound care and dermatology on follow-up Sepsis is resolved Wound culture had MRSA and Pseudomonas and he has finished vancomycin and Zosyn treatments Status: Acute (5) Hypoxia: CTA negative for pulmonary embolism Does have aspiration on modified barium swallow Currently on on Levaquin and doxycycline Status: Acute (6) Thrombocytosis: Possibly secondary to iron deficiency Status: Acute (7) Leukocytosis: Flow cytometry negative Consider outpatient hematology follow-up Eosinophilia, leukocytosis and thrombocytosis persists. 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 Continue beta-richar and DARIUSZ inhibitor Status: Chronic Qualifiers: Cardiomyopathy type: alcoholic Qualified Code(s): I42.6 - Alcoholic cardiomyopathy (9) Nicotine dependence, cigarettes, with other nicotine-induced disorders: Status: Chronic (10) Alcoholism: Resolved. No evidence of withdrawal currently. He has been weaned off CIWA protocol and Librium Status: Chronic (11) Peripheral vascular disease: Status: Chronic (12) Hyponatremia: Improved, acute on chronic Status: Inactive (13) COPD (chronic obstructive pulmonary disease): No evidence of acute exacerbation Status: Chronic Qualifiers: COPD type: unspecified COPD Qualified Code(s): J44.9 - Chronic obstructive pulmonary disease, unspecified (14) Pneumonia: Currently on 3 L of oxygen. On Levaquin and doxycycline. Overall stable. Has some penetration with all liquid consistencies on modified barium swallow. Needs continued speech therapy. Status: Acute Additional A&P Information Full code [facility] facility placement planned. Heparin for DVT prophylaxis. Attestations Medical Necessity Statement*: Needs continued hospital stay for close monitoring with antibiotics for pneumonia as well as oxygen in this patient with poor social situation pending placement. 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
[2021-03-10] MEDS: famotidine 20 mg Tablet PO (17:21)
[2021-03-11] MEDS: heparin 5,000 unit/mL INJ 1 mL 5000 UNIT SUBCUT (03:18)
[2021-03-11 03:22] VITALS: BP 142/77; PULSE 109; RESP 24; TEMP 36.9; O2SAT 93
[2021-03-11] MEDS: levoFLOXacin 750 mg Tablet PO (05:21)
--- NOTE | 2021-03-11 05:49 | PC.NURSE ---
SHIFT SUMMARY Has been awake much of the night watching TV. Says he doesn't have one to watch since not living with sister anymore. Asks freq for snacks, drinks. Has had X2 BM's this shift. One on bedpan and once incont. Voids per urinal. Has rash over body and is very red in groins/scrotum/buttocks areas. Applying lotion for itching. Dressings to BLE. Using ALoe Rosman ointment to dry/scaley feet.
[2021-03-11 06:43] LABS: Basophils # 0.3 10^3/uL (0.0-0.1); Basophils % 1.2 %; Eosinophils # 2.2 10^3/uL (0.0-0.8); Eosinophils % 9.6 %; Hematocrit 31.9 % (42.0-52.0); Lymphocytes # 3.4 10^3/uL (0.8-4.8); Lymphocytes % 14.5 %; Mean Corpuscular HGB Conc 31.3 g/dL (30.0-36.0); Mean Corpuscular Hemoglobin 25.6 pg (28.0-34.0); Mean Corpuscular Volume 81.6 fl (80-94); Mean Platelet Volume 8.5 fL (7.4-10.4); Monocytes # 3.6 10^3/uL (0.2-0.9); Monocytes % 15.6 %; Neutrophils # 13.07 10^3/uL (1.8-7.7); Neutrophils % 56.6 %; Nucleated Red Blood Cells % 0 %; Platelet Count 1180 10^3/cmm (130-400); Red Blood Count 3.91 10^6/uL (4.1-5.3); Red Cell Distribution Width 18.7 % (12.1-15.1); White Blood Count 23.1 10^3/uL (4.0-10.0)
[2021-03-11 07:02] LABS: Alanine Aminotransferase 37 U/L (0-41); Albumin Level 2.8 g/dL (3.5-5.2); Alkaline Phosphatase 99 IU/L (40-130); Anion Gap 11.3 (5-19); Aspartate Amino Transferase 24 U/L (0-40); Blood Urea Nitrogen 11 mg/dL (6-20); Calcium 9.3 mg/dL (8.5-10.5); Carbon Dioxide 29 mmol/L (22-29); Chloride 96 mmol/L (98-107); Globulin 4.2 g/dL (1.3-4.6); Glomerular Filtration Rate 138.9 mL/min (90-130); Glucose 96 mg/dL (65-115); Osmolality Calculated 273 mOsm/kg (285-295); Potassium 4.3 mmol/L (3.5-5.1); Sodium 132 mmol/L (136-145); Total Bilirubin 0.2 mg/dL (0.15-1.2)
[2021-03-11 07:21] VITALS: BP 121/79; PULSE 110; RESP 17; TEMP 36.8; O2SAT 98
[2021-03-11] MEDS: doxycycline 100 mg Tablet PO (09:17)
[2021-03-11] MEDS: lisinopril 5 mg Tablet PO (09:18)
[2021-03-11] MEDS: ferrous sulfate EC 325 mg Tablet PO (09:18)
[2021-03-11] MEDS: famotidine 20 mg Tablet PO (09:18)
[2021-03-11] MEDS: thiamine 100 mg Tablet PO (09:18)
[2021-03-11] MEDS: multivitamin therapeutic Tablet 1 TAB PO (09:18)
[2021-03-11] MEDS: folic acid 1 mg Tablet PO (09:18)
[2021-03-11] MEDS: nicotine 21 mg Patch 1 PATCH TRANSDERMA (09:19)
[2021-03-11] MEDS: acetaminophen 325 mg Tablet 650 MG PO (09:20)
--- NOTE | 2021-03-11 09:30 | PC.NURSE ---
Patient is refusing to have his dressings changed at this time. Will attempt to change them later.
[2021-03-11] MEDS: terbinafine 1% Cream 15 gm 1 APPLIC TOPICAL (10:00)
[2021-03-11 10:04] VITALS: PULSE 117; RESP 18; O2SAT 98
[2021-03-11 10:54] VITALS: BP 126/77; PULSE 62; RESP 18; TEMP 36.4; O2SAT 100
--- NOTE | 2021-03-11 10:55 | PM.DCS ---
Discharge Providers Date of Admission: 02/22/21 01:20 Date of Discharge: March 11, 2021 Attending Provider at Admission: Dhara Maldonado MD Attending Provider at Discharge: Prakash Chaves MD Diagnoses at Discharge Discharge Diagnosis (1) Hypereosinophilic syndrome: Status: Acute (2) Anemia: Status: Chronic Qualifiers: Anemia type: unspecified type Qualified Code(s): D64.9 - Anemia, unspecified (3) Maculopapular rash: Status: Acute (4) Cellulitis of both lower extremities: Status: Acute (5) Hypoxia: Status: Acute (6) Thrombocytosis: Status: Acute (7) Leukocytosis: Status: Acute (8) Cardiomyopathy: Status: Chronic Permanent problem details: Echocardiogram done in July 2020 shows moderately reduced LV function with global hypokinesis Qualifiers: Cardiomyopathy type: alcoholic Qualified Code(s): I42.6 - Alcoholic cardiomyopathy (9) Nicotine dependence, cigarettes, with other nicotine-induced disorders: Status: Chronic (10) Alcoholism: Status: Chronic (11) Peripheral vascular disease: Status: Chronic (12) COPD (chronic obstructive pulmonary disease): Status: Chronic Qualifiers: COPD type: unspecified COPD Qualified Code(s): J44.9 - Chronic obstructive pulmonary disease, unspecified (13) Pneumonia: Status: Acute Reason for Visit Reason for Visit: LEG PAIN Hospital Course Hospital Course Johan is a 55-year-old white male who admitted to the hospital on February 21 with pain and swelling to his lower extremities. He had not been doing any kind of significant wound care. He was admitted, found to be hyponatremic, and found to have cellulitis of his lower extremities. He was placed on vancomycin and Zosyn, CIWA protocol initiated and appropriate vitamin such as thiamine, folate and multivitamin. Consultation with surgery was obtained which recommended follow-up in wound care clinic. Podiatry was also consulted who did not believe osteomyelitis was present and recommended specific dressing changes. Throughout this course, multiple other studies were performed secondary to the patient's persistent leukocytosis and anemia and he eventually had a CT abdomen pelvis and chest which demonstrated no evidence of infection. Medications were adjusted for blood pressure. He was treated for alcohol withdrawal with Librium and CIWA protocol. Surgery was again counseled and stood for biopsy of a rash that was persistent. Patient also underwent EGD and colonoscopy secondary to anemia. EGD demonstrated some mild gastritis. Colonoscopy demonstrated a few polyps. Skin biopsy at this point is still pending. White blood cell count is elevated at 23,000, but stable. Anemia is present and hemoglobin is 10 and stable. Platelet count is 1180, thought to be reactive secondary to iron deficiency anemia. Electrolytes are stable and sodium is 132. Dietary recommendations to reduce aspiration are based on modified barium swallow. He did receive treatment with an adequate course in hospital for MRSA and Pseudomonas that was cultured from his wounds. He will finish up 7 more days of Levaquin and doxycycline for left lung base pneumonia. He will follow-up with multiple subspecialties including wound clinic, dermatology, primary care provider at [facility], hematology for his persistent leukocytosis and thrombocytosis. Physical Exam Narrative: EXAM NARRATIVE: General exam no distress, afebrile Oxygen saturation 100% on 3 L Blood pressure 126/77 Heart rate 62 Neck is supple no lymphadenopathy thyromegaly Cardiovascular regular rate and rhythm without murmur Lungs clear but with diminished breath sounds bilaterally Abdomen is soft with positive bowel sounds Extremities no cyanosis or clubbing. Trace to 1+ bilateral edema with xerosis and venous stasis wounds covered currently. Skin demonstrates a maculopapular rash noted on his upper extremities and abdomen and its most prominent sites. Discharge Data Data Completed and Pending: Completed Studies During Hospitalization Category Date Time Status CT angio chest PE protcl [id number] Rout ine Cat Scan 03/06/21 11:[address] chest abd pel w con* Routine Cat Scan 02/28/21 01:42 Completed FL barium swallow modifd [id number] Rout ine Exams 03/07/21 12:48 Completed XR chest 1V kings ble [id number] Routine Exams 03/04/21 06:00 Completed XR chest 1V kings ble [id number] Routine Exams 03/05/21 11:28 Completed XR tibia fibula L T 2V 28220 Routine Exams 02/24/21 13:05 Completed XR tibia fibula R T 2V [id number] Routine Exams 02/24/21 13:05 Completed CV ankle brachial index 52000 Routi ne Ultrasound 02/24/21 09:55 [place] [id number] Urgent Ultrasound 02/21/21 21:29 Completed Pending at discharge Category Date Time Status Bacterial Antigen Routine Lab 03/04/21 13:43 Uncollected Complete Blood Co unt w/Auto AM LABS Lab 03/12/21 04:00 Ordered Comprehensive Met abolic Panel AM LA BS Lab 03/12/21 04:00 Ordered Legionella Antige n STAT Routine Lab 03/04/21 13:43 Uncollected Miscellaneous Radha t Routine Lab 03/06/21 05:52 Received Sputum Culture an d Gram Stain Routi ne Lab 03/04/21 13:43 Uncollected Sputum Culture an d Gram Stain Routi ne Lab 03/07/21 08:34 Uncollected Urinalysis Routin e Lab 03/05/21 11:28 Uncollected Pathology: Surgic al [PTH] Routine Pth 03/07/21 12:43 Received Labs from last 24 hours 03/11/21 03/11/21 06:18 06:18 WBC 23.1 H RBC 3.91 L Hgb 10.0 L Hct 31.9 L MCV 81.6 MCH 25.6 L MCHC 31.3 RDW 18.7 H Plt Count 1180 H MPV 8.5 Neut % (Auto) 56.6 Lymph % (Auto) 14.5 [place] % (Auto) 15.6 Eos % (Auto) 9.6 Baso % (Auto) 1.2 Neut # (Auto) 13.07 H Lymph # (Auto) 3.4 [place] # (Auto) 3.6 H Eos # (Auto) 2.2 H Baso # (Auto) 0.3 H Nucleated RBC % (a uto) 0 Nucleated RBCs # 0.0 Sodium 132 L Potassium 4.3 Chloride 96 L Carbon Dioxide 29 Anion Gap 11.3 BUN 11 Creatinine 0.6 L GFR Calculation 138.9 H Glucose 96 Calculated Osmolal ity 273 L Calcium 9.3 Total Bilirubin 0.2 AST 24 ALT 37 Alkaline Phosphata se 99 Total Protein 7.0 Albumin 2.8 L Globulin 4.2 Vitals: Last Vital Signs Temp 97.5 F L 03/11/21 10:54 Pulse 62 03/11/21 10:54 Resp 18 03/11/21 10:54 BP 126/77 03/11/21 10:54 Pulse Ox 100 03/11/21 10:54 Discharge Plan Discharge Patient Disposition: Xfer SNF Condition: Stable Prescriptions: New multivitamin with folic acid [Thera] 400 mcg Tablet 1 tab PO DAILY Qty: 30 RF: 0 ipratropium-albuterol 0.5 mg-3 mg(2.5 mg base)/3 mL Solution For Nebulization 3 ml inhalation Q4H PRN (Reason: Shortness Of Breath) Qty: 280 RF: 0 metoprolol tartrate 50 mg Tablet 50 mg PO BID@0900,2100 Qty: 60 RF: 0 doxycycline monohydrate 100 mg Tablet 100 mg PO BID Qty: 14 RF: 0 levofloxacin 750 mg Tablet 750 mg PO DAILY@0600 Qty: 7 RF: 0 folic acid 1 mg Tablet 1 mg PO DAILY Qty: 30 RF: 0 thiamine mononitrate (vit B1) [Vitamin B-1 (mononitrate)] 100 mg Tablet 100 mg PO DAILY Qty: 30 RF: 0 acetaminophen 325 mg Tablet 650 mg PO Q6H PRN (Reason: Mild/Mod Pain Or Temp >/= 101) Qty: 30 RF: 0 lisinopril 5 mg Tablet 5 mg PO DAILY Qty: 30 RF: 0 ferrous sulfate 325 mg (65 mg iron) Tablet,Delayed Release (Dr/Ec) 325 mg PO BIDWM Qty: 60 RF: 0 terbinafine HCl 1 % Cream 1 applic topical BID 10 Days Qty: 30 RF: 0 famotidine 20 mg Tablet 20 mg PO BID Qty: 60 RF: 0 Discontinued diphenhydramine HCl [Benadryl Allergy] 25 mg Tablet 50 mg PO BID PRN (Reason: Allergy Symptoms) RF: 0 aspirin 325 mg Tablet 325 mg PO Q4H PRN (Reason: Pain) RF: 0 doxycycline monohydrate 100 mg capsule 100 mg PO BID RF: 0 cephalexin 500 mg capsule 500 mg PO TID RF: 0 Referrals: SNF, Provider [Other] [facility] [Provider Group] - 1 week Wound Care [Provider Group] - 1 week Lexii Sanchez MD [Staff Physician] - 1 week (Eosinophilia) Discharge Diet: Regular Discharge Activity: Increase activity as tolerated, As per PT/OT instructions and Oxygen as instructed Activity Restrictions/Additional Instructions: 3 L of oxygen per nasal cannula titrate for sat greater than or equal to 92% Keep follow-up with all specialists CBC, CMP, follow-up with primary care provider at group home facility the next 3 to 5 days Dysphagia level 3 diet with nectar thick liquids Wound care instructions for lower extremities include cleansing with saline moist gauze, pat dry, apply Telfa to all wound beds and cover with ABD pads. Secure with Kerlix and tape. Discharge Attestations Time Spent in Discharge Care*: greater than 30 min Quality Metrics Clinical Quality Measures During this hospital stay, did patient experience: None Coding Level of Care Code Acute g FW DC note Diagnoses Hypereosinophilic syndrome D72.119 Anemia D64.9 Anemia type: unspecified type Maculopapular rash R21 Cellulitis of both lower extremities L03.115; L03.116 Hypoxia R09.02 Thrombocytosis D47.3 Leukocytosis D72.829 Cardiomyopathy I42.6 Cardiomyopathy type: alcoholic Nicotine dependence, cigarettes, with other nicotine-induced disorders F17.218 Alcoholism F10.20 Peripheral vascular disease I73.9 COPD (chronic obstructive pulmonary disease) J44.9 COPD type: unspecified COPD Pneumonia J18.9
--- NOTE | 2021-03-11 13:38 | PC.NURSE ---
Patient is refusing to have his dressings changed at this time. Will try again later.
--- NOTE | 2021-03-11 15:25 | PC.NURSE ---
Report to Layla HERNANDEZ at [facility] [phone] at this time.
[2021-03-11 15:33] VITALS: BP 135/88; PULSE 107; RESP 17; TEMP 36.4; O2SAT 100
--- NOTE | 2021-03-11 15:39 | PC.NURSE ---
Edna patient's daughter was called and updated with the facility name and phone number at this time.
--- NOTE | 2021-03-11 16:30 | PC.NURSE ---
Patient continues to refuse to allow this nurse to change his dressing to his bilateral legs. Patient is A&Ox3.
--- NOTE | 2021-03-11 17:50 | PC.NURSE ---
TRAMAINE was walking by patient's room and noticed that he was smoking in bed with his oxygen laying in the bed right bedside him. TRAMAINE notified this nurse and when I entered the room it smelled of smoke and the patient was dropping his design printer balloon down into his personal bag beside him. Patient's oxygne was turned off for awhile and his design printer balloon and cigarettes place at this nurses station until his discharge.
--- NOTE | 2021-03-11 18:35 | PC.NURSE ---
Patient assisted into a wheel chair at this time. Medicaid transportation here to take patient to [facility] at this time.
== END 2021-03-11 18:40 | disposition skilled nursing facility (03) | DRG 602 ==
LOC: ER 20:19 → ER IP 02-22 11:38 → MEDSURG 02-22 18:42
PROVIDERS: Emergency Medicine; Hospitalist; Internal Medicine; Student in an Organized Health Care Education/Training Program; Surgery; Admitting Provider Hospitalist; Emergency Provider Emergency Medicine; Visit Provider Internal Medicine
PROC: 0DJ08ZZ Inspection of Upper Intestinal Tract, Via Natural or Artificial Opening Endoscopic (ICD-10-PCS; CPT 43235; principal; 2021-03-07 12:00)
PROC: 0DJD8ZZ Inspection of Lower Intestinal Tract, Via Natural or Artificial Opening Endoscopic (ICD-10-PCS; CPT 45378; 2021-03-07 12:00)
DX: L03.116 Cellulitis of left lower limb (principal); J18.9 Pneumonia, unspecified organism; L97.221 Non-pressure chronic ulcer of left calf limited to breakdown of skin; L97.211 Non-pressure chronic ulcer of right calf limited to breakdown of skin; I42.6 Alcoholic cardiomyopathy; F10.239 Alcohol dependence with withdrawal, unspecified; E87.1 Hypo-osmolality and hyponatremia; L03.115 Cellulitis of right lower limb; I87.2 Venous insufficiency (chronic) (peripheral); R21 Rash and other nonspecific skin eruption; D50.9 Iron deficiency anemia, unspecified; B95.62 Methicillin resistant Staphylococcus aureus infection as the cause of diseases classified elsewhere; B96.5 Pseudomonas (aeruginosa) (mallei) (pseudomallei) as the cause of diseases classified elsewhere; D72.119 Hypereosinophilic syndrome [HES], unspecified; I73.9 Peripheral vascular disease, unspecified; M89.8X6 Other specified disorders of bone, lower leg; R09.02 Hypoxemia; D47.3 Essential (hemorrhagic) thrombocythemia; R00.0 Tachycardia, unspecified; B35.6 Tinea cruris; J44.9 Chronic obstructive pulmonary disease, unspecified; K29.70 Gastritis, unspecified, without bleeding; K63.5 Polyp of colon; R19.5 Other fecal abnormalities; F17.218 Nicotine dependence, cigarettes, with other nicotine-induced disorders; Z86.718 Personal history of other venous thrombosis and embolism; Z59.0 Homelessness; Z79.82 Long term (current) use of aspirin
CPT/HCPCS: 36415; 43235; 45380; 71045; 71260; 71275; 73590; 74177; 74230; 80048; 80053; 80202; 80500; 81003; 82274; 82607; 82746; 82784; 83540; 83550; 83605; 83630; 83735; 84100; 84145; 85007; 85025; 85610; 85651; 85730; 86140; 86682; 87040; 87070; 87075; 87077; 87186; 87205; 87426; 87493; 87506; 88184; 88185; 88304; 88305; 92523; 92610; 92611; 93005; 93922; 93970; 94640; 96365; 96367; 96372; 96375; 99285; J0743; J1644; J1650; J2060; J2270; J2543; J2704; J3370; J3411; J7030; Q9967